=== PATIENT | male | born 1960 | race Caucasian/White ===

== ENCOUNTER 2020-11-19 05:35 | Emergency (ER) | payer OTHER, SELFPAY ==
[2020-11-19] VITALS (12 sets, daily range): BP systolic 152–170; BP diastolic 110–124; PULSE 91–118; RESP 16–29; TEMP 37.7; O2SAT 90–97; BMI 23.6
--- NOTE | 2020-11-19 05:50 | XRR_ITS ---
PROCEDURE INFORMATION: Exam: XR Chest Exam date and time: 11/19/2020 5:52 AM Age: 60 years old Clinical indication: Shortness of breath; Additional info: SOB TECHNIQUE: Imaging protocol: XR of the chest Views: 1 view. COMPARISON: CR Chest 2 views* [id number] 08/07/2017 9:14 AM FINDINGS: Lungs: Single calcified pulmonary granuloma is present, consistent with prior granulomatous disease. Pleural spaces: Stable small left pleural effusion. Heart/Mediastinum: Mild cardiomegaly. Bones/joints: Unremarkable. Other findings: . XR/XR chest 1V portable [id number] IMPRESSION: Mild cardiomegaly. Stable small left pleural effusion.
--- NOTE | 2020-11-19 05:51 | ECG_ITS ---
[facility] Test Date: 2020-11-19 Pat Name: Jose Carlos Armendariz Department: Room: Gender: Male [place]: : 1960 Requested By: Tvein Monaco Order Number: [id number] Erma MD: Peter Paniagua M.D. Measurements Intervals [place] Rate: 111 P: 63 NC: 167 QRS: 28 QRSD: 98 T: 53 QT: 350 QTc: 476 Interpretive Statements SINUS TACHYCARDIA LEFT ATRIAL ENLARGEMENT [-0.15mV P WAVE IN V1/V2] POSSIBLE LEFT VENTRICULAR HYPERTROPHY [VOLTAGE CRITERIA PLUS LAE OR QRS WIDENING] NONSPECIFIC T-WAVE ABNORMALITY Compared to ECG 08/07/2017 14:51:25 Sinus rhythm no longer present Possible ischemia no longer present T-wave abnormality still present Electronically Signed On 11-19-2020 13:13:35 CDT by Peter Paniagua M.D. [id number]
--- NOTE | 2020-11-19 05:53 | ED_ITS ---
Documented by User: Tevin Navas, DO 11/19/20 05:59 HPI - SOB/Dyspnea General: Chief Complaint: Shortness of Breath/Dyspnea Stated Complaint: SOB Time Seen by Provider: 11/19/20 05:41 History of Present Illness: HPI Narrative: 60-year-old male with no definite prior history of COPD. He does have an inhaler, which he is out of. He notes increasing shortness of breath with dry cough for the past week. He notes wheezing, especially with lying down at night to sleep. He feels better sitting up. He has had a low-grade temp. Not necessarily any chills. He does not usually use oxygen at home. MD elicited complaint: shortness of breath and cough Pertinent past history: other Onset (ago): week(s) (1) Timing: constant and progressively worsening Severity: moderate Exacerbating factors: lying flat and exertion Relieving factors: nothing Associated symptoms: Reports chest congestion, cough, dizziness, fever(s), nausea and orthopnea; Deny chest pain, diaphoresis, extremity pain or hemoptysis Treatment prior to arrival: none Review of Systems Const: Reports: fever(s); Denies: diaphoresis Eyes: Denies: change in vision ENMT: Denies: odynophagia, swelling of lips/tongue or sinus pain Card: Reports: orthopnea; Denies: chest pain Resp: Reports: chest congestion; Denies: hemoptysis GI: Reports: nausea : Denies: difficulty urinating or hematuria Musc: Denies: extremity pain Skin/Breast: Denies: rash or erythema Neuro: Reports: dizziness Psych: Denies: anxiety Physical Exam Const: GENERAL APPEARANCE: well developed ORIENTATION/CONSCIOUSNESS: Yes oriented to person, Yes oriented to place and Yes oriented to time HENMT: COMMON NORMALS: normocephalic, external ears normal and Normal external nose present HEAD & SCALP: normocephalic FACE & SINUS: normal facial exam NOSE: Normal external nose present and No nasal discharge present EXTERNAL EAR: Yes external ears normal Eye: COMMON NORMALS: Equal, round and reactive pupils present, EOMs intact bilaterally and conjunctivae normal EYELID: eyelids normal CONJUNCTIVA: Yes conjunctivae normal PUPIL: Yes Equal, round and reactive pupils present Neck/C-Spine: GENERAL: No tracheal deviation Chest: COMMONS NORMALS: normal inspection of the chest CHEST: No tenderness Resp: COMMON NORMALS: negative for clear to auscultation bilaterally EFFORT & INSPECTION: Yes tachypneic, Yes respiratory distress, No retractions, Yes uses accessory muscles and No tracheal deviation AUSCULTATION: not clear to auscultation bilaterally, rhonchi, wheezes and diminished lung sounds Cardio: COMMON NORMALS: regular rhythm RATE: tachycardic RHYTHM: regular rhythm HEART SOUNDS: no murmurs PERIPHERAL PULSES: radial pulses present GI: INSPECTION: No abdominal distension AUSCULTATION: No Hyperactive bowel sounds present and No Hypoactive bowel sounds present PALPATION: No Guarding due to palpation present (GI) and No Rigid due to palpation PERCUSSION: no dullness to percussion and no tympanic to percussion Neuro: SENSORIUM/ORIENTATION: Yes oriented to person, Yes oriented to place and Yes oriented to time Psych: COMMON NORMALS: mental status grossly normal Skin: COMMON NORMALS: no rashes or lesions noted GENERAL SKIN EXAM: no rashes or lesions noted Course Vital Signs: Vital signs: Vital Signs Temperature 99.8 F H 11/19/20 05:41 Pulse Rate 93 11/19/20 10:30 Respiratory Rate 20 H 11/19/20 10:30 Blood Pressure 156/124 11/19/20 10:30 Pulse Oximetry 93 11/19/20 10:30 MDM - SOB/Dyspnea MDM Narrative: Medical decision making narrative: 60-year-old male short of breath. He has a temperature of 99.8 and is tachycardic. Labs and x-ray are pending. He will be checked out to Dr. West at shift change. Lab Data: Labs: Lab Results 11/19/20 11/19/20 11/19/20 Range/Units 05:56 06:18 06:20 WBC (4.0-10.0) 10^3/ uL RBC (4.1-5.3) 10^6/u L Hgb (11.7-16.6) g/dL Hct (42.0-52.0) % MCV (80-94) fL MCH (28.0-34.0) pg MCHC (30.0-36.0) g/dL RDW (12.1-15.1) % Plt Count (130-400) 10^3/c mm MPV (7.4-10.4) fL Neut % (Auto) % Lymph % (Auto) % [place] % (Auto) % Eos % (Auto) % Baso % (Auto) % Neut # (Auto) (1.8-7.7) 10^3/u L Lymph # (Auto) (0.8-4.8) 10^3/u L [place] # (Auto) (0.2-0.9) 10^3/u L Eos # (Auto) (0.0-0.8) 10^3/u L Baso # (Auto) (0.0-0.1) 10^3/u L Nucleated RBC % (a uto) % Nucleated RBCs # /100WBC D-Dimer (0-0.59) ug/mIFE U Specimen Type Arterial Sample Site Brachial, right ABG pH 7.40 (7.35-7.45) ABG pCO2 32.0 L (35-45) mmHg ABG pO2 74.6 L (80.0-100.0) mmH g ABG HCO3 19.9 L (22-26) mmol/L ABG Base Excess -3.9 L (-2.0-2.0) mmol/ L Melquiades Test N/a Hematocrit 42.2 (42-52) % Hgb O2 Saturation 92.5 L (95-100) % Carboxyhemoglobin 1.8 (0.4-20.1) %THgb Methemoglobin 0.8 (0.4-1.5) % Total Hemoglobin 13.8 L (14-18) g/dL O2 Delivery Device Room air FiO2 21.0 % Government Affairs Manager ID Harkr Sodium (136-145) mmol/L Potassium (3.5-5.1) mmol/L Chloride (98-107) mmol/L Carbon Dioxide (22-29) mmol/L Anion Gap (5-19) BUN (6-20) mg/dL Creatinine (0.7-1.2) mg/dL GFR Calculation (90-130) mL/min Glucose (65-115) mg/dL Calculated Osmolal ity (285-295) mOsm/k g Lactic Acid (0.5-2.2) mmol/L Calcium (8.5-10.5) mg/dL Total Bilirubin (0.15-1.2) mg/dL AST (0-40) U/L ALT (0-41) U/L Alkaline Phosphata se (40-130) IU/L Troponin T Baselin e (0-15) ng/L Troponin T 120 Min [place] (0-15) ng/L Delta Troponin T (0-10) ABS# C-Reactive Protein (0.0-4.9) mg/L NT-Pro-B Natriuret Pep (0-125) pg/mL Total Protein (6.6-8.7) g/dL Albumin (3.5-5.2) g/dL Globulin (1.3-4.6) g/dL Procalcitonin (0-0.5) ng/mL Influenza Type A A g Negative (Negative) Influenza Type B A g Negative (Negative) SARS-CoV-2 Ag (Rap id) Negative (Negative) 11/19/20 11/19/20 11/19/20 Range/Units 06:24 06:24 06:24 WBC 10.1 H (4.0-10.0) 10^3/ uL RBC 4.07 L (4.1-5.3) 10^6/u L Hgb 13.3 (11.7-16.6) g/dL Hct 40.2 L (42.0-52.0) % MCV 98.8 H (80-94) fL MCH 32.7 (28.0-34.0) pg MCHC 33.1 (30.0-36.0) g/dL RDW 14.0 (12.1-15.1) % Plt Count 243 (130-400) 10^3/c mm MPV 10.1 (7.4-10.4) fL Neut % (Auto) 70.6 % Lymph % (Auto) 21.2 % [place] % (Auto) 6.9 % Eos % (Auto) 0.4 % Baso % (Auto) 0.5 % Neut # (Auto) 7.12 (1.8-7.7) 10^3/u L Lymph # (Auto) 2.1 (0.8-4.8) 10^3/u L [place] # (Auto) 0.7 (0.2-0.9) 10^3/u L Eos # (Auto) 0.0 (0.0-0.8) 10^3/u L Baso # (Auto) 0.1 (0.0-0.1) 10^3/u L Nucleated RBC % (a uto) 0 % Nucleated RBCs # 0.0 /100WBC D-Dimer 2.65 H (0-0.59) ug/mIFE U Specimen Type Sample Site ABG pH (7.35-7.45) ABG pCO2 (35-45) mmHg ABG pO2 (80.0-100.0) mmH g ABG HCO3 (22-26) mmol/L ABG Base Excess (-2.0-2.0) mmol/ L Melquiades Test Hematocrit (42-52) % Hgb O2 Saturation (95-100) % Carboxyhemoglobin (0.4-20.1) %THgb Methemoglobin (0.4-1.5) % Total Hemoglobin (14-18) g/dL O2 Delivery Device FiO2 % Government Affairs Manager ID Sodium 138 (136-145) mmol/L Potassium 4.2 (3.5-5.1) mmol/L Chloride 103 (98-107) mmol/L Carbon Dioxide 19 L (22-29) mmol/L Anion Gap 20.2 H (5-19) BUN 17 (6-20) mg/dL Creatinine 0.9 (0.7-1.2) mg/dL GFR Calculation 86.7 L (90-130) mL/min Glucose 75 (65-115) mg/dL Calculated Osmolal ity 286 (285-295) mOsm/k g Lactic Acid (0.5-2.2) mmol/L Calcium 8.4 L (8.5-10.5) mg/dL Total Bilirubin 1.7 H (0.15-1.2) mg/dL AST 646 H (0-40) U/L ALT 428 H (0-41) U/L Alkaline Phosphata se 123 (40-130) IU/L Troponin T Baselin e (0-15) ng/L Troponin T 120 Min [place] (0-15) ng/L Delta Troponin T (0-10) ABS# C-Reactive Protein 33.8 H (0.0-4.9) mg/L NT-Pro-B Natriuret Pep 8450 H (0-125) pg/mL Total Protein 6.8 (6.6-8.7) g/dL Albumin 3.8 (3.5-5.2) g/dL Globulin 3.0 (1.3-4.6) g/dL Procalcitonin 0.14 (0-0.5) ng/mL Influenza Type A A g (Negative) Influenza Type B A g (Negative) SARS-CoV-2 Ag (Rap id) (Negative) 11/19/20 11/19/20 11/19/20 Range/Units 06:24 06:24 08:20 WBC (4.0-10.0) 10^3/ uL RBC (4.1-5.3) 10^6/u L Hgb (11.7-16.6) g/dL Hct (42.0-52.0) % MCV (80-94) fL MCH (28.0-34.0) pg MCHC (30.0-36.0) g/dL RDW (12.1-15.1) % Plt Count (130-400) 10^3/c mm MPV (7.4-10.4) fL Neut % (Auto) % Lymph % (Auto) % [place] % (Auto) % Eos % (Auto) % Baso % (Auto) % Neut # (Auto) (1.8-7.7) 10^3/u L Lymph # (Auto) (0.8-4.8) 10^3/u L [place] # (Auto) (0.2-0.9) 10^3/u L Eos # (Auto) (0.0-0.8) 10^3/u L Baso # (Auto) (0.0-0.1) 10^3/u L Nucleated RBC % (a uto) % Nucleated RBCs # /100WBC D-Dimer (0-0.59) ug/mIFE U Specimen Type Sample Site ABG pH (7.35-7.45) ABG pCO2 (35-45) mmHg ABG pO2 (80.0-100.0) mmH g ABG HCO3 (22-26) mmol/L ABG Base Excess (-2.0-2.0) mmol/ L Melquiades Test Hematocrit (42-52) % Hgb O2 Saturation (95-100) % Carboxyhemoglobin (0.4-20.1) %THgb Methemoglobin (0.4-1.5) % Total Hemoglobin (14-18) g/dL O2 Delivery Device FiO2 % Government Affairs Manager ID Sodium (136-145) mmol/L Potassium (3.5-5.1) mmol/L Chloride (98-107) mmol/L Carbon Dioxide (22-29) mmol/L Anion Gap (5-19) BUN (6-20) mg/dL Creatinine (0.7-1.2) mg/dL GFR Calculation (90-130) mL/min Glucose (65-115) mg/dL Calculated Osmolal ity (285-295) mOsm/k g Lactic Acid 2.4 H (0.5-2.2) mmol/L Calcium (8.5-10.5) mg/dL Total Bilirubin (0.15-1.2) mg/dL AST (0-40) U/L ALT (0-41) U/L Alkaline Phosphata se (40-130) IU/L Troponin T Baselin e 56 H (0-15) ng/L Troponin T 120 Min [place] 55.00 H (0-15) ng/L Delta Troponin T -1.00 L (0-10) ABS# C-Reactive Protein (0.0-4.9) mg/L NT-Pro-B Natriuret Pep (0-125) pg/mL Total Protein (6.6-8.7) g/dL Albumin (3.5-5.2) g/dL Globulin (1.3-4.6) g/dL Procalcitonin (0-0.5) ng/mL Influenza Type A A g (Negative) Influenza Type B A g (Negative) SARS-CoV-2 Ag (Rap id) (Negative) Discharge Plan Discharge Patient Disposition: Home Clinical Impression: Acute exacerbation of chronic obstructive airways disease Condition: Stable Prescriptions: New doxycycline hyclate 100 mg capsule 100 mg PO BID 10 Days Qty: 20 RF: 0 Medrol (Demetri) 4 mg tablets,dose pack See Rx Instructions .ROUTE .COMPLEX Qty: 21 RF: 0 Discharge Orders: Discharge ED (Routine); Ordered 11/19/20 Ordered By: Reji West Patient Instructions: Opioid Safety Activity Restrictions/Additional Instructions: Follow up with your PCP within the next week. Your tested for Covid today we recommend that you maintain a self quarantine until the results have returned. If you have any worsening return immediately. Sign Out Sign Out Data: Patient Sign Out occurred on 11/19/20 at 06:30. Patient's care was discussed, and care was transferred from to Reji West DO. Coding Level of Care Code ED [employer] Service Unit Operator for Chg Fwd Exam Comprehensive Documented by User: Reji West DO 11/19/20 10:45 HPI - SOB/Dyspnea General: Chief Complaint: Shortness of Breath/Dyspnea Stated Complaint: SOB Time Seen by Provider: 11/19/20 05:41 Course Vital Signs: Vital signs: Vital Signs Temperature 99.8 F H 11/19/20 05:41 Pulse Rate 93 11/19/20 10:30 Respiratory Rate 20 H 11/19/20 10:30 Blood Pressure 156/124 11/19/20 10:30 Pulse Oximetry 93 11/19/20 10:30 MDM - SOB/Dyspnea MDM Narrative: Medical decision making narrative: Home O2 evaluation shows does not require oxygen at this time. He had significant improvement with albuterol inhaler. Rapid Covid negative no sign of acute pneumonia we will start him on doxycycline steroid taper encourage albuterol use regularly follow- up with primary care later this week we did send out a PCR Covid on him as him remain quarantined until results Lab Data: Labs: Lab Results 11/19/20 11/19/20 11/19/20 Range/Units 05:56 06:18 06:20 WBC (4.0-10.0) 10^3/ uL RBC (4.1-5.3) 10^6/u L Hgb (11.7-16.6) g/dL Hct (42.0-52.0) % MCV (80-94) fL MCH (28.0-34.0) pg MCHC (30.0-36.0) g/dL RDW (12.1-15.1) % Plt Count (130-400) 10^3/c mm MPV (7.4-10.4) fL Neut % (Auto) % Lymph % (Auto) % [place] % (Auto) % Eos % (Auto) % Baso % (Auto) % Neut # (Auto) (1.8-7.7) 10^3/u L Lymph # (Auto) (0.8-4.8) 10^3/u L [place] # (Auto) (0.2-0.9) 10^3/u L Eos # (Auto) (0.0-0.8) 10^3/u L Baso # (Auto) (0.0-0.1) 10^3/u L Nucleated RBC % (a uto) % Nucleated RBCs # /100WBC D-Dimer (0-0.59) ug/mIFE U Specimen Type Arterial Sample Site Brachial, right ABG pH 7.40 (7.35-7.45) ABG pCO2 32.0 L (35-45) mmHg ABG pO2 74.6 L (80.0-100.0) mmH g ABG HCO3 19.9 L (22-26) mmol/L ABG Base Excess -3.9 L (-2.0-2.0) mmol/ L Melquiades Test N/a Hematocrit 42.2 (42-52) % Hgb O2 Saturation 92.5 L (95-100) % Carboxyhemoglobin 1.8 (0.4-20.1) %THgb Methemoglobin 0.8 (0.4-1.5) % Total Hemoglobin 13.8 L (14-18) g/dL O2 Delivery Device Room air FiO2 21.0 % Government Affairs Manager ID Harkr Sodium (136-145) mmol/L Potassium (3.5-5.1) mmol/L Chloride (98-107) mmol/L Carbon Dioxide (22-29) mmol/L Anion Gap (5-19) BUN (6-20) mg/dL Creatinine (0.7-1.2) mg/dL GFR Calculation (90-130) mL/min Glucose (65-115) mg/dL Calculated Osmolal ity (285-295) mOsm/k g Lactic Acid (0.5-2.2) mmol/L Calcium (8.5-10.5) mg/dL Total Bilirubin (0.15-1.2) mg/dL AST (0-40) U/L ALT (0-41) U/L Alkaline Phosphata se (40-130) IU/L Troponin T Baselin e (0-15) ng/L Troponin T 120 Min [place] (0-15) ng/L Delta Troponin T (0-10) ABS# C-Reactive Protein (0.0-4.9) mg/L NT-Pro-B Natriuret Pep (0-125) pg/mL Total Protein (6.6-8.7) g/dL Albumin (3.5-5.2) g/dL Globulin (1.3-4.6) g/dL Procalcitonin (0-0.5) ng/mL Influenza Type A A g Negative (Negative) Influenza Type B A g Negative (Negative) SARS-CoV-2 Ag (Rap id) Negative (Negative) 11/19/20 11/19/20 11/19/20 Range/Units 06:24 06:24 06:24 WBC 10.1 H (4.0-10.0) 10^3/ uL RBC 4.07 L (4.1-5.3) 10^6/u L Hgb 13.3 (11.7-16.6) g/dL Hct 40.2 L (42.0-52.0) % MCV 98.8 H (80-94) fL MCH 32.7 (28.0-34.0) pg MCHC 33.1 (30.0-36.0) g/dL RDW 14.0 (12.1-15.1) % Plt Count 243 (130-400) 10^3/c mm MPV 10.1 (7.4-10.4) fL Neut % (Auto) 70.6 % Lymph % (Auto) 21.2 % [place] % (Auto) 6.9 % Eos % (Auto) 0.4 % Baso % (Auto) 0.5 % Neut # (Auto) 7.12 (1.8-7.7) 10^3/u L Lymph # (Auto) 2.1 (0.8-4.8) 10^3/u L [place] # (Auto) 0.7 (0.2-0.9) 10^3/u L Eos # (Auto) 0.0 (0.0-0.8) 10^3/u L Baso # (Auto) 0.1 (0.0-0.1) 10^3/u L Nucleated RBC % (a uto) 0 % Nucleated RBCs # 0.0 /100WBC D-Dimer 2.65 H (0-0.59) ug/mIFE U Specimen Type Sample Site ABG pH (7.35-7.45) ABG pCO2 (35-45) mmHg ABG pO2 (80.0-100.0) mmH g ABG HCO3 (22-26) mmol/L ABG Base Excess (-2.0-2.0) mmol/ L Melquiades Test Hematocrit (42-52) % Hgb O2 Saturation (95-100) % Carboxyhemoglobin (0.4-20.1) %THgb Methemoglobin (0.4-1.5) % Total Hemoglobin (14-18) g/dL O2 Delivery Device FiO2 % Government Affairs Manager ID Sodium 138 (136-145) mmol/L Potassium 4.2 (3.5-5.1) mmol/L Chloride 103 (98-107) mmol/L Carbon Dioxide 19 L (22-29) mmol/L Anion Gap 20.2 H (5-19) BUN 17 (6-20) mg/dL Creatinine 0.9 (0.7-1.2) mg/dL GFR Calculation 86.7 L (90-130) mL/min Glucose 75 (65-115) mg/dL Calculated Osmolal ity 286 (285-295) mOsm/k g Lactic Acid (0.5-2.2) mmol/L Calcium 8.4 L (8.5-10.5) mg/dL Total Bilirubin 1.7 H (0.15-1.2) mg/dL AST 646 H (0-40) U/L ALT 428 H (0-41) U/L Alkaline Phosphata se 123 (40-130) IU/L Troponin T Baselin e (0-15) ng/L Troponin T 120 Min [place] (0-15) ng/L Delta Troponin T (0-10) ABS# C-Reactive Protein 33.8 H (0.0-4.9) mg/L NT-Pro-B Natriuret Pep 8450 H (0-125) pg/mL Total Protein 6.8 (6.6-8.7) g/dL Albumin 3.8 (3.5-5.2) g/dL Globulin 3.0 (1.3-4.6) g/dL Procalcitonin 0.14 (0-0.5) ng/mL Influenza Type A A g (Negative) Influenza Type B A g (Negative) SARS-CoV-2 Ag (Rap id) (Negative) 11/19/20 11/19/20 11/19/20 Range/Units 06:24 06:24 08:20 WBC (4.0-10.0) 10^3/ uL RBC (4.1-5.3) 10^6/u L Hgb (11.7-16.6) g/dL Hct (42.0-52.0) % MCV (80-94) fL MCH (28.0-34.0) pg MCHC (30.0-36.0) g/dL RDW (12.1-15.1) % Plt Count (130-400) 10^3/c mm MPV (7.4-10.4) fL Neut % (Auto) % Lymph % (Auto) % [place] % (Auto) % Eos % (Auto) % Baso % (Auto) % Neut # (Auto) (1.8-7.7) 10^3/u L Lymph # (Auto) (0.8-4.8) 10^3/u L [place] # (Auto) (0.2-0.9) 10^3/u L Eos # (Auto) (0.0-0.8) 10^3/u L Baso # (Auto) (0.0-0.1) 10^3/u L Nucleated RBC % (a uto) % Nucleated RBCs # /100WBC D-Dimer (0-0.59) ug/mIFE U Specimen Type Sample Site ABG pH (7.35-7.45) ABG pCO2 (35-45) mmHg ABG pO2 (80.0-100.0) mmH g ABG HCO3 (22-26) mmol/L ABG Base Excess (-2.0-2.0) mmol/ L Melquiades Test Hematocrit (42-52) % Hgb O2 Saturation (95-100) % Carboxyhemoglobin (0.4-20.1) %THgb Methemoglobin (0.4-1.5) % Total Hemoglobin (14-18) g/dL O2 Delivery Device FiO2 % Government Affairs Manager ID Sodium (136-145) mmol/L Potassium (3.5-5.1) mmol/L Chloride (98-107) mmol/L Carbon Dioxide (22-29) mmol/L Anion Gap (5-19) BUN (6-20) mg/dL Creatinine (0.7-1.2) mg/dL GFR Calculation (90-130) mL/min Glucose (65-115) mg/dL Calculated Osmolal ity (285-295) mOsm/k g Lactic Acid 2.4 H (0.5-2.2) mmol/L Calcium (8.5-10.5) mg/dL Total Bilirubin (0.15-1.2) mg/dL AST (0-40) U/L ALT (0-41) U/L Alkaline Phosphata se (40-130) IU/L Troponin T Baselin e 56 H (0-15) ng/L Troponin T 120 Min [place] 55.00 H (0-15) ng/L Delta Troponin T -1.00 L (0-10) ABS# C-Reactive Protein (0.0-4.9) mg/L NT-Pro-B Natriuret Pep (0-125) pg/mL Total Protein (6.6-8.7) g/dL Albumin (3.5-5.2) g/dL Globulin (1.3-4.6) g/dL Procalcitonin (0-0.5) ng/mL Influenza Type A A g (Negative) Influenza Type B A g (Negative) SARS-CoV-2 Ag (Rap id) (Negative) Discharge Plan Discharge Patient Disposition: Home Clinical Impression: Acute exacerbation of chronic obstructive airways disease Condition: Stable Prescriptions: New doxycycline hyclate 100 mg capsule 100 mg PO BID 10 Days Qty: 20 RF: 0 Medrol (Demetri) 4 mg tablets,dose pack See Rx Instructions .ROUTE .COMPLEX Qty: 21 RF: 0 Discharge Orders: Discharge ED (Routine); Ordered 11/19/20 Ordered By: Reji West Patient Instructions: Opioid Safety Activity Restrictions/Additional Instructions: Follow up with your PCP within the next week. Your tested for Covid today we recommend that you maintain a self quarantine until the results have returned. If you have any worsening return immediately. Sign Out Sign Out Data: Patient Sign Out occurred on 11/19/20 at 06:30. Patient's care was discussed, and care was transferred from to Reji West DO. Coding Level of Care Code ED [employer] Service Unit Operator for Chg Fwd Exam Comprehensive
[2020-11-19] MEDS: ipratropium-albuterol 3 mL Neb INHALATION (06:00)
[2020-11-19 06:06] LABS: Arterial Blood Gas Hematocrit 42.2 % (42-52); Base Excess ABG -3.9 mmol/L (-2.0-2.0); Blood Gas Operator Identificat HARKR; Blood Gas Sample Site Brachial, right; Blood Gas Sample Type Arterial; Carboxyhemoglobin 1.8 %THgb (0.4-20.1); HCO3 ABG 19.9 mmol/L (22-26); HGB O2 Sat 92.5 % (95-100); Methemoglobin 0.8 % (0.4-1.5); Oxygen Device ROOM AIR; PO2 ABG 74.6 mmHg (80.0-100.0); Total Hemoglobin 13.8 g/dL (14-18)
[2020-11-19] MEDS: dexamethasone 10 mg/mL INJ IVP (06:16)
[2020-11-19 06:36] LABS: Basophils # 0.1 10^3/uL (0.0-0.1); Basophils % 0.5 %; Eosinophils % 0.4 %; Hematocrit 40.2 % (42.0-52.0); Hemoglobin 13.3 g/dL (11.7-16.6); Lymphocytes # 2.1 10^3/uL (0.8-4.8); Lymphocytes % 21.2 %; Mean Corpuscular HGB Conc 33.1 g/dL (30.0-36.0); Mean Corpuscular Hemoglobin 32.7 pg (28.0-34.0); Mean Corpuscular Volume 98.8 fL (80-94); Mean Platelet Volume 10.1 fL (7.4-10.4); Monocytes # 0.7 10^3/uL (0.2-0.9); Monocytes % 6.9 %; Neutrophils # 7.12 10^3/uL (1.8-7.7); Neutrophils % 70.6 %; Nucleated Red Blood Cells % 0 %; Platelet Count 243 10^3/cmm (130-400); Red Blood Count 4.07 10^6/uL (4.1-5.3); White Blood Count 10.1 10^3/uL (4.0-10.0)
[2020-11-19 06:53] LABS: Lactic Sepsis W/Reflex 2.4 mmol/L (0.5-2.2)
[2020-11-19 06:59] LABS: D Dimer 2.65 ug/mIFEU (0-0.59)
[2020-11-19 07:02] LABS: SARS Covid-2 Antigen Negative (Negative)
[2020-11-19 07:02] LABS: Influenza A by IFA Negative (Negative); Influenza B by IFA Negative (Negative)
[2020-11-19 07:03] LABS: NT Pro B Type Natriuretic Pept 8450 pg/mL (0-125); Procalcitonin 0.14 ng/mL (0-0.5)
--- NOTE | 2020-11-19 07:09 | CTR_ITS ---
PROCEDURE INFORMATION: Exam: CT Angiography Chest With Contrast Exam date and time: 11/19/2020 7:14 AM Age: 60 years old Clinical indication: Shortness of breath; Additional info: Dyspnea/tachycardia TECHNIQUE: Imaging protocol: Computed tomographic angiography of the chest with contrast. 3D rendering (Not supervised by radiologist): MIP and/or 3D reconstructed images were created by the technologist. Radiation optimization: All CT scans at this facility use at least one of these dose optimization techniques: automated exposure control; mA and/or kV adjustment per patient size (includes targeted exams where dose is matched to clinical indication); or iterative reconstruction. Contrast material: OMNIPAQUE 350; Contrast volume: 70 ml; Contrast route: INTRAVENOUS (IV); COMPARISON: CTA Chest-Pulmonary Emb [id number] 08/07/2017 10:58 AM RADIATION DOSE METRICS: Total DLP (mGy-cm): 596.26 FINDINGS: Pulmonary arteries: Normal. No pulmonary emboli. Aorta: Unremarkable. No aortic aneurysm. No aortic dissection. Other arteries: The origins of the renal arteries are calcified and may be stenotic. Lungs: There is a benign calcified granuloma in the left lung base. Emphysematous changes are present bilaterally with bulla in the lung apices. There is subsegmental atelectasis in the lung bases. Pleural spaces: Unremarkable. No pneumothorax. No pleural effusion. Heart: The heart is enlarged. There is a small pericardial effusion. There is calcification of the coronary arteries. Lymph nodes: There is mediastinal adenopathy with enlarged lymph nodes predominantly in the precarinal and AP window. These are unchanged since 08/07/2017 and probably reactive in nature. Bones/joints: Chronic degenerative changes are present in the spine with sclerosis and osteophytes. Soft tissues: Unremarkable. CT/CT angio chest PE protcl [id number] IMPRESSION: 1. No evidence of pulmonary embolus or aortic aneurysm. 2. Cardiomegaly. Small pericardial effusion. 3. Coronary artery calcification. 4. Pulmonary bullous emphysema. 5. Mediastinal adenopathy unchanged and most likely reactive in nature. Radiation Dose CTDIVOL = (mGy): DLP = 596.26 (mGy-cm)
[2020-11-19 07:12] LABS: Troponin(5th) Baseline 56 ng/L (0-15)
[2020-11-19 07:18] LABS: Alanine Aminotransferase 428 U/L (0-41); Albumin Level 3.8 g/dL (3.5-5.2); Alkaline Phosphatase 123 IU/L (40-130); Anion Gap 20.2 (5-19); Aspartate Amino Transferase 646 U/L (0-40); Blood Urea Nitrogen 17 mg/dL (6-20); C Reactive Protein 33.8 mg/L (0.0-4.9); Calcium 8.4 mg/dL (8.5-10.5); Carbon Dioxide 19 mmol/L (22-29); Chloride 103 mmol/L (98-107); Glomerular Filtration Rate 86.7 mL/min (90-130); Glucose 75 mg/dL (65-115); Osmolality Calculated 286 mOsm/kg (285-295); Potassium 4.2 mmol/L (3.5-5.1); Sodium 138 mmol/L (136-145); Total Bilirubin 1.7 mg/dL (0.15-1.2); Total Protein 6.8 g/dL (6.6-8.7)
--- NOTE | 2020-11-19 07:51 | ECG_ITS ---
[facility] Test Date: 2020-11-19 Pat Name: Jose Carlos Armendariz Department: Room: Gender: Male Material Clerk: : 1960 Requested By: Tevin Monaco Order Number: [id number] Erma MD: Peter Paniagua M.D. Measurements Intervals [place] Rate: 103 P: 52 CO: 140 QRS: 21 QRSD: 103 T: 63 QT: 371 QTc: 488 Interpretive Statements SINUS TACHYCARDIA LEFT ATRIAL ENLARGEMENT [-0.15mV P WAVE IN V1/V2] POSSIBLE LEFT VENTRICULAR HYPERTROPHY [VOLTAGE CRITERIA PLUS LAE OR QRS WIDENING] NONSPECIFIC ST & T-WAVE ABNORMALITY Compared to ECG 11/19/2020 06:10:18 No significant changes Electronically Signed On 11-19-2020 13:13:54 CDT by Peter Paniagua M.D. [email or web address]
[2020-11-19] MEDS: iohexol 350 mg/mL 100 mL Btl IV (08:05)
[2020-11-19 08:19] LABS: Reflex Lactate Order REFLEX LACTIC ORDERD
[2020-11-19] MEDS: albuterol 8 gm MDI 2 PUFF INHALATION (09:23)
[2020-11-21 14:05] LABS: Coronavirus Test Green County Not Detected
--- NOTE | 2020-11-22 09:25 | PC.NURSE ---
PT WAS MAILED A LETTER ABOUT THE RESULTS OF HIS COVID TEST.
== END 2020-11-19 10:32 | disposition home or self-care (01) ==
PROVIDERS: Emergency Medicine; Emergency Provider Family Medicine
DX: J44.1 Chronic obstructive pulmonary disease with (acute) exacerbation (principal)
CPT/HCPCS: 36415; 36600; 71045; 71275; 80053; 82805; 83605; 83880; 84145; 84484; 85025; 85378; 86140; 87040; 87426; 87635; 87804; 93005; 94640; 94760; 96374; 96376; 99284; J1100; J3535; Q9967

== ENCOUNTER 2020-12-21 06:56 | Inpatient (IN) | payer OTHER, SELFPAY ==
[2020-12-21] VITALS (14 sets, daily range): BP systolic 115–154; BP diastolic 86–106; PULSE 97–120; RESP 16–23; TEMP 36.5–36.9; O2SAT 90–96; BMI 34.4
--- NOTE | 2020-12-21 06:57 | XR_ITS ---
WS: [id number] Exam: XR chest 1V portable [id number] Date/Time of Exam: 12/21/2020 6:59 AM Reason For Exam: dyspnea/cough Comparison 11/19/2020. Cardiac enlargement noted. Small left pleural effusion. Mild plaque atelectasis in the right base. Re maining lung de la torre are clear. Pulmonary vascularity is mildly increased. Regional bony elements are intact. Monitoring leads superimpose the chest. XR/XR chest 1V portable [id number] IMPRESSION: 1. Cardiac enlargement. Small left pleural effusion. Some degree of mild chroni c CHF is suspected.
--- NOTE | 2020-12-21 07:08 | ED_ITS ---
HPI - SOB/Dyspnea General: Chief Complaint: Shortness of Breath/Dyspnea Stated Complaint: CHF Time Seen by Provider: 12/21/20 06:57 History of Present Illness: HPI Narrative: 60-year-old male presents emergency room with complaints of shortness of breath.Patient is not currently on oxygen at home he was seen a couple weeks ago with exacerbation COPD in ER and discharged home. Planing of some increased swelling and shortness of breath mild orthopnea. He does not use any interventions today. EMS placed nitro on abdomen evidently given 25 mg of captopril. When I arrived in the room he is on room air with a nasal cannula in place and is satting 96%. States he has been having increasing shortness of breath over the last few days. Review of his old records there is a echocardiogram from July 2017 shows an EF of 25%. Patient continues to smoke. He has a known history of COPD is not chronically on oxygen. Patient reports increasing weight for the last 2 weeks with increasing lower extremity edema. MD elicited complaint: shortness of breath and cough Pertinent past history: COPD and congestive heart failure Onset (ago): week(s) (2) Timing: constant Severity: moderate Exacerbating factors: lying flat, movement and coughing Relieving factors: rest and upright position Known history of: COPD and congestive heart failure Associated symptoms: Reports cough and orthopnea; Deny abdominal pain, chest congestion, chest pain, diaphoresis, dizziness, extremity pain, fever(s), hemoptysis, lightheadedness, myalgias, nausea, palpitations, paresthesias, polydipsia, polyuria, rash, sense of impending doom, syncope or vomiting Treatment prior to arrival: oxygen, nitroglycerin and other (Captopril) Review of Systems Const: Denies: fever(s) or diaphoresis ENMT: Denies: throat pain, ear or mastoid pain, nasal discharge or nasal congestion Card: Reports: orthopnea; Denies: chest pain, palpitations, lightheadedness or syncope Resp: Denies: hemoptysis or chest congestion GI: Denies: abdominal pain, nausea or vomiting : Denies: flank pain, dysuria, urinary frequency or urinary urgency Musc: Denies: extremity pain Skin/Breast: Denies: rash or pruritus Neuro: Denies: dizziness Endo: Denies: polyuria or polydipsia [facility] ED PFSH: Medical History (Updated 12/26/20 @ 13:03 by Reji West DO) Alcohol use disorder CHF (congestive heart failure) COPD (chronic obstructive pulmonary disease) History of amphetamine abuse Hypertension Nonischemic cardiomyopathy Obesity Surgical History (Updated 12/21/20 @ 11:13 by David Leiva MD) History of surgery on arm Social History (Updated 12/21/20 @ 11:14 by David Leiva MD) Smoking and tobacco status: current every day smoker Alcohol intake: current Alcohol intake frequency: 3 or more drinks per day Substance/Drug Use: former Date of last use: Reports he quit 3 months ago, amphetamine Physical Exam Const: COMMON NORMALS: no acute distress GENERAL APPEARANCE: cooperative and comfortable ORIENTATION/CONSCIOUSNESS: Yes awake HENMT: COMMON NORMALS: normocephalic, atraumatic and hearing grossly normal bilaterally HEAD & SCALP: normocephalic and atraumatic Neck/C-Spine: COMMON NORMALS: no JVD Resp: COMMON NORMALS: normal respiratory effort, No retractions and No use of accessory muscles AUSCULTATION: wheezes expiratory wheezes Cardio: COMMON NORMALS: no JVD, regular rate, regular rhythm and No murmurs present (Cardio) RATE: regular rate RHYTHM: regular rhythm GI: COMMON NORMALS: Soft to palpation and No hepatosplenomegaly present AUSCULTATION: Yes normoactive bowel sounds PALPATION: Yes Soft to palpation, No Tenderness to palpation present (GI), No Guarding due to palpation present (GI) and Yes No hepatosplenomegaly present Extremity: COMMON NORMALS: normal to inspection, capillary refill normal and no calf tenderness GENERAL: Yes edema (Trace edema lower extremities) Skin: COMMON NORMALS: no rashes or lesions noted GENERAL SKIN EXAM: no rashes or lesions noted Course Vital Signs: Vital signs: Vital Signs Temperature 97.6 F 12/26/20 12:00 Pulse Rate 97 12/26/20 12:00 Respiratory Rate 16 12/26/20 12:00 Blood Pressure 110/76 12/26/20 12:00 Pulse Oximetry 97 12/26/20 12:00 MDM - SOB/Dyspnea MDM Narrative: Medical decision making narrative: Reviewed results with patient and discussed with Dr. Chery will admit for acute congestive heart failure monitor for alcohol withdrawal Lab Data: Labs: Lab Results 12/21/20 12/21/20 12/21/20 Range/Units 07:25 07:25 07:28 WBC 7.6 (4.0-10.0) 10^3/ uL RBC 4.18 (4.1-5.3) 10^6/u L Hgb 13.8 (11.7-16.6) g/dL Hct 42.2 (42.0-52.0) % MCV 101.0 H (80-94) fL MCH 33.0 (28.0-34.0) pg MCHC 32.7 (30.0-36.0) g/dL RDW 14.7 (12.1-15.1) % Plt Count 202 (130-400) 10^3/c mm MPV 9.9 (7.4-10.4) fL Neut % (Auto) 76.0 % Lymph % (Auto) 15.6 % [place] % (Auto) 6.8 % Eos % (Auto) 0.5 % Baso % (Auto) 0.8 % Neut # (Auto) 5.74 (1.8-7.7) 10^3/u L Lymph # (Auto) 1.2 (0.8-4.8) 10^3/u L [place] # (Auto) 0.5 (0.2-0.9) 10^3/u L Eos # (Auto) 0.0 (0.0-0.8) 10^3/u L Baso # (Auto) 0.1 (0.0-0.1) 10^3/u L Nucleated RBC % (a uto) 0 % Nucleated RBCs # 0.0 /100WBC PT (12.1-14.9) SECO NDS INR (0.8-1.2) APTT (23.9-36.7) SECO NDS Sodium (136-145) mmol/L Potassium (3.5-5.1) mmol/L Chloride (98-107) mmol/L Carbon Dioxide (22-29) mmol/L Anion Gap (5-19) BUN (6-20) mg/dL Creatinine (0.7-1.2) mg/dL GFR Calculation (90-130) mL/min Glucose (65-115) mg/dL Calculated Osmolal ity (285-295) mOsm/k g Calcium (8.5-10.5) mg/dL Magnesium 1.8 (1.7-2.3) mg/dL Total Bilirubin (0.15-1.2) mg/dL AST (0-40) U/L ALT (0-41) U/L Alkaline Phosphata se (40-130) IU/L Ammonia (16-60) umol/L Troponin T Baselin e (0-15) ng/L Troponin T 120 Min grand traverse (0-15) ng/L Delta Troponin T (0-10) ABS# NT-Pro-B Natriuret Pep (0-125) pg/mL Total Protein (6.6-8.7) g/dL Albumin (3.5-5.2) g/dL Globulin (1.3-4.6) g/dL TSH 4.32 H (0.27-4.20) uIU/ mL Hepatitis A IgM Ab Non-reactive (Nonreactive) Hep Bs Antigen Non-reactive (Nonreactive) Hep B Core IgM Ab Non-reactive (Nonreactive) Hepatitis C Antibo dy Reactive H (Nonreactive) 12/21/20 12/21/20 12/21/20 Range/Units 07:28 07:38 07:38 WBC (4.0-10.0) 10^3/ uL RBC (4.1-5.3) 10^6/u L Hgb (11.7-16.6) g/dL Hct (42.0-52.0) % MCV (80-94) fL MCH (28.0-34.0) pg MCHC (30.0-36.0) g/dL RDW (12.1-15.1) % Plt Count (130-400) 10^3/c mm MPV (7.4-10.4) fL Neut % (Auto) % Lymph % (Auto) % [place] % (Auto) % Eos % (Auto) % Baso % (Auto) % Neut # (Auto) (1.8-7.7) 10^3/u L Lymph # (Auto) (0.8-4.8) 10^3/u L [place] # (Auto) (0.2-0.9) 10^3/u L Eos # (Auto) (0.0-0.8) 10^3/u L Baso # (Auto) (0.0-0.1) 10^3/u L Nucleated RBC % (a uto) % Nucleated RBCs # /100WBC PT 15.80 H (12.1-14.9) SECO NDS INR 1.22 H (0.8-1.2) APTT 32.4 (23.9-36.7) SECO NDS Sodium 136 (136-145) mmol/L Potassium 4.7 (3.5-5.1) mmol/L Chloride 103 (98-107) mmol/L Carbon Dioxide 23 (22-29) mmol/L Anion Gap 14.7 (5-19) BUN 13 (6-20) mg/dL Creatinine 0.8 (0.7-1.2) mg/dL GFR Calculation 99.3 (90-130) mL/min Glucose 105 (65-115) mg/dL Calculated Osmolal ity 282 L (285-295) mOsm/k g Calcium 8.1 L (8.5-10.5) mg/dL Magnesium 1.8 (1.7-2.3) mg/dL Total Bilirubin 1.3 H (0.15-1.2) mg/dL AST 155 H (0-40) U/L ALT 120 H (0-41) U/L Alkaline Phosphata se 99 (40-130) IU/L Ammonia (16-60) umol/L Troponin T Baselin e 59 H (0-15) ng/L Troponin T 120 Min grand traverse (0-15) ng/L Delta Troponin T (0-10) ABS# NT-Pro-B Natriuret Pep 7124 H (0-125) pg/mL Total Protein 6.4 L (6.6-8.7) g/dL Albumin 3.2 L (3.5-5.2) g/dL Globulin 3.2 (1.3-4.6) g/dL TSH (0.27-4.20) uIU/ mL Hepatitis A IgM Ab (Nonreactive) Hep Bs Antigen (Nonreactive) Hep B Core IgM Ab (Nonreactive) Hepatitis C Antibo dy (Nonreactive) 12/21/20 12/21/20 Range/Units 09:48 09:48 WBC (4.0-10.0) 10^3/ uL RBC (4.1-5.3) 10^6/u L Hgb (11.7-16.6) g/dL Hct (42.0-52.0) % MCV (80-94) fL MCH (28.0-34.0) pg MCHC (30.0-36.0) g/dL RDW (12.1-15.1) % Plt Count (130-400) 10^3/c mm MPV (7.4-10.4) fL Neut % (Auto) % Lymph % (Auto) % [place] % (Auto) % Eos % (Auto) % Baso % (Auto) % Neut # (Auto) (1.8-7.7) 10^3/u L Lymph # (Auto) (0.8-4.8) 10^3/u L [place] # (Auto) (0.2-0.9) 10^3/u L Eos # (Auto) (0.0-0.8) 10^3/u L Baso # (Auto) (0.0-0.1) 10^3/u L Nucleated RBC % (a uto) % Nucleated RBCs # /100WBC PT (12.1-14.9) SECO NDS INR (0.8-1.2) APTT (23.9-36.7) SECO NDS Sodium (136-145) mmol/L Potassium (3.5-5.1) mmol/L Chloride (98-107) mmol/L Carbon Dioxide (22-29) mmol/L Anion Gap (5-19) BUN (6-20) mg/dL Creatinine (0.7-1.2) mg/dL GFR Calculation (90-130) mL/min Glucose (65-115) mg/dL Calculated Osmolal ity (285-295) mOsm/k g Calcium (8.5-10.5) mg/dL Magnesium (1.7-2.3) mg/dL Total Bilirubin (0.15-1.2) mg/dL AST (0-40) U/L ALT (0-41) U/L Alkaline Phosphata se (40-130) IU/L Ammonia 30 (16-60) umol/L Troponin T Baselin e (0-15) ng/L Troponin T 120 Min grand [place] 60.50 H (0-15) ng/L Delta Troponin T 1.50 (0-10) ABS# NT-Pro-B Natriuret Pep (0-125) pg/mL Total Protein (6.6-8.7) g/dL Albumin (3.5-5.2) g/dL Globulin (1.3-4.6) g/dL TSH (0.27-4.20) uIU/ mL Hepatitis A IgM Ab (Nonreactive) Hep Bs Antigen (Nonreactive) Hep B Core IgM Ab (Nonreactive) Hepatitis C Antibo dy (Nonreactive) Discharge Plan Discharge Patient Disposition: Admitted As Inpatient Admit Provider: David Leiva Clinical Impression: CHF (congestive heart failure), COPD (chronic obstructive pulmonary disease), Hypertension, Alcohol use disorder Condition: Stable Discharge Diet: Cardiac Discharge Activity: Increase activity as tolerated Coding Level of Care Code ED Core Winding Operator for Rylan Fwd Exam Comprehensive
[2020-12-21] MEDS: carvedilol 3.125 mg Tablet PO ×2 (07:31→21:11)
[2020-12-21] MEDS: FUROsemide 10 mg/mL SDV 4mL 40 MG IVP ×2 (07:31→18:23)
[2020-12-21] MEDS: albuterol 8 gm MDI 2 PUFF INHALATION (07:36)
[2020-12-21 07:38] LABS: Basophils # 0.1 10^3/uL (0.0-0.1); Basophils % 0.8 %; Eosinophils % 0.5 %; Hematocrit 42.2 % (42.0-52.0); Hemoglobin 13.8 g/dL (11.7-16.6); Lymphocytes # 1.2 10^3/uL (0.8-4.8); Lymphocytes % 15.6 %; Mean Corpuscular HGB Conc 32.7 g/dL (30.0-36.0); Mean Platelet Volume 9.9 fL (7.4-10.4); Monocytes # 0.5 10^3/uL (0.2-0.9); Monocytes % 6.8 %; Neutrophils # 5.74 10^3/uL (1.8-7.7); Nucleated Red Blood Cells % 0 %; Platelet Count 202 10^3/cmm (130-400); Red Blood Count 4.18 10^6/uL (4.1-5.3); Red Cell Distribution Width 14.7 % (12.1-15.1); White Blood Count 7.6 10^3/uL (4.0-10.0)
[2020-12-21 08:16] LABS: Alanine Aminotransferase 120 U/L (0-41); Albumin Level 3.2 g/dL (3.5-5.2); Alkaline Phosphatase 99 IU/L (40-130); Anion Gap 14.7 (5-19); Aspartate Amino Transferase 155 U/L (0-40); Blood Urea Nitrogen 13 mg/dL (6-20); Calcium 8.1 mg/dL (8.5-10.5); Carbon Dioxide 23 mmol/L (22-29); Chloride 103 mmol/L (98-107); Globulin 3.2 g/dL (1.3-4.6); Glomerular Filtration Rate 99.3 mL/min (90-130); Glucose 105 mg/dL (65-115); Magnesium 1.8 mg/dL (1.7-2.3); NT Pro B Type Natriuretic Pept 7124 pg/mL (0-125); Osmolality Calculated 282 mOsm/kg (285-295); Potassium 4.7 mmol/L (3.5-5.1); Sodium 136 mmol/L (136-145); Total Bilirubin 1.3 mg/dL (0.15-1.2); Total Protein 6.4 g/dL (6.6-8.7)
--- NOTE | 2020-12-21 09:39 | ECG_ITS ---
[facility] Test Date: 2020-12-21 Pat Name: Jose Carlos Armendariz Department: Room: Gender: Male Watch Dial Maker: : 1960 Requested By: Reji Cruz Order Number: [id number] Erma MD: Peter Paniagua M.D. Measurements Intervals [place] Rate: 114 P: 61 LA: 140 QRS: 75 QRSD: 93 T: 83 QT: 334 QTc: 461 Interpretive Statements SINUS TACHYCARDIA LEFT ATRIAL ENLARGEMENT [-0.15mV P WAVE IN V1/V2] Compared to ECG 11/19/2020 09:48:44 No significant changes Electronically Signed On 12-21-2020 18:27:45 CDT by Peter Paniagua M.D. [email or web address]/store/[id number] f
--- NOTE | 2020-12-21 09:43 | US_ITS ---
WS: [id number] RIGHT UPPER QUADRANT ULTRASOUND HISTORY: elevated LFTs COMPARISON: None available. Liver: 16.2 cm in length. Mild enlargement of the liver. Coarsened echotexture with no mass. The enti re liver is poorly visualized. No bile duct dilatation. Gallbladder: Nondistended gallbladder minimal prominence of the gallbladder wall is probably due to c ontraction. CBD: 0.4 cm Pancreas: Not visualized. Right kidney: 11.7 cm in length. Poorly visualized RIGHT kidney. No obstruction. Aorta and IVC: Unremarkable abdominal aorta and IVC. Small amount of ascites. Questionable very tiny amount of pleural fluid on the RIGHT. US/US liver [id number] IMPRESSION: 1. Technically difficult and limited evaluation of the RIGHT upper quadrant. 2. Small amount of ascites and questionable small RIGHT pleural effusion. 3. Slight contracted gallbladder. No stones identified. 4. Mild hepatomegaly with moderate steatosis. 5. Pancreas and RIGHT kidney are not well visualized.
--- NOTE | 2020-12-21 09:56 | P.HP_ITS ---
Providers/Chief Complaint Chief Complaint: CHF History of Present Illness Jose Carlos Armendariz is a 60 year old male Who presents to the hospital with shortness of breath. He reports he has had some intermittent shortness of breath for a while, and had an emergency department visit on November 19 where he was treated for COPD exacerbation. He reports his shortness of breath is worse when he lays down. He has noted swelling in his abdomen, and lower extremities increasing over the last 7 to 10 days. He has had no fevers. Occasional nonproductive cough. He has wheezed. He has had no vomiting, chest discomfort. He reports he does not have a primary care provider, and has not been taking any of his medicine for quite some time, with the last 1 being stopped about 2 weeks ago(lisinopril) as he had run out. He denies any history of Covid, exposure to Covid, or vaccination for Covid. He denies any significant confusion. He reports his last alcoholic drink was 1 to 2 days ago. He continues to smoke. 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 In the emergency department he received a dose of carvedilol, albuterol, hydralazine, and Lasix 40mg IV Review of Systems General: Reports: 10 or more systems reviewed and unremarkable except in HPI and below Const: Denies: fever(s) Eyes: Denies: change in vision ENMT: Denies: throat pain Card: Denies: chest pain Resp: Reports: dyspnea and wheezing GI: Denies: abdominal pain, nausea, vomiting, hematochezia or melena : Denies: flank pain Musc: Denies: neck pain Skin/Breast: Denies: rash Neuro: Denies: headache(s) Psych: Reports: depression; Denies: anxiety Endo: Denies: polyuria Haroldo/Lymph: Denies: easy bruising All/Imm: Denies: urticaria Medications/Allergies Home Medications Medication Instructions Recorded Confirmed Last Taken Type albuterol sulfate [Ventolin HFA] 2 puff INHALATION Q4H PRN 12/21/20 12/21/20 Unknown History lisinopril 10 mg PO DAILY 12/21/20 12/21/20 Unknown History Allergies Allergy/AdvReac Type Severity Reaction Status Date / Time Penicillins Allergy Unknown Verified 12/21/20 10:16 PFSH Acute PFSH: Medical History (Updated 12/21/20 @ 11:18 by David Leiva MD) Alcohol use disorder CHF (congestive heart failure) COPD (chronic obstructive pulmonary disease) History of amphetamine abuse Hypertension Nonischemic cardiomyopathy Obesity Surgical History (Updated 12/21/20 @ 11:13 by David Leiva MD) History of surgery on arm Social History (Updated 12/21/20 @ 11:14 by David Leiva MD) Smoking and tobacco status: current every day smoker Alcohol intake: current Alcohol intake frequency: 3 or more drinks per day Substance/Drug Use: former Date of last use: Reports he quit 3 months ago, amphetamine Supplemental PFSH Information: Family history of lupus, mother Vitals/I&O/Wt Last Vital Signs Temp 98.3 F 12/21/20 06:57 Pulse 111 H 12/21/20 07:40 Resp 20 H 12/21/20 07:37 BP 154/106 12/21/20 06:57 Pulse Ox 93 12/21/20 07:37 Weight last 48 hrs Weight 108.862 kg Physical Exam Narrative: EXAM NARRATIVE: General exam is a white male, with audible wheezing, and mild respiratory distress on 2 L of oxygen. HEENT: Pupils equally round. Atraumatic normocephalic. Oropharynx with poor dentition Neck is supple no lymphadenopathy or thyromegaly. JVD is noted. Cardiovascular regular rate and rhythm with a 2/6 systolic murmur. Lungs crackles bibasilar. Few expiratory wheezes. Abdomen is soft. Pitting edema noted on the flanks. Liver edge palpable. Positive bowel sounds. was deferred Extremities 2+ bilateral edema. No cyanosis or clubbing Skin no rash Neuro no focal deficits Data : 12/21/20 07:28 12/21/20 07:28 Other data: INR is 1.22 Total bilirubin 1.3, AST 155, ALT 120 Ammonia normal at 30 Initial troponin 59 and repeat 60 Albumin 3.2 Right upper quadrant ultrasound some small amount of ascites, hepatomegaly with moderate steatosis Chest x-ray with cardiac enlargement, cardiomegaly as well as a small left pleural effusion. CHF is noted. EKG demonstrates sinus tachycardia, normal axis, poor R wave progression, nonspecific T wave abnormalities. A&P Assessment and plan (1) CHF (congestive heart failure): He clearly has acute exacerbation of CHF, superimposed on chronic CHF. His last EF was 25%. He had moderate to severe mitral regurgitation. Over the last week and a half he has had increasing abdominal and lower extremity edema. He was in the emergency department fairly recently treated for COPD exacerbation. A CTA was performed there which demonstrated no pulmonary embolism. Admission to telemetry Diuresis with Lasix 40 mg IV every 12 hours. With his abdominal edema as well he may have a component of anasarca. Monitor kidney function closely while diuresing Check TSH Telemetry Repeat echocardiogram as his last one has been a number of years ago At this point although troponin is elevated no nuclear stress test or angiogram is anticipated as his coronaries were clean July 2017 and he has had no chest discomfort. Initiate SHILPA inhibitor, low-dose beta-melani. After diuresis is completed and patient compensated would consider Aldactone. Status: Acute (2) COPD (chronic obstructive pulmonary disease): To her for COPD exacerbation but at this point I do not believe prednisone is warranted Initiate Pulmicort twice daily DuoNeb every 4 hours as needed Status: Acute (3) Hypertension: Carvedilol 3.125 mg twice daily Continue lisinopril 10 mg daily Status: Acute (4) Alcohol use disorder: Monitor for withdrawal Multivitamin, folate, thiamine Check magnesium level Status: Acute Additional A&P Information Elevated liver function tests. Check hepatitis panel. This may be secondary to fluid overload. Full code Lovenox for DVT prophylaxis Attestations Medical Necessity Statement*: Will need greater than 2 midnight stay for evaluation and treatment of CHF with element of anasarca. Time Spent in Patient Care: Greater than 35 minutes Coding Level of Care Code Acute Dredge Operator for Arseniog Fwd Diagnoses CHF (congestive heart failure) I50.9 COPD (chronic obstructive pulmonary disease) J44.9 Hypertension I10 Alcohol use disorder
[2020-12-21 10:00] LABS: INR 1.22 (0.8-1.2)
[2020-12-21 10:01] LABS: Partial Thromboplastin Time 32.4 SECONDS (23.9-36.7)
[2020-12-21] MEDS: hyDRALAzine 25 mg Tablet PO (10:06)
[2020-12-21 10:13] LABS: Troponin(5th) Baseline 59 ng/L (0-15)
[2020-12-21 10:13] LABS: Ammonia 30 umol/L (16-60)
--- NOTE | 2020-12-21 10:19 | PC.PHAR ---
pt states he had some lisinopril from a while back-pt states he has been taking daily but ran out of a couple weeks ago-va states they last saw the pt in 2018 and dont have a active med list for the pt-pt states he ran out of his ventolin inhaler a few days ago-pt states he use to be on blood thinners but hasnt been on in years
--- NOTE | 2020-12-21 11:39 | ECG_ITS ---
[facility] ED Test Date: 2020-12-21 Pat Name: Jose Carlos Armendariz Department: Room: 268 Gender: Male Range Technician: : 1960 Requested By: Reji Cruz Order Number: [id number] Erma MD: Gini Novoa M.D. Measurements Intervals [place] Rate: 99 P: 59 MS: 186 QRS: 59 QRSD: 93 T: 60 QT: 358 QTc: 461 Interpretive Statements SINUS RHYTHM LEFT ATRIAL ENLARGEMENT [-0.15mV P WAVE IN V1/V2] NONSPECIFIC T-WAVE ABNORMALITY Compared to ECG 12/21/2020 07:10:38 Sinus tachycardia no longer present T-wave abnormality still present Electronically Signed On 12-23-2020 7:48:31 CDT by Gini Novoa M.D. [id number]
--- NOTE | 2020-12-21 11:55 | USCV_ITS ---
Jose Carlos Armendariz Age: 60 Gender: M : 1960 Exam Date: 12/21/2020 15:52 Ordering Phys: David Leiva MD Technologist: Exam [place] [facility] [place] Indication: CHF BP: 127 / 94 HR: 47 Rhythm: Sinus Technical Quality: Good MEASUREMENTS (Male / Female) Normal Values 2D ECHO LV Diastolic Diameter PLAX 5.5 cm 4.2 - 5.9 / 3.9 - 5.3 cm LV Systolic Diameter PLAX 4.2 cm IVS Diastolic Thickness 1.1 cm 0.6 - 1.0 / 0.6 - 0.9 cm IVS Systolic Thickness 1.5 cm LVPW Diastolic Thickness 1.3 cm 0.6 - 1.0 / 0.6 - 0.9 cm LVPW Systolic Thickness 1.3 cm LVOT Diameter 2.0 cm LV Ejection Fraction 2D Teich 45.6 % LV Ejection Fraction MOD 2C 31.9 % LV Ejection Fraction 2C AL 32.3 % LA Diameter 5.2 cm LA Width 5.3 cm LA Height 6.1 cm RA Width 5.4 cm RA Height 6.6 cm M-MODE LV Diastolic Diameter MM 6.1 cm 4.2 - 5.9 / 3.9 - 5.3 cm LV Systolic Diameter MM 5.1 cm LV Ejection Fraction MM Teich 33.8 % IVS Diastolic Thickness MM 1.2 cm 0.6 - 1.0 / 0.6 - 0.9 cm IVS Systolic Thickness MM 1.8 cm LVPW Diastolic Thickness MM 1.6 cm 0.6 - 1.0 / 0.6 - 0.9 cm LVPW Systolic Thickness MM 1.9 cm RV Diastolic Diameter MM 2.5 cm Aortic Annulus Diameter 4.2 cm LA Ao Ratio MM 1.2 MV E Point Septal Separation 2.1 cm DOPPLER AV Peak Velocity 99.0 cm/s LVOT Peak Velocity 92.7 cm/s AV Area Cont Eq vti 3.5 cm squared AV Area Cont Eq pk 3.1 cm squared MV E' Velocity 8.0 cm/s TR Peak Velocity 218.0 cm/s TR Peak Gradient 19.0 mmHg TV Peak E Velocity 115.0 cm/s Right Atrial Pressure 3.0 mmHg Pulmonary Artery Systolic Pressu 22.0 mmHg PV Peak Velocity 89.0 cm/s FINDINGS Left Ventricle Mildly increased left ventricular cavity size. Severely decreased left ventricular systolic function. Left ventricular ejection fraction is estimated at 25 %. Severe global hypokinesis. Abnormal diastolic function. Right Ventricle Normal right ventricular size and low normal systolic function. Right ventricular systolic pressure 22 mmHg. Right Atrium Mildly increased right atrial size. Left Atrium Moderately increased left atrial size. Mitral Valve Thickened mitral valve. No mitral valve stenosis. Moderate to severe mitral valve regurgitation. Aortic Valve Aortic valve not well visualized. No aortic valve stenosis. No aortic valve regurgitation. Tricuspid Valve Structurally normal tricuspid valve. No tricuspid valve stenosis. Trace tricuspid valve regurgitation. Pulmonic Valve Pulmonic valve not well visualized. Pericardium Trivial pericardial effusion along posterior left ventricle wall. No evidence of hemodynamic compromise. Aorta Normal-sized aortic root. CONCLUSIONS 1. Mildly increased left ventricular cavity size. Severely decreased left ventricular systolic function. Left ventricular ejection fraction is estimated at 25 %. Severe global hypokinesis. Abnormal diastolic function. 2. Moderately increased left atrial size. 3. Moderate to severe mitral valve regurgitation. 4. Trivial pericardial effusion along posterior left ventricle wall. No evidence of hemodynamic compromise. 5. When compared to previous echocardiogram dated 07/26/2017, there may not have been any significant change. Gini Novoa MD (Electronically Signed) Final Date: 21 December 2020 17:57 S
[2020-12-21 12:40] LABS: Hepatitis A Antibody IgM Non-Reactive (Nonreactive); Hepatitis B Core IgM Non-Reactive (Nonreactive); Hepatitis B Surface Antigen Non-Reactive (Nonreactive); Hepatitis C Virus Antibody Reactive (Nonreactive)
[2020-12-21 12:46] LABS: Magnesium 1.8 mg/dL (1.7-2.3); Thyroid Stimulating Hormone 4.32 uIU/mL (0.27-4.20)
[2020-12-21] MEDS: enoxaparin 40 mg/0.4 mL Syringe SUBCUT (13:27)
[2020-12-21 14:48] LABS: Troponin 5 6HR 54.63 ng/L (0-15)
[2020-12-21 14:56] LABS: Troponin 5 6HR Delta -4.37 ng/L (0-12)
--- NOTE | 2020-12-21 15:39 | ECG_ITS ---
[facility] ED Test Date: 2020-12-21 Pat Name: Jose Carlos Armendariz Department: Room: 268 Gender: Male Gear Inspector: : 1960 Requested By: Reji Cruz Order Number: [id number] Erma MD: Gini Novoa M.D. Measurements Intervals [place] Rate: 106 P: 52 [place]: 144 QRS: 39 QRSD: 99 T: 60 QT: 349 QTc: 465 Interpretive Statements SINUS TACHYCARDIA LEFT ATRIAL ENLARGEMENT [-0.15mV P WAVE IN V1/V2] NONSPECIFIC T-WAVE ABNORMALITY Compared to ECG 12/21/2020 13:43:54 Sinus rhythm no longer present T-wave abnormality still present Electronically Signed On 12-23-2020 7:48:25 CDT by Gini Novoa M.D. [id number]
[2020-12-21] MEDS: ipratropium-albuterol 3 mL Neb INHALATION (21:34)
[2020-12-21] MEDS: budesonide 0.5 mg/2 mL Neb INHALATION (21:34)
[2020-12-22] VITALS (13 sets, daily range): BP systolic 110–133; BP diastolic 76–88; PULSE 68–111; RESP 17–26; TEMP 36.4–36.8; O2SAT 90–98
[2020-12-22 05:27] LABS: Basophils # 0.1 10^3/uL (0.0-0.1); Basophils % 0.8 %; Eosinophils # 0.2 10^3/uL (0.0-0.8); Eosinophils % 2.8 %; Hematocrit 43.5 % (42.0-52.0); Hemoglobin 13.9 g/dL (11.7-16.6); Lymphocytes # 1.1 10^3/uL (0.8-4.8); Lymphocytes % 17.5 %; Mean Corpuscular Hemoglobin 32.3 pg (28.0-34.0); Mean Corpuscular Volume 100.9 fL (80-94); Mean Platelet Volume 10.1 fL (7.4-10.4); Monocytes # 0.5 10^3/uL (0.2-0.9); Monocytes % 8.5 %; Neutrophils # 4.49 10^3/uL (1.8-7.7); Neutrophils % 70.2 %; Nucleated Red Blood Cells % 0 %; Platelet Count 187 10^3/cmm (130-400); Red Blood Count 4.31 10^6/uL (4.1-5.3); Red Cell Distribution Width 14.6 % (12.1-15.1); White Blood Count 6.4 10^3/uL (4.0-10.0)
[2020-12-22 05:48] LABS: Alanine Aminotransferase 97 U/L (0-41); Alkaline Phosphatase 96 IU/L (40-130); Anion Gap 13.2 (5-19); Aspartate Amino Transferase 116 U/L (0-40); Blood Urea Nitrogen 16 mg/dL (6-20); Calcium 8.1 mg/dL (8.5-10.5); Carbon Dioxide 27 mmol/L (22-29); Chloride 99 mmol/L (98-107); Globulin 3.2 g/dL (1.3-4.6); Glomerular Filtration Rate 76.7 mL/min (90-130); Glucose 104 mg/dL (65-115); Osmolality Calculated 281 mOsm/kg (285-295); Potassium 4.2 mmol/L (3.5-5.1); Sodium 135 mmol/L (136-145); Total Bilirubin 1.7 mg/dL (0.15-1.2); Total Protein 6.2 g/dL (6.6-8.7)
[2020-12-22] MEDS: FUROsemide 10 mg/mL SDV 4mL 40 MG IVP (06:22)
[2020-12-22] MEDS: ipratropium-albuterol 3 mL Neb INHALATION ×2 (08:25→19:25)
[2020-12-22] MEDS: budesonide 0.5 mg/2 mL Neb INHALATION ×2 (08:25→19:25)
--- NOTE | 2020-12-22 08:33 | P.PN_ITS ---
Subjective Subjective: Interval history: Jose Carlos reports he has an occasional cough, otherwise doing okay. No chest discomfort. Feels less swollen in his thighs than he did yesterday. Less short of breath. Medications: Reviewed: Yes Vitals/I&O/Wt Last Vital Signs Temp 97.6 F 12/22/20 08:00 Pulse 110 H 12/22/20 08:31 Resp 17 12/22/20 08:25 BP 133/88 12/22/20 08:00 Pulse Ox 93 12/22/20 08:25 12/21/20 12/22/20 12/22/20 22:59 06:59 14:59 Intake Total 360 / 420 240 / 660 Output Total 675 / 1125 540 / 1665 Balance -315 / -705 -300 / -1005 Weight last 48 hrs Weight 108.862 kg Physical Exam Narrative: EXAM NARRATIVE: General exam is a white male Neck is supple no lymphadenopathy or thyromegaly. JVD is still noted. Cardiovascular regular rate and rhythm with a 2/6 systolic murmur. Lungs crackles bibasilar. Few expiratory wheezes. Abdomen is soft. Pitting edema noted on the flanks. Liver edge palpable. Positive bowel sounds. was deferred Extremities 2+ bilateral edema. Thighs are less tight. No cyanosis or clubbing Data : 12/22/20 04:30 12/22/20 04:30 A&P Assessment and plan (1) CHF (congestive heart failure): He clearly has acute exacerbation of CHF, superimposed on chronic CHF. His last EF was 25%. He had moderate to severe mitral regurgitation. Over the last week and a half he has had increasing abdominal and lower extremity edema. He was in the emergency department fairly recently treated for COPD exacerbation. A CTA was performed there which demonstrated no pulmonary embolism. He has diuresed about 1 L. He still has significant edema of his lower extremities as well as his abdominal wall. Thighs are a little less tight. Increase Lasix to 60 mg IV every 12 hours. Fluid restrict to 1200 cc Monitor kidney function closely while diuresing TSH was checked and borderline high consistent with subclinical hypothyroidism Repeat echocardiogram has been performed and no overall change from previous. EF around 25%, moderate to severe mitral regurgitation. At this point although troponin is elevated no nuclear stress test or angiogram is anticipated as his coronaries were clean July 2017 and he has had no chest discomfort. Continue SHILPA inhibitor, low-dose beta-melani. After diuresis is completed and patient compensated would consider Aldactone. Status: Acute (2) COPD (chronic obstructive pulmonary disease): To her for COPD exacerbation but at this point I do not believe prednisone is warranted Continue Pulmicort twice daily DuoNeb every 4 hours as needed Status: Acute (3) Hypertension: Carvedilol 3.125 mg twice daily Continue lisinopril 10 mg daily Blood pressure currently controlled Status: Acute (4) Alcohol use disorder: Monitor for withdrawal Multivitamin, folate, thiamine Check magnesium level tomorrow Status: Acute Additional A&P Information Elevated liver function tests. Hepatitis C positive. This may be somewhat secondary to fluid overload. AST and ALT slightly better than yesterday. Full code Lovenox for DVT prophylaxis Discharge planning to work on getting him a primary care provider. Attestations Medical Necessity Statement*: Needs continued hospitalization and diuresis secondary to CHF, anasarca. Coding Level of Care Code Acute Fire Management Officer for Rylan Michael Diagnoses CHF (congestive heart failure) I50.9 COPD (chronic obstructive pulmonary disease) J44.9 Hypertension I10 Alcohol use disorder
[2020-12-22] MEDS: lisinopril 10 mg Tablet PO (09:07)
[2020-12-22] MEDS: thiamine 100 mg Tablet PO (09:07)
[2020-12-22] MEDS: folic acid 1 mg Tablet PO (09:07)
[2020-12-22] MEDS: multivitamin therapeutic Tablet 1 TAB PO (09:07)
[2020-12-22] MEDS: carvedilol 3.125 mg Tablet PO ×2 (09:07→20:43)
--- NOTE | 2020-12-22 10:51 | PC.CHAP ---
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 [] Patient/Family/Request visit [] Outpatient visit [] Follow-up visit [] Physician referral [] Code/Alert [x] Routine visit [] Staff referral [] Actively dying [] Patient sleeping [] Family support [] [] Out of room [] Palliative care [] [x] Receiving care in room [] Pre-surgical visit [] Trauma [] Long length of stay [] ICU visit [] Other: Relational/Emotional Strength [x] Patient feels connected with others/family/visitors/staff [] Distress [] Loneliness/isolation [] Abandonment Spirituality of Patient [] Person of Molly [] Attends Anabaptist of their Molly [] Believes in Prayer [] Reads Bible or Anglican materials [] There are Spiritual issues to be addressed English As A Second Language Instructor Interventions [] Prayer [] Active listening [] Non-anxious presence [] Spiritual/emotional support [] Crisis/trauma care [] Spiritual counseling [] Bereavement support [] Provided bereavement packet [] Provided Bible/devotional materials [] Provided toy/stuffed animal, coloring book to patient or family member [] Provided Communion [] Anointing/[place] [] Salvation [] Completed spiritual assessment [] Other: Impact on Illness or Injury [] Angry [] Fearful [x] Anxious [] Often cries [] Exhaustion [x] Unable to work [] Unable to attend gnosticist [] Unable to walk/stand [] Unable to read [] Unable to drive [] Unable to eat/drink [] Unable to sleep [] Unable to be with family [] Patient intubated [] Other: Summary low on flould. getting antibodys, has a good attitude, going home soon Time spent with patient 10 mins
[2020-12-22] MEDS: enoxaparin 40 mg/0.4 mL Syringe SUBCUT (15:36)
[2020-12-22] MEDS: FUROsemide 10 mg/mL SDV 10mL 60 MG IVP (17:01)
[2020-12-23] VITALS (13 sets, daily range): BP systolic 104–134; BP diastolic 68–95; PULSE 65–112; RESP 18–20; TEMP 36.3–36.9; O2SAT 91–98
[2020-12-23 05:41] LABS: Anion Gap 12.1 (5-19); Blood Urea Nitrogen 21 mg/dL (6-20); Calcium 8.2 mg/dL (8.5-10.5); Carbon Dioxide 29 mmol/L (22-29); Chloride 99 mmol/L (98-107); Glomerular Filtration Rate 76.7 mL/min (90-130); Glucose 105 mg/dL (65-115); Magnesium 1.7 mg/dL (1.7-2.3); Osmolality Calculated 285 mOsm/kg (285-295); Potassium 4.1 mmol/L (3.5-5.1); Sodium 136 mmol/L (136-145)
[2020-12-23] MEDS: FUROsemide 10 mg/mL SDV 10mL 60 MG IVP ×2 (06:06→17:31)
[2020-12-23] MEDS: budesonide 0.5 mg/2 mL Neb INHALATION ×2 (08:52→21:29)
[2020-12-23] MEDS: ipratropium-albuterol 3 mL Neb INHALATION ×2 (08:52→21:29)
[2020-12-23] MEDS: lisinopril 10 mg Tablet PO (09:04)
[2020-12-23] MEDS: thiamine 100 mg Tablet PO (09:04)
[2020-12-23] MEDS: carvedilol 3.125 mg Tablet PO ×2 (09:05→22:00)
[2020-12-23] MEDS: multivitamin therapeutic Tablet 1 TAB PO (09:05)
[2020-12-23] MEDS: folic acid 1 mg Tablet PO (09:05)
--- NOTE | 2020-12-23 09:47 | PM.PN ---
Subjective Subjective: Interval history: Jose Carlos reports he is breathing better. No chest discomfort. Less swollen. Medications: Reviewed: Yes Vitals/I&O/Wt Last Vital Signs Temp 97.5 F L 12/23/20 07:45 Pulse 65 12/23/20 08:53 Resp 20 H 12/23/20 08:53 BP 125/89 12/23/20 07:45 Pulse Ox 93 12/23/20 08:53 12/22/20 12/23/20 12/23/20 22:59 06:59 14:59 Intake Total 240 / 840 360 / 360 Output Total 975 / 1575 0 / 1575 800 / 800 Balance -735 / -735 0 / -735 -440 / -440 Physical Exam Narrative: EXAM NARRATIVE: General exam is a white male Neck is supple no lymphadenopathy or thyromegaly. JVD is still noted. Cardiovascular regular rate and rhythm with a 2/6 systolic murmur. Lungs crackles bibasilar. Few expiratory wheezes. Abdomen is soft. Pitting edema noted on the flanks. Liver edge palpable. Positive bowel sounds. Extremities 1+ bilateral edema Data : 12/22/20 04:30 12/23/20 04:37 A&P Assessment and plan (1) CHF (congestive heart failure): He clearly has acute exacerbation of systolic CHF, superimposed on chronic systolic CHF. His last EF was 25%. He had moderate to severe mitral regurgitation. Over the last week and a half he has had increasing abdominal and lower extremity edema. He was in the emergency department fairly recently treated for COPD exacerbation. A CTA was performed there which demonstrated no pulmonary embolism. He continues to diurese. I suspect his in and out numbers are not completely accurate as clinically he appears much less swollen. Note that he does not have a Iglesias. Continue Lasix to 60 mg IV every 12 hours. Fluid restrict to 1200 cc. He needs 1-2 more days of diuresis prior to discharge. Monitor kidney function closely while diuresing TSH was checked and borderline high consistent with subclinical hypothyroidism Repeat echocardiogram has been performed and no overall change from previous. EF around 25%, moderate to severe mitral regurgitation. At this point although troponin is elevated no nuclear stress test or angiogram is anticipated as his coronaries were clean July 2017 and he has had no chest discomfort. Continue SHILPA inhibitor, low-dose beta-melani. After diuresis is completed and patient compensated would consider Aldactone. Status: Acute (2) COPD (chronic obstructive pulmonary disease): To her for COPD exacerbation but at this point I do not believe prednisone is warranted Continue Pulmicort twice daily DuoNeb every 4 hours as needed Status: Acute (3) Hypertension: Carvedilol 3.125 mg twice daily Continue lisinopril 10 mg daily Blood pressure currently controlled Note that his heart rate has improved significantly with diuresis. Status: Acute (4) Alcohol use disorder: Monitor for withdrawal Multivitamin, folate, thiamine Check magnesium level tomorrow Status: Acute Additional A&P Information Elevated liver function tests. Hepatitis C positive. This may be somewhat secondary to fluid overload. AST and ALT improved with diuresis. Check again tomorrow. Full code Lupe for DVT prophylaxis Discharge planning to work on getting him a primary care provider. Attestations Medical Necessity Statement*: Needs continued hospitalization for further diuresis secondary to acute systolic heart failure. Coding Level of Care Code Acute Merchandise Complaint Adjuster for Rylan Michael Diagnoses CHF (congestive heart failure) I50.9 COPD (chronic obstructive pulmonary disease) J44.9 Hypertension I10 Alcohol use disorder
[2020-12-23] MEDS: enoxaparin 40 mg/0.4 mL Syringe SUBCUT (14:13)
[2020-12-24] VITALS (11 sets, daily range): BP systolic 112–126; BP diastolic 75–89; PULSE 97–111; RESP 16–20; TEMP 36.3–36.7; O2SAT 94–100
[2020-12-24] MEDS: FUROsemide 10 mg/mL SDV 10mL 60 MG IVP ×2 (06:05→18:28)
[2020-12-24 06:12] LABS: Basophils # 0.1 10^3/uL (0.0-0.1); Eosinophils # 0.1 10^3/uL (0.0-0.8); Eosinophils % 2.1 %; Hematocrit 45.2 % (42.0-52.0); Hemoglobin 14.7 g/dL (11.7-16.6); Lymphocytes # 1.4 10^3/uL (0.8-4.8); Lymphocytes % 20.6 %; Mean Corpuscular HGB Conc 32.5 g/dL (30.0-36.0); Mean Corpuscular Volume 101.3 fL (80-94); Mean Platelet Volume 10.2 fL (7.4-10.4); Monocytes # 0.6 10^3/uL (0.2-0.9); Monocytes % 9.1 %; Neutrophils # 4.47 10^3/uL (1.8-7.7); Neutrophils % 66.8 %; Nucleated Red Blood Cells % 0 %; Platelet Count 200 10^3/cmm (130-400); Red Blood Count 4.46 10^6/uL (4.1-5.3); Red Cell Distribution Width 14.4 % (12.1-15.1); White Blood Count 6.7 10^3/uL (4.0-10.0)
[2020-12-24 06:52] LABS: Alanine Aminotransferase 75 U/L (0-41); Albumin Level 3.1 g/dL (3.5-5.2); Alkaline Phosphatase 89 IU/L (40-130); Anion Gap 14.5 (5-19); Aspartate Amino Transferase 77 U/L (0-40); Blood Urea Nitrogen 26 mg/dL (6-20); Calcium 8.3 mg/dL (8.5-10.5); Carbon Dioxide 28 mmol/L (22-29); Chloride 98 mmol/L (98-107); Globulin 3.3 g/dL (1.3-4.6); Glomerular Filtration Rate 68.8 mL/min (90-130); Glucose 107 mg/dL (65-115); Magnesium 1.9 mg/dL (1.7-2.3); Osmolality Calculated 287 mOsm/kg (285-295); Potassium 4.5 mmol/L (3.5-5.1); Sodium 136 mmol/L (136-145); Total Protein 6.4 g/dL (6.6-8.7)
[2020-12-24] MEDS: budesonide 0.5 mg/2 mL Neb INHALATION ×2 (07:38→20:01)
[2020-12-24] MEDS: ipratropium-albuterol 3 mL Neb INHALATION ×2 (07:38→20:01)
[2020-12-24] MEDS: carvedilol 3.125 mg Tablet PO ×2 (08:45→20:54)
[2020-12-24] MEDS: lisinopril 10 mg Tablet PO (08:45)
[2020-12-24] MEDS: folic acid 1 mg Tablet PO (08:45)
[2020-12-24] MEDS: thiamine 100 mg Tablet PO (08:45)
[2020-12-24] MEDS: multivitamin therapeutic Tablet 1 TAB PO (08:45)
[2020-12-24] MEDS: enoxaparin 40 mg/0.4 mL Syringe SUBCUT (13:07)
--- NOTE | 2020-12-24 21:17 | P.PN_ITS ---
Subjective Subjective: Interval history: He is doing somewhat better. Swelling is coming down in his lower extremities, now concentrating in the lower legs/ankles/feet. Swelling improved in the thighs. He reports he continues feeling chest congestion, having cough. Vitals/I&O/Wt Last Vital Signs Temp 97.9 F 12/24/20 19:49 Pulse 105 H 12/24/20 20:01 Resp 20 H 12/24/20 20:01 BP 126/89 12/24/20 19:49 Pulse Ox 94 12/24/20 20:01 12/24/20 12/24/20 12/24/20 06:59 14:59 22:59 Intake Total 480 / 480 240 / 720 Output Total 1200 / 3650 1999 / 1999 550 / 2550 Balance -1200 / -2758 -1520 / -1520 -310 / -1830 Weight last 48 hrs Weight 91.852 kg Physical Exam Const: COMMON NORMALS: no acute distress and patient oriented x3 HENMT: COMMON NORMALS: oropharynx normal Neck/C-Spine: COMMON NORMALS: no JVD Resp: COMMON NORMALS: normal respiratory effort AUSCULTATION: wheezes and diminished lung sounds Cardio: COMMON NORMALS: no JVD, regular rhythm, S1 normal heart sound present, S2 normal heart sound present and No murmurs present (Cardio) RHYTHM: regular rhythm HEART SOUNDS: S1 normal heart sound present and S2 normal heart sound present GI: COMMON NORMALS: Normal to inspection, nondistended, normoactive bowel denita nds present, Soft to palpation and non-tender PALPATION: Yes Soft to palpation Extremity: COMMON NORMALS: no joint enlargement GENERAL: Yes edema (2+ feet, ankles, lower legs) Neuro: COMMON NORMALS: patient oriented x3 and moves all extremities Skin: COMMON NORMALS: no rashes or lesions noted GENERAL SKIN EXAM: no rashes or lesions noted Data : 12/24/20 05:40 12/24/20 05:40 A&P Assessment and plan (1) CHF (congestive heart failure): Acute on chronic systolic CHF overall improving, and negative balance. Requesting for daily weights. He reports is feeling better. Edema has gone down in his thighs. Still significant edema in lower legs, ankles, feet. Continue IV diuretics at this time. He clearly has acute exacerbation of systolic CHF, superimposed on chronic systolic CHF. His last EF was 25%. He had moderate to severe mitral regurgitation. TSH was checked and borderline high consistent with subclinical hypothyroidism At this point although troponin is elevated no nuclear stress test or angiogram is anticipated as his coronaries were clean July 2017 and he has had no chest discomfort. Continue SHILPA inhibitor, low-dose beta-melani. After diuresis is completed and patient compensated would consider Aldactone. Status: Acute (2) COPD (chronic obstructive pulmonary disease): He reports he continues to feel congested, wheezing on exam. Productive cough of purulent sputum. As symptoms persist, will go ahead and add steroid as discussed with him. Start on prednisone 40 mg daily. Doxycycline. No pneumonia on CXR. Continue Pulmicort twice daily DuoNeb every 4 hours as needed Status: Acute (3) Hypertension: Currently at goal. Continue current medications. Status: Acute (4) Alcohol use disorder: Monitor for withdrawal Multivitamin, folate, thiamine Magnesium level okay. Status: Acute Additional A&P Information Elevated liver function tests. Hepatitis C positive. Transaminitis improving, suspected congestive hepatopathy as appears to be improving with treatment of CHF. Full code Lovenox for DVT prophylaxis Discharge planning to work on getting him a primary care provider. Attestations Medical Necessity Statement*: Continue admission for assessment of management of acute on chronic systolic CHF, COPD exacerbation. Coding Level of Care Code Acute Director Consumer Affairs for Rylan Michael Diagnoses CHF (congestive heart failure) I50.9 COPD (chronic obstructive pulmonary disease) J44.9 Hypertension I10 Alcohol use disorder
[2020-12-24] MEDS: predniSONE 20 mg Tablet 40 MG PO (21:54)
[2020-12-24] MEDS: doxycycline 100 mg Tablet PO (21:54)
[2020-12-25] VITALS (12 sets, daily range): BP systolic 117–142; BP diastolic 76–92; PULSE 54–108; RESP 16–19; TEMP 36.2–36.9; O2SAT 93–99; BMI 29.0
--- NOTE | 2020-12-25 05:41 | PC.NURSE ---
shift summary Patient was awake most of the night up in chair and on setting on the side of the bed. No complaints during this shift. Pt. states edema is better, it is 2+ pitting in the bilateral lower extremities.
[2020-12-25] MEDS: FUROsemide 10 mg/mL SDV 10mL 60 MG IVP ×2 (06:01→17:29)
[2020-12-25 06:38] LABS: Alanine Aminotransferase 71 U/L (0-41); Albumin Level 3.2 g/dL (3.5-5.2); Alkaline Phosphatase 78 IU/L (40-130); Anion Gap 13.1 (5-19); Aspartate Amino Transferase 86 U/L (0-40); Blood Urea Nitrogen 25 mg/dL (6-20); Calcium 8.4 mg/dL (8.5-10.5); Carbon Dioxide 30 mmol/L (22-29); Chloride 96 mmol/L (98-107); Globulin 3.1 g/dL (1.3-4.6); Glomerular Filtration Rate 76.7 mL/min (90-130); Glucose 136 mg/dL (65-115); Osmolality Calculated 286 mOsm/kg (285-295); Potassium 4.1 mmol/L (3.5-5.1); Sodium 135 mmol/L (136-145); Total Bilirubin 1.1 mg/dL (0.15-1.2); Total Protein 6.3 g/dL (6.6-8.7)
--- NOTE | 2020-12-25 07:35 | PC.NURSE ---
Patient sitting up on side of bed, denies shortness of breath at rest but reports unable to lay flat in bed, 2+ pitting edema noted to lower legs bilaterally, and redness noted to feet bilaterally, discussed plan of care, denies further questions or concerns, call light in reach.
[2020-12-25] MEDS: budesonide 0.5 mg/2 mL Neb INHALATION ×2 (07:36→20:01)
[2020-12-25] MEDS: predniSONE 20 mg Tablet 40 MG PO (09:48)
[2020-12-25] MEDS: thiamine 100 mg Tablet PO (09:48)
[2020-12-25] MEDS: carvedilol 3.125 mg Tablet PO ×2 (09:48→20:50)
[2020-12-25] MEDS: lisinopril 10 mg Tablet PO (09:48)
[2020-12-25] MEDS: doxycycline 100 mg Tablet PO ×2 (09:48→17:30)
[2020-12-25] MEDS: multivitamin therapeutic Tablet 1 TAB PO (09:48)
[2020-12-25] MEDS: folic acid 1 mg Tablet PO (09:48)
--- NOTE | 2020-12-25 10:28 | PM.PN ---
Subjective Subjective: Interval history: He is overall doing better. He is now getting up and getting around, making sure trips in his room. He does not know his dry BNP. He states he is not sure of his more recent weight, in the past he used to stay around 175. Vitals/I&O/Wt Last Vital Signs Temp 97.2 F L 12/25/20 07:19 Pulse 102 H 12/25/20 07:37 Resp 16 12/25/20 07:37 BP 127/85 12/25/20 07:19 Pulse Ox 94 12/25/20 07:37 12/24/20 12/25/20 12/25/20 22:59 06:59 14:59 Intake Total 480 / 960 0 / 960 360 / 360 Output Total 1350 / 3350 500 / 3850 625 / 625 Balance -870 / -2390 -500 / -2890 -265 / -265 Weight last 48 hrs Weight 91.852 kg Weight 91.852 kg Physical Exam Const: COMMON NORMALS: no acute distress and patient oriented x3 HENMT: COMMON NORMALS: oropharynx normal Neck/C-Spine: COMMON NORMALS: no JVD Resp: COMMON NORMALS: normal respiratory effort AUSCULTATION: wheezes and diminished lung sounds Cardio: COMMON NORMALS: no JVD, regular rhythm, S1 normal heart sound present, S2 normal heart sound present and No murmurs present (Cardio) RHYTHM: regular rhythm HEART SOUNDS: S1 normal heart sound present and S2 normal heart sound present GI: COMMON NORMALS: Normal to inspection, nondistended, normoactive bowel sounds present, Soft to palpation and non-tender PALPATION: Yes Soft to palpation Extremity: COMMON NORMALS: no joint enlargement GENERAL: Yes edema (2+ feet, ankles, lower legs) Neuro: COMMON NORMALS: patient oriented x3 and moves all extremities Skin: COMMON NORMALS: no rashes or lesions noted GENERAL SKIN EXAM: no rashes or lesions noted Data : 12/24/20 05:40 12/25/20 05:46 A&P Assessment and plan (1) CHF (congestive heart failure): He does not know his dry BNP. Is not sure if his dry weight. In the past used to be around 175. Currently is about 92 kg, so close to 200 pounds. He is diuresing well. We will continue IV diuretic currently. He states he has also decided he would be wanting to wear the LifeVest. He states in the past he returned it after having difficulties wearing it while working at the [facility]. Discussed with his contractor buyer, and his LifeVest will be requested, likely may be set up tomorrow. Defibrillator implantation may be considered. He states that he would consider this option, but would like to first hear more regarding risks and benefits. We will refer him to his contractor buyer office for additional discussion and consideration of referral for placement. He will need diuretic prescription at discharge. Encourage smoking cessation and abstinence from alcohol. Exacerbation of systolic CHF, superimposed on chronic systolic CHF. EF remains at 25% for the last several years. Moderate to severe mitral regurgitation. TSH was checked and borderline high consistent with subclinical hypothyroidism At this point although troponin is elevated no nuclear stress test or angiogram is anticipated as his coronaries were clean July 2017 and he has had no chest discomfort. Continue SHILPA inhibitor, low-dose beta-melani. After diuresis is completed and patient compensated would consider Aldactone. Status: Acute (2) COPD (chronic obstructive pulmonary disease): Wheezing today is better, air entry is improving. Decrease prednisone dose. Doxycycline. No pneumonia on CXR. Continue Pulmicort twice daily DuoNeb every 4 hours as needed Status: Acute (3) Hypertension: Currently at goal. Continue current medications. Status: Acute (4) Alcohol use disorder: Monitor for withdrawal Multivitamin, folate, thiamine Magnesium level okay. Status: Acute Additional A&P Information Elevated liver function tests. Hepatitis C positive. Transaminitis improving, suspected congestive hepatopathy as appears to be improving with treatment of CHF. Full code Lovenox for DVT prophylaxis Discharge planning to work on getting him a primary care provider. Attestations Medical Necessity Statement*: Continue admission for assessment management of acute on chronic systolic congestive heart failure exacerbation, sitting up off LifeVest, disposition planning. Coding Level of Care Code Acute Mail Distribution Scheme Examiner for Rylan Michael Diagnoses CHF (congestive heart failure) I50.9 COPD (chronic obstructive pulmonary disease) J44.9 Hypertension I10 Alcohol use disorder
[2020-12-25] MEDS: enoxaparin 40 mg/0.4 mL Syringe SUBCUT (13:37)
[2020-12-25] MEDS: ipratropium-albuterol 3 mL Neb INHALATION (20:01)
[2020-12-26] VITALS (10 sets, daily range): BP systolic 110–125; BP diastolic 74–86; PULSE 92–109; RESP 16–18; TEMP 36.1–36.8; O2SAT 91–99
[2020-12-26 05:12] LABS: Alanine Aminotransferase 60 U/L (0-41); Albumin Level 3.2 g/dL (3.5-5.2); Alkaline Phosphatase 71 IU/L (40-130); Anion Gap 12.8 (5-19); Aspartate Amino Transferase 66 U/L (0-40); Blood Urea Nitrogen 29 mg/dL (6-20); Calcium 8.3 mg/dL (8.5-10.5); Carbon Dioxide 29 mmol/L (22-29); Chloride 97 mmol/L (98-107); Globulin 3.1 g/dL (1.3-4.6); Glomerular Filtration Rate 86.7 mL/min (90-130); Glucose 129 mg/dL (65-115); Magnesium 1.9 mg/dL (1.7-2.3); Osmolality Calculated 288 mOsm/kg (285-295); Potassium 3.8 mmol/L (3.5-5.1); Sodium 135 mmol/L (136-145); Total Bilirubin 0.8 mg/dL (0.15-1.2); Total Protein 6.3 g/dL (6.6-8.7)
[2020-12-26] MEDS: FUROsemide 10 mg/mL SDV 10mL 60 MG IVP (05:36)
[2020-12-26] MEDS: budesonide 0.5 mg/2 mL Neb INHALATION (08:08)
[2020-12-26] MEDS: ipratropium-albuterol 3 mL Neb INHALATION (08:08)
[2020-12-26] MEDS: carvedilol 3.125 mg Tablet PO (09:17)
[2020-12-26] MEDS: predniSONE 20 mg Tablet PO (09:18)
[2020-12-26] MEDS: folic acid 1 mg Tablet PO (09:18)
[2020-12-26] MEDS: thiamine 100 mg Tablet PO (09:18)
[2020-12-26] MEDS: multivitamin therapeutic Tablet 1 TAB PO (09:18)
[2020-12-26] MEDS: lisinopril 10 mg Tablet PO (09:18)
[2020-12-26] MEDS: doxycycline 100 mg Tablet PO (09:18)
--- NOTE | 2020-12-26 13:18 | P.DS_ITS ---
Discharge Providers Date of Admission: 12/21/20 10:29 Date of Discharge: December 26, 2020 Attending Provider at Admission: David Leiva MD Attending Provider at Discharge: Bernabe Serrato MD Consults: Cardiology: Dr. Menchaca Diagnoses at Discharge Discharge Diagnosis (1) CHF (congestive heart failure): Status: Acute (2) COPD (chronic obstructive pulmonary disease): Status: Acute (3) Hypertension: Status: Acute (4) Alcohol use disorder: Status: Acute Reason for Visit Reason for Visit: CHF Hospital Course Hospital Course Jose Carlos Armendariz is a 60 year old male Who presents to the hospital with shortness of breath. He reports he has had some intermittent shortness of breath for a while, and had an emergency department visit on November 19 where he was treated for COPD exacerbation. He reports his shortness of breath is worse when he lays down. He has noted swelling in his abdomen, and lower extremities increasing over the last 7 to 10 days. He has had no fevers. Occasional nonproductive cough. He has wheezed. He has had no vomiting, chest discomfort. He reports he does not have a primary care provider, and has not been taking any of his medicine for quite some time, with the last 1 being stopped about 2 weeks ago(lisinopril) as he had run out. He denies any history of Covid, exposure to Covid, or vaccination for Covid. He denies any significant confusion. He reports his last alcoholic drink was 1 to 2 days ago. He continues to smoke. 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 He was admitted to the hospital for management of shortness of breath most likely congestive heart failure exacerbation. Echocardiogram was repeated which showed an EF of 25% with severe global hypokinesia, abnormal diastolic dysfunction, right ventricular systolic pressure of 22 mmHg with moderately in creased left atrial size, moderate to severe mitral regurgitation, trivial pericardial effusion along posterior left ventricle without any evidence of hemodynamic compromise. He was treated with IV diuresis. He responded well to the treatment and was overall 10 L negative by the day of discharge. He is currently saturating 97% on room air without any difficulty in breathing both at rest and ambulation. His cardiac medications were adjusted for heart failure symptoms. Cardiology was consulted for possible placement of LifeVest versus defibrillator. Patient refused LifeVest and will be worked up as an outpatient for ICD placement. He is advised to follow-up with cardiology in 1 week. Patient is to have repeat BMP on his follow-up. He is advised to follow-up with his primary care provider within next 7 to 10 days. Physical Exam Const: COMMON NORMALS: no acute distress and patient oriented x3 HENMT: COMMON NORMALS: oropharynx normal Neck/C-Spine: COMMON NORMALS: no JVD Resp: COMMON NORMALS: normal respiratory effort AUSCULTATION: wheezes and diminished lung sounds Cardio: COMMON NORMALS: no JVD, regular rhythm, S1 normal heart sound present, S2 normal heart sound present and No murmurs present (Cardio) RHYTHM: regular rhythm HEART SOUNDS: S1 normal heart sound present and S2 normal heart sound present GI: COMMON NORMALS: Normal to inspection, nondistended, normoactive bowel sounds present, Soft to palpation and non-tender PALPATION: Yes Soft to palpation Extremity: COMMON NORMALS: no joint enlargement GENERAL: Yes edema (2+ feet, ankles, lower legs) Neuro: COMMON NORMALS: patient oriented x3 and moves all extremities Skin: COMMON NORMALS: no rashes or lesions noted GENERAL SKIN EXAM: no rashes or lesions noted Discharge Data Data Completed and Pending: Completed Studies During Hospitalization Category Date Time Status XR chest 1V lea ble [id number] Stat Exams 12/21/20 06:57 Completed CV echo complete* [id number] Routine Ultrasound 12/21/20 11:55 [place] [id number] [facility] at Ultrasound 12/21/20 09:43 Completed Pending at discharge Category Date Time Status Comprehensive Met abolic Panel AM LA BS Lab 12/27/20 04:00 Ordered Labs from last 24 hours 12/26/20 04:28 Sodium 135 L Potassium 3.8 Chloride 97 L Carbon Dioxide 29 Anion Gap 12.8 BUN 29 H Creatinine 0.9 GFR Calculation 86.7 L Glucose 129 H Calculated Osmolal ity 288 Calcium 8.3 L Magnesium 1.9 Total Bilirubin 0.8 AST 66 H ALT 60 H Alkaline Phosphata se 71 Total Protein 6.3 L Albumin 3.2 L Globulin 3.1 Vitals: Last Vital Signs Temp 97.6 F 12/26/20 12:00 Pulse 97 12/26/20 12:00 Resp 16 12/26/20 12:00 BP 110/76 12/26/20 12:00 Pulse Ox 97 12/26/20 12:00 Discharge Plan Discharge Patient Disposition: Home Condition: Stable Prescriptions: New prednisone 20 mg Tablet 20 mg PO DAILY Qty: 2 RF: 1 doxycycline monohydrate 100 mg Tablet 100 mg PO BID Qty: 4 RF: 0 carvedilol 3.125 mg Tablet 3.125 mg PO BID@0900,2100 Qty: 60 RF: 0 folic acid 1 mg Tablet 1 mg PO DAILY Qty: 30 RF: 0 Vitamin B-1 (mononitrate) 100 mg Tablet 100 mg PO DAILY Qty: 30 RF: 0 Thera 400 mcg Tablet 1 tab PO DAILY Qty: 30 RF: 0 furosemide 40 mg tablet 40 mg PO BID Qty: 60 RF: 0 lisinopril 10 mg Tablet 10 mg PO DAILY Qty: 30 RF: 0 Aldactone 25 mg tablet 25 mg PO DAILY Qty: 30 RF: 0 Continued Ventolin HFA 90 mcg/actuation Hfa Aerosol Inhaler 2 puff INHALATION Q4H PRN (Reason: Shortness Of Breath) RF: 0 Discontinued lisinopril 20 mg Tablet 10 mg PO DAILY RF: 0 Discharge Orders: Discharge Order (Routine); Ordered 12/26/20 Ordered By: Bernabe Serrato Referrals: Dmitriy Menchaca MD [Physician] - 2 weeks Sharmaine Carlos FNP [Nurse Practitioner] - 4-7 days Carlos Enrique Quinn MD [Physician] - 7-10 days (You will have a new patient/hospital follow up on Saturday, January 04, 2021 at 9:00 am. If you need to reschedule please call [facility] at [phone].) Discharge Diet: Cardiac Discharge Activity: Increase activity as tolerated Patient Instructions: Furosemide (By mouth), Heart Failure (GEN), How to Stop Smoking (GEN), Cigarette Smoking and Your Health (GEN), Abuse of Alcohol (GEN) Activity Restrictions/Additional Instructions: Please stop smoking as it will lead to progression of heart disease, risking heart attack, stroke, various cancers and other complications. Please avoid any alcohol. Please follow-up with your heart doctor with regards to your severe heart failure. Discharge Attestations Time Spent in Discharge Care*: greater than 30 min Specific Discharge Activities: educating patient, discussing with pcp/other providers, discussing with counter caser/social workers/dc planners, documenting/other paperwork and evaluating patient/reviewing data Status at Discharge: Cognitive status at discharge: cognitively intact , Behavioral status at discharge: cooperative , Functional status at discharge: independent ambulation Overall status at discharge: patient is back to baseline Quality Metrics Clinical Quality Measures During this hospital stay, did patient experience: None Coding Level of Care Code Acute Chg FW DC note Diagnoses CHF (congestive heart failure) I50.9 COPD (chronic obstructive pulmonary disease) J44.9 Hypertension I10 Alcohol use disorder
[2020-12-26] MEDS: enoxaparin 40 mg/0.4 mL Syringe SUBCUT (13:52)
--- NOTE | 2020-12-26 15:18 | PC.NURSE ---
discharge instructions given to patient and patient verbalized understanding. iv removed and iv catheter intact. patient stated he needs a ride. notified Buzz REARDON
--- NOTE | 2020-12-26 17:38 | PC.NURSE ---
patient taken to [facility] via wheelchair by assembly instructions writer.
--- NOTE | 2020-12-26 18:10 | PC.RESP ---
Smoking Cessation and Pulmonary Rehab information sent to patient.
--- NOTE | 2020-12-26 19:51 | PM.CONSULT ---
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 He was diuresed. He became euvolemic since ejection fraction 25% we have been asked to assess him for LifeVest. Currently he is stable denies any palpitation pounding racing of the heart denies any prior syncope or syncope presyncope. Left ventricular ejection fraction is severely depressed since 2017. In the past LifeVest was tried on him patient compliance is questionable. I have detailed discussion with the patient regarding ICD placement and LifeVest. He is not interested in LifeVest anymore would like to discuss ICD as an outpatient. Since patient never had in the past near experience and because of the fact it has been 2 to 3-year that left ventricle function is severely depressed and has not further deteriorated we will continue discussion regarding ICD as an outpatient during her clinic visit Review of Systems General: Reports: 10 or more systems reviewed and unremarkable except in HPI and below Const: Denies: fever(s) or diaphoresis Eyes: Denies: change in vision ENMT: Denies: throat pain, ear or mastoid pain, nasal discharge or nasal congestion Card: Reports: orthopnea; Denies: chest pain, palpitations, lightheadedness or syncope Resp: Reports: dyspnea and wheezing; Denies: hemoptysis or chest congestion GI: Denies: abdominal pain, nausea, vomiting, hematochezia or melena : Denies: flank pain, dysuria, urinary frequency or urinary urgency Musc: Denies: neck pain or extremity pain Skin/Breast: Denies: rash or pruritus Neuro: Denies: headache(s) or dizziness Psych: Reports: depression; Denies: anxiety Endo: Denies: polyuria or polydipsia Haroldo/Lymph: Denies: easy bruising All/Imm: Denies: urticaria Meds/Allergies Home Medications and Allergies Home Medications Medication Instructions Recorded Confirmed Last Taken Type Ventolin HFA 2 puff INHALATION Q4H PRN 12/21/20 12/21/20 Unknown History carvedilol 3.125 mg PO BID@0900,2100 #60 tab 12/25/20 Unknown Rx doxycycline monohydrate 100 mg PO BID #4 tab 12/25/20 Unknown Rx folic acid 1 mg PO DAILY #30 tab 12/25/20 Unknown Rx furosemide 40 mg PO BID #60 tab 12/25/20 Unknown Rx multivitamin with folic acid 1 tab PO DAILY #30 tab 12/25/20 Unknown Rx [Thera] prednisone 20 mg PO DAILY #2 tab 12/25/20 Unknown Rx thiamine mononitrate (vit B1) 100 mg PO DAILY #30 tab 12/25/20 Unknown Rx [Vitamin B-1 (mononitrate)] lisinopril 10 mg PO DAILY #30 tab 12/26/20 Unknown Rx spironolactone [Aldactone] 25 mg PO DAILY #30 tab 12/26/20 Unknown Rx Allergies Allergy/AdvReac Type Severity Reaction Status Date / Time Penicillins Allergy Unknown Verified 12/21/20 10:16 PFSH Acute PFSH: Medical History (Updated 12/26/20 @ 19:57 by Dmitriy Menchaca MD) Alcohol use disorder CHF (congestive heart failure) COPD (chronic obstructive pulmonary disease) History of amphetamine abuse Hypertension Nonischemic cardiomyopathy Obesity Surgical History (Updated 12/21/20 @ 11:13 by David Leiva MD) History of surgery on arm Social History (Updated 12/21/20 @ 11:14 by David Leiva MD) Smoking and tobacco status: current every day smoker Alcohol intake: current Alcohol intake frequency: 3 or more drinks per day Supplemental PFSH Information: Family history of lupus, mother Vitals/I&O/Wt Last Vital Signs Temp 98.3 F 12/26/20 17:38 Pulse 99 12/26/20 17:38 Resp 18 12/26/20 17:38 BP 113/76 12/26/20 17:38 Pulse Ox 99 12/26/20 17:38 12/26/20 12/26/20 12/26/20 06:59 14:59 22:59 Intake Total 160 / 880 480 / 480 Output Total 300 / 2105 1575 / 1575 Balance -140 / -1225 -1095 / -1095 Weight last 48 hrs Weight 202 lb 8 oz Physical Exam Narrative: EXAM NARRATIVE: GENERAL: Patient is alert, awake and oriented x3. NECK: No jugular vein distension. HEENT: No cyanosis. No icterus. No pallor. HEART: Regular S1 and S2. No murmur, rub or gallop. LUNGS: Clear to auscultate bilaterally. ABDOMEN: Soft, nontender and nondistended. Positive bowel sounds. No guarding, rebound or tenderness. CENTRAL NERVOUS SYSTEM: Grossly nonfocal. EXTREMITIES: Lower extremities without edema bilaterally. A&P Assessment and plan (1) Nonischemic cardiomyopathy: Appear to be stable continue current regimen. Discussed with the patient regarding lifestyle modification and necessity of compliance. Discussed with the patient detail ICD for primary prevention patient would like to think over it and we will continue this discussion during our visit in the clinic. Patient has been given heart failure education by myself. Patient has been advised in case of gain of 3 pound in 2 consecutive days he should take extra water pill. Status: Acute (2) Hypertension: Well-controlled continue medicine Status: Acute (3) CHF (congestive heart failure): Well compensated. Status: Acute Coding Level of Care Code New Pt Acute Community Affairs Manager for [facility] Patient Type New History Detailed Exam Detailed Medical Decision Making Moderate Complexity Diagnoses Nonischemic cardiomyopathy I42.8 Hypertension I10 CHF (congestive heart failure) I50.9
== END 2020-12-26 17:39 | disposition home or self-care (01) | DRG 292 ==
LOC: ER 10:31 → MEDSURG 11:03
PROVIDERS: Internal Medicine; Admitting Provider Internal Medicine; Emergency Provider Family Medicine; Visit Provider Student in an Organized Health Care Education/Training Program
DX: I11.0 Hypertensive heart disease with heart failure (principal); J44.1 Chronic obstructive pulmonary disease with (acute) exacerbation; I50.23 Acute on chronic systolic (congestive) heart failure; F15.11 Other stimulant abuse, in remission; F10.10 Alcohol abuse, uncomplicated; F17.210 Nicotine dependence, cigarettes, uncomplicated; I42.7 Cardiomyopathy due to drug and external agent; E66.9 Obesity, unspecified; Z68.29 Body mass index [BMI] 29.0-29.9, adult
CPT/HCPCS: 36415; 71045; 76705; 80048; 80053; 80074; 82140; 83735; 83880; 84443; 84484; 85025; 85610; 85730; 93005; 93306; 94640; 96372; 96374; 99285; J1650; J1940; J3475; J3535; J7512; J7626

== ENCOUNTER 2021-02-09 09:04 | Inpatient (IN) | payer OTHER, SELFPAY ==
[2021-02-09] VITALS (22 sets, daily range): BP systolic 108–171; BP diastolic 64–122; PULSE 92–119; RESP 16–29; TEMP 36.4–36.7; O2SAT 92–98; BMI 25.8
--- NOTE | 2021-02-09 09:17 | ECG_ITS ---
[facility] Test Date: 2021-02-09 Pat Name: Jose Carlos Armendariz Department: Room: Gender: Male Acting Section Chief: : 1960 Requested By: Reji Cruz Order Number: [id number] Erma MD: Peter Paniagua M.D. Measurements Intervals [place] Rate: 113 P: 67 AR: 174 QRS: 36 QRSD: 102 T: 0 QT: 350 QTc: 482 Interpretive Statements SINUS TACHYCARDIA LEFT ATRIAL ENLARGEMENT [-0.15mV P WAVE IN V1/V2] SEPTAL MYOCARDIAL INFARCTION [40+ ms Q WAVE IN V1/V2], PROBABLY OLD Compared to ECG 12/21/2020 17:37:41 Myocardial infarct finding now present T-wave abnormality no longer present Electronically Signed On 02-09-2021 18:22:47 CDT by Peter Paniagua M.D. [id number]
--- NOTE | 2021-02-09 09:18 | W.ED.SOB ---
HPI - SOB/Dyspnea General: Chief Complaint: Shortness of Breath/Dyspnea Stated Complaint: RESPIRATORY DISTRESS Time Seen by Provider: 02/09/21 09:05 History of Present Illness: HPI Narrative: 60-year-old male presents emergency room complaining difficulty breathing. As well as elevated blood pressure is not taken any of his medications this morning he was hospitalized previously few weeks ago and is run out of all of his medications except for Lasix and carvedilol. He has some mild chest discomfort but his biggest complaint is his shortness of breath and leg swelling MD elicited complaint: shortness of breath Pertinent past history: COPD and congestive heart failure Onset (ago): day(s) Timing: constant Exacerbating factors: lying flat and coughing Relieving factors: oxygen and rest Known history of: COPD and congestive heart failure Associated symptoms: Reports chest congestion, chest pain, cough and orthopnea; Deny abdominal pain, diaphoresis, dizziness, extremity pain, fever(s), hemoptysis, lightheadedness, myalgias, nausea, palpitations, paresthesias, polydipsia, polyuria, rash, sense of impending doom, syncope or vomiting Treatment prior to arrival: none Review of Systems Const: Denies: fever(s) or diaphoresis ENMT: Denies: throat pain, ear or mastoid pain, nasal discharge or nasal congestion Card: Reports: chest pain and orthopnea; Denies: palpitations, lightheadedness or syncope Resp: Reports: chest congestion; Denies: hemoptysis GI: Denies: abdominal pain, nausea or vomiting : Denies: flank pain, dysuria, urinary frequency or urinary urgency Musc: Denies: extremity pain Skin/Breast: Denies: rash or pruritus Neuro: Denies: dizziness Endo: Denies: polyuria or polydipsia PFS ED PFSH: Medical History (Updated 02/10/21 @ 06:19 by Reji West DO) Alcohol use disorder CHF (congestive heart failure) EF 25% on last echocardiogram. COPD (chronic obstructive pulmonary disease) History of amphetamine abuse Hypertension Nonischemic cardiomyopathy Angiogram 2017 no significant coronary plaque. Obesity Surgical History History of surgery on arm Social History Smoking and tobacco status: current every day smoker Alcohol intake: current Alcohol intake frequency: 3 or more drinks per day Physical Exam Const: COMMON NORMALS: no acute distress GENERAL APPEARANCE: cooperative and comfortable ORIENTATION/CONSCIOUSNESS: Yes awake, Yes oriented to person, Yes oriented to place and Yes oriented to time Neck/C-Spine: COMMON NORMALS: no JVD Resp: AUSCULTATION: rales Cardio: COMMON NORMALS: no JVD, regular rhythm and No murmurs present (Cardio) RATE: tachycardic RHYTHM: regular rhythm GI: COMMON NORMALS: Soft to palpation and No hepatosplenomegaly present AUSCULTATION: Yes normoactive bowel sounds PALPATION: Yes Soft to palpation, No Tenderness to palpation present (GI), No Guarding due to palpation present (GI) and Yes No hepatosplenomegaly present Extremity: COMMON NORMALS: normal to inspection, capillary refill normal, no clubbing, cyanosis or edema and no calf tenderness Neuro: SENSORIUM/ORIENTATION: Yes oriented to person, Yes oriented to place and Yes oriented to time Skin: COMMON NORMALS: no rashes or lesions noted GENERAL SKIN EXAM: no rashes or lesions noted Course Vital Signs: Vital signs: Vital Signs Temperature 97.6 F 02/10/21 03:44 Pulse Rate 101 H 02/10/21 05:42 Respiratory Rate 23 H 02/10/21 03:44 Blood Pressure 116/84 02/10/21 03:44 Pulse Oximetry 93 02/10/21 03:44 MDM - SOB/Dyspnea MDM Narrative: Medical decision making narrative: Patient hypoxic on room air. Decompensated congestive heart failure secondary to noncompliance with his medications. Will admit. Discussed Dr. Chery orders are written. Lab Data: Labs: Lab Results 02/09/21 02/09/21 02/09/21 Range/Units 09:05 09:15 09:15 WBC 8.2 (4.0-10.0) 10^3/ uL RBC 4.39 (4.1-5.3) 10^6/u L Hgb 14.2 (11.7-16.6) g/dL Hct 42.7 (42.0-52.0) % MCV 97.3 H (80-94) fL MCH 32.3 (28.0-34.0) pg MCHC 33.3 (30.0-36.0) g/dL RDW 15.0 (12.1-15.1) % Plt Count 228 (130-400) 10^3/c mm MPV 9.6 (7.4-10.4) fL Neut % (Auto) 69.4 % Lymph % (Auto) 19.9 % Alfalfa % (Auto) 8.3 % Eos % (Auto) 1.1 % Baso % (Auto) 0.9 % Neut # (Auto) 5.68 (1.8-7.7) 10^3/u L Lymph # (Auto) 1.6 (0.8-4.8) 10^3/u L Alfalfa # (Auto) 0.7 (0.2-0.9) 10^3/u L Eos # (Auto) 0.1 (0.0-0.8) 10^3/u L Baso # (Auto) 0.1 (0.0-0.1) 10^3/u L Nucleated RBC % (a uto) 0 % Nucleated RBCs # 0.0 /100WBC Specimen Type Sample Site ABG pH (7.35-7.45) ABG pCO2 (35-45) mmHg ABG pO2 (80.0-100.0) mmH g ABG HCO3 (22-26) mmol/L ABG O2 Saturation ABG Base Excess (-2.0-2.0) mmol/ L Melquiades Test A-a O2 Gradient (5-10) mmHg Hematocrit (42-52) % Hgb O2 Saturation (95-100) % Carboxyhemoglobin (0.4-20.1) %THgb Methemoglobin (0.4-1.5) % Total Hemoglobin (14-18) g/dL Ionized Calcium (1.1-1.4) mmol/L O2 Delivery Device FiO2 % Glass Pulverizer Equipment Operator ID Sodium 137 (136-145) mmol/L Potassium 3.7 (3.5-5.1) mmol/L Chloride 100 (98-107) mmol/L Carbon Dioxide 22 (22-29) mmol/L Anion Gap 18.7 (5-19) BUN 14 (6-20) mg/dL Creatinine 0.8 (0.7-1.2) mg/dL GFR Calculation 99.3 (90-130) mL/min Glucose 102 (65-115) mg/dL Calculated Osmolal ity 285 (285-295) mOsm/k g Calcium 8.7 (8.5-10.5) mg/dL Magnesium 1.8 (1.7-2.3) mg/dL Total Bilirubin 2.7 H (0.15-1.2) mg/dL AST 48 H (0-40) U/L ALT 30 (0-41) U/L Alkaline Phosphata se 105 (40-130) IU/L Creatine Kinase 131 (39-308) U/L Troponin T Baselin e (0-15) ng/L Troponin T 120 Min [place] (0-15) ng/L Delta Troponin T (0-10) ABS# NT-Pro-B Natriuret Pep 10251 H (0-125) pg/mL Total Protein 6.8 (6.6-8.7) g/dL Albumin 3.7 (3.5-5.2) g/dL Globulin 3.1 (1.3-4.6) g/dL Urine Color (Yellow) Urine Appearance (CLEAR) Urine pH (5-7) Ur Specific Gravit y (1.005-1.030) Urine Protein (Negative) Urine Glucose (UA) (Normal) Urine Ketones (Negative) Urine Blood (Negative) Urine Nitrate (Negative) Urine Bilirubin (Negative) Urine Urobilinogen (Negative) mg/dL Ur Leukocyte Glenys ase (Negative) Urine RBC (0-2) /hpf Urine WBC (0-5) /hpf Ur Squamous Epith Cells (0-5) /hpf Amorphous Sediment Urine Bacteria (NONE) /hpf 02/09/21 02/09/21 02/09/21 Range/Units 09:15 09:18 09:40 WBC (4.0-10.0) 10^3/ uL RBC (4.1-5.3) 10^6/u L Hgb (11.7-16.6) g/dL Hct (42.0-52.0) % MCV (80-94) fL MCH (28.0-34.0) pg MCHC (30.0-36.0) g/dL RDW (12.1-15.1) % Plt Count (130-400) 10^3/c mm MPV (7.4-10.4) fL Neut % (Auto) % Lymph % (Auto) % Alfalfa % (Auto) % Eos % (Auto) % Baso % (Auto) % Neut # (Auto) (1.8-7.7) 10^3/u L Lymph # (Auto) (0.8-4.8) 10^3/u L Alfalfa # (Auto) (0.2-0.9) 10^3/u L Eos # (Auto) (0.0-0.8) 10^3/u L Baso # (Auto) (0.0-0.1) 10^3/u L Nucleated RBC % (a uto) % Nucleated RBCs # /100WBC Specimen Type Arterial Sample Site Radial, right ABG pH 7.44 (7.35-7.45) ABG pCO2 32.3 L (35-45) mmHg ABG pO2 73.5 L (80.0-100.0) mmH g ABG HCO3 21.9 L (22-26) mmol/L ABG O2 Saturation 94.9 ABG Base Excess -1.4 (-2.0-2.0) mmol/ L Melquiades Test Pos A-a O2 Gradient 4.6 L (5-10) mmHg Hematocrit 44.1 (42-52) % Hgb O2 Saturation 92.7 L (95-100) % Carboxyhemoglobin 1.7 (0.4-20.1) %THgb Methemoglobin 0.6 (0.4-1.5) % Total Hemoglobin 14.4 (14-18) g/dL Ionized Calcium 1.2 (1.1-1.4) mmol/L O2 Delivery Device Room air FiO2 21.0 % Glass Pulverizer Equipment Operator ID [place]ro Sodium 138.0 (136-145) mmol/L Potassium 3.4 L (3.5-5.1) mmol/L Chloride (98-107) mmol/L Carbon Dioxide (22-29) mmol/L Anion Gap (5-19) BUN (6-20) mg/dL Creatinine (0.7-1.2) mg/dL GFR Calculation (90-130) mL/min Glucose 101.0 (65-115) mg/dL Calculated Osmolal ity (285-295) mOsm/k g Calcium (8.5-10.5) mg/dL Magnesium (1.7-2.3) mg/dL Total Bilirubin (0.15-1.2) mg/dL AST (0-40) U/L ALT (0-41) U/L Alkaline Phosphata se (40-130) IU/L Creatine Kinase (39-308) U/L Troponin T Baselin e 51 H (0-15) ng/L Troponin T 120 Min [place] (0-15) ng/L Delta Troponin T (0-10) ABS# NT-Pro-B Natriuret Pep (0-125) pg/mL Total Protein (6.6-8.7) g/dL Albumin (3.5-5.2) g/dL Globulin (1.3-4.6) g/dL Urine Color Dark yellow (Yellow) Urine Appearance Clear (CLEAR) Urine pH 5 (5-7) Ur Specific Gravit y 1.025 (1.005-1.030) Urine Protein 1+ H (Negative) Urine Glucose (UA) Norm (Normal) Urine Ketones Negative (Negative) Urine Blood Neg (Negative) Urine Nitrate Negative (Negative) Urine Bilirubin 2+ H (Negative) Urine Urobilinogen 4+ H (Negative) mg/dL Ur Leukocyte Glenys ase Negative (Negative) Urine RBC None (0-2) /hpf Urine WBC None (0-5) /hpf Ur Squamous Epith Cells 0-4 H (0-5) /hpf Amorphous Sediment Not Reportable Urine Bacteria Trace (NONE) /hpf 02/09/21 Range/Units 11:17 WBC (4.0-10.0) 10^3/ uL RBC (4.1-5.3) 10^6/u L Hgb (11.7-16.6) g/dL Hct (42.0-52.0) % MCV (80-94) fL MCH (28.0-34.0) pg MCHC (30.0-36.0) g/dL RDW (12.1-15.1) % Plt Count (130-400) 10^3/c mm MPV (7.4-10.4) fL Neut % (Auto) % Lymph % (Auto) % Alfalfa % (Auto) % Eos % (Auto) % Baso % (Auto) % Neut # (Auto) (1.8-7.7) 10^3/u L Lymph # (Auto) (0.8-4.8) 10^3/u L Alfalfa # (Auto) (0.2-0.9) 10^3/u L Eos # (Auto) (0.0-0.8) 10^3/u L Baso # (Auto) (0.0-0.1) 10^3/u L Nucleated RBC % (a uto) % Nucleated RBCs # /100WBC Specimen Type Sample Site ABG pH (7.35-7.45) ABG pCO2 (35-45) mmHg ABG pO2 (80.0-100.0) mmH g ABG HCO3 (22-26) mmol/L ABG O2 Saturation ABG Base Excess (-2.0-2.0) mmol/ L Melquiades Test A-a O2 Gradient (5-10) mmHg Hematocrit (42-52) % Hgb O2 Saturation (95-100) % Carboxyhemoglobin (0.4-20.1) %THgb Methemoglobin (0.4-1.5) % Total Hemoglobin (14-18) g/dL Ionized Calcium (1.1-1.4) mmol/L O2 Delivery Device FiO2 % Glass Pulverizer Equipment Operator ID Sodium (136-145) mmol/L Potassium (3.5-5.1) mmol/L Chloride (98-107) mmol/L Carbon Dioxide (22-29) mmol/L Anion Gap (5-19) BUN (6-20) mg/dL Creatinine (0.7-1.2) mg/dL GFR Calculation (90-130) mL/min Glucose (65-115) mg/dL Calculated Osmolal ity (285-295) mOsm/k g Calcium (8.5-10.5) mg/dL Magnesium (1.7-2.3) mg/dL Total Bilirubin (0.15-1.2) mg/dL AST (0-40) U/L ALT (0-41) U/L Alkaline Phosphata se (40-130) IU/L Creatine Kinase (39-308) U/L Troponin T Baselin e (0-15) ng/L Troponin T 120 Min [place] 49.82 H (0-15) ng/L Delta Troponin T -1.18 L (0-10) ABS# NT-Pro-B Natriuret Pep (0-125) pg/mL Total Protein (6.6-8.7) g/dL Albumin (3.5-5.2) g/dL Globulin (1.3-4.6) g/dL Urine Color (Yellow) Urine Appearance (CLEAR) Urine pH (5-7) Ur Specific Gravit y (1.005-1.030) Urine Protein (Negative) Urine Glucose (UA) (Normal) Urine Ketones (Negative) Urine Blood (Negative) Urine Nitrate (Negative) Urine Bilirubin (Negative) Urine Urobilinogen (Negative) mg/dL Ur Leukocyte Glenys ase (Negative) Urine RBC (0-2) /hpf Urine WBC (0-5) /hpf Ur Squamous Epith Cells (0-5) /hpf Amorphous Sediment Urine Bacteria (NONE) /hpf Discharge Plan Discharge Patient Disposition: Admitted As Inpatient Admit Provider: David Leiva Clinical Impression: CHF (congestive heart failure), Nonischemic cardiomyopathy, Hypertension Condition: Stable Coding Level of Care Code ED Avionics Manager for Chg Fwd Exam Detailed
[2021-02-09 09:25] LABS: Basophils # 0.1 10^3/uL (0.0-0.1); Basophils % 0.9 %; Eosinophils # 0.1 10^3/uL (0.0-0.8); Eosinophils % 1.1 %; Hematocrit 42.7 % (42.0-52.0); Hemoglobin 14.2 g/dL (11.7-16.6); Lymphocytes # 1.6 10^3/uL (0.8-4.8); Lymphocytes % 19.9 %; Mean Corpuscular HGB Conc 33.3 g/dL (30.0-36.0); Mean Corpuscular Hemoglobin 32.3 pg (28.0-34.0); Mean Corpuscular Volume 97.3 fL (80-94); Mean Platelet Volume 9.6 fL (7.4-10.4); Monocytes # 0.7 10^3/uL (0.2-0.9); Monocytes % 8.3 %; Neutrophils # 5.68 10^3/uL (1.8-7.7); Neutrophils % 69.4 %; Nucleated Red Blood Cells % 0 %; Platelet Count 228 10^3/cmm (130-400); Red Blood Count 4.39 10^6/uL (4.1-5.3); White Blood Count 8.2 10^3/uL (4.0-10.0)
[2021-02-09 09:30] LABS: ABG PCO2 32.3 mmHg (35-45); ABG PH Result 7.44 (7.35-7.45); Alveolar-Arterial Oxygen Gradi 4.6 mmHg (5-10); Arterial Blood Gas Hematocrit 44.1 % (42-52); Base Excess ABG -1.4 mmol/L (-2.0-2.0); Blood Gas Allen Test Pos; Blood Gas Operator Identificat MONRO; Blood Gas Sample Site Radial, right; Blood Gas Sample Type Arterial; Carboxyhemoglobin 1.7 %THgb (0.4-20.1); HCO3 ABG 21.9 mmol/L (22-26); HGB O2 Sat 92.7 % (95-100); Ionized Calcium Level - ABG 1.2 mmol/L (1.1-1.4); Methemoglobin 0.6 % (0.4-1.5); Oxygen Device ROOM AIR; Oxygen Saturation ABG 94.9; PO2 ABG 73.5 mmHg (80.0-100.0); Potassium Level - ABG 3.4 mmol/L (3.5-5.0); Total Hemoglobin 14.4 g/dL (14-18)
[2021-02-09 09:41] LABS: Troponin(5th) Baseline 51 ng/L (0-15)
[2021-02-09 09:49] LABS: Alanine Aminotransferase 30 U/L (0-41); Albumin Level 3.7 g/dL (3.5-5.2); Alkaline Phosphatase 105 IU/L (40-130); Anion Gap 18.7 (5-19); Aspartate Amino Transferase 48 U/L (0-40); Blood Urea Nitrogen 14 mg/dL (6-20); Calcium 8.7 mg/dL (8.5-10.5); Carbon Dioxide 22 mmol/L (22-29); Chloride 100 mmol/L (98-107); Creatine Phosphokinase 131 U/L (39-308); Globulin 3.1 g/dL (1.3-4.6); Glomerular Filtration Rate 99.3 mL/min (90-130); Glucose 102 mg/dL (65-115); NT Pro B Type Natriuretic Pept 10215 pg/mL (0-125); Osmolality Calculated 285 mOsm/kg (285-295); Potassium 3.7 mmol/L (3.5-5.1); Sodium 137 mmol/L (136-145); Total Bilirubin 2.7 mg/dL (0.15-1.2); Total Protein 6.8 g/dL (6.6-8.7)
[2021-02-09 10:04] LABS: Protein Urine 1+ (Negative); Specific Gravity, Urine 1.025 (1.005-1.030); Urine Appearance Clear (CLEAR); Urine Color Dark Yellow (Yellow); pH Urine 5 (5-7)
[2021-02-09 10:05] LABS: Bilirubin Urine 2+ (Negative); Blood Urine Neg (Negative); Glucose Urine UA Norm (Normal); Ketones Urine Negative (Negative); Leukocyte Esterase Urine Negative (Negative); Nitrate Urine Negative (Negative); Urobilinogen Urine 4+ mg/dL (Negative)
[2021-02-09 10:06] LABS: Add Urine Culture? No; Add Urine Microscopic? YES; Bacteria Urine TRACE /hpf; Squamous Epithelial Cell Urine 0-4 /hpf (0-5)
--- NOTE | 2021-02-09 10:33 | XR_ITS ---
WS: [id number] Exam: XR chest 1V portable [id number] Date/Time of Exam: 02/09/2021 10:34 AM Reason For Exam: dyspnea/cough Comparison 12/21/2020. Marked cardiac enlargement unchanged. Mild chronic plaque atelectasis in the right base. Pulmonary va scularity is increased but unchanged. The lungs are fully expanded. The mediastinum is not widened. R egional bony structures are intact. XR/XR chest 1V portable [id number] IMPRESSION: 1. Cardiac enlargement with increased pulmonary vascularity. The pattern is unc hanged. 2. Chronic plaque atelectasis in the right lung base.
[2021-02-09] MEDS: FUROsemide 10 mg/mL SDV 10mL 60 MG IVP ×2 (11:06→21:29)
[2021-02-09] MEDS: metoprolol tartrate 1 mg/1 mL SDV 5 mL 5 MG IV (11:08)
--- NOTE | 2021-02-09 11:17 | ECG_ITS ---
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 Measurements Intervals [place] Rate: 93 P: 71 DE: 188 QRS: 34 QRSD: 90 T: 0 QT: 376 QTc: 470 Interpretive Statements SINUS RHYTHM LEFT ATRIAL ENLARGEMENT [-0.15mV P WAVE IN V1/V2] SEPTAL MYOCARDIAL INFARCTION [40+ ms Q WAVE IN V1/V2], OF INDETERMINATE AGE MODERATE T-WAVE ABNORMALITY, CONSIDER LATERAL ISCHEMIA [-0.1+ mV T WAVE IN I/aVL/V5/V6] Compared to ECG 02/09/2021 09:29:50 T-wave abnormality now present Possible ischemia now present Sinus tachycardia no longer present Myocardial infarct finding still present Electronically Signed On 02-09-2021 18:29:25 CDT by Peter Paniagua M.D. [id number]
--- NOTE | 2021-02-09 11:31 | PC.PHAR ---
pt states he takes care of his own medications-pt states he has been out of his medications for a week-pt brought in medication bottles all were empty except for the lasix-pt states he finished his doxycycline and his prednisone-scarlet states the pt has a refill on his prednisone
[2021-02-09 11:50] LABS: Troponin 5 2HR 49.82 ng/L (0-15)
[2021-02-09 11:51] LABS: Troponin 5 2HR Delta -1.18 ABS# (0-10)
[2021-02-09] MEDS: carvedilol 3.125 mg Tablet PO ×2 (11:58→21:30)
--- NOTE | 2021-02-09 12:15 | PM.HP ---
Providers/Chief Complaint Primary Care Provider: [facility] Chief Complaint: RESPIRATORY DISTRESS History of Present Illness Jose Carlos Armendariz is a 60 year old male who presented to the emergency department reporting he was swollen, could not breathe, and had not taken his medicines in at least a week, perhaps 2. He has had a similar presentation, when I saw him December 21. He denies any chest discomfort. He reports his last alcohol use was 3 to 4 days ago and he has not been using amphetamines. He denies any fever, congestion, exposure to Covid, personal history of Covid or vaccine for it. He has had no nausea and vomiting and reports he continues to be able to eat and drink. He reports he does not feel shaky and does not believe he is in any alcohol withdrawal. He reports he wants to try to avoid a Iglesias. Review of Systems General: Reports: 10 or more systems reviewed and unremarkable except in HPI and below Const: Denies: fever(s) or chills Eyes: Denies: change in vision ENMT: Denies: throat pain Card: Reports: edema; Denies: chest pain Resp: Reports: dyspnea GI: Denies: abdominal pain, nausea or vomiting : Denies: flank pain Musc: Denies: neck pain Skin/Breast: Denies: rash Neuro: Denies: headache(s) Psych: Reports: anxiety; Denies: depression Endo: Denies: polyuria Haroldo/Lymph: Denies: easy bruising All/Imm: Denies: urticaria Medications/Allergies Home Medications Medication Instructions Recorded Confirmed Last Taken Type albuterol sulfate [Ventolin HFA] 2 puff INHALATION Q4H PRN 12/21/20 02/09/21 Unknown History folic acid 1 mg PO DAILY #30 tab 12/25/20 02/09/21 Unknown Rx furosemide 40 mg PO BID #60 tab 12/25/20 02/09/21 Unknown Rx thiamine mononitrate (vit B1) 100 mg PO DAILY #30 tab 12/25/20 02/09/21 Unknown Rx [Vitamin B-1 (mononitrate)] lisinopril 10 mg PO DAILY #30 tab 12/26/20 02/09/21 Unknown Rx spironolactone [Aldactone] 25 mg PO DAILY #30 tab 12/26/20 02/09/21 Unknown Rx carvedilol 3.125 mg PO BID@0900,2100 02/09/21 02/09/21 Unknown History wzmfkyvyyatx-exku-srtgi acid 1 tab PO DAILY 02/09/21 02/09/21 Unknown History [Certavite-Antioxidant] Allergies Allergy/AdvReac Type Severity Reaction Status Date / Time Penicillins Allergy Unknown Verified 02/09/21 11:30 PFSH Acute PFSH: Medical History (Updated 02/09/21 @ 14:08 by David Leiva MD) Alcohol use disorder CHF (congestive heart failure) EF 25% on last echocardiogram. COPD (chronic obstructive pulmonary disease) History of amphetamine abuse Hypertension Nonischemic cardiomyopathy Angiogram 2017 no significant coronary plaque. Obesity Surgical History History of surgery on arm Social History Smoking and tobacco status: current every day smoker Alcohol intake: current Alcohol intake frequency: 3 or more drinks per day Supplemental PFSH Information: Family history significant for lupus in mother Vitals/I&O/Wt Last Vital Signs Temp 97.5 F L 02/09/21 09:05 Pulse 113 H 02/09/21 11:12 Resp 28 H 02/09/21 12:00 BP 145/94 02/09/21 11:12 Pulse Ox 98 02/09/21 12:03 Weight last 48 hrs Weight 81.647 kg Physical Exam Narrative: EXAM NARRATIVE: General exam is a white male, with moderate tachypnea/respiratory distress, anxious HEENT: Pupils equally round. Oropharynx clear. Neck is supple no lymphadenopathy or thyromegaly Cardiovascular tachycardia, without murmur Lungs crackles bibasilar Abdomen is soft with positive bowel sounds. Abdominal wall edema is noted. No obvious organomegaly is deferred Extremities 2+ edema bilaterally. Cap refill brisk. Skin no rash Neuro no obvious focal deficits Data : 02/09/21 09:15 02/09/21 09:15 Other data: Chest x-ray by my read demonstrates CHF, cardiomegaly EKG demonstrates sinus tachycardia, normal axis, poor R wave progression with Q waves noted V1 and V2, no acute changes ABG demonstrates pH 7.44, PCO2 32, PO2 73 Bilirubin 2.7, AST 48 Troponin 51 with repeat 49 at 120 minutes BNP 10,215 Albumin 3.7 TSH December 21 4.32 Urinalysis negative for red and white blood cells A&P Assessment and plan (1) CHF (congestive heart failure): Acute systolic heart failure, stemming from noncompliance with medications. He has not taken his medicines in the last several weeks and has an EF of 25% Reinstitute his medication including carvedilol, and lisinopril. Restart Aldactone after his diuresis has been completed. Diuresis with Lasix 60 mg IV every 12 hours Close follow-up Status: Acute (2) Acute respiratory failure with hypoxia: Requiring oxygen, with mild to moderate tachypnea. This is secondary to his acute heart failure. Status: Acute (3) Nonischemic cardiomyopathy: Last EF 25% on recent echo. No need to repeat He has been offered possible defibrillator, but secondary to his noncompliance he has not been able to keep clinic appointment. Cardiology has seen him inpatient. I have discussed with him his need for compliance for consideration of this. We discussed obstacles to this, to try to improve his situation. Status: Acute (4) COPD (chronic obstructive pulmonary disease): No evidence of exacerbation currently Budesonide twice daily, DuoNeb every 6 hours Status: Acute (5) Tobacco dependency: Encourage cessation Status: Acute (6) Noncompliance: Encourage compliance, follow-up with cardiology and his primary care provider, and continuation of medication. Status: Acute Additional A&P Information History of alcohol use. Monitor for withdrawal. He did not have significant withdrawal symptoms on his last hospital stay. Initiate thiamine, folate full code Lovenox for DVT prophylaxis Attestations Medical Necessity Statement*: Will need greater than 2 midnight stay for treatment of his acute systolic heart failure with IV diuresis. Time Spent in Patient Care: Greater than 35 minutes Coding Level of Care Code Acute Shoe Cementer for [facility] Fwd Diagnoses CHF (congestive heart failure) I50.9 Acute respiratory failure with hypoxia J96.01 Nonischemic cardiomyopathy I42.8 COPD (chronic obstructive pulmonary disease) J44.9 Tobacco dependency F17.200 Noncompliance Z91.19
[2021-02-09] MEDS: LORazepam 2 mg/mL INJ 1 mL 1 MG IVP (12:30)
--- NOTE | 2021-02-09 13:32 | PC.NURSE ---
patient received to room 106 patient alert oriented and in stable condition RESP 25 HR 103 patient denies any pain or discomfort at this time patient is sleepy will nod off during conversation patient is easily aroused and is alert when awake Will continue to monitor closely
[2021-02-09] MEDS: ipratropium-albuterol 3 mL Neb INHALATION ×2 (14:54→21:02)
[2021-02-09 15:05] LABS: Magnesium 1.8 mg/dL (1.7-2.3)
--- NOTE | 2021-02-09 15:17 | ECG_ITS ---
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 Measurements Intervals [place] Rate: 104 P: 55 VA: 144 QRS: 56 QRSD: 98 T: 31 QT: 330 QTc: 435 Interpretive Statements SINUS TACHYCARDIA LEFT ATRIAL ENLARGEMENT [-0.15mV P WAVE IN V1/V2] NONSPECIFIC T-WAVE ABNORMALITY Compared to ECG 02/09/2021 12:17:21 Sinus rhythm no longer present Myocardial infarct finding no longer present Possible ischemia no longer present T-wave abnormality still present Electronically Signed On 02-09-2021 18:29:07 CDT by Peter Paniagua M.D. [id number]
--- NOTE | 2021-02-09 15:27 | PC.RESP ---
Smoking Cessation and Pulmonary Rehab information sent to patient.
[2021-02-09] MEDS: enoxaparin 40 mg/0.4 mL Syringe SUBCUT (15:51)
[2021-02-09 16:21] LABS: Troponin 5 6HR 49.29 ng/L (0-15)
[2021-02-09 16:39] LABS: Troponin 5 6HR Delta -1.71 ng/L (0-12)
--- NOTE | 2021-02-09 17:58 | PC.NURSE ---
notified Dr gonzalez of patients current blood pressure telephone orders received to start ciwa protocol with ativan Hydralazine 10mg IVP q4H PRN for sys >180 or destiney >100
[2021-02-09] MEDS: hyDRALAzine 20 mg/mL INJ 1 mL 10 MG IVP (18:13)
--- NOTE | 2021-02-09 18:18 | PC.NURSE ---
PRN hydralazine given at this time for blood pressure 147/104
--- NOTE | 2021-02-09 18:30 | PC.NURSE ---
Blood pressure now 129/94 after hydralazine administration
--- NOTE | 2021-02-09 20:03 | PC.NURSE ---
Bedside report received from Stefanie COTE. Patient is resting in bed fully clothed with his hat over his face. Patient refuses a full assessment. Patient allowed me to listen to his lungs and abdomen and feel his pedal pulses. Patient refuses to let me do a full skin assessment or change into a hospital gown. This nurse will continue to encourage patient to change into a gown and allow me to do a full assessment.
[2021-02-09] MEDS: budesonide 0.5 mg/2 mL Neb INHALATION (21:02)
[2021-02-10] VITALS (44 sets, daily range): BP systolic 107–139; BP diastolic 78–102; PULSE 90–113; RESP 15–35; TEMP 35.9–37.2; O2SAT 84–105
[2021-02-10] MEDS: LORazepam 2 mg Tablet PO (03:16)
--- NOTE | 2021-02-10 03:18 | PC.NURSE ---
Addendum entered by Marialuisa Esparza RN 02/10/21 03:46: Current CIWA score 3. Patient is resting in bed with eyes closed. No S/S of distress. Nurse will continue to monitor. Original Note: Ativan 2mg PO administered per CIWA protocol. CIWA score 11. Nurse will continue to monitor.
[2021-02-10] MEDS: ipratropium-albuterol 3 mL Neb INHALATION ×6 (03:20→23:50)
[2021-02-10 05:19] LABS: Basophils # 0.1 10^3/uL (0.0-0.1); Basophils % 1.2 %; Eosinophils # 0.2 10^3/uL (0.0-0.8); Eosinophils % 2.9 %; Hematocrit 42.1 % (42.0-52.0); Hemoglobin 13.8 g/dL (11.7-16.6); Lymphocytes # 1.6 10^3/uL (0.8-4.8); Lymphocytes % 21.6 %; Mean Corpuscular HGB Conc 32.8 g/dL (30.0-36.0); Mean Corpuscular Hemoglobin 32.2 pg (28.0-34.0); Mean Corpuscular Volume 98.4 fL (80-94); Mean Platelet Volume 10.2 fL (7.4-10.4); Monocytes # 0.6 10^3/uL (0.2-0.9); Monocytes % 7.3 %; Neutrophils # 5.02 10^3/uL (1.8-7.7); Neutrophils % 66.7 %; Nucleated Red Blood Cells % 0 %; Platelet Count 212 10^3/cmm (130-400); Red Blood Count 4.28 10^6/uL (4.1-5.3); Red Cell Distribution Width 15.3 % (12.1-15.1); White Blood Count 7.5 10^3/uL (4.0-10.0)
[2021-02-10 05:39] LABS: Anion Gap 17.6 (5-19); Blood Urea Nitrogen 20 mg/dL (6-20); Calcium 8.4 mg/dL (8.5-10.5); Carbon Dioxide 22 mmol/L (22-29); Chloride 101 mmol/L (98-107); Glomerular Filtration Rate 62.2 mL/min (90-130); Glucose 101 mg/dL (65-115); Magnesium 1.8 mg/dL (1.7-2.3); Osmolality Calculated 287 mOsm/kg (285-295); Potassium 3.6 mmol/L (3.5-5.1); Sodium 137 mmol/L (136-145)
[2021-02-10] MEDS: lisinopril 10 mg Tablet PO (08:17)
[2021-02-10] MEDS: folic acid 1 mg Tablet PO (08:17)
[2021-02-10] MEDS: thiamine 100 mg Tablet PO (08:17)
[2021-02-10] MEDS: predniSONE 20 mg Tablet 40 MG PO (08:17)
[2021-02-10] MEDS: carvedilol 3.125 mg Tablet PO ×2 (08:19→21:22)
--- NOTE | 2021-02-10 08:51 | PM.PN ---
Subjective Subjective: Interval history: Jose Carlos reports he feels a little bit better. Nursing has noted that he got very lethargic after Ativan. No chest discomfort. Ins and outs may be inaccurate. Medications: Reviewed: Yes Vitals/I&O/Wt Last Vital Signs Temp 97.6 F 02/10/21 03:44 Pulse 101 H 02/10/21 05:42 Resp 23 H 02/10/21 03:44 BP 116/84 02/10/21 03:44 Pulse Ox 93 02/10/21 03:44 02/09/21 02/10/21 02/10/21 22:59 06:59 14:59 Intake Total 800 / 800 Output Total 325 / 325 Balance 800 / 800 -325 / -325 Weight last 48 hrs Weight 91.308 kg Weight 81.647 kg Physical Exam Narrative: EXAM NARRATIVE: General exam mild respiratory distress Neck is supple no lymphadenopathy or thyromegaly Cardiovascular tachycardia, without murmur Lungs bilateral expiratory wheezes Abdomen is soft with positive bowel sounds. Abdominal wall edema is noted. No obvious organomegaly Extremities 2+ edema bilaterally. Cap refill brisk. Data : 02/10/21 04:23 02/10/21 04:23 A&P Assessment and plan (1) CHF (congestive heart failure): Acute systolic heart failure, stemming from noncompliance with medications. He has not taken his medicines in the last several weeks and has an EF of 25% I have restarted his medication including carvedilol, and lisinopril. Restart Aldactone after his diuresis has been completed. Continue diuresis with Lasix 60 mg IV every 12 hours Discussed with nursing accurate ins and outs. I suspect the patient has not been using the urinal. Nursing will reinforce this. He has not 1 and a Iglesias. Status: Acute (2) Acute respiratory failure with hypoxia: Requiring oxygen, with mild to moderate tachypnea. This is secondary to his acute heart failure. Status: Acute (3) Nonischemic cardiomyopathy: Last EF 25% on recent echo. No need to repeat He has been offered possible defibrillator, but secondary to his noncompliance he has not been able to keep clinic appointment. Cardiology has seen him inpatient. I have discussed with him his need for compliance for consideration of this. We discussed obstacles to this, to try to improve his situation. Status: Acute (4) COPD (chronic obstructive pulmonary disease): Concern with apparent exacerbation. Add prednisone 40 mg daily Continue budesonide twice daily Change DuoNeb to every 4 hours scheduled I do not see need for antibiotic currently. Status: Acute (5) Tobacco dependency: Encourage cessation Status: Acute (6) Noncompliance: Encourage compliance, follow-up with cardiology and his primary care provider, and continuation of medication. Status: Acute Additional A&P Information History of alcohol use. Monitor for withdrawal. He did not have significant withdrawal symptoms on his last hospital stay. Continue thiamine, folate full code Lovenox for DVT prophylaxis Attestations Medical Necessity Statement*: Needs continued hospitalization for further diuresis, as well as treatment of COPD exacerbation. Coding Level of Care Code Acute Electro Mechanical Solar Technician for Rylan Michael Diagnoses CHF (congestive heart failure) I50.9 Acute respiratory failure with hypoxia J96.01 Nonischemic cardiomyopathy I42.8 COPD (chronic obstructive pulmonary disease) J44.9 Tobacco dependency F17.200 Noncompliance Z91.19
[2021-02-10] MEDS: budesonide 0.5 mg/2 mL Neb INHALATION ×2 (08:59→20:20)
[2021-02-10] MEDS: FUROsemide 10 mg/mL SDV 10mL 60 MG IVP (10:40)
--- NOTE | 2021-02-10 13:02 | PC.CHAP ---
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 butadiene converter operator visit [] Patient/Family/Request visit [] Outpatient visit [] Follow-up visit [] Physician referral [] Code/Alert [xx] Routine visit [] Staff referral [] Actively dying [] Patient sleeping [] Family support [] [] Out of room [] Palliative care [] [] Receiving care in room [] Pre-surgical visit [] Trauma [] Long length of stay [] ICU visit [] Other: Relational/Emotional Strength [xx] Patient feels connected with others/family/visitors/staff [] Distress [] Loneliness/isolation [] Abandonment Spirituality of Patient [] Person of Molly [] Attends Pres[employer]ian of their Molly [xx] Believes in Prayer [] Reads Bible or Synagogue materials [] There are Spiritual issues to be addressed Computer Sciences Professor Interventions [xx] Prayer [xx] Active listening [xx] Non-anxious presence [] Spiritual/emotional support [] Crisis/trauma care [] Spiritual counseling [] Bereavement support [] Provided bereavement packet [] Provided Bible/devotional materials [] Provided toy/stuffed animal, coloring book to patient or family member [] Provided Communion [] Anointing/[place] [] Salvation [xx] Completed spiritual assessment [] Other: Impact on Illness or Injury [] Angry [] Fearful [] Anxious [] Often cries [] Exhaustion [] Unable to work [] Unable to attend mandaen [] Unable to walk/stand [] Unable to read [] Unable to drive [] Unable to eat/drink [] Unable to sleep [] Unable to be with family [] Patient intubated [] Other: Summary Patient is very drowsy and sleepy. He wanted prayer but not conversation. Time spent with patient 3 minutes
--- NOTE | 2021-02-10 13:45 | PC.NURSE ---
patient seen by staff attempting to get to restroom tangled in wires potential for fall patient was assisted to restroom upon this nurse heading to his room patient was out of bathroom and a smell of smoke could be smelt in the air This nurse asked patient if he was smoking in the bathroom Patient no this nurse asked patient if he was vaping in the bathroom patient no vaping is bad this nurse then noticed patient was only washing one of his hands this nurse noticed a round slender object in hand. patient then asked if he had a cigar in his hand. patient then admitted he had one puff this nurse explained how dangerous it was to smoke in the hospital due to oxygen in use. Patient verbalized understanding and apologized patient asked to give this nurse all cigars and cigarettes he has and all lighters. 1 pack of grape cigars and a 1 blue hunter guide obtained placed in safe keeping with patient information on items
[2021-02-10] MEDS: enoxaparin 40 mg/0.4 mL Syringe SUBCUT (15:34)
--- NOTE | 2021-02-10 16:03 | PC.NURSE ---
called Dr gonzalez with concerns of patient not responding to lasix treatment Telephone instructions received to increase current lasix to 80mg ivp Q12h
--- NOTE | 2021-02-10 19:15 | PC.NURSE ---
Bedside report received from Stefanie COTE. Patient is sitting in bed watching TV. He has no C/O of pain or other needs at this time. Patient is still fully clothed with his shoes on. Nurse encouraged patient to engage in personal hygiene and to put a gown on. Patient refused at this time. Nurse will continue to encourage patient to participate in personal hygiene.
[2021-02-10] MEDS: FUROsemide 10 mg/mL SDV 10mL 80 MG IVP (21:41)
[2021-02-11] VITALS (17 sets, daily range): BP systolic 117–133; BP diastolic 59–101; PULSE 97–109; RESP 16–24; TEMP 35.9–36.8; O2SAT 92–98
[2021-02-11] MEDS: ipratropium-albuterol 3 mL Neb INHALATION ×4 (03:31→15:32)
--- NOTE | 2021-02-11 05:38 | PC.NURSE ---
After several attempts to get patient to participate in personal hygiene. Patient changed out of his jeans and shoes and put sleep pants a hospital socks on. Patient is still refusing shower at this time.
[2021-02-11] MEDS: budesonide 0.5 mg/2 mL Neb INHALATION (08:13)
[2021-02-11 08:25] LABS: Alanine Aminotransferase 22 U/L (0-41); Albumin Level 3.4 g/dL (3.5-5.2); Alkaline Phosphatase 114 IU/L (40-130); Aspartate Amino Transferase 34 U/L (0-40); Blood Urea Nitrogen 29 mg/dL (6-20); Calcium 8.7 mg/dL (8.5-10.5); Carbon Dioxide 23 mmol/L (22-29); Chloride 98 mmol/L (98-107); Globulin 3.3 g/dL (1.3-4.6); Glomerular Filtration Rate 68.8 mL/min (90-130); Glucose 102 mg/dL (65-115); Osmolality Calculated 282 mOsm/kg (285-295); Sodium 133 mmol/L (136-145); Total Bilirubin 1.2 mg/dL (0.15-1.2); Total Protein 6.7 g/dL (6.6-8.7)
--- NOTE | 2021-02-11 08:48 | P.PN_ITS ---
Subjective Subjective: Interval history: No acute events overnight. Hospital course appreciated. On examination sitting in chair. States he is feeling better. Has nasal cannula attached to him but not in his nose. Saturating 92%. Denies any nausea, vomiting, headache, dizziness. Medications: Reviewed: Yes Vitals/I&O/Wt Last Vital Signs Temp 97.6 F 02/11/21 07:39 Pulse 102 H 02/11/21 08:23 Resp 16 02/11/21 08:14 BP 121/88 02/11/21 07:39 Pulse Ox 97 02/11/21 08:14 02/10/21 02/11/21 02/11/21 22:59 06:59 14:59 Intake Total 530 / 1490 100 / 1590 240 / 240 Output Total 650 / 1725 1150 / 2875 Balance -120 / -235 -1050 / -1285 240 / 240 Weight last 48 hrs Weight 91.308 kg Weight 81.647 kg Physical Exam Narrative: EXAM NARRATIVE: General: No acute distress, AO x3 HEENT: PERRLA, pupils bilaterally equal and reactive Chest: Normal vesicular breath sounds, no added sounds, equal good air entry bilaterally CVS: S1-S2 regular, pansystolic murmur at apex 3/6 radiating to posterior axillary line, no tachycardia, S3 gallop, no rubs Abdomen: Soft, nontender, no organomegaly, bowel sounds present Neuro: No focal deficits, no facial deformity, AO x3, power 5/5 in all limbs Data : 02/10/21 04:23 02/11/21 07:23 A&P Assessment and plan (1) CHF (congestive heart failure): Acute systolic heart failure: Secondary to noncompliance of medications. Echocardiogram done in November shows an EF of 25% with abnormal diastolic dysfunction, moderately increased left atrial size, moderate to severe MR. Cannot rule out ischemic cardiomyopathy. But unfortunately patient remains severely noncompliant which has been noticed in the past as well. Continue with Lasix 80 mg IV every 12 hourly. Strict input output charting. Daily weights. For now continue with carvedilol 3.125 mg twice daily, lisinopril. Will restart home dose of Aldactone. Will monitor renal functions. Input output charting most likely inaccurate. Recheck proBNP. Status: Acute (2) Acute respiratory failure with hypoxia: Resolving. Status: Acute (3) Nonischemic cardiomyopathy: Last EF 25% on recent echo. No need to repeat He has been offered possible defibrillator, but secondary to his noncompliance he has not been able to keep clinic appointment. Cardiology has seen him inpatient. I have discussed with him his need for compliance for consideration of this. We discussed obstacles to this, to try to improve his situation. Status: Acute (4) COPD (chronic obstructive pulmonary disease): DuoNebs every 6 hour. Continue prednisone daily for now. Day 2/5 today. Most likely will require a quick taper. Status: Acute (5) Tobacco dependency: Encourage cessation Status: Acute (6) Noncompliance: Encourage compliance, follow-up with cardiology and his primary care provider, and continuation of medication. Status: Acute Additional A&P Information History of alcohol use. Monitor for withdrawal. He did not have significant withdrawal symptoms on his last hospital stay. Continue thiamine, folate. Patient had increased somnolence with Ativan so we will hold off for now. Check iron panel, TSH, procalcitonin. Cardiac diet. full code Lovenox for DVT prophylaxis Attestations Medical Necessity Statement*: Was further hospitalization for management of acute hypoxic respiratory failure of acute decompensated congestive heart failure in setting of nonischemic cardiomyopathy. Time Spent in Patient Care: Greater than 35 minutes (>than 50% of time spent in counselling and/or direct pt care on unit) . Coding Level of Care Code Acute Manager Talent Management for g Fwd Diagnoses CHF (congestive heart failure) I50.9 Acute respiratory failure with hypoxia J96.01 Nonischemic cardiomyopathy I42.8 COPD (chronic obstructive pulmonary disease) J44.9 Tobacco dependency F17.200 Noncompliance Z91.19
[2021-02-11] MEDS: lisinopril 10 mg Tablet PO (09:48)
[2021-02-11] MEDS: folic acid 1 mg Tablet PO (09:49)
[2021-02-11] MEDS: multivitamin therapeutic Tablet 1 TAB PO (09:49)
[2021-02-11] MEDS: predniSONE 20 mg Tablet 40 MG PO (09:49)
[2021-02-11] MEDS: carvedilol 3.125 mg Tablet PO ×2 (09:49→20:30)
[2021-02-11] MEDS: spironolactone 25 mg Tablet PO (09:49)
[2021-02-11] MEDS: pantoprazole DR 40 mg Tablet PO (09:49)
[2021-02-11] MEDS: thiamine 100 mg Tablet PO (09:49)
[2021-02-11] MEDS: FUROsemide 10 mg/mL SDV 10mL 80 MG IVP (09:54)
[2021-02-11 10:02] LABS: Procalcitonin 0.08 ng/mL (0-0.5)
[2021-02-11 10:04] LABS: Thyroid Stimulating Hormone 2.85 uIU/mL (0.27-4.20)
[2021-02-11 10:07] LABS: Alcohol Level < 10 mg/dL (0-10)
[2021-02-11 10:23] LABS: Iron 53 ug/dL (59-158); Percent Saturation 16.2 % (20-50); Total Iron Binding Capacity 326 mcg/dl; Unsaturated Iron Binding 273 ug/dL (112-347)
[2021-02-11 10:36] LABS: NT Pro B Type Natriuretic Pept 5729 pg/mL (0-125)
[2021-02-11] MEDS: enoxaparin 40 mg/0.4 mL Syringe SUBCUT (15:27)
[2021-02-11] MEDS: FUROsemide 40 mg Tablet 60 MG PO (18:36)
[2021-02-11] MEDS: nicotine 21 mg Patch 1 PATCH TRANSDERMA (20:30)
--- NOTE | 2021-02-11 20:42 | PC.NURSE ---
Addendum entered by Marialuisa Esparza RN 02/11/21 23:07: Received order from Dr. Gunter for Ativan. Adminsitered Ativan 2mg PO @ 2154. I moved a recliner into patients room. He states he sleeps better in a chair when he has a hard time breathing. Patient is not resting in the chair. He states he is starting to feel better. Nurse will continue to monitor. Current CIWA score 5 Original Note: Bedside report received from Darcy COTE. Patient is sitting up in a chair in his room. Patient seems to be more anxious than last night. He is rocking in the chair, slightly sweating. He states he just doesn't feel good. BP is 133/101, pulse 106. Dr. Gunter notified and awaiting orders. CIWA score 13. No Ativan available at this time. Nurse will continue to monitor.
[2021-02-11] MEDS: LORazepam 2 mg Tablet PO (21:54)
[2021-02-12] VITALS (17 sets, daily range): BP systolic 116–157; BP diastolic 83–99; PULSE 82–107; RESP 16–34; TEMP 36.6–36.7; O2SAT 90–98; BMI 28.8
--- NOTE | 2021-02-12 01:15 | PC.NURSE ---
Patient C/O of chest pain from coughing so much. Patient is requesting something to help his cough. Dr. Gunter notified. Awaiting response.
[2021-02-12] MEDS: benzonatate 100 mg Capsule PO ×2 (01:45→10:21)
[2021-02-12] MEDS: ipratropium-albuterol 3 mL Neb INHALATION ×4 (02:32→20:46)
[2021-02-12 05:16] LABS: Basophils % 0.1 %; Eosinophils % 0.1 %; Hematocrit 41.4 % (42.0-52.0); Hemoglobin 13.7 g/dL (11.7-16.6); Lymphocytes # 1.5 10^3/uL (0.8-4.8); Lymphocytes % 16.6 %; Mean Corpuscular HGB Conc 33.1 g/dL (30.0-36.0); Mean Corpuscular Hemoglobin 32.4 pg (28.0-34.0); Mean Corpuscular Volume 97.9 fL (80-94); Mean Platelet Volume 10.3 fL (7.4-10.4); Monocytes # 0.7 10^3/uL (0.2-0.9); Neutrophils # 7.01 10^3/uL (1.8-7.7); Neutrophils % 75.8 %; Nucleated Red Blood Cells % 0 %; Platelet Count 231 10^3/cmm (130-400); Red Blood Count 4.23 10^6/uL (4.1-5.3); Red Cell Distribution Width 15.1 % (12.1-15.1); White Blood Count 9.3 10^3/uL (4.0-10.0)
[2021-02-12 05:43] LABS: Alanine Aminotransferase 25 U/L (0-41); Albumin Level 3.5 g/dL (3.5-5.2); Alkaline Phosphatase 99 IU/L (40-130); Aspartate Amino Transferase 33 U/L (0-40); Blood Urea Nitrogen 34 mg/dL (6-20); Calcium 8.8 mg/dL (8.5-10.5); Carbon Dioxide 23 mmol/L (22-29); Chloride 96 mmol/L (98-107); Globulin 3.2 g/dL (1.3-4.6); Glomerular Filtration Rate 62.2 mL/min (90-130); Glucose 113 mg/dL (65-115); Osmolality Calculated 284 mOsm/kg (285-295); Sodium 133 mmol/L (136-145); Total Bilirubin 1.3 mg/dL (0.15-1.2); Total Protein 6.7 g/dL (6.6-8.7)
[2021-02-12 05:57] LABS: Estmated Average Glucose 128; Hemoglobin A1C 6.1 % (4.0-6.0)
[2021-02-12] MEDS: budesonide 0.5 mg/2 mL Neb INHALATION ×2 (08:31→20:46)
[2021-02-12] MEDS: FUROsemide 40 mg Tablet 60 MG PO (08:42)
[2021-02-12] MEDS: carvedilol 6.25 mg Tablet PO (10:14)
[2021-02-12] MEDS: thiamine 100 mg Tablet PO (10:14)
[2021-02-12] MEDS: spironolactone 25 mg Tablet PO (10:16)
[2021-02-12] MEDS: predniSONE 20 mg Tablet 40 MG PO (10:16)
[2021-02-12] MEDS: multivitamin therapeutic Tablet 1 TAB PO (10:17)
[2021-02-12] MEDS: folic acid 1 mg Tablet PO (10:17)
[2021-02-12] MEDS: lisinopril 10 mg Tablet PO (10:17)
[2021-02-12] MEDS: nicotine 21 mg Patch 1 PATCH TRANSDERMA (10:17)
[2021-02-12] MEDS: pantoprazole DR 40 mg Tablet PO (10:17)
--- NOTE | 2021-02-12 13:16 | P.PN_ITS ---
Subjective Subjective: Interval history: Documents overnight. Currently patient sitting up in bed. States he did not have a good night as he not able to sleep. Complaining of choking sensation on lying down in bed. Stated has been going on for last 5 to 6 days but is getting better now. Currently on room air saturating 94%. Denies any nausea vomiting, headache, dizziness. States whenever he lies down he feels as if the phlegm is stuck in his chest and is not able to bring up. Medications: Reviewed: Yes Vitals/I&O/Wt Last Vital Signs Temp 98.1 F 02/12/21 04:00 Pulse 104 H 02/12/21 08:39 Resp 20 H 02/12/21 08:39 BP 137/96 02/12/21 04:00 Pulse Ox 94 02/12/21 08:39 02/11/21 02/12/21 02/12/21 22:59 06:59 14:59 Intake Total 240 / 720 Output Total 795 / 2215 325 / 2540 880 / 880 Balance -555 / -1495 -325 / -1820 -880 / -880 Physical Exam Narrative: EXAM NARRATIVE: General: No acute distress, AO x3 HEENT: PERRLA, pupils bilaterally equal and reactive Chest: Normal vesicular breath sounds, no added sounds, equal good air entry bilaterally CVS: S1-S2 regular, pansystolic murmur at apex 3/6 radiating to posterior axillary line, no tachycardia, S3 gallop, no rubs Abdomen: Soft, nontender, no organomegaly, bowel sounds present Neuro: No focal deficits, no facial deformity, AO x3, power 5/5 in all limbs Data : 02/12/21 04:19 02/12/21 04:19 A&P Assessment and plan (1) CHF (congestive heart failure): Acute systolic heart failure: Secondary to noncompliance of medications. Echocardiogram done in November shows an EF of 25% with abnormal diastolic dysfunction, moderately increased left atrial size, moderate to severe MR. Cannot rule out ischemic cardiomyopathy. But unfortunately patient remains severely noncompliant which has been noticed in the past as well. Lasix 50 mg oral twice daily, Aldactone 25 mg daily. Overall patient is 3600 - since admission. Urine output better since adding Aldactone. Fluid restriction up to 1500 cc. Strict input output charting. Daily weights. Continues to remain mildly tachycardic. Change carvedilol to metoprolol 50 mg twice daily. Continue with home dose of lisinopril. Will monitor renal functions. Input output charting most likely inaccurate. proBNP trending down but patient continues to remain orthopneic. Status: Acute (2) Acute respiratory failure with hypoxia: Resolving. Status: Acute (3) Nonischemic cardiomyopathy: Last EF 25% on recent echo. No need to repeat He has been offered possible defibrillator, but secondary to his noncompliance he has not been able to keep clinic appointment. Cardiology has seen him inpatient. I have discussed with him his need for compliance for consideration of this. We discussed obstacles to this, to try to improve his situation. Status: Acute (4) COPD (chronic obstructive pulmonary disease): DuoNebs every 6 hour. Continue prednisone daily for now. Day 2/5 today. Most likely will require a quick taper. Status: Acute (5) Tobacco dependency: Encourage cessation Status: Acute (6) Noncompliance: Encourage compliance, follow-up with cardiology and his primary care provider, and continuation of medication. Status: Acute Additional A&P Information History of alcohol use. Monitor for withdrawal. He did not have significant withdrawal symptoms on his last hospital stay. Continue thiamine, folate. Patient had increased somnolence with Ativan so we will hold off for now. Cardiac diet. full code Lovenox for DVT prophylaxis Attestations Medical Necessity Statement*: Requires further hospitalization for management of acute decompensated congestive heart failure in setting of nonischemic cardiomyopathy and noncompliance to medications, alcohol abuse Time Spent in Patient Care: Greater than 35 minutes (>than 50% of time spent in counselling and/or direct pt care on unit) . Coding Level of Care Code Acute Meters Superintendent for g Fwd Diagnoses CHF (congestive heart failure) I50.9 Acute respiratory failure with hypoxia J96.01 Nonischemic cardiomyopathy I42.8 COPD (chronic obstructive pulmonary disease) J44.9 Tobacco dependency F17.200 Noncompliance Z91.19
[2021-02-12] MEDS: enoxaparin 40 mg/0.4 mL Syringe SUBCUT (15:55)
[2021-02-12] MEDS: FUROsemide 40 mg Tablet 80 MG PO (15:56)
[2021-02-12] MEDS: metoprolol tartrate 50 mg Tablet PO (21:10)
[2021-02-13] VITALS (8 sets, daily range): BP systolic 111–132; BP diastolic 78–88; PULSE 76–86; RESP 17–20; TEMP 36.8–36.9; O2SAT 93–99
[2021-02-13] MEDS: LORazepam 2 mg Tablet PO (00:11)
[2021-02-13] MEDS: ipratropium-albuterol 3 mL Neb INHALATION ×2 (03:33→08:42)
[2021-02-13] MEDS: multivitamin therapeutic Tablet 1 TAB PO (08:26)
[2021-02-13] MEDS: nicotine 21 mg Patch 1 PATCH TRANSDERMA (08:26)
[2021-02-13] MEDS: metoprolol tartrate 50 mg Tablet PO (08:26)
[2021-02-13] MEDS: predniSONE 20 mg Tablet 40 MG PO (08:26)
[2021-02-13] MEDS: pantoprazole DR 40 mg Tablet PO (08:27)
[2021-02-13] MEDS: FUROsemide 40 mg Tablet 80 MG PO (08:27)
[2021-02-13] MEDS: lisinopril 10 mg Tablet PO (08:28)
[2021-02-13] MEDS: folic acid 1 mg Tablet PO (08:28)
[2021-02-13] MEDS: spironolactone 25 mg Tablet PO (08:28)
[2021-02-13] MEDS: thiamine 100 mg Tablet PO (08:28)
[2021-02-13] MEDS: budesonide 0.5 mg/2 mL Neb INHALATION (08:42)
--- NOTE | 2021-02-13 11:44 | P.DS_ITS ---
Discharge Providers Date of Admission: 02/09/21 12:06 Date of Discharge: February 13, 2021 Attending Provider at Admission: David Leiva MD Attending Provider at Discharge: Mayur Anders MD Diagnoses at Discharge Discharge Diagnosis (1) CHF (congestive heart failure): Status: Resolved Permanent problem details: EF 25% on last echocardiogram. (2) Acute respiratory failure with hypoxia: Status: Resolved (3) Nonischemic cardiomyopathy: Status: Chronic Permanent problem details: Angiogram 2017 no significant coronary plaque. (4) COPD (chronic obstructive pulmonary disease): Status: Chronic (5) Tobacco dependency: Status: Chronic (6) Noncompliance: Status: Acute Reason for Visit Reason for Visit: RESPIRATORY DISTRESS Hospital Course Hospital Course 60-year-old male with past medical history of, heart failure with reduced ejection fraction (EF of 25%), nonischemic cardiomyopathy (coronary angiogram done in 2017 nonocclusive coronary artery disease) , polysubstance abuse (alcohol , amphetamine , smoking ) , COPD , hypertension, came in with chief complaint of worsening shortness of breath. He was admitted for the management of decompensated heart failure with ejection fraction likely secondary to medication noncompliance. He was kept on IV diuresis, to which he responded well, at the time of discharge, he was euvolemic, saturating well minimal supplemental oxygen requirement, he was net 5 Ls negative.He was also kept on Beta-melani, Aldactone, lisinopril. For his history of nonischemic cardiomyopathy he has been advised to wear LifeVest in past, and has also been counseled to consider ICD placement, to which he is still in thinking phase.For history of COPD, he was kept on duo nebs, he was also briefly kept on p.o. prednisone. To which he responded well. Patient responded well to the above medical management and is being discharged in stable condition.He will continue to follow cardiology as an outpatient. Physical Exam Const: COMMON NORMALS: patient oriented x3 HENMT: COMMON NORMALS: normocephalic and atraumatic HEAD & SCALP: normocephalic and atraumatic Eye: COMMON NORMALS: no scleral icterus GENERAL EYE: appearance normal, both eyes and all related structures Chest: CHEST: Yes Symmetrical chest wall rise Resp: COMMON NORMALS: normal respiratory effort and clear to auscultation bilaterally EFFORT & INSPECTION: Yes symmetric chest movement AUSCULTATION: clear to auscultation bilaterally Cardio: COMMON NORMALS: regular rate, regular rhythm, S1 normal heart sound present, S2 normal heart sound present, No gallops present (Cardio), No murmurs present (Cardio), No rub (Cardio) and Peripheral pulses 2+ throughout RATE: regular rate RHYTHM: regular rhythm HEART SOUNDS: S1 normal heart sound present and S2 normal heart sound present PERIPHERAL PULSES: Peripheral pulses 2+ throughout GI: COMMON NORMALS: Normal to inspection, nondistended, normoactive bowel sounds present, Soft to palpation, non-tender, No hepatosplenomegaly present and no masses AUSCULTATION: Yes normoactive bowel sounds PALPATION: Yes Soft to palpation and Yes No hepatosplenomegaly present RECTAL EXAM: Yes deferred Extremity: COMMON NORMALS: no clubbing, cyanosis or edema and no pedal edema Neuro: COMMON NORMALS: patient oriented x3 Discharge Data Data Completed and Pending: Completed Studies During Hospitalization Category Date Time Status XR chest 1V lea ble [id number] Stat Exams 02/09/21 10:33 Completed Vitals: Last Vital Signs Temp 98.3 F 02/13/21 08:00 Pulse 86 02/13/21 08:51 Resp 18 02/13/21 08:43 BP 111/88 02/13/21 08:00 Pulse Ox 93 02/13/21 08:43 Discharge Plan Discharge Patient Disposition: Home Condition: Stable Prescriptions: Continued albuterol sulfate [Ventolin HFA] 90 mcg/actuation Hfa Aerosol Inhaler 2 puff INHALATION Q4H PRN (Reason: Shortness Of Breath) RF: 0 folic acid 1 mg Tablet 1 mg PO DAILY Qty: 30 RF: 0 thiamine mononitrate (vit B1) [Vitamin B-1 (mononitrate)] 100 mg Tablet 100 mg PO DAILY Qty: 30 RF: 0 furosemide 40 mg tablet 40 mg PO BID Qty: 60 RF: 0 lisinopril 10 mg Tablet 10 mg PO DAILY Qty: 30 RF: 0 spironolactone [Aldactone] 25 mg tablet 25 mg PO DAILY Qty: 30 RF: 0 Certavite-Antioxidant 18-400 mg-mcg tablet 1 tab PO DAILY RF: 0 carvedilol 3.125 mg tablet 3.125 mg PO BID@0900,2100 RF: 0 Discharge Orders: Discharge Order (Routine); Ordered 02/13/21 Ordered By: Mayur Anders Referrals: Dmitriy Menchaca MD [Physician] - 1 month (Please follow-up with up Dr. Menchaca on Saturday, March 15 at 4:00P.M. If you have any questions or need to reschedule. Please call ) Discharge Diet: Cardiac Discharge Activity: Resume usual activity Patient Instructions: How to Stop Smoking (DC), Hypertension (DC), CHF Stoplight, COPD Stoplight Discharge Attestations Time Spent in Discharge Care*: less than 30 min Specific Discharge Activities: educating patient, educating and/or supporting family/caregiver, discussing with pcp/other providers, discussing with case packer and sealer/social workers/dc planners, documenting/other paperwork and evaluating patient/reviewing data Status at Discharge: Cognitive status at discharge: cognitively intact , Behavioral status at discharge: cooperative , Quality Metrics Clinical Quality Measures During this hospital stay, did patient experience: None Coding Level of Care Code Acute Chg FW DC note Diagnoses CHF (congestive heart failure) I50.9 Acute respiratory failure with hypoxia J96.01 Nonischemic cardiomyopathy I42.8 COPD (chronic obstructive pulmonary disease) J44.9 Tobacco dependency F17.200 Noncompliance Z91.19
--- NOTE | 2021-02-13 12:02 | PC.CHAP ---
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 griddle attendant visit [] Patient/Family/Request visit [] Outpatient visit [x] Follow-up visit [] Physician referral [] Code/Alert [] Routine visit [] Staff referral [] Actively dying [] Patient sleeping [] Family support [] [] Out of room [] Palliative care [] [x] Receiving care in room [] Pre-surgical visit [] Trauma [] Long length of stay [] ICU visit [] Other: Relational/Emotional Strength [] Patient feels connected with others/family/visitors/staff [] Distress [] Loneliness/isolation [] Abandonment Spirituality of Patient [] Person of Molly [] Attends Mu-Ism of their Molly [] Believes in Prayer [] Reads Bible or Congregational materials [] There are Spiritual issues to be addressed Loan Services Professional Interventions [] Prayer [] Active listening [] Non-anxious presence [] Spiritual/emotional support [] Crisis/trauma care [] Spiritual counseling [] Bereavement support [] Provided bereavement packet [] Provided Bible/devotional materials [] Provided toy/stuffed animal, coloring book to patient or family member [] Provided Communion [] Anointing/[place] [] Salvation [] Completed spiritual assessment [] Other: Impact on Illness or Injury [] Angry [] Fearful [] Anxious [] Often cries [] Exhaustion [] Unable to work [] Unable to attend rastafari [] Unable to walk/stand [] Unable to read [] Unable to drive [] Unable to eat/drink [] Unable to sleep [] Unable to be with family [] Patient intubated [] Other: Summary Time spent with patient
== END 2021-02-13 12:40 | disposition home or self-care (01) | DRG 291 ==
LOC: ER 11:17 → CSU 12:28
PROVIDERS: Student in an Organized Health Care Education/Training Program; Admitting Provider Internal Medicine; Emergency Provider Family Medicine; Visit Provider Internal Medicine
DX: I11.0 Hypertensive heart disease with heart failure (principal); J96.01 Acute respiratory failure with hypoxia; I50.23 Acute on chronic systolic (congestive) heart failure; Z91.128 Patient's intentional underdosing of medication regimen for other reason; F10.10 Alcohol abuse, uncomplicated; J44.9 Chronic obstructive pulmonary disease, unspecified; F15.10 Other stimulant abuse, uncomplicated; I42.8 Other cardiomyopathies; E66.9 Obesity, unspecified; Z68.28 Body mass index [BMI] 28.0-28.9, adult; F17.210 Nicotine dependence, cigarettes, uncomplicated; Z79.51 Long term (current) use of inhaled steroids
CPT/HCPCS: 36415; 36600; 71045; 80048; 80051; 80053; 80307; 81001; 82330; 82550; 82805; 83036; 83540; 83550; 83735; 83880; 84145; 84443; 84484; 85025; 86695; 86696; 93005; 94640; 96372; 96374; 96375; 99285; J0360; J1650; J1940; J2060; J3411; J3490; J7512; J7626

== ENCOUNTER 2021-04-07 05:14 | Inpatient (IN) | payer OTHER, SELFPAY ==
[2021-04-07] VITALS (11 sets, daily range): BP systolic 134–159; BP diastolic 91–110; PULSE 110–129; RESP 18–27; TEMP 36.6–37.1; O2SAT 90–95; BMI 28.7; BMI 29.0
--- NOTE | 2021-04-07 05:36 | XRR_ITS ---
PROCEDURE INFORMATION: Exam: XR Chest Exam date and time: 04/07/2021 5:36 AM Age: 60 years old Clinical indication: Chest pressure; Patient HX: Chest pain; Additional info: SOB TECHNIQUE: Imaging protocol: XR of the chest. Views: 1 view. COMPARISON: CR XR chest 1V portable [id number] 02/09/2021 10:34 AM FINDINGS: Lungs: No definite CHF/pulmonary edema. Poor inspiration somewhat limits evaluation, especially of the lung bases. Interval development of prominent right lower lung opacities, suspicious for pneumonia. Please correlate clinically. Visible lungs otherwise appear essentially clear. Pleural spaces: I suspect there is a small to moderate amount of right pleural fluid. No visible pneumothorax. Heart/Mediastinum: Moderate to severe cardiomegaly, similar to the prior exam. Bones/joints: No significant acute finding. XR/XR chest 1V portable [id number] IMPRESSION: 1. Interval development of prominent right lower lung opacities, suspicious for pneumonia. Please correlate clinically. 2. Suspected right pleural effusion. 3. Other findings discussed above.
--- NOTE | 2021-04-07 05:36 | ECG_ITS ---
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: : 1960 Requested By: Lorraine Thibodeaux Order Number: [id number] Reading MD: RODDY CARMONA Measurements Intervals [place] Rate: 114 P: 78 FL: 148 QRS: 97 QRSD: 101 T: 68 QT: 336 QTc: 463 Interpretive Statements SINUS TACHYCARDIA LEFT ATRIAL ENLARGEMENT [-0.15mV P WAVE IN V1/V2] BORDERLINE RIGHT AXIS DEVIATION [QRS AXIS > 90] ANTEROSEPTAL MYOCARDIAL INFARCTION [40+ ms Q WAVE IN V1-V4], OF INDETERMINATE AGE Compared to ECG 02/09/2021 15:29:26 Myocardial infarct finding now present T-wave abnormality no longer present Electronically Signed On 04-07-2021 19:27:14 CDT by RODDY CARMONA [id number]
[2021-04-07 05:46] LABS: Basophils # 0.1 10^3/uL (0.0-0.1); Eosinophils # 0.1 10^3/uL (0.0-0.8); Eosinophils % 1.1 %; Hematocrit 43.1 % (42.0-52.0); Hemoglobin 13.6 g/dL (11.7-16.6); Lymphocytes # 1.4 10^3/uL (0.8-4.8); Lymphocytes % 17.2 %; Mean Corpuscular HGB Conc 31.6 g/dL (30.0-36.0); Mean Corpuscular Hemoglobin 32.6 pg (28.0-34.0); Mean Corpuscular Volume 103.4 fL (80-94); Mean Platelet Volume 9.3 fL (7.4-10.4); Monocytes # 0.7 10^3/uL (0.2-0.9); Monocytes % 8.2 %; Neutrophils # 5.69 10^3/uL (1.8-7.7); Neutrophils % 72.2 %; Nucleated Red Blood Cells % 0 %; Platelet Count 235 10^3/cmm (130-400); Red Blood Count 4.17 10^6/uL (4.1-5.3); Red Cell Distribution Width 16.3 % (12.1-15.1); White Blood Count 7.9 10^3/uL (4.0-10.0)
--- NOTE | 2021-04-07 06:03 | W.ED.SOB ---
HPI - SOB/Dyspnea General: Chief Complaint: ER Hold Stated Complaint: diff breathing Time Seen by Provider: 04/07/21 05:59 History of Present Illness: HPI Narrative: Mr. 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 Symptom onset was gradual approximately 1 month ago. He reports being out of his medications and since that time has had progressive shortness of breath. He denies associated fevers chills. He has baseline chest pain which is not significantly worsened. His symptoms are worse with exertion but do not cope with rest. He has had orthopnea. He additionally notes leg discomforts secondary to swelling. He has had similar episodes in the past. No other specific changes in health, exacerbating, or relieving factors identified. Review of Systems General: Reports: 10 or more systems reviewed and unremarkable except in HPI and below Narrative: CONSTITUTIONAL: denies fever, positive for fatigue EYES - denies pain, denies loss of vision EARS - denies ear issues. NOSE - denies congestion or rhinorrhea. THROAT - denies sore throat or difficulty swallowing. CARDIOVASCULAR -baseline chest discomfort at times. Increase lower extremity edema. Dyspnea on exertion. RESPIRATORY -shortness of breath, likely cardiac in nature. No cough. GASTROINTESTINAL - denies abdominal pain, no nausea vomiting, no changes in bowel habits GENITOURINARY - denies dysuria or urinary frequency MUSCULOSKELETAL- denies deformity or pain SKIN - denies rashes or new changed skin lesions NEUROLOGIC - denies focal weakness or sensory changes HEMATOLOGIC/LYMPHATIC - denies easy bruising or lymphadenopathy. [facility] ED PFSH: Medical History (Updated 04/07/21 @ 14:57 by David Leiva MD) Acute respiratory failure with hypoxia Alcohol use disorder CHF (congestive heart failure) EF 25% on last echocardiogram. COPD (chronic obstructive pulmonary disease) History of amphetamine abuse Hypertension Noncompliance Nonischemic cardiomyopathy Angiogram 2017 no significant coronary plaque. Obesity Tobacco dependency Surgical History History of surgery on arm Social History Smoking and tobacco status: current every day smoker Alcohol intake: current Alcohol intake frequency: 3 or more drinks per day Physical Exam Narrative: EXAM NARRATIVE: GENERAL/CONSTITUTIONAL - Chronically ill appearing. No acute distress. Supplemental oxygen in place Eyes - PERRL, no conjunctival injection ENMT - Atraumatic external nose and ears. Moist mucous membranes NECK - supple. trachea midline CARDIOVASCULAR - tachycardic rate and regular rhythm. Peripheral pulses 2+ and equal. 1+ pitting edema bilateral lower extremities RESPIRATORY - rales at bases.. No retractions or accessory muscle use. ABDOMEN/GI - Nontender/Nondistended. No tenderness to percussion or evidence of peritonitis MSK - Extremities without obvious deformity or tenderness to palpation SKIN - Warm, Dry NEURO - alert and appropriately oriented. strength and sensation intact. Moves all extremities equally. PSYCH - Appropriate mood and affect Course ED course: - Patient was seen and evaluated by me at bedside - Patient placed on cardiac monitors, IV access obtained - Initial evaluation notable for chronically ill appearance, no acute distress. Patient is tachycardic and tachypneic with evidence of volume overload on clinical exam. - Labs and imaging obtained and reviewed - Labs notable for no leukocytosis or anemia. Metabolic panel similar to baseline. BNP elevated. - Imaging notable for consolidation concerning for infectious etiology versus volume overload per ED read - Antibiotic ordered though difficult to determine volume overload versus infectious etiology in this context. - Upon serial reexamination after treatment the patient was similar. Lasix ordered. - Based on patient history, evaluation, labs, and imaging as interpreted the most likely cause of the patient's condition is multifactorial with primary etiology likely being acute on chronic heart failure given progression of symptoms and patient's noncompliance with medications - The results of ED evaluation were discussed with the patient including plan for admission due to requirement for level of care not available if discharged to prevent significant worsening/deterioration. - Hospitalist service was contacted and agreed to admit the patient - Patient was admitted without further deterioration or significant events. Vital Signs: Vital signs: Vital Signs Temperature 97.8 F 04/07/21 16:29 Pulse Rate 110 H 04/07/21 16:29 Respiratory Rate 20 H 04/07/21 16:29 Blood Pressure 159/110 04/07/21 16:29 Pulse Oximetry 93 04/07/21 16:17 MDM - SOB/Dyspnea Medical Records: Attestation: I reviewed the patient's medical records. Lab Data: Attestation: I reviewed the patient's lab results. Labs: Lab Results 04/07/21 04/07/21 04/07/21 Range/Units 05:33 05:33 05:33 WBC 7.9 (4.0-10.0) 10^3/ uL RBC 4.17 (4.1-5.3) 10^6/u L Hgb 13.6 (11.7-16.6) g/dL Hct 43.1 (42.0-52.0) % MCV 103.4 H (80-94) fL MCH 32.6 (28.0-34.0) pg MCHC 31.6 (30.0-36.0) g/dL RDW 16.3 H (12.1-15.1) % Plt Count 235 (130-400) 10^3/c mm MPV 9.3 (7.4-10.4) fL Neut % (Auto) 72.2 % Lymph % (Auto) 17.2 % Robeson % (Auto) 8.2 % Eos % (Auto) 1.1 % Baso % (Auto) 1.0 % Neut # (Auto) 5.69 (1.8-7.7) 10^3/u L Lymph # (Auto) 1.4 (0.8-4.8) 10^3/u L Robeson # (Auto) 0.7 (0.2-0.9) 10^3/u L Eos # (Auto) 0.1 (0.0-0.8) 10^3/u L Baso # (Auto) 0.1 (0.0-0.1) 10^3/u L Nucleated RBC % (a uto) 0 % Nucleated RBCs # 0.0 /100WBC Specimen Type Sample Site ABG pH (7.35-7.45) ABG pCO2 (35-45) mmHg ABG pO2 (80.0-100.0) mmH g ABG HCO3 (22-26) mmol/L ABG Base Excess (-2.0-2.0) mmol/ L Melquiades Test Hematocrit (42-52) % O2 Delivery Device FiO2 % Retail Sales Merchandiser Development ID Sodium 133 L (136-145) mmol/L Potassium 4.6 (3.5-5.1) mmol/L Chloride 101 (98-107) mmol/L Carbon Dioxide 19 L (22-29) mmol/L Anion Gap 17.6 (5-19) BUN 9 (6-20) mg/dL Creatinine 0.6 L (0.7-1.2) mg/dL GFR Calculation 138.4 H (90-130) mL/min Glucose 91 (65-115) mg/dL Calculated Osmolal ity 274 L (285-295) mOsm/k g Calcium 8.2 L (8.5-10.5) mg/dL Total Bilirubin 2.8 H (0.15-1.2) mg/dL AST 26 (0-40) U/L ALT 12 (0-41) U/L Alkaline Phosphata se 111 (40-130) IU/L Troponin T Baselin e (0-15) ng/L Troponin T 120 Min [place] (0-15) ng/L Delta Troponin T (0-10) ABS# NT-Pro-B Natriuret Pep 5442 H (0-125) pg/mL Total Protein 6.7 (6.6-8.7) g/dL Albumin 3.2 L (3.5-5.2) g/dL Globulin 3.5 (1.3-4.6) g/dL Procalcitonin (0-0.5) ng/mL SARS-CoV-2 Ag (Rap id) Negative (Negative) 04/07/21 04/07/21 04/07/21 Range/Units 06:36 07:06 07:06 WBC (4.0-10.0) 10^3/ uL RBC (4.1-5.3) 10^6/u L Hgb (11.7-16.6) g/dL Hct (42.0-52.0) % MCV (80-94) fL MCH (28.0-34.0) pg MCHC (30.0-36.0) g/dL RDW (12.1-15.1) % Plt Count (130-400) 10^3/c mm MPV (7.4-10.4) fL Neut % (Auto) % Lymph % (Auto) % Robeson % (Auto) % Eos % (Auto) % Baso % (Auto) % Neut # (Auto) (1.8-7.7) 10^3/u L Lymph # (Auto) (0.8-4.8) 10^3/u L Robeson # (Auto) (0.2-0.9) 10^3/u L Eos # (Auto) (0.0-0.8) 10^3/u L Baso # (Auto) (0.0-0.1) 10^3/u L Nucleated RBC % (a uto) % Nucleated RBCs # /100WBC Specimen Type Arterial Sample Site Brachial, right ABG pH 7.45 (7.35-7.45) ABG pCO2 33.0 L (35-45) mmHg ABG pO2 73.9 L (80.0-100.0) mmH g ABG HCO3 22.7 (22-26) mmol/L ABG Base Excess -0.6 (-2.0-2.0) mmol/ L Melquiades Test N/a Hematocrit 42.0 (42-52) % O2 Delivery Device Room air FiO2 21.0 % Retail Sales Merchandiser Development ID Harkr Sodium (136-145) mmol/L Potassium (3.5-5.1) mmol/L Chloride (98-107) mmol/L Carbon Dioxide (22-29) mmol/L Anion Gap (5-19) BUN (6-20) mg/dL Creatinine (0.7-1.2) mg/dL GFR Calculation (90-130) mL/min Glucose (65-115) mg/dL Calculated Osmolal ity (285-295) mOsm/k g Calcium (8.5-10.5) mg/dL Total Bilirubin (0.15-1.2) mg/dL AST (0-40) U/L ALT (0-41) U/L Alkaline Phosphata se (40-130) IU/L Troponin T Baselin e 39 H (0-15) ng/L Troponin T 120 Min [place] (0-15) ng/L Delta Troponin T (0-10) ABS# NT-Pro-B Natriuret Pep (0-125) pg/mL Total Protein (6.6-8.7) g/dL Albumin (3.5-5.2) g/dL Globulin (1.3-4.6) g/dL Procalcitonin 0.07 (0-0.5) ng/mL SARS-CoV-2 Ag (Rap id) (Negative) 04/07/21 Range/Units 10:01 WBC (4.0-10.0) 10^3/ uL RBC (4.1-5.3) 10^6/u L Hgb (11.7-16.6) g/dL Hct (42.0-52.0) % MCV (80-94) fL MCH (28.0-34.0) pg MCHC (30.0-36.0) g/dL RDW (12.1-15.1) % Plt Count (130-400) 10^3/c mm MPV (7.4-10.4) fL Neut % (Auto) % Lymph % (Auto) % Robeson % (Auto) % Eos % (Auto) % Baso % (Auto) % Neut # (Auto) (1.8-7.7) 10^3/u L Lymph # (Auto) (0.8-4.8) 10^3/u L Robeson # (Auto) (0.2-0.9) 10^3/u L Eos # (Auto) (0.0-0.8) 10^3/u L Baso # (Auto) (0.0-0.1) 10^3/u L Nucleated RBC % (a uto) % Nucleated RBCs # /100WBC Specimen Type Sample Site ABG pH (7.35-7.45) ABG pCO2 (35-45) mmHg ABG pO2 (80.0-100.0) mmH g ABG HCO3 (22-26) mmol/L ABG Base Excess (-2.0-2.0) mmol/ L Melquiades Test Hematocrit (42-52) % O2 Delivery Device FiO2 % Retail Sales Merchandiser Development ID Sodium (136-145) mmol/L Potassium (3.5-5.1) mmol/L Chloride (98-107) mmol/L Carbon Dioxide (22-29) mmol/L Anion Gap (5-19) BUN (6-20) mg/dL Creatinine (0.7-1.2) mg/dL GFR Calculation (90-130) mL/min Glucose (65-115) mg/dL Calculated Osmolal ity (285-295) mOsm/k g Calcium (8.5-10.5) mg/dL Total Bilirubin (0.15-1.2) mg/dL AST (0-40) U/L ALT (0-41) U/L Alkaline Phosphata se (40-130) IU/L Troponin T Baselin e (0-15) ng/L Troponin T 120 Min [place] 40.70 H (0-15) ng/L Delta Troponin T 1.70 (0-10) ABS# NT-Pro-B Natriuret Pep (0-125) pg/mL Total Protein (6.6-8.7) g/dL Albumin (3.5-5.2) g/dL Globulin (1.3-4.6) g/dL Procalcitonin (0-0.5) ng/mL SARS-CoV-2 Ag (Rap id) (Negative) Discharge Plan Discharge Patient Disposition: Admitted As Inpatient Admit Provider: David Leiva Coding Level of Care Code ED Sleep Medicine Physician for Rylan Michael
[2021-04-07 06:15] LABS: SARS Covid-2 Antigen Negative (Negative)
[2021-04-07 06:21] LABS: Alanine Aminotransferase 12 U/L (0-41); Albumin Level 3.2 g/dL (3.5-5.2); Alkaline Phosphatase 111 IU/L (40-130); Anion Gap 17.6 (5-19); Aspartate Amino Transferase 26 U/L (0-40); Blood Urea Nitrogen 9 mg/dL (6-20); Calcium 8.2 mg/dL (8.5-10.5); Carbon Dioxide 19 mmol/L (22-29); Chloride 101 mmol/L (98-107); Globulin 3.5 g/dL (1.3-4.6); Glomerular Filtration Rate 138.4 mL/min (90-130); Glucose 91 mg/dL (65-115); NT Pro B Type Natriuretic Pept 5442 pg/mL (0-125); Osmolality Calculated 274 mOsm/kg (285-295); Potassium 4.6 mmol/L (3.5-5.1); Sodium 133 mmol/L (136-145); Total Bilirubin 2.8 mg/dL (0.15-1.2); Total Protein 6.7 g/dL (6.6-8.7)
[2021-04-07 06:31] LABS: Creatinine Clr Calc Pharmacy 152.0174
[2021-04-07 06:47] LABS: ABG PH Result 7.45 (7.35-7.45); Base Excess ABG -0.6 mmol/L (-2.0-2.0); Blood Gas Operator Identificat HARKR; Blood Gas Sample Site Brachial, right; Blood Gas Sample Type Arterial; HCO3 ABG 22.7 mmol/L (22-26); Oxygen Device ROOM AIR; PO2 ABG 73.9 mmHg (80.0-100.0)
[2021-04-07] MEDS: FUROsemide 10 mg/mL SDV 4mL 40 MG IVP (07:28)
[2021-04-07 07:38] LABS: Troponin(5th) Baseline 39 ng/L (0-15)
--- NOTE | 2021-04-07 08:31 | ECG_ITS ---
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1960 Requested By: Alexis Zimmerman Order Number: [id number] Erma MD: RODDY CARMONA Measurements Intervals [place] Rate: 110 P: 69 MD: 144 QRS: 69 QRSD: 98 T: 48 QT: 348 QTc: 472 Interpretive Statements SINUS TACHYCARDIA POSSIBLE LEFT ATRIAL ENLARGEMENT [-0.1mV P-WAVE IN V1/V2] SEPTAL MYOCARDIAL INFARCTION , PROBABLY OLD [40+ ms Q WAVE IN V1/V2] Compared to ECG 04/07/2021 05:23:22 No significant changes Electronically Signed On 04-07-2021 19:28:10 CDT by RODDY CARMONA [id number]
[2021-04-07 09:01] LABS: Procalcitonin 0.07 ng/mL (0-0.5)
--- NOTE | 2021-04-07 10:08 | PC.PHAR ---
Addendum entered by Parul Hackett 04/07/21 10:46: [facility] [place] STATES SHE IS GOING TO ASSIGN THE PT TO A PROVIDER STATES THEY DONT HAVE A ACTIVE MED LIST FOR THE PT. STATES THE PT MEDICATIONS SHOULD BE FREE IF HE GETS FROM THE [facility]-STATES WHEN PT IS DISCHARGED FROM THE HOSPITAL IF A REFERRAL IS PUT IN FOR THE PT TO GO TO [facility] THEY SHOULD BE ABLE TO HELP HIM Original Note: PT STATES HE HASNT TAKEN ANY MEDICATIONS SINCE JANUARY 2021-PT STATES HE RAN OUT OF HIS MEDS HE GOT WHEN HE WAS LAST HERE ON 12/26/20-PT STATES WHATEVER WE GAVE HIM ON THAT DATE IS WHAT HE WAS TAKING-RXS FILLED ON CARVEDILOL 3.125MG BID,CERTAVITE-ANTIOXIDANT 1 TAB DAILY,FOLIC ACID 1MG DAILY, LASIX 40MG BID,LISINOPRIL 10MG DAILY,SPIRONOLACTONE 25MG DAILY , VITAMIN B1 100MG DAILY-PT STATES HE USE TO GET MEDS FROM THE [facility] BUT HASNT GOTTEN THEM FOR A LONG TIME-CALLED [facility] IN [place] [phone] LUIS FERNANDO STATES THE PT ISNT ASSIGNED TO A PROVIDER
--- NOTE | 2021-04-07 10:58 | PC.NURSE ---
needs [facility] referral upon discharge to re-establish PCP
--- NOTE | 2021-04-07 14:46 | P.HP_ITS ---
Providers/Chief Complaint Chief Complaint: diff breathing History of Present Illness Jose Carlos Armendariz is a 60 year old male presented to the hospital with increased swelling, and increased shortness of breath. He reports he is even swollen in his abdomen. He ran out of his medicines, a little less than a month ago. Occasional cough. No fever. Denies Covid exposure, vaccination, or past h istory of Covid. Denies any hemoptysis. States he was doing great when he took his medication. Reports his last alcoholic beverage was 4 days ago, and he does not withdraw. Review of Systems General: Reports: 10 or more systems reviewed and unremarkable except in HPI and below Const: Denies: fever(s) Eyes: Denies: change in vision ENMT: Denies: throat pain Card: Reports: edema and dyspnea on exertion; Denies: chest pain Resp: Reports: dyspnea and non-productive cough GI: Denies: abdominal pain, nausea or vomiting : Denies: flank pain Musc: Denies: neck pain Skin/Breast: Denies: rash Neuro: Denies: headache(s) Psych: Denies: anxiety or depression Endo: Denies: polyuria Haroldo/Lymph: Denies: easy bruising All/Imm: Denies: urticaria Medications/Allergies Home Medications Medication Instructions Recorded Confirmed Last Taken Type No Known Home Medications 04/07/21 04/07/21 Unknown History Allergies Allergy/AdvReac Type Severity Reaction Status Date / Time Penicillins Allergy Unknown Verified 04/07/21 10:03 PFSH Acute PFSH: Medical History (Updated 04/07/21 @ 14:57 by David Leiva MD) Acute respiratory failure with hypoxia Alcohol use disorder CHF (congestive heart failure) EF 25% on last echocardiogram. COPD (chronic obstructive pulmonary disease) History of amphetamine abuse Hypertension Noncompliance Nonischemic cardiomyopathy Angiogram 2017 no significant coronary plaque. Obesity Tobacco dependency Surgical History History of surgery on arm Social History Smoking and tobacco status: current every day smoker Alcohol intake: current Alcohol intake frequency: 3 or more drinks per day Vitals/I&O/Wt Last Vital Signs Temp 97.8 F 04/07/21 05:16 Pulse 110 H 04/07/21 10:31 Resp 22 H 04/07/21 10:31 BP 153/106 04/07/21 10:31 Pulse Ox 95 04/07/21 10:31 Weight last 48 hrs Weight 90.718 kg Physical Exam Narrative: EXAM NARRATIVE: General exam no distress HEENT: Atraumatic and normocephalic. Oropharynx clear. Neck is supple no lymphadenopathy or thyromegaly Cardiovascular tachycardic without murmur Lungs clear no wheezing or crackles Abdomen is soft. Abdominal wall edema is noted. Positive bowel sounds. No obvious organomegaly exam is deferred Extremities 4+ edema all the way to his thighs Skin no rash Neuro no focal deficits. Data : 04/07/21 05:33 04/07/21 05:33 Micro: Microbiology 04/07/21 05:33 Blood Culture - Preliminary Blood SPECIMEN COLLECTED 04/07/21 05:33 Blood Culture - Preliminary Blood SPECIMEN COLLECTED Other data: MCV 103 ABG demonstrates a pH of 7.45, PCO2 33, PO2 of 73 on room air Calcium 8.2, total bili 2.8, troponin XIII with repeat 40 BNP 5442 Procalcitonin 0.07 Rapid Covid negative, PCR pending X-ray right pleural effusion EKG unfortunately I cannot review it appears to showed sinus tachycardia, probable old septal CT, sinus tachycardia A&P Assessment and plan (1) CHF (congestive heart failure): Acute systolic heart failure with last EF of 25%. He has had multiple admissions for the same, when he does not take his medication for approximately 1 month. He reports [facility], and [facility] but often does not keep his appointment. He cites transportation as the reason this time. Diuresis with Lasix 60 mg IV every 12 hours Fluid restriction 1200ml Close follow-up of electrolytes At this point I do not see a reason to investigate with further echocardiogram or work-up. Status: Acute (2) Nonischemic cardiomyopathy: See above Status: Acute (3) COPD (chronic obstructive pulmonary disease): Pulmonary toilet. No evidence of exacerbation Status: Acute (4) Tobacco dependency: Counseled on quitting Status: Acute (5) Noncompliance: Counseled on importance of compliance Status: Acute (6) Alcohol use disorder: Thiamine 100 mg daily. Monitor for any withdrawal. Status: Acute Additional A&P Information Full code Lovenox for DVT prophylaxis Attestations Medical Necessity Statement*: Will need greater than 2 midnight stay secondary to acute systolic heart failure with evidence of anasarca on exam. Time Spent in Patient Care: Greater than 35 minutes Coding Level of Care Code Acute Rail Transportation Tabeler for Chg Fwd Diagnoses CHF (congestive heart failure) I50.9 Nonischemic cardiomyopathy I42.8 COPD (chronic obstructive pulmonary disease) J44.9 Tobacco dependency F17.200 Noncompliance Z91.19 Alcohol use disorder
[2021-04-07] MEDS: thiamine 100 mg Tablet PO (17:40)
[2021-04-07] MEDS: enoxaparin 40 mg/0.4 mL Syringe SUBCUT (17:41)
[2021-04-07] MEDS: FUROsemide 10 mg/mL SDV 10mL 60 MG IVP (20:44)
[2021-04-07] MEDS: ipratropium-albuterol 3 mL Neb INHALATION (21:22)
[2021-04-08] VITALS (15 sets, daily range): BP systolic 115–143; BP diastolic 76–95; PULSE 98–126; RESP 17–19; TEMP 36.6–37.1; O2SAT 91–95
[2021-04-08] MEDS: ipratropium-albuterol 3 mL Neb INHALATION ×4 (03:53→20:14)
[2021-04-08 07:09] LABS: Basophils # 0.1 10^3/uL (0.0-0.1); Basophils % 1.1 %; Eosinophils # 0.1 10^3/uL (0.0-0.8); Eosinophils % 1.8 %; Hematocrit 42.3 % (42.0-52.0); Hemoglobin 13.8 g/dL (11.7-16.6); Lymphocytes # 1.2 10^3/uL (0.8-4.8); Lymphocytes % 16.3 %; Mean Corpuscular HGB Conc 32.6 g/dL (30.0-36.0); Mean Corpuscular Hemoglobin 31.9 pg (28.0-34.0); Mean Corpuscular Volume 97.7 fl (80-94); Mean Platelet Volume 9.3 fL (7.4-10.4); Monocytes # 0.7 10^3/uL (0.2-0.9); Monocytes % 9.2 %; Neutrophils # 5.06 10^3/uL (1.8-7.7); Neutrophils % 71.3 %; Nucleated Red Blood Cells % 0 %; Platelet Count 256 10^3/cmm (130-400); Red Blood Count 4.33 10^6/uL (4.1-5.3); Red Cell Distribution Width 15.9 % (12.1-15.1); White Blood Count 7.1 10^3/uL (4.0-10.0)
[2021-04-08 07:44] LABS: Alanine Aminotransferase 11 U/L (0-41); Albumin Level 3.1 g/dL (3.5-5.2); Alkaline Phosphatase 121 IU/L (40-130); Anion Gap 15.9 (5-19); Aspartate Amino Transferase 31 U/L (0-40); Blood Urea Nitrogen 12 mg/dL (6-20); Calcium 8.6 mg/dL (8.5-10.5); Carbon Dioxide 25 mmol/L (22-29); Chloride 99 mmol/L (98-107); Globulin 3.8 g/dL (1.3-4.6); Glomerular Filtration Rate 99.3 mL/min (90-130); Glucose 101 mg/dL (65-115); Magnesium 1.7 mg/dL (1.7-2.3); Osmolality Calculated 282 mOsm/kg (285-295); Potassium 3.9 mmol/L (3.5-5.1); Sodium 136 mmol/L (136-145); Total Bilirubin 2.1 mg/dL (0.15-1.2); Total Protein 6.9 g/dL (6.6-8.7)
[2021-04-08] MEDS: FUROsemide 10 mg/mL SDV 10mL 60 MG IVP ×2 (07:55→20:37)
--- NOTE | 2021-04-08 10:03 | USR_ITS ---
PROCEDURE INFORMATION: Exam: US Abdomen, Limited; Right Upper Quadrant Exam date and time: 04/08/2021 10:03 AM Age: 60 years old Clinical indication: Bloating; Additional info: Liver TECHNIQUE: Imaging protocol: US abdomen. Real time ultrasound with image documentation. Limited exam focused on the right upper quadrant. COMPARISON: [place] liver [id number] 12/21/2020 9:54 AM FINDINGS: Liver: Echogenic and coarsened. Gallbladder: The gallbladder is contracted. No gallstones are identified. The gallbladder wall thickness is 0.3 cm. No pericholecystic fluid. Common bile duct: Normal. No stones. No dilation. Right kidney: Measures 10.8 cm in length. No mass. No hydronephrosis. There is a small amount of ascites in the right upper and lower quadrants. Incidental note is made of a right pleural effusion. US/US abdomen limited [id number] IMPRESSION: There is a small amount of ascites in the right upper and lower quadrants. Incidental note is made of a right pleural effusion.
--- NOTE | 2021-04-08 11:31 | PM.PN ---
Subjective Subjective: Interval history: Patient was seen this morning, currently he tells me that he is feeling better, he is peeing a lot, his abdomen feels better, he admits that he has not seen cardiology in some period time, he tells me that recently [facility] that [facility] is [facility] C positive, he thinks that he got it from his girlfriend, denies any IV drug use Vitals/I&O/Wt Last Vital Signs Temp 97.9 F 04/08/21 08:00 Pulse 120 H 04/08/21 08:23 Resp 17 04/08/21 08:18 BP 142/95 04/08/21 08:00 Pulse Ox 94 04/08/21 08:18 04/07/21 04/08/21 04/08/21 22:59 06:59 14:59 Intake Total 240 / 240 360 / 360 Output Total 400 / 400 3300 / 3700 2450 / 2450 Balance -160 / -160 -3300 / -3460 -2090 / -2090 Weight last 48 hrs Weight 89.63 kg Weight 91.881 kg Weight 90.718 kg Physical Exam Const: COMMON NORMALS: no acute distress and patient oriented x3 Resp: COMMON NORMALS: normal respiratory effort, No retractions, No use of accessory muscles and clear to auscultation bilaterally AUSCULTATION: clear to auscultation bilaterally Cardio: COMMON NORMALS: regular rate, regular rhythm, S1 normal heart sound present and S2 normal heart sound present RATE: regular rate RHYTHM: regular rhythm HEART SOUNDS: S1 normal heart sound present and S2 normal heart sound present GI: INSPECTION: Yes normal to inspection and Yes Abdominal wall edema AUSCULTATION: Yes normoactive bowel sounds PALPATION: Yes Hepatomegaly present OTHER: Abdominal distention, fluid Extremity: NARRATIVE EXTREMITY EXAM: 1+ pedal edema Neuro: COMMON NORMALS: patient oriented x3 Psych: COMMON NORMALS: mental status grossly normal Data : 04/08/21 06:26 04/08/21 06:26 Micro: Microbiology 04/07/21 05:33 Blood Culture - Preliminary Blood NEGATIVE TO DATE 04/07/21 05:33 Blood Culture - Preliminary Blood NEGATIVE TO DATE A&P Assessment and plan (1) CHF (congestive heart failure): Acute systolic heart failure with last EF of 25%. He has had multiple admissions for the same, when he does not take his medication for approximately 1 month. He reports [facility] but often does not keep his appointment. He cites transportation as the reason this time. -5 L since admission Diuresis with Lasix 60 mg IV every 12 hours Potassium replacement Fluid restriction 1200ml Monitor urine output Close follow-up of electrolytes Patient heart rates, shows sinus tachycardia, will order repeat troponin series, telemetry monitoring Echocardiogram shows an EF of 25%, severe global hypokinesis, abnormal diastolic dysfunction back in November 2020 We will consult cardiology given diminished ejection fraction, consideration of ICD versus LifeVest, patient has failed to follow-up with cardiology Status: Acute (2) Nonischemic cardiomyopathy: See above Status: Acute (3) COPD (chronic obstructive pulmonary disease): Pulmonary toilet. No evidence of exacerbation Status: Acute (4) Tobacco dependency: Counseled on quitting Status: Acute (5) Noncompliance: Counseled on importance of compliance Status: Acute (6) Alcohol use disorder: Thiamine 100 mg daily. Monitor for any withdrawal. Status: Acute Additional A&P Information Sinus tachycardia, telemetry monitoring, troponin series Hepatitis C, patient admits that he has tested positive for hepatitis C, will reorder hep panel, HIV, abdominal ultrasound Full code Lovenox for DVT prophylaxis Attestations Medical Necessity Statement*: Patient requires hospitalization for CHF exacerbation, systolic and diastolic Coding Level of Care Code Acute Dry Cleaning Teacher for g Fwd Diagnoses CHF (congestive heart failure) I50.9 Nonischemic cardiomyopathy I42.8 COPD (chronic obstructive pulmonary disease) J44.9 Tobacco dependency F17.200 Noncompliance Z91.19 Alcohol use disorder
[2021-04-08] MEDS: potassium chloride ER 20 mEq Tablet 40 MEQ PO (12:03)
[2021-04-08 12:39] LABS: C Reactive Protein 19.1 mg/L (0.0-4.9)
[2021-04-08 13:02] LABS: Hepatitis B Surface Antigen Non-Reactive (Nonreactive)
--- NOTE | 2021-04-08 13:16 | PM.CONSULT ---
Providers/Reason For Consult Consulting Physician/Specialty*: Tiffany Canas MD/cardiology Reason for Consult*: Patient is recovering decompensated heart failure/severe cardiomyopathy Attending Physician: Sundar Pham MD History of Present Illness History of Present Illness Jose Carlos Armendariz is a 60 year old male history of nonischemic cardiomyopathy, severe LV systolic dysfunction, recurrent decompensated heart failure, is admitted to hospital through the emergency room where he was brought by the ambulance with the progressive shortness of breath and difficulty in ambulation. Cardiology consult is requested for further cardiac evaluation recommendations. This patient is known to be poorly compliant with medications and follow-up. He has a history of polysubstance abuse including alcohol, methamphetamine, smoking and other substance abuse. He had a cardiac catheterization 2016 which revealed nonobstructive coronary arteries. This is his third hospital admission within the last 3 months with more or less similar symptoms. According to the patient, [facility] After he ran out of the medication from the last hospital admission, he did not bother to refill his medications. According to him, he did not know [facility] He hasa been noticing swelling of both lower extremities and progressive shortness of breath over the last 1 month. The shortness of breath has been getting so worse that he was finding it difficult to move around. So for that reason, he called the ambulance and was brought to the hospital. He did not have any fever or chills. He has a dry cough. No nausea, vomiting. No sweating, dizziness or syncopal episodes. He may have occasional palpitations. He was seen by Dr. Menchaca in the past. He was recommended for a LifeVest which he refused. Dr. Menchaca also talked him about defibrillator. Apparently he was not able to keep his follow-up office appointments for the last 2 times. He continues to drink and smoke. According to him, the alcohol intake is only occasional. He smokes close to a pack a day. Denies any other substance abuse. Review of Systems Narrative: CONSTITUTIONAL: No fever or chills. EYES: No blurring of vision or other visual disturbances lately. ENT: No hoarseness of voice, auditory disturbances or sore throat. CARDIOVASCULAR: As mentioned above. RESPIRATORY: Has a chronic dry cough GASTROINTESTINAL: No hematemesis or melena. GENITOURINARY: No dysuria or hematuria. INTEGUMENTARY: No skin rashes or history of skin cancer. NEURO: No transient ischemic attacks or amaurosis. PSYCHIATRIC: No history of psychosis or major depression. HEMATOLOGIC: No bleeding disorders or significant anemia. ENDOCRINE: No history of polyuria or polydipsia. MUSCULOSKELETAL: No recent joint pain or swelling. ALLERGY/IMMUNOLOGY: As mentioned above. Meds/Allergies Home Medications and Allergies Home Medications Medication Instructions Recorded Confirmed Last Taken Type No Known Home Medications 04/07/21 04/07/21 Unknown History Allergies Allergy/AdvReac Type Severity Reaction Status Date / Time Penicillins Allergy Unknown Verified 04/07/21 10:03 Current Medications Current Medications Generic Name Dose Route Start Last Admin Trade Name Freq PRN Reason Stop Dose Admin Albuterol/Ipratropium 3 ml 04/07/21 21:00 04/08/21 08:18 Ipratropium-Albuterol 3 Ml Neb INHALATION 3 ml Q6H.RESPIRATORY ROSARIO Administration Enoxaparin Sodium 40 mg 04/07/21 17:15 04/07/21 17:41 Enoxaparin 40 Mg/0.4 Ml Syringe SUBCUT 40 mg Q24H ROSARIO Administration Furosemide 60 mg 04/07/21 19:00 04/08/21 07:55 Furosemide 10 Mg/Ml Sdv 10ml IVP 60 mg Q12H ORSARIO Administration Potassium Chloride 40 meq 04/08/21 11:40 04/08/21 12:03 Potassium Chloride Er 20 Meq Tablet PO 40 meq DAILY ROSARIO Administration PFSH Acute PFSH: Medical History Acute respiratory failure with hypoxia Alcohol use disorder CHF (congestive heart failure) EF 25% on last echocardiogram. COPD (chronic obstructive pulmonary disease) History of amphetamine abuse Hypertension Noncompliance Nonischemic cardiomyopathy Angiogram 2017 no significant coronary plaque. Obesity Tobacco dependency Surgical History History of surgery on arm Social History Smoking and tobacco status: current every day smoker Alcohol intake: current Alcohol intake frequency: 3 or more drinks per day Vitals/I&O/Wt Last Vital Signs Temp 97.8 F 04/08/21 12:00 Pulse 112 H 04/08/21 12:00 Resp 18 04/08/21 12:00 BP 142/88 04/08/21 12:00 Pulse Ox 91 04/08/21 12:00 04/07/21 04/08/21 04/08/21 22:59 06:59 14:59 Intake Total 240 / 240 360 / 360 Output Total 400 / 400 3300 / 3700 2450 / 2450 Balance -160 / -160 -3300 / -3460 -2090 / -2090 Weight last 48 hrs Weight 197 lb 9.6 oz Weight 202 lb 9 oz Weight 200 lb Physical Exam Narrative: EXAM NARRATIVE: GENERAL: The patient is alert and oriented times three. Not in any acute distress. Slightly tachypneic HEENT: No significant pallor, icterus or lymphadenopathy.Oral cavity: There are no mucous membrane lesions. NECK: Trachea appears to be central. No masses noted. No JVD or thyromegaly appreciated. RESPIRATORY: Chest is symmetrical. No intercostals muscle retraction or any accessory muscle activation. There is no chest wall tenderness. Breath sounds are heard bilaterally. No rales or rhonchi heard. No evidence of any consolidation. Breath sounds are diminished in the bases. No evidence of consolidation. BREASTS: Deferred. HEART: The heart sounds are normal. No S3 or S4. Short systolic murmur in the left sternal border. No diastolic murmurs.. No pericardial rub ABDOMEN: Abdomen is slightly distended. Has minimal abdominal wall edema. : Deferred. RECTAL: Deferred. LYMPHATIC: No lymphadenopathy noted in the neck. EXTREMITIES: 3+ edema both lower extremities. No cyanosis. Peripheral pulses are palpable but deep. MUSCULOSKELETAL: No acute joint deformities or swelling SKIN: There are no significant rashes or ecchymosis NEUROPSYCHIATRIC: The patient is alert and oriented x3. Appears to be in a good mood. No tremors or rigidity noted. Data Micro: Micro: Laboratory Last Values WBC 7.1 10^3/uL (4.0- 10.0) 04/08/21 06:26 RBC 4.33 10^6/uL (4.1 -5.3) 04/08/21 06:26 Hgb 13.8 g/dL (11.7-1 6.6) 04/08/21 06:26 Hct 42.3 % (42.0-52.0 ) 04/08/21 06:26 MCV 97.7 fl (80-94) H 04/08/21 06:26 MCH 31.9 pg (28.0-34. 0) 04/08/21 06:26 MCHC 32.6 g/dL (30.0-3 6.0) 04/08/21 06:26 RDW 15.9 % (12.1-15.1 ) H 04/08/21 06:26 Plt Count 256 10^3/cmm (130 -400) 04/08/21 06:26 MPV 9.3 fL (7.4-10.4) 04/08/21 06:26 Neut % (Auto) 71.3 % 04/08/21 06:26 Lymph % (Auto) 16.3 % 04/08/21 06:26 [place] % (Auto) 9.2 % 04/08/21 06:26 Eos % (Auto) 1.8 % 04/08/21 06:26 Baso % (Auto) 1.1 % 04/08/21 06:26 Neut # (Auto) 5.06 10^3/uL (1.8 -7.7) 04/08/21 06:26 Lymph # (Auto) 1.2 10^3/uL (0.8- 4.8) 04/08/21 06:26 [place] # (Auto) 0.7 10^3/uL (0.2- 0.9) 04/08/21 06:26 Eos # (Auto) 0.1 10^3/uL (0.0- 0.8) 04/08/21 06:26 Baso # (Auto) 0.1 10^3/uL (0.0- 0.1) 04/08/21 06:26 Nucleated RBC % (a uto) 0 % 04/08/21 06:26 Nucleated RBCs # 0.0 /100WBC 04/08/21 06:26 Specimen Type Arterial 04/07/21 06:36 Sample Site Brachial, right 04/07/21 06:36 ABG pH 7.45 (7.35-7.45) 04/07/21 06:36 ABG pCO2 33.0 mmHg (35-45) L 04/07/21 06:36 ABG pO2 73.9 mmHg (80.0-1 00.0) L 04/07/21 06:36 ABG HCO3 22.7 mmol/L (22-2 6) 04/07/21 06:36 ABG Base Excess -0.6 mmol/L (-2.0 -2.0) 04/07/21 06:36 Melquiades Test N/a 04/07/21 06:36 Hematocrit 42.0 % (42-52) 04/07/21 06:36 O2 Delivery Device Room air 04/07/21 06:36 FiO2 21.0 % 04/07/21 06:36 Superintendent Transportation ID [email or web address] 04/07/21 06:36 Sodium 136 mmol/L (136-1 45) 04/08/21 06:26 Potassium 3.9 mmol/L (3.5-5 .1) 04/08/21 06:26 Chloride 99 mmol/L (98-107 ) 04/08/21 06:26 Carbon Dioxide 25 mmol/L (22-29) 04/08/21 06:26 Anion Gap 15.9 (5-19) 04/08/21 06:26 BUN 12 mg/dL (6-20) 04/08/21 06:26 Creatinine 0.8 mg/dL (0.7-1. 2) 04/08/21 06:26 GFR Calculation 99.3 mL/min (90-1 30) 04/08/21 06:26 Glucose 101 mg/dL (65-115 ) 04/08/21 06:26 Calculated Osmolal ity 282 mOsm/kg (285- 295) L 04/08/21 06:26 Calcium 8.6 mg/dL (8.5-10 .5) 04/08/21 06:26 Magnesium 1.7 mg/dL (1.7-2. 3) 04/08/21 06:26 Total Bilirubin 2.1 mg/dL (0.15-1 .2) H 04/08/21 06:26 AST 31 U/L (0-40) 04/08/21 06:26 ALT 11 U/L (0-41) 04/08/21 06:26 Alkaline Phosphata se 121 IU/L (40-130) 04/08/21 06:26 Troponin T Baselin e 39 ng/L (0-15) H 04/07/21 07:06 Troponin T 120 Min bala 40.70 ng/L (0-15) H 04/07/21 10:01 Delta Troponin T 1.70 ABS# (0-10) 04/07/21 10:01 Troponin T Hi Sens 6Hr 33.60 ng/L (0-15) H 04/07/21 13:27 Troponin T Hi Sens 6Hr Delta -5.40 ng/L (0-12) L 04/07/21 13:27 C-Reactive Protein 19.1 mg/L (0.0-4. 9) H 04/08/21 06:26 NT-Pro-B Natriuret Pep 5442 pg/mL (0-125 ) H 04/07/21 05:33 Total Protein 6.9 g/dL (6.6-8.7 ) 04/08/21 06:26 Albumin 3.1 g/dL (3.5-5.2 ) L 04/08/21 06:26 Globulin 3.8 g/dL (1.3-4.6 ) 04/08/21 06:26 Procalcitonin 0.10 ng/mL (0-0.5 ) 04/08/21 06:26 Hep Bs Antigen Non-reactive (No nreactive) 04/08/21 06:26 SARS-CoV-2 Ag (Rap id) Negative (Negati ve) 04/07/21 05:33 Microbiology 04/07/21 05:33 Blood Culture - Pr eliminary Blood NEGATIVE TO DELICIA E 04/07/21 05:33 Blood Culture - Pr eliminary Blood NEGATIVE TO DELICIA E Imaging^: Echo: My impression: 12/21/2020 1. Mildly increased left ventricular cavity size. Severely decreased left ventricular systolic function. Left ventricular ejection fraction is estimated at 25 %. Severe global hypokinesis. Abnormal diastolic function. 2. Moderately increased left atrial size. 3. Moderate to severe mitral valve regurgitation. 4. Trivial pericardial effusion along posterior left ventricle wall. No evidence of hemodynamic compromise. 5. When compared to previous echocardiogram dated 07/26/2017, there may not have been any significant change. EKG^: EKG 1: My Interpretation: Sinus tachycardia with a heart rate of 117 bpm. Possible left atrial enlargement. Possible old anteroseptal myocardial infarction. Nonspecific T wave changes. A&P Assessment and plan (1) Acute on chronic systolic heart failure: Is very poorly compliant with medications and follow-up. Apparently has not been taking of his medications for the last 1 month or so. Patient may be restarted on all his medication. May continue the IV Lasix Status: Acute (2) Nonischemic cardiomyopathy: Restart all his medication. Patient may benefit from Entresto. Since he has not had any proper treatment with the appropriate medication, it is difficult to say whether the medicine is helping to improve the LV function or not. Status: Acute (3) Benign essential hypertension with target blood pressure below 140/90: Currently the blood pressure is a stage II. His antihypertensive medications need to be optimized. Status: Acute (4) COPD (chronic obstructive pulmonary disease): Management as per the primary. Status: Acute Qualifiers: COPD type: unspecified COPD Qualified Code(s): J44.9 - Chronic obstructive pulmonary disease, unspecified (5) Tobacco dependency: Status: Acute (6) Noncompliance: Importance of compliance to medication and medical follow-ups were discussed in detail with the patient. He seems to understand this well. Status: Acute Additional A&P Information After reviewing the above and also based on the patient the clinical progress, further recommendations will be made. Thank you for the opportunity to evaluate this patient make these recommendations Coding Level of Care Code Acute Supervisor Last Model Department for [employer] Fwd Exam Detailed Medical Decision Making High Complexity Diagnoses Acute on chronic systolic heart failure I50.23 Nonischemic cardiomyopathy I42.8 Benign essential hypertension with target blood pressure below 140/90 I10 COPD (chronic obstructive pulmonary disease) J44.9 COPD type: unspecified COPD Tobacco dependency F17.200 Noncompliance Z91.19 Time Spent (min) 60
[2021-04-08 13:54] LABS: HIV 1 & 2 Antibody Non-Reactive (Non-Reactiv); HIV 1 & 2 Antigen Non-Reactive (Non-Reactiv)
[2021-04-08 15:38] LABS: Hepatitis A Antibody IgM Non-Reactive (Nonreactive); Hepatitis B Core IgM Non-Reactive (Nonreactive)
[2021-04-08 16:17] LABS: Hepatitis C Virus Antibody Reactive (Nonreactive)
[2021-04-08] MEDS: enoxaparin 40 mg/0.4 mL Syringe SUBCUT (16:35)
[2021-04-08] MEDS: losartan 50 mg Tablet PO (16:35)
[2021-04-08] MEDS: metoprolol tartrate 25 mg Tablet PO (20:37)
[2021-04-08 21:18] LABS: Quest SARS-CoV-2 RNA NOT DETECTED (NOT DETECTED)
[2021-04-09] VITALS (11 sets, daily range): BP systolic 110–123; BP diastolic 78–85; PULSE 88–108; RESP 16–18; TEMP 36.3–36.7; O2SAT 93–97
[2021-04-09 06:26] LABS: Basophils # 0.1 10^3/uL (0.0-0.1); Basophils % 0.9 %; Eosinophils # 0.1 10^3/uL (0.0-0.8); Hematocrit 42.5 % (42.0-52.0); Hemoglobin 13.7 g/dL (11.7-16.6); Lymphocytes # 1.7 10^3/uL (0.8-4.8); Mean Corpuscular HGB Conc 32.2 g/dL (30.0-36.0); Mean Corpuscular Hemoglobin 31.9 pg (28.0-34.0); Mean Corpuscular Volume 99.1 fl (80-94); Mean Platelet Volume 9.4 fL (7.4-10.4); Monocytes # 0.7 10^3/uL (0.2-0.9); Neutrophils # 4.29 10^3/uL (1.8-7.7); Nucleated Red Blood Cells % 0 %; Platelet Count 246 10^3/cmm (130-400); Red Blood Count 4.29 10^6/uL (4.1-5.3); Red Cell Distribution Width 15.9 % (12.1-15.1); White Blood Count 6.9 10^3/uL (4.0-10.0)
[2021-04-09 07:15] LABS: Alanine Aminotransferase 11 U/L (0-41); Albumin Level 3.1 g/dL (3.5-5.2); Alkaline Phosphatase 116 IU/L (40-130); Anion Gap 13.8 (5-19); Aspartate Amino Transferase 33 U/L (0-40); Blood Urea Nitrogen 15 mg/dL (6-20); Calcium 8.6 mg/dL (8.5-10.5); Carbon Dioxide 28 mmol/L (22-29); Chloride 100 mmol/L (98-107); Glomerular Filtration Rate 76.7 mL/min (90-130); Glucose 110 mg/dL (65-115); NT Pro B Type Natriuretic Pept 5050 pg/mL (0-125); Osmolality Calculated 287 mOsm/kg (285-295); Potassium 3.8 mmol/L (3.5-5.1); Sodium 138 mmol/L (136-145); Total Bilirubin 1.2 mg/dL (0.15-1.2); Total Protein 7.1 g/dL (6.6-8.7)
[2021-04-09 07:57] LABS: Slide Review Slide Review Perform
[2021-04-09] MEDS: ipratropium-albuterol 3 mL Neb INHALATION ×3 (08:51→20:04)
[2021-04-09] MEDS: potassium chloride ER 20 mEq Tablet 40 MEQ PO (09:42)
[2021-04-09] MEDS: metoprolol tartrate 25 mg Tablet PO ×2 (09:43→20:06)
[2021-04-09] MEDS: spironolactone 25 mg Tablet PO (09:43)
[2021-04-09] MEDS: losartan 50 mg Tablet PO (09:43)
[2021-04-09] MEDS: FUROsemide 10 mg/mL SDV 4mL 40 MG IVP ×2 (09:49→20:06)
--- NOTE | 2021-04-09 11:07 | USCV_ITS ---
Jose Carlos Armendariz Age: 60 Gender: M : 1960 Exam Date: 04/09/2021 12:52 Ordering Phys: Sundar Pham MD Technologist: Nannette aGllego Exam Location: [facility] [place]_ Indication: Bilateral calf pain HISTORY: Lower extremity pain. PROCEDURES: Comparison: 08-08-17. Venous duplex imaging was performed in bilateral lower extremities. The following venous structures were evaluated: common femoral vein, profunda vein, proximal portion of the greater saphenous vein, superficial femoral vein, and the popliteal vein. In addition, the posterior tibial and peroneal trunk were evaluated. Serial compression, augmentation maneuvers, and spectral Doppler flow evaluation were performed. FINDINGS: No evidence of DVT seen in any vessel visualized at this time. Diffuse edema noted bilaterally. The veins were found to be easily compressible with spontaneous blood flow. Non pulsatile flow pattern. Echo-free space is noted in the subcutaneous area bilaterally CONCLUSIONS No evidence of DVT in the above-mentioned identifiable veins. Features of fluid retention/edema in both lower extremities Dr Rosendo Canas MD [facility] (Electronically Signed) Final Date: 09 April 2021 14:49 S
--- NOTE | 2021-04-09 13:46 | PM.PN ---
Subjective Subjective: Interval history: Patient was seen this morning, he tells me that he is feeling better, abdomen still feels a bit tight, a bit short of breath with exertion but overall doing better, no chest pain Vitals/I&O/Wt Last Vital Signs Temp 97.4 F L 04/09/21 11:44 Pulse 100 04/09/21 11:44 Resp 18 04/09/21 11:44 BP 123/81 04/09/21 11:44 Pulse Ox 95 04/09/21 11:44 04/08/21 04/09/21 04/09/21 22:59 06:59 14:59 Intake Total 420 / 780 220 / 1000 360 / 360 Output Total 900 / 3350 1500 / 4850 Balance -480 / -2570 -1280 / -3850 360 / 360 Weight last 48 hrs Weight 89.443 kg Weight 89.63 kg Weight 91.881 kg Physical Exam Const: COMMON NORMALS: no acute distress GENERAL APPEARANCE: cooperative ORIENTATION/CONSCIOUSNESS: Yes awake, Yes oriented to person and Yes oriented to place Resp: COMMON NORMALS: normal respiratory effort, No retractions, No use of accessory muscles and clear to auscultation bilaterally AUSCULTATION: clear to auscultation bilaterally Cardio: COMMON NORMALS: regular rate, regular rhythm, S1 normal heart sound present and S2 normal heart sound present RATE: regular rate RHYTHM: regular rhythm HEART SOUNDS: S1 normal heart sound present and S2 normal heart sound present GI: COMMON NORMALS: Normal to inspection, nondistended, normoactive bowel sounds present and Soft to palpation INSPECTION: Yes Abdominal wall edema and Yes abdominal distension PALPATION: Yes Soft to palpation Extremity: NARRATIVE EXTREMITY EXAM: 1+ edema Neuro: SENSORIUM/ORIENTATION: Yes oriented to person and Yes oriented to place Data : 04/09/21 06:06 04/09/21 06:06 A&P Assessment and plan (1) CHF (congestive heart failure): Acute systolic heart failure with last EF of 25%. He has had multiple admissions for the same, when he does not take his medication for approximately 1 month. He reports he can get his medicine through the [facility], and cardiology but often does not keep his appointment. He cites transportation as the reason this time. -6.9 L since admission Diuresis with Lasix 40 mg IV every 12 hours, creatinine up to 1.0 Potassium replacement Fluid restriction 1200ml Monitor urine output Close follow-up of electrolytes Patient heart rates, shows sinus tachycardia, will order repeat troponin series, telemetry monitoring Echocardiogram shows an EF of 25%, severe global hypokinesis, abnormal diastolic dysfunction back in November 2020 consult cardiology given diminished ejection fraction, consideration of ICD versus LifeVest, and optimization of heart failure Plan for today decrease Lasix to 40 mg IV every 12 hours, monitor creatinine, monitor urine output, likely discharge next 24 hours Status: Acute (2) Nonischemic cardiomyopathy: See above Status: Acute (3) COPD (chronic obstructive pulmonary disease): Pulmonary toilet. No evidence of exacerbation Status: Acute Qualifiers: COPD type: unspecified COPD Qualified Code(s): J44.9 - Chronic obstructive pulmonary disease, unspecified (4) Tobacco dependency: Counseled on quitting Status: Acute (5) Noncompliance: Counseled on importance of compliance Status: Acute (6) Alcohol use disorder: Thiamine 100 mg daily. Monitor for any withdrawal. Status: Acute (7) Hepatitis C antibody positive in blood: Status: Acute (8) Benign essential hypertension with target blood pressure below 140/90: Status: Acute (9) Acute on chronic systolic heart failure: Status: Acute Additional A&P Information Sinus tachycardia, telemetry monitoring, troponin series Hepatitis C, antibody positive, liver ultrasound shows a small amount ascites in the right upper and lower quadrants, [facility] Full code Lovenox for DVT prophylaxis Attestations Medical Necessity Statement*: Patient requires hospitalization for CHF exacerbation Coding Level of Care Code Acute Retail Manager In Training for [facility] [place] Diagnoses CHF (congestive heart failure) I50.9 Nonischemic cardiomyopathy I42.8 COPD (chronic obstructive pulmonary disease) J44.9 COPD type: unspecified COPD Tobacco dependency F17.200 Noncompliance Z91.19 Alcohol use disorder Hepatitis C antibody positive in blood R76.8 Benign essential hypertension with target blood pressure below 140/90 I10 Acute on chronic systolic heart failure I50.23
--- NOTE | 2021-04-09 15:35 | P.PN_ITS ---
Subjective Subjective: Interval history: The patient is feeling better. He still has shortness of breath with activities. Has a poor appetite. Also may have some nausea today. No fever or chills. No cough. Seems to be diuresing well. No new arrhythmias on the monitor. Medications: Reviewed: Yes Medication Review Details: Current Medications Acetaminophen (Acetaminophen 325 Mg Tablet) 650 mg PO Q6H PRN PRN Reason: Mild/Mod Pain Or Temp >/= 101 Albuterol/Ipratropium (Ipratropium-Albuterol 3 Ml Neb) 3 ml INHALATION Q6H.RESPIRATORY [facility] Last Admin: 04/09/21 15:12 Dose: 3 ml Documented by: Enoxaparin Sodium (Enoxaparin 40 Mg/0.4 Ml Syringe) 40 mg SUBCUT Q24H [facility] Last Admin: 04/08/21 16:35 Dose: 40 mg Documented by: Furosemide (Furosemide 10 Mg/Ml Sdv 4ml) 40 mg IVP Q12H [facility] Last Admin: 04/09/21 09:49 Dose: 40 mg Documented by: Losartan Potassium (Losartan 50 Mg Tablet) 50 mg PO DAILY [facility] Last Admin: 04/09/21 09:43 Dose: 50 mg Documented by: Metoprolol Tartrate (Metoprolol Tartrate 25 Mg Tablet) 25 mg PO BID@0900,2100 [facility] Last Admin: 04/09/21 09:43 Dose: 25 mg Documented by: Ondansetron HCl (Ondansetron 2 Mg/Ml Sdv 2 Ml) 4 mg IVP Q8H PRN PRN Reason: vomiting, or N/V if npo Potassium Chloride (Potassium Chloride Er 20 Meq Tablet) 40 meq PO DAILY [facility] Last Admin: 04/09/21 09:42 Dose: 40 meq Documented by: Spironolactone (Spironolactone 25 Mg Tablet) 25 mg PO DAILY [facility] Last Admin: 04/09/21 09:43 Dose: 25 mg Documented by: Vitals/I&O/Wt Last Vital Signs Temp 97.4 F L 04/09/21 11:44 Pulse 88 04/09/21 15:18 Resp 17 04/09/21 15:13 BP 123/81 04/09/21 11:44 Pulse Ox 93 04/09/21 15:13 08/15/21 08/15/21 08/15/21 06:59 14:59 22:59 Intake Total 220 / 1000 600 / 600 Output Total 1500 / 4850 350 / 350 Balance -1280 / -3850 250 / 250 Weight last 48 hrs Weight 197 lb 3 oz Weight 197 lb 9.6 oz Weight 202 lb 9 oz Physical Exam Narrative: EXAM NARRATIVE: GENERAL: The patient is alert and oriented times three. Not in any acute distress. Slightly tachypneic HEENT: No significant pallor, icterus or lymphadenopathy.Oral cavity: There are no mucous membrane lesions. NECK: Trachea appears to be central. No masses noted. Neck veins are prominent. JVD of 3 cm. RESPIRATORY: Chest is symmetrical. No intercostals muscle retraction or any accessory muscle activation. There is no chest wall tenderness. Breath sounds are heard bilaterally. No rales or rhonchi heard. No evidence of any consolidation. Breath sounds are diminished in the bases. No evidence of consolidation. BREASTS: Deferred. HEART: The heart sounds are normal. No S3 or S4. Short systolic murmur in the left sternal border. No diastolic murmurs.. No pericardial rub ABDOMEN: Abdomen is slightly distended. Has minimal abdominal wall edema. : Deferred. RECTAL: Deferred. LYMPHATIC: No lymphadenopathy noted in the neck. EXTREMITIES: 2+ edema both lower extremities. No cyanosis. Peripheral pulses are palpable but deep. MUSCULOSKELETAL: No acute joint deformities or swelling SKIN: There are no significant rashes or ecchymosis NEUROPSYCHIATRIC: The patient is alert and oriented x3. Appears to be in a good mood. No tremors or rigidity noted. Data : 04/09/21 06:06 04/09/21 06:06 Other Labs: Laboratory Last Values WBC 6.9 10^3/uL (4.0-10.0) 04/09/21 06:06 RBC 4.29 10^6/uL (4.1-5.3) 04/09/21 06:06 Hgb 13.7 g/dL (11.7-16.6) 04/09/21 06:06 Hct 42.5 % (42.0-52.0) 04/09/21 06:06 MCV 99.1 fl (80-94) H 04/09/21 06:06 MCH 31.9 pg (28.0-34.0) 04/09/21 06:06 MCHC 32.2 g/dL (30.0-36.0) 04/09/21 06:06 RDW 15.9 % (12.1-15.1) H 04/09/21 06:06 Plt Count 246 10^3/cmm (130-400) 04/09/21 06:06 MPV 9.4 fL (7.4-10.4) 04/09/21 06:06 Neut % (Auto) 62.0 % 04/09/21 06:06 Lymph % (Auto) 25.0 % 04/09/21 06:06 [place] % (Auto) 10.0 % 04/09/21 06:06 Eos % (Auto) 2.0 % 04/09/21 06:06 Baso % (Auto) 0.9 % 04/09/21 06:06 Neut # (Auto) 4.29 10^3/uL (1.8-7.7) 04/09/21 06:06 Lymph # (Auto) 1.7 10^3/uL (0.8-4.8) 04/09/21 06:06 [place] # (Auto) 0.7 10^3/uL (0.2-0.9) 04/09/21 06:06 Eos # (Auto) 0.1 10^3/uL (0.0-0.8) 04/09/21 06:06 Baso # (Auto) 0.1 10^3/uL (0.0-0.1) 04/09/21 06:06 Nucleated RBC % (auto) 0 % 04/09/21 06:06 Nucleated RBCs # 0.0 /100WBC 04/09/21 06:06 Specimen Type Arterial 04/07/21 06:36 Sample Site Brachial, right 04/07/21 06:36 ABG pH 7.45 (7.35-7.45) 04/07/21 06:36 ABG pCO2 33.0 mmHg (35-45) L 04/07/21 06:36 ABG pO2 73.9 mmHg (80.0-100.0) L 04/07/21 06:36 ABG HCO3 22.7 mmol/L (22-26) 04/07/21 06:36 ABG Base Excess -0.6 mmol/L (-2.0-2.0) 04/07/21 06:36 [place] Test N/a 04/07/21 06:36 Hematocrit 42.0 % (42-52) 04/07/21 06:36 O2 Delivery Device Room air 04/07/21 06:36 FiO2 21.0 % 04/07/21 06:36 Admissions Officer ID Evens 04/07/21 06:36 Sodium 138 mmol/L (136-145) 04/09/21 06:06 Potassium 3.8 mmol/L (3.5-5.1) 04/09/21 06:06 Chloride 100 mmol/L (98-107) 04/09/21 06:06 Carbon Dioxide 28 mmol/L (22-29) 04/09/21 06:06 Anion Gap 13.8 (5-19) 04/09/21 06:06 BUN 15 mg/dL (6-20) 04/09/21 06:06 Creatinine 1.0 mg/dL (0.7-1.2) 04/09/21 06:06 GFR Calculation 76.7 mL/min (90-130) L 04/09/21 06:06 Glucose 110 mg/dL (65-115) 04/09/21 06:06 Calculated Osmolality 287 mOsm/kg (285-295) 04/09/21 06:06 Calcium 8.6 mg/dL (8.5-10.5) 04/09/21 06:06 Magnesium 1.7 mg/dL (1.7-2.3) 04/08/21 06:26 Total Bilirubin 1.2 mg/dL (0.15-1.2) 04/09/21 06:06 AST 33 U/L (0-40) 04/09/21 06:06 ALT 11 U/L (0-41) 04/09/21 06:06 Alkaline Phosphatase 116 IU/L (40-130) 04/09/21 06:06 Troponin T Baseline 39 ng/L (0-15) H 04/07/21 07:06 Troponin T 120 Minute 40.70 ng/L (0-15) H 04/07/21 10:01 Delta Troponin T 1.70 ABS# (0-10) 04/07/21 10:01 Troponin T Hi Sens 6Hr 33.60 ng/L (0-15) H 04/07/21 13:27 Troponin T Hi Sens 6Hr Delta -5.40 ng/L (0-12) L 04/07/21 13:27 C-Reactive Protein 19.1 mg/L (0.0-4.9) H 04/08/21 06:26 NT-Pro-B Natriuret Pep 5050 pg/mL (0-125) H 04/09/21 06:06 Total Protein 7.1 g/dL (6.6-8.7) 04/09/21 06:06 Albumin 3.1 g/dL (3.5-5.2) L 04/09/21 06:06 Globulin 4.0 g/dL (1.3-4.6) 04/09/21 06:06 Procalcitonin 0.10 ng/mL (0-0.5) 04/08/21 06:26 Hepatitis A IgM Ab Non-reactive (Nonreactive) 04/08/21 06:26 Hep Bs Antigen Non-reactive (Nonreactive) 04/08/21 06:26 Hep B Core IgM Ab Non-reactive (Nonreactive) 04/08/21 06:26 Hepatitis C Antibody Reactive (Nonreactive) H 04/08/21 06:26 HIV 1&2 Ab & HIV 1 Ag Non-reactive (Non-Reactiv) 04/08/21 06:26 HIV 1&2 Antibody Non-reactive (Non-Reactiv) 04/08/21 06:26 SARS-CoV-2 RNA (RT-PCR) Not detected (NOT DETECTED) 04/07/21 13:42 SARS-CoV-2 Ag (Rapid) Negative (Negative) 04/07/21 05:33 A&P Assessment and plan (1) Acute on chronic systolic heart failure: Patient is tolerating the losartan and spironolactone. He also may continue on the IV Lasix. Status: Acute (2) Nonischemic cardiomyopathy: Restart all his medication. Patient may benefit from Entresto. Since he has not had any proper treatment with the appropriate medication, it is difficult to say whether the medicine is helping to improve the LV function or not. Status: Acute (3) Benign essential hypertension with target blood pressure below 140/90: Her blood pressure seems to be getting under control. We will continue to optimize her medications. Status: Acute (4) COPD (chronic obstructive pulmonary disease): Management as per the primary. Status: Acute Qualifiers: COPD type: unspecified COPD Qualified Code(s): J44.9 - Chronic obstructive pulmonary disease, unspecified (5) Tobacco dependency: Strongly advised to quit smoking Status: Acute (6) Noncompliance: Importance of compliance to medication and medical follow-ups were discussed in detail with the patient. He seems to understand this well. Status: Acute Additional A&P Information We will continue with IV Lasix. Repeat BMP in the morning. Attestations Medical Necessity Statement*: Patient requires continued hospital stay for close monitoring and further management Coding Level of Care Code Acute Wafer Substrate Tester for Chg Fwd Diagnoses Acute on chronic systolic heart failure I50.23 Nonischemic cardiomyopathy I42.8 Benign essential hypertension with target blood pressure below 140/90 I10 COPD (chronic obstructive pulmonary disease) J44.9 COPD type: unspecified COPD Tobacco dependency F17.200 Noncompliance Z91.19
[2021-04-09] MEDS: benzonatate 100 mg Capsule PO (17:15)
[2021-04-09] MEDS: enoxaparin 40 mg/0.4 mL Syringe SUBCUT (17:15)
[2021-04-10] VITALS (17 sets, daily range): BP systolic 104–134; BP diastolic 75–94; PULSE 68–105; RESP 16–20; TEMP 36.4–37.1; O2SAT 90–98
[2021-04-10] MEDS: ipratropium-albuterol 3 mL Neb INHALATION ×4 (02:08→21:21)
[2021-04-10] MEDS: benzonatate 100 mg Capsule PO (04:01)
[2021-04-10 06:20] LABS: Basophils # 0.1 10^3/uL (0.0-0.1); Basophils % 1.1 %; Eosinophils # 0.1 10^3/uL (0.0-0.8); Hematocrit 43.9 % (42.0-52.0); Hemoglobin 14.2 g/dL (11.7-16.6); Lymphocytes # 1.8 10^3/uL (0.8-4.8); Lymphocytes % 21.5 %; Mean Corpuscular HGB Conc 32.3 g/dL (30.0-36.0); Mean Corpuscular Hemoglobin 32.5 pg (28.0-34.0); Mean Corpuscular Volume 100.5 fl (80-94); Mean Platelet Volume 11.1 fL (7.4-10.4); Monocytes # 0.7 10^3/uL (0.2-0.9); Monocytes % 8.7 %; Neutrophils # 5.56 10^3/uL (1.8-7.7); Neutrophils % 67.5 %; Nucleated Red Blood Cells % 0 %; Platelet Count 207 10^3/cmm (130-400); Red Blood Count 4.37 10^6/uL (4.1-5.3); Red Cell Distribution Width 15.7 % (12.1-15.1); White Blood Count 8.2 10^3/uL (4.0-10.0)
[2021-04-10 06:50] LABS: Alanine Aminotransferase 10 U/L (0-41); Albumin Level 3.4 g/dL (3.5-5.2); Alkaline Phosphatase 113 IU/L (40-130); Aspartate Amino Transferase 44 U/L (0-40); Blood Urea Nitrogen 19 mg/dL (6-20); Calcium 8.6 mg/dL (8.5-10.5); Carbon Dioxide 22 mmol/L (22-29); Chloride 96 mmol/L (98-107); Globulin 4.1 g/dL (1.3-4.6); Glomerular Filtration Rate 86.7 mL/min (90-130); Glucose 86 mg/dL (65-115); NT Pro B Type Natriuretic Pept 6081 pg/mL (0-125); Osmolality Calculated 278 mOsm/kg (285-295); Sodium 133 mmol/L (136-145); Total Bilirubin 1.9 mg/dL (0.15-1.2); Total Protein 7.5 g/dL (6.6-8.7)
[2021-04-10 06:53] LABS: Anion Gap 19.8 (5-19); Potassium 4.8 mmol/L (3.5-5.1)
--- NOTE | 2021-04-10 08:26 | P.PN_ITS ---
Subjective Subjective: Interval history: Says feels better today. Still cannot talk in complete sentences and sitting by the bedside. Medications: Reviewed: Yes Medication Review Details: Current Medications Acetaminophen (Acetaminophen 325 Mg Tablet) 650 mg PO Q6H PRN PRN Reason: Mild/Mod Pain Or Temp >/= 101 Albuterol/Ipratropium (Ipratropium-Albuterol 3 Ml Neb) 3 ml INHALATION Q6H[facility] Last Admin: 04/09/21 15:12 Dose: 3 ml Documented by: Enoxaparin Sodium (Enoxaparin 40 Mg/0.4 Ml Syringe) 40 mg SUBCUT Q24H [facility] Last Admin: 04/08/21 16:35 Dose: 40 mg Documented by: Furosemide (Furosemide 10 Mg/Ml Sdv 4ml) 40 mg IVP Q12H [facility] Last Admin: 04/09/21 09:49 Dose: 40 mg Documented by: Losartan Potassium (Losartan 50 Mg Tablet) 50 mg PO DAILY [facility] Last Admin: 04/09/21 09:43 Dose: 50 mg Documented by: Metoprolol Tartrate (Metoprolol Tartrate 25 Mg Tablet) 25 mg PO BID@0900,2100 [facility] Last Admin: 04/09/21 09:43 Dose: 25 mg Documented by: Ondansetron HCl (Ondansetron 2 Mg/Ml Sdv 2 Ml) 4 mg IVP Q8H PRN PRN Reason: vomiting, or N/V if npo Potassium Chloride (Potassium Chloride Er 20 Meq Tablet) 40 meq PO DAILY [facility] Last Admin: 04/09/21 09:42 Dose: 40 meq Documented by: Spironolactone (Spironolactone 25 Mg Tablet) 25 mg PO DAILY [facility] Last Admin: 04/09/21 09:43 Dose: 25 mg Documented by: Vitals/I&O/Wt Last Vital Signs Temp 98.1 F 04/10/21 08:00 Pulse 105 H 04/10/21 08:00 Resp 16 04/10/21 08:00 BP 134/94 04/10/21 08:00 Pulse Ox 90 04/10/21 08:00 04/09/21 04/10/21 04/10/21 22:59 06:59 14:59 Output Total 550 / 900 Balance -550 / -300 Weight last 48 hrs Weight 191 lb Weight 197 lb 3 oz Physical Exam Narrative: EXAM NARRATIVE: GENERAL: Patient is alert, awake and oriented x3. NECK: No jugular vein distension. HEENT: No cyanosis. No icterus. No pallor. HEART: Regular S1 and S2. No murmur, rub or gallop. LUNGS: Inspiratory crackles upon auscultate bilaterally. ABDOMEN: Soft, nontender and nondistended. Positive bowel sounds. No guarding, rebound or tenderness. CENTRAL NERVOUS SYSTEM: Grossly nonfocal. EXTREMITIES: Lower extremities with 1+ edema Data : 04/10/21 05:29 04/10/21 05:29 A&P Assessment and plan (1) Acute on chronic systolic heart failure: Continue diuresis with IV Lasix 60 mg twice daily. Will reassess in the morning. Status: Acute (2) Nonischemic cardiomyopathy: Noncompliant patient, we will optimize medicine again Status: Acute (3) Benign essential hypertension with target blood pressure below 140/90: Well-controlled now. Status: Acute (4) COPD (chronic obstructive pulmonary disease): Continue as per primary Status: Acute Qualifiers: COPD type: unspecified COPD Qualified Code(s): J44.9 - Chronic obstructive pulmonary disease, unspecified (5) Tobacco dependency: Advised quitting smoking Status: Acute (6) Noncompliance: Stressed upon compliance Status: Acute Additional A&P Information We will continue with IV Lasix. Repeat BMP in the morning. Attestations Medical Necessity Statement*: Patient require continuation hospitalization for above defined care. 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
[2021-04-10] MEDS: FUROsemide 10 mg/mL SDV 4mL 60 MG IVP ×2 (08:29→20:04)
--- NOTE | 2021-04-10 09:56 | PC.CHAP ---
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 event staff visit [] Patient/Family/Request visit [] Outpatient visit [] Follow-up visit [] Physician referral [] Code/Alert [x] Routine visit [] Staff referral [] Actively dying [] Patient sleeping [] Family support [] [] Out of room [] Palliative care [] [] Receiving care in room [] Pre-surgical visit [] Trauma [] Long length of stay [] ICU visit [] Other: Relational/Emotional Strength [x] Patient feels connected with others/family/visitors/staff [] Distress [] Loneliness/isolation [] Abandonment Spirituality of Patient x[] Person of Molly [] Attends Judaism of their Molly [x] Believes in Prayer [] Reads Bible or Gnosticism materials [] There are Spiritual issues to be addressed Egg Gatherer Interventions [x] Prayer [] Active listening [] Non-anxious presence [] Spiritual/emotional support [] Crisis/trauma care [] Spiritual counseling [] Bereavement support [] Provided bereavement packet [] Provided Bible/devotional materials [] Provided toy/stuffed animal, coloring book to patient or family member [] Provided Communion [] Anointing/[place]ale [] Salvation [x] Completed spiritual assessment [] Other: Impact on Illness or Injury [] Angry [] Fearful [x] Anxious [] Often cries [] Exhaustion [] Unable to work [] Unable to attend alevism [] Unable to walk/stand [] Unable to read [] Unable to drive [] Unable to eat/drink [] Unable to sleep [] Unable to be with family [] Patient intubated [] Other: Summary Time spent with patient 10 min
[2021-04-10] MEDS: metoprolol tartrate 25 mg Tablet PO ×2 (10:18→20:05)
[2021-04-10] MEDS: losartan 50 mg Tablet PO (10:18)
[2021-04-10] MEDS: spironolactone 25 mg Tablet PO (10:19)
[2021-04-10] MEDS: potassium chloride ER 20 mEq Tablet 40 MEQ PO (10:19)
--- NOTE | 2021-04-10 11:00 | PM.PN ---
Subjective Subjective: Interval history: Jose Carlos feels less short of breath. Legs still swollen but better. Did not have quite as robust diuresis yesterday with only 600 out. Medications: Reviewed: Yes Vitals/I&O/Wt Last Vital Signs Temp 98.1 F 04/10/21 08:00 Pulse 94 04/10/21 08:46 Resp 20 H 04/10/21 08:46 BP 134/94 04/10/21 10:18 Pulse Ox 96 04/10/21 08:46 04/09/21 04/10/21 04/10/21 22:59 06:59 14:59 Output Total 550 / 900 Balance -550 / -300 Weight last 48 hrs Weight 86.636 kg Weight 89.443 kg Physical Exam Narrative: EXAM NARRATIVE: General exam no distress Neck is supple no lymphadenopathy or thyromegaly Cardiovascular tachycardic without murmur Lungs clear no wheezing or crackles Abdomen is soft. Abdominal wall edema is noted. Positive bowel sounds. No obvious organomegaly Extremities 2+ edema all the way to his thighs Data : 04/10/21 05:29 04/10/21 05:29 A&P Assessment and plan (1) CHF (congestive heart failure): Acute systolic heart failure with last EF of 25%. He has had multiple admissions for the same, when he does not take his medication for approximately 1 month. [facility] but often does not keep his appointment. He cites transportation as the reason this time. Continue diuresis with Lasix, increase to 60 mg every 12 hours Fluid restriction 1200ml Cardiology consultation appreciated Currently not a candidate for vest secondary to noncompliance. However, will defer to cardiology. Venous duplex was performed, no DVT. Covid PCR was performed which was negative. ARB, spironolactone added. Metoprolol added. These are medicines he has taken in the past as well. He is reported he does excellent when he takes his medication as prescribed. Status: Acute (2) Nonischemic cardiomyopathy: See above Status: Acute (3) COPD (chronic obstructive pulmonary disease): Pulmonary toilet. No evidence of exacerbation Status: Acute Qualifiers: COPD type: unspecified COPD Qualified Code(s): J44.9 - Chronic obstructive pulmonary disease, unspecified (4) Tobacco dependency: Counseled on quitting Status: Acute (5) Noncompliance: Counseled on importance of compliance Status: Acute (6) Alcohol use disorder: Thiamine 100 mg daily. Monitor for any withdrawal. Status: Acute (7) Hepatitis C antibody positive in blood: To get outpatient follow-up Ultrasound showed no mass Status: Acute (8) Benign essential hypertension with target blood pressure below 140/90: Status: Acute (9) Acute on chronic systolic heart failure: Status: Acute Additional A&P Information Patient complaints of insomnia today. Trazodone at night. Ativan as needed. Full code Lovenox for DVT prophylaxis Attestations Medical Necessity Statement*: Needs continued hospitalization for further diuresis secondary to acute systolic heart failure. Coding Level of Care Code Acute Security Assurance Analyst for Chg Fwd Diagnoses CHF (congestive heart failure) I50.9 Nonischemic cardiomyopathy I42.8 COPD (chronic obstructive pulmonary disease) J44.9 COPD type: unspecified COPD Tobacco dependency F17.200 Noncompliance Z91.19 Alcohol use disorder Hepatitis C antibody positive in blood R76.8 Benign essential hypertension with target blood pressure below 140/90 I10 Acute on chronic systolic heart failure I50.23
[2021-04-10] MEDS: enoxaparin 40 mg/0.4 mL Syringe SUBCUT (15:37)
--- NOTE | 2021-04-10 16:43 | PC.RESP ---
SMOKING CESSATION AND PULMONARY REHAB INFORMATION SENT TO PATIENT.
[2021-04-10] MEDS: trazodone 100 mg Tablet PO (20:05)
[2021-04-10] MEDS: LORazepam 0.5 mg Tablet PO (21:38)
[2021-04-11] VITALS (9 sets, daily range): BP systolic 99–132; BP diastolic 64–87; PULSE 77–95; RESP 16–21; TEMP 36.3–36.6; O2SAT 91–96
[2021-04-11] MEDS: ipratropium-albuterol 3 mL Neb INHALATION ×2 (03:36→09:46)
[2021-04-11 04:53] LABS: Anion Gap 15.5 (5-19); Blood Urea Nitrogen 28 mg/dL (6-20); Calcium 9.2 mg/dL (8.5-10.5); Carbon Dioxide 26 mmol/L (22-29); Chloride 96 mmol/L (98-107); Glomerular Filtration Rate 76.7 mL/min (90-130); Glucose 97 mg/dL (65-115); Osmolality Calculated 281 mOsm/kg (285-295); Potassium 4.5 mmol/L (3.5-5.1); Sodium 133 mmol/L (136-145)
[2021-04-11] MEDS: FUROsemide 10 mg/mL SDV 4mL 60 MG IVP (08:03)
[2021-04-11] MEDS: metoprolol tartrate 25 mg Tablet PO (08:06)
[2021-04-11] MEDS: spironolactone 25 mg Tablet PO (08:07)
--- NOTE | 2021-04-11 10:13 | PM.DCS ---
Discharge Providers Date of Admission: 04/07/21 15:00 Date of Discharge: April 11, 2021 Attending Provider at Admission: David Leiva MD Attending Provider at Discharge: David Leiva MD Diagnoses at Discharge Discharge Diagnosis (1) Acute on chronic systolic heart failure: Status: Acute (2) Nonischemic cardiomyopathy: Status: Acute Permanent problem details: Angiogram 2017 no significant coronary plaque. (3) Benign essential hypertension with target blood pressure below 140/90: Status: Acute (4) COPD (chronic obstructive pulmonary disease): Status: Acute Qualifiers: COPD type: unspecified COPD Qualified Code(s): J44.9 - Chronic obstructive pulmonary disease, unspecified (5) Tobacco dependency: Status: Acute (6) Noncompliance: Status: Acute Reason for Visit Reason for Visit: diff breathing Hospital Course Hospital Course Jose Carlos is a 60-year-old white male who presented to the hospital with anasarca, and evidence of acute systolic heart failure. He had been noncompliant with his medications for 2 to 4 weeks. He was placed on IV Lasix. ARB, spironolactone, beta-melani were all added back. He diuresed significantly while in the hospital, at least 8.2 L negative. By end of hospital course he was laying flat, and not requiring any oxygen. It was thought he could be discharged home with close follow-up with cardiology, and his primary care provider. He will need a BMP in 1 week. He is to return or call for any significant weight gain. He is to stop smoking. He will see his primary care provider regarding a positive hepatitis C test he had here at the hospital. He was instructed to be compliant with his medication. Other studies done while at the hospital included a venous duplex which was negative for DVT and an abdominal ultrasound which showed no liver mass. Physical Exam Narrative: EXAM NARRATIVE: General exam no apparent distress Neck is supple no lymphadenopathy thyromegaly Cardiovascular regular rate and rhythm without murmur Lungs clear, but with diminished breath sounds bilaterally Abdomen is soft with positive bowel sounds Extremities trace edema Discharge Data Data Completed and Pending: Completed Studies During Hospitalization Category Date Time Status XR chest 1V lea ble [id number] Stat Exams 04/07/21 05:36 [place] [id number] Routin e Ultrasound 04/09/21 11:07 Completed US abdomen limite d [id number] Routine Ultrasound 04/08/21 10:03 Completed Pending at discharge Category Date Time Status Blood Culture Sta t Lab 04/07/21 05:33 Results Labs from last 24 hours 04/11/21 04:08 Sodium 133 L Potassium 4.5 Chloride 96 L Carbon Dioxide 26 Anion Gap 15.5 BUN 28 H Creatinine 1.0 GFR Calculation 76.7 L Glucose 97 Calculated Osmolal ity 281 L Calcium 9.2 Magnesium 2.0 Vitals: Last Vital Signs Temp 97.8 F 04/11/21 07:45 Pulse 79 04/11/21 09:47 Resp 16 04/11/21 09:46 BP 99/66 04/11/21 08:07 Pulse Ox 93 04/11/21 09:46 Discharge Plan Discharge Patient Disposition: Home Condition: Stable Prescriptions: New losartan 50 mg Tablet 50 mg PO DAILY Qty: 30 RF: 0 albuterol sulfate 90 mcg/actuation HFA aerosol inhaler 1 inh inhalation Q6H PRN (Reason: shortness of breath or wheezing) Qty: 8.5 RF: 0 furosemide [Lasix] 40 mg tablet 40 mg PO BID Qty: 60 RF: 0 Spiriva with HandiHaler 18 mcg capsule, w/inhalation device 1 cap inhalation DAILY Qty: 30 RF: 0 metoprolol tartrate 25 mg Tablet 25 mg PO BID@0900,2100 Qty: 60 RF: 0 spironolactone 25 mg Tablet 25 mg PO DAILY Qty: 30 RF: 0 fluticasone propion-salmeterol [Advair Diskus] 250-50 mcg/dose blister with device 1 inh inhalation BID Qty: 60 RF: 0 No Action No Known Home Medications RF: 0 Discharge Orders: Discharge Order (Routine); Ordered 04/11/21 Ordered By: David Leiva Referrals: Dr. Carson [Other] (Please Follow up w/ Dr. Carson @ the [facility] on April 21 @ 7358. At that appointment patient will need to discuss w/ Dr. Carson about the need for a PCP in [facility] for transportation purposes.) Sharmaine Carlos FNP [Nurse Practitioner] - 7-10 days (BMP on follow-up) Discharge Diet: Cardiac and Low Salt Discharge Activity: Increase activity as tolerated Patient Instructions: Opioid Safety Activity Restrictions/Additional Instructions: No smoking. Take all medicine as prescribed 1500 cc fluid restriction on arriving home. Low-sodium diet Keep follow-up with all providers Call if increasing weight gain, increasing shortness of breath You have been diagnosed with hepatitis C as well. Keep follow-up with your primary care provider for consideration of referral or further testing for possibility of treatment. Discharge Attestations Time Spent in Discharge Care*: greater than 30 min Status at Discharge: Cognitive status at discharge: cognitively intact, Behavioral status at discharge: cooperative, Quality Metrics Clinical Quality Measures During this hospital stay, did patient experience: None Coding Level of Care Code Acute Chg FW DC note Diagnoses Acute on chronic systolic heart failure I50.23 Nonischemic cardiomyopathy I42.8 Benign essential hypertension with target blood pressure below 140/90 I10 COPD (chronic obstructive pulmonary disease) J44.9 COPD type: unspecified COPD Tobacco dependency F17.200 Noncompliance Z91.19
--- NOTE | 2021-04-12 08:00 | PM.PN ---
Subjective Subjective: Interval history: Please note that this is a progress note from the so it should be dated as 04/11/2021. Patient is feeling much better he is lying in the bed comfortable he had a good sleep overnight he has a good diuresis. Medications: Reviewed: Yes Medication Review Details: Current Medications Acetaminophen (Acetaminophen 325 Mg Tablet) 650 mg PO Q6H PRN PRN Reason: Mild/Mod Pain Or Temp >/= 101 Albuterol/Ipratropium (Ipratropium-Albuterol 3 Ml Neb) 3 ml INHALATION Q6H.RESPIRATORY ROSARIO Last Admin: 04/09/21 15:12 Dose: 3 ml Documented by: Enoxaparin Sodium (Enoxaparin 40 Mg/0.4 Ml Syringe) 40 mg SUBCUT Q24H ROSARIO Last Admin: 04/08/21 16:35 Dose: 40 mg Documented by: Furosemide (Furosemide 10 Mg/Ml Sdv 4ml) 40 mg IVP Q12H ROSARIO Last Admin: 04/09/21 09:49 Dose: 40 mg Documented by: Losartan Potassium (Losartan 50 Mg Tablet) 50 mg PO DAILY ROSARIO Last Admin: 04/09/21 09:43 Dose: 50 mg Documented by: Metoprolol Tartrate (Metoprolol Tartrate 25 Mg Tablet) 25 mg PO BID@0900,2100 ROSARIO Last Admin: 04/09/21 09:43 Dose: 25 mg Documented by: Ondansetron HCl (Ondansetron 2 Mg/Ml Sdv 2 Ml) 4 mg IVP Q8H PRN PRN Reason: vomiting, or N/V if npo Potassium Chloride (Potassium Chloride Er 20 Meq Tablet) 40 meq PO DAILY ROSARIO Last Admin: 04/09/21 09:42 Dose: 40 meq Documented by: Spironolactone (Spironolactone 25 Mg Tablet) 25 mg PO DAILY ROSARIO Last Admin: 04/09/21 09:43 Dose: 25 mg Documented by: Vitals/I&O/Wt Last Vital Signs Temp 97.9 F 04/11/21 13:45 Pulse 77 04/11/21 13:45 Resp 16 04/11/21 13:45 BP 99/64 04/11/21 13:45 Pulse Ox 91 04/11/21 13:45 Weight last 48 hrs Weight 185 lb 14.4 oz Physical Exam Narrative: EXAM NARRATIVE: GENERAL: Patient is alert, awake and oriented x3. NECK: No jugular vein distension. HEENT: No cyanosis. No icterus. No pallor. HEART: Regular S1 and S2. No murmur, rub or gallop. LUNGS: Inspiratory crackles upon auscultate bilaterally. ABDOMEN: Soft, nontender and nondistended. Positive bowel sounds. No guarding, rebound or tenderness. CENTRAL NERVOUS SYSTEM: Grossly nonfocal. EXTREMITIES: Lower extremities with trace edema Data : 04/10/21 05:29 04/11/21 04:08 Micro: Microbiology 04/07/21 05:33 Blood Culture - Final Blood NO GROWTH AFTER 5 DAYS 04/07/21 05:33 Blood Culture - Final Blood NO GROWTH AFTER 5 DAYS A&P Assessment and plan (1) Acute on chronic systolic heart failure: We will switch patient to p.o. Lasix his medicine will most likely can be discharged home today. He is advised to follow-up with cardiology. He has been discussed regarding noncompliance issues Status: Acute (2) Nonischemic cardiomyopathy: Continue aspirin beta-melani spironolactone and Lasix Status: Acute (3) Benign essential hypertension with target blood pressure below 140/90: Stable continue current regimen Status: Acute (4) COPD (chronic obstructive pulmonary disease): Continue as per primary Status: Acute Qualifiers: COPD type: unspecified COPD Qualified Code(s): J44.9 - Chronic obstructive pulmonary disease, unspecified (5) Tobacco dependency: Advised quitting smoking Status: Acute (6) Noncompliance: Stressed upon compliance Status: Acute Additional A&P Information We will continue with IV Lasix. Repeat BMP in the morning. Attestations Medical Necessity Statement*: Patient can be discharged home follow-up with cardiology in 7 days with Ms. Sharmaine Carlos cardiology nurse practitioner. Coding Level of Care Code Established Pt Acute Physical Chemistry Teacher for Rylan Michael Patient Type Established History Detailed Exam Detailed Medical Decision Making Moderate Complexity Diagnoses Acute on chronic systolic heart failure I50.23 Nonischemic cardiomyopathy I42.8 Benign essential hypertension with target blood pressure below 140/90 I10 COPD (chronic obstructive pulmonary disease) J44.9 COPD type: unspecified COPD Tobacco dependency F17.200 Noncompliance Z91.19
--- NOTE | 2021-04-13 11:52 | PC.SOCIAL ---
discharge follow up call with patient. Patient had new prescriptions delivered prior to discharge, and is taking as prescribed. Patient is aware of follow up appointments that have been made.
--- NOTE | 2021-04-18 12:33 | PC.SOCIAL ---
discharge follow up call made, no answer. message left.
== END 2021-04-11 13:48 | disposition home or self-care (01) | DRG 292 ==
LOC: ER 09:42 → MEDSURG 15:33
PROVIDERS: Emergency Medicine; Family Medicine; Admitting Provider Internal Medicine; Emergency Provider Emergency Medicine; Visit Provider Internal Medicine
DX: I11.0 Hypertensive heart disease with heart failure (principal); R18.8 Other ascites; I50.23 Acute on chronic systolic (congestive) heart failure; E78.5 Hyperlipidemia, unspecified; Z91.128 Patient's intentional underdosing of medication regimen for other reason; J44.9 Chronic obstructive pulmonary disease, unspecified; F15.10 Other stimulant abuse, uncomplicated; F10.10 Alcohol abuse, uncomplicated; E66.9 Obesity, unspecified; Z68.26 Body mass index [BMI] 26.0-26.9, adult; F17.210 Nicotine dependence, cigarettes, uncomplicated; I42.8 Other cardiomyopathies; B19.20 Unspecified viral hepatitis C without hepatic coma
CPT/HCPCS: 36415; 36600; 71045; 76705; 80048; 80053; 80074; 82803; 83735; 83880; 84145; 84484; 85025; 86140; 87040; 87426; 87635; 87806; 93005; 93970; 94640; 96365; 96372; 96375; 99285; G0378; J1650; J1940

== ENCOUNTER 2022-09-14 08:23 | Outpatient (CLI) | payer OTHER, SELFPAY ==
--- NOTE | 2022-09-14 08:38 | US_ITS ---
WS: [id number] RIGHT UPPER QUADRANT ULTRASOUND HISTORY: HCV COMPARISON: 04/08/2021 Liver: 14.7 cm in length. Normal size liver. Very mild coarse echotexture throughout. Surface of the liver is slightly irregular and nodular suggesting cirrhosis. No mass or bile duct dilatation. Portal Vein: Normal hepatopetal flow with monophasic waveform. Gallbladder: Normally distended gallbladder with no stones or wall thickening. CBD: 0.3 cm Pancreas: Normal size and echogenicity. Right kidney: 10.4 cm in length. Normal size and echogenicity. No hydronephrosis or mass. Aorta and IVC: Unremarkable abdominal aorta and IVC. No ascites. US/US abdomen limited [id number] IMPRESSION: 1. Mild cirrhotic appearance of the liver. 2. No hepatic mass or duct dilatation. 3. Negative gallbladder.
== END 2022-09-14 08:24 | disposition home or self-care (01) ==
LOC: RAD 08:25
PROVIDERS: Visit Provider Family Medicine
DX: Z01.89 Encounter for other specified special examinations (principal); B19.20 Unspecified viral hepatitis C without hepatic coma; K74.60 Unspecified cirrhosis of liver
CPT/HCPCS: 76705

== ENCOUNTER 2024-08-23 20:27 | Inpatient (IN) | payer OTHER, SELFPAY ==
[2024-08-23] VITALS (19 sets, daily range): BP systolic 60–123; BP diastolic 23–65; PULSE 69–85; RESP 19–32; TEMP 36.6; O2SAT 89–97; BMI 25.1
--- NOTE | 2024-08-23 20:43 | XRR_ITS ---
PROCEDURE INFORMATION: Exam: XR Chest Exam date and time: 08/23/2024 8:55 PM Age: 64 years old Clinical indication: Wheezing; Patient HX: Weakness; Chf; Copd TECHNIQUE: Imaging protocol: Radiologic exam of the chest. Views: 1 view. COMPARISON: CR XR chest 1V portable [id number] 04/07/2021 6:03 AM FINDINGS: Lungs: Multiple new bilateral pulmonary nodules, measuring up to 2.3 cm. Mild atelectasis in the right lung base. Calcified granuloma in the left lung base. Pleural spaces: Unremarkable. No pleural effusion. No pneumothorax. Heart/Mediastinum: Unremarkable. No cardiomegaly. Bones/joints: Unremarkable. XR/XR chest 1V portable [id number] IMPRESSION: 1. Multiple new pulmonary nodules, consistent with metastatic disease. Follow-up with a CT chest is recommended.
--- NOTE | 2024-08-23 20:47 | ECG_ITS ---
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 Measurements Intervals [place] Rate: 71 P: 69 CA: 202 QRS: 72 QRSD: 113 T: 59 QT: 439 QTc: 479 Interpretive Statements SINUS RHYTHM POSSIBLE LEFT ATRIAL ENLARGEMENT [-0.1mV P-WAVE IN V1/V2] LOW QRS VOLTAGE IN PRECORDIAL LEADS [QRS DEFLECTION < 1.0 mV IN CHEST LEADS] MODERATE INTRAVENTRICULAR CONDUCTION DELAY [110+ ms QRS DURATION] MINIMAL ST DEPRESSION [0.025+ mV ST DEPRESSION] PROLONGED QT INTERVAL Compared to ECG 04/07/2021 09:29:04 Low QRS voltage now present Intraventricular conduction delay now present Sinus tachycardia no longer present Myocardial infarct finding no longer present Electronically Signed On 08-24-2024 16:52:35 MATERNAL CHILD NURSE by Peter Paniagua M.D. [email or web address]
--- NOTE | 2024-08-23 20:47 | W.ED.WEAKNES ---
HPI - Weakness General: Chief complaint: Weakness Stated complaint: WEAKNESS Time Seen by Provider: 08/23/24 20:29 Source: patient and EMS Mode of arrival: EMS Limitations: no limitations History of Present Illness: 64-year-old male states he has been a chronic alcoholic his whole life he is also a smoker has a history of hep C and CHF. He states that he has been feeling extremely weak over the last 5 days states he has not been eating or drinking states has had some abdominal distention along with abdominal pain he denies any vomiting denies any fevers. He is hypotensive here. Associated symptoms: Denies chest pain, chills, dysuria, fever(s) or headache(s) Review of Systems Const: Reports: change in appetite, change in weight, fatigue and malaise; Denies: fever(s), chills or body aches Eyes: Denies: blurry vision or eye discomfort ENMT: Denies: throat pain or dental pain Card: Denies: chest pain Resp: Denies: dyspnea GI: Reports: abdominal pain; Denies: diarrhea : Denies: dysuria Musc: Denies: neck pain or back pain Skin/Breast: Denies: rash Neuro: Denies: headache(s) PFSH ED PFSH: Medical History Noncompliance Tobacco dependency Acute respiratory failure with hypoxia Obesity History of amphetamine abuse Alcohol use disorder Hypertension Nonischemic cardiomyopathy Angiogram 2017 no significant coronary plaque. COPD (chronic obstructive pulmonary disease) CHF (congestive heart failure) EF 25% on last echocardiogram. Surgical History History of surgery on arm Social History Smoking and tobacco/nicotine status: current every day tobacco/nicotine user Alcohol intake: current Alcohol intake frequency: 3 or more drinks per day Substance/Drug Use: former Date of last use: Reports he quit 3 months ago, amphetamine Physical Exam Const: COMMON NORMALS: patient oriented x3 GENERAL APPEARANCE: disheveled, ill appearing and frail appearing HENMT: COMMON NORMALS: normocephalic and atraumatic HEAD & SCALP: normocephalic and atraumatic Eye: COMMON NORMALS: Equal, round and reactive pupils present PUPIL: Yes Equal, round and reactive pupils present Neck/C-Spine: COMMON NORMALS: full ROM and supple Chest: COMMONS NORMALS: normal inspection of the chest and normal palpation of entire chest wall Resp: COMMON NORMALS: normal respiratory effort, No retractions, No use of accessory muscles and clear to auscultation bilaterally AUSCULTATION: clear to auscultation bilaterally Cardio: COMMON NORMALS: regular rate, regular rhythm and No murmurs present (Cardio) RATE: regular rate RHYTHM: regular rhythm GI: COMMON NORMALS: Soft to palpation and no masses PALPATION: Yes Soft to palpation OTHER: abdominal distension Extremity: COMMON NORMALS: normal to inspection and full ROM Neuro: COMMON NORMALS: patient oriented x3, moves all extremities and no focal motor deficits Psych: COMMON NORMALS: mental status grossly normal, Normal thought process present and cooperative THOUGHT PROCESS: Normal thought process present Skin: COMMON NORMALS: no rashes or lesions noted and no wounds GENERAL SKIN EXAM: no rashes or lesions noted Course Vital Signs: Vital signs: Vital Signs Temperature 97.9 F 08/23/24 20:28 Pulse Rate 72 08/23/24 22:49 Respiratory Rate 24 H 08/23/24 22:49 Blood Pressure 91/50 08/23/24 20:53 Pulse Oximetry 93 08/23/24 22:49 Oxygen Delivery Me thod Nasal Cannula 08/23/24 22:49 Oxygen Flow Rate 2 08/23/24 22:49 MDM - Weakness Medical Decision Making Patient presents here with generalized weakness been going on for some time longtime smoker or drinker he is found to be quite hypotensive he does have acute kidney injury and dehydration did give him fluid bolus he is continued be hypotensive did put a central line start him on Levophed. Did start IV antibiotics in case of infection or this is likely due to dehydration he also has a mass to his liver along with likely severe pulmonary metastatic disease I did inform of this will admit to the ICU at this time Medical Records I reviewed the patient's medical records. Lab Data I reviewed the patient's lab results. 08/23/24 21:20 08/23/24 21:20 Radiology Impressions Chest/Abdomen/Pelvis CT 08/23/24 21:03 IMPRESSION: 1. Severe pulmonary metastatic disease. No definite primary lung malignancy identified. 2. Prominent right hilar, middle mediastinal, and anterior mediastinal lymph nodes. These are suspicious for metastatic disease. IMPRESSION: 1. Large 15.7 cm mass or collection of masses in the right liver lobe. The liver appears cirrhotic and this could represent a primary hepatocellular carcinoma. Metastatic disease is also in the differential. 2. Enlarged lymph nodes adjacent to the main portal vein, suspicious for metastatic disease. 3. Diverticulosis of the colon without diverticulitis. 4. Mild-moderate ascites. Chest X-Ray 08/23/24 21:52 IMPRESSION: 1. Central line placement without pneumothorax. 2. Pulmonary nodules, consistent with metastatic disease. Follow-up with a CT chest recommended. Laboratory Results WBC 14.35 10^3/uL (3.29-11.43) H 08/23/24 21:20 RBC 3.59 10^6/uL (3.85-5.65) L 08/23/24 21:20 Hgb 11.80 g/dL (11.27-16.99) 08/23/24 21:20 Hct 35.7 % (37-53) L 08/23/24 21:20 MCV 99.4 fl (82-101) 08/23/24 21:20 MCH 32.9 pg (27-33) 08/23/24 21:20 MCHC 33.1 g/dL (30-55) 08/23/24 21:20 RDW 16.5 % (12.1-15.1) H 08/23/24 21:20 Plt Count 122 10^3/cmm (157-399) L 08/23/24 21:20 MPV 11.4 fL (7.4-10.4) H 08/23/24 21:20 Neut % (Auto) 74.9 % 08/23/24 21:20 Lymph % (Auto) 11.6 % 08/23/24 21:20 [place] % (Auto) 4.4 % 08/23/24 21:20 Eos % (Auto) 6.5 % 08/23/24 21:20 Baso % (Auto) 0.2 % 08/23/24 21:20 Neut # (Auto) 10.74 10^3/uL (1.8-7.7) H 08/23/24 21:20 Lymph # (Auto) 1.7 10^3/uL (0.8-4.8) 08/23/24 21:20 [place] # (Auto) 0.6 10^3/uL (0.2-0.9) 08/23/24 21:20 Eos # (Auto) 0.9 10^3/uL (0.0-0.8) H 08/23/24 21:20 Baso # (Auto) 0.0 10^3/uL (0.0-0.1) 08/23/24 21:20 Nucleated RBC % (auto) 0.1 % 08/23/24 21:20 Nucleated RBCs # 0.0 /100WBC 08/23/24 21:20 PT 21.70 SECONDS (12.1-14.9) H 08/23/24 21:20 INR 1.82 (0.8-1.2) H 08/23/24 21:20 Specimen Type Venous 08/23/24 21:20 ABG pH 7.27 (7.35-7.45) L 08/23/24 21:20 ABG pCO2 30.4 mmHg (35-45) L 08/23/24 21:20 ABG pO2 35.7 mmHg (80.0-100.0) L* 08/23/24 21:20 ABG HCO3 13.8 mmol/L (22-26) L 08/23/24 21:20 ABG O2 Saturation 53.8 08/23/24 21:20 ABG Base Excess -11.9 mmol/L (-2.0-2.0) L 08/23/24 21:20 Melquiades Test N/a 08/23/24 21:20 VBG pH 7.27 (7.32-7.42) L 08/23/24 21:20 VBG pCO2 30.4 mmHg (41-51) L 08/23/24 21:20 VBG pO2 35.7 mmHg (25-40) 08/23/24 21:20 VBG HCO3 13.8 mmol/L (24-28) L 08/23/24 21:20 VBG Base Excess -11.9 mmol/L (-3.0-3.0) L 08/23/24 21:20 VBG Hematocrit 37.7 % (42-52) L 08/23/24 21:20 Hematocrit 37.7 % (42-52) L 08/23/24 21:20 Hgb O2 Saturation 51.8 % (95-100) L 08/23/24 21:20 Carboxyhemoglobin 2.8 %THgb (0.4-20.1) 08/23/24 21:20 Methemoglobin 1.0 % (0.4-1.5) 08/23/24 21:20 Total Hemoglobin 12.3 g/dL (14-18) L 08/23/24 21:20 Sodium 129.0 mmol/L (131-143) L 08/23/24 21:20 Potassium 4.6 mmol/L (3.5-5.0) 08/23/24 21:20 Glucose 82.0 mg/dL (70-115) 08/23/24 21:20 Ionized Calcium 0.9 mmol/L (1.1-1.4) L 08/23/24 21:20 O2 Delivery Device Nc 08/23/24 21:20 O2 Liters/Min 4.0 % 08/23/24 21:20 Sheet Metal Pattern Cutter ID [id number] 08/23/24 21:20 Sodium 131 mmol/L (136-145) L 08/23/24 21:20 Potassium 4.7 mmol/L (3.5-5.1) 08/23/24 21:20 Chloride 94 mmol/L (98-107) L 08/23/24 21:20 Carbon Dioxide 14 mmol/L (22-29) L 08/23/24 21:20 Anion Gap 27.7 (5-19) H 08/23/24 21:20 BUN 118 mg/dL (8-23) H* D 08/23/24 21:20 Creatinine 5.0 mg/dL (0.7-1.2) H 08/23/24 21:20 GFR Calculation 11.8 mL/min (90-130) L 08/23/24 21:20 Glucose 86 mg/dL (65-115) 08/23/24 21:20 Calculated Osmolality 309 mOsm/kg (285-295) H 08/23/24 21:20 Lactic Acid 3.6 mmol/L (0.5-2.2) H 08/23/24 21:20 Calcium 7.0 mg/dL (8.5-10.5) L 08/23/24 21:20 Magnesium 2.0 mg/dL (1.7-2.3) 08/23/24 21:20 Total Bilirubin 3.8 mg/dL (0.15-1.2) H 08/23/24 21:20 AST 71 U/L (0-40) H 08/23/24 21:20 ALT 16 U/L (0-41) 08/23/24 21:20 Alkaline Phosphatase 150 U/L (40-130) H 08/23/24 21:20 Total Protein 5.3 g/dL (6.6-8.7) L 08/23/24 21:20 Albumin 1.8 g/dL (3.5-5.2) L 08/23/24 21:20 Globulin 3.5 g/dL (1.3-4.6) 08/23/24 21:20 Ethyl Alcohol < 10 mg/dL (0-10) 08/23/24 21:20 Coronavirus (PCR) Negative (Negative) 08/23/24 20:57 Influenza A (PCR) Negative (Negative) 08/23/24 20:57 Influenza Type B (PCR) Negative (Negative) 08/23/24 20:57 RSV (PCR) Negative (Negative) 08/23/24 20:57 All radiology interpretation(s) finalized by discharge EKG Data EKG 1: I personally reviewed and interpreted this EKG as follows: EKG interpretation date: 08/23/24 EKG interpretation time: 20:47 Interpretation: nsr hr [address] elevation qrs 113 qtc 462 Critical Care Time Critical Care Time: Critical Care Time: Yes Total Critical Care Time: 50 Attestation: The high probability of a clinically significant, sudden or life threatening deterioration of the patient's gi system(s) required my full and direct attention, intervention and personal management. The critical care time is as shown. This time is in addition to time spent performing any reported procedures but includes the following: [x] Data and vital sign review and interpretation [x] Patient assessment, examination and intervention [x] Documentation [x] Medication orders and management Discharge Plan Discharge Patient Disposition: Admitted As Inpatient Clinical Impression: Acute kidney injury, Acute hypotension, Liver mass, Cancer, metastatic to lung Condition: Stable Coding Level of Care Code [employer] Teacher for Chg Fwd Related Data Previous Rx's Medication Instructions Recorded albuterol sulfate 90 mcg/actuation 1 inh inhalation Q6H PRN shortness 04/11/21 aerosol inhaler of breath or wheezing #8.5 grams fluticasone 250 mcg-salmeterol 50 1 inh inhalation BID #60 ea 04/11/21 mcg/dose blistr powdr for inhalation (Advair Diskus) furosemide 40 mg tablet (Lasix) 40 mg PO BID #60 tabs 04/11/21 losartan 50 mg tablet 50 mg PO DAILY #30 tabs 04/11/21 metoprolol tartrate 25 mg tablet 25 mg PO BID@0900,2100 #60 tabs 04/11/21 spironolactone 25 mg tablet 25 mg PO DAILY #30 tabs 04/11/21 tiotropium bromide 18 mcg capsule 1 cap inhalation DAILY #30 04/11/21 with inhalation device (Spiriva inhalations with HandiHaler) Allergies Allergy/AdvReac Type Severity Reaction Status Date / Time Penicillins Allergy Unknown Verified 04/07/21 10:03
[2024-08-23] MEDS: sodium chloride 0.9% 2,381.37 ML 2381.37 ML IV (20:59)
--- NOTE | 2024-08-23 21:03 | CTR_ITS ---
PROCEDURE INFORMATION: Exam: CT Chest Without Contrast; Diagnostic Exam date and time: 08/23/2024 10:15 PM Age: 64 years old Clinical indication: Pain and abnormal findings; Abnormal lab test; Abnormal kidney function lab tests and elevated wbc; Abdominal pain; Generalized; Abnormal diagnostic tests; Abnormal wbc and abnormal ekg; Shortness of breath; Other: N/a; Patient HX: C/O SOB with diffuse abd pain. Hypoxic and hypotensive. Multiple large nodules on cxr. Critically low p02 and acute renal failure. History of chf, copd, and hep c. ; Additional info: Mass/abd pain TECHNIQUE: Imaging protocol: Diagnostic computed tomography of the chest without contrast. Radiation optimization: All CT scans at this facility use at least one of these dose optimization techniques: automated exposure control; mA and/or kV adjustment per patient size (includes targeted exams where dose is matched to clinical indication); or iterative reconstruction. COMPARISON: CR (CHEST, ) 08/23/2024 9:52 PM RADIATION DOSE METRICS: Total DLP (mGy-cm): 1998.11 FINDINGS: Tubes, catheters and devices: Right IJ central line with tip in the mid SVC. Lungs: Centrilobular emphysema. Numerous bilateral circumscribed pulmonary nodules in a random/hematogenous distribution, the largest measuring 2.1 cm. 12 mm irregular nodular density in the right upper lobe (series 11, image 14). Mild atelectasis in the right lower lobe. Pleural spaces: Unremarkable. No pneumothorax. No pleural effusion. Heart: Unremarkable. No cardiomegaly. No pericardial effusion. Coronary arteries: Coronary artery calcifications. Lymph nodes: Enlarged right hilar lymph node measuring 2.2 cm. Prominent middle mediastinal lymph nodes measuring up to 1.1 cm short axis. 2.1 cm nodule or lymph node in the anterior right mediastinum. Vasculature: Unremarkable. No aortic aneurysm. Bones/joints: Mild curvature and degenerative changes in the thoracic spine. No fracture or aggressive bone lesion. Soft tissues: Unremarkable. COMMENTS: The presence of pulmonary emphysema on CT is an independent risk factor for lung cancer. In the absence of a history or active diagnosis of lung cancer, it is recommended that this patient with emphysema be evaluated for enrollment in a low dose CT lung cancer screening program. PROCEDURE INFORMATION: Exam: CT Abdomen And Pelvis Without Contrast Exam date and time: 08/23/2024 10:15 PM Age: 64 years old Clinical indication: Pain and abnormal findings; Abnormal lab test; Abnormal kidney function lab tests and elevated wbc; Abdominal pain; Generalized; Abnormal diagnostic tests; Abnormal wbc and abnormal ekg; Shortness of breath; Other: N/a; Patient HX: C/O SOB with diffuse abd pain. Hypoxic and hypotensive. Multiple large nodules on cxr. Critically low p02 and acute renal failure. History of chf, copd, and hep c. ; Additional info: Mass/abd pain TECHNIQUE: Imaging protocol: Computed tomography of the abdomen and pelvis without contrast. Radiation optimization: All CT scans at this facility use at least one of these dose optimization techniques: automated exposure control; mA and/or kV adjustment per patient size (includes targeted exams where dose is matched to clinical indication); or iterative reconstruction. COMPARISON: CR (CHEST, ) 08/23/2024 9:52 PM RADIATION DOSE METRICS: Total DLP (mGy-cm): 1998.11 FINDINGS: Liver: Cirrhotic appearing liver. 15.7 cm mass or collection of masses in the central and posterior right liver lobe. Gallbladder and biliary ducts: Sludge in the gallbladder. No definite stones. The bile ducts are normal. Pancreas: Normal. No ductal dilation. Spleen: 2.1 cm hypodense subcapsular lesion in the lateral spleen. Adrenal glands: Normal. No mass. Kidneys and ureters: Normal. No hydronephrosis. Stomach and bowel: Diverticulosis of the colon. No diverticulitis. The stomach and small bowel are unremarkable. No wall thickening or obstruction. Appendix: The appendix is not visualized. No secondary signs of appendicitis. Intraperitoneal space: Mild-moderate ascites, predominantly in the lower abdomen pelvis. No pneumoperitoneum. Vasculature: Calcified plaque in the arteries. No aneurysm. Lymph nodes: Enlarged lymph nodes posterior and anterior to the main portal vein. Urinary bladder: Circumferential wall thickening in the urinary bladder, measuring up to 8 mm. Reproductive: Unremarkable as visualized. Bones/joints: Degenerative changes in the lumbar spine. No fracture or aggressive bone lesion. Soft tissues: Mild body wall edema. Tiny fat containing umbilical hernia. CT/[place] [id number] IMPRESSION: 1. Severe pulmonary metastatic disease. No definite primary lung malignancy identified. 2. Prominent right hilar, middle mediastinal, and anterior mediastinal lymph nodes. These are suspicious for metastatic disease. IMPRESSION: 1. Large 15.7 cm mass or collection of masses in the right liver lobe. The liver appears cirrhotic and this could represent a primary hepatocellular carcinoma. Metastatic disease is also in the differential. 2. Enlarged lymph nodes adjacent to the main portal vein, suspicious for metastatic disease. 3. Diverticulosis of the colon without diverticulitis. 4. Mild-moderate ascites.
[2024-08-23 21:35] LABS: Basophils % 0.2 %; Eosinophils # 0.9 10^3/uL (0.0-0.8); Eosinophils % 6.5 %; Hematocrit 35.7 % (37-53); Lymphocytes # 1.7 10^3/uL (0.8-4.8); Lymphocytes % 11.6 %; Mean Corpuscular HGB Conc 33.1 g/dL (30-55); Mean Corpuscular Hemoglobin 32.9 pg (27-33); Mean Corpuscular Volume 99.4 fl (82-101); Mean Platelet Volume 11.4 fL (7.4-10.4); Monocytes # 0.6 10^3/uL (0.2-0.9); Monocytes % 4.4 %; Neutrophils # 10.74 10^3/uL (1.8-7.7); Neutrophils % 74.9 %; Nucleated Red Blood Cells % 0.1 %; Platelet Count 122 10^3/cmm (157-399); Red Blood Count 3.59 10^6/uL (3.85-5.65); Red Cell Distribution Width 16.5 % (12.1-15.1); White Blood Count 14.35 10^3/uL (3.29-11.43)
[2024-08-23 21:36] LABS: ABG PCO2 30.4 mmHg (35-45); ABG PH Result 7.27 (7.35-7.45); Arterial Blood Gas Hematocrit 37.7 % (42-52); Base Excess ABG -11.9 mmol/L (-2.0-2.0); Base Excess VBG -11.9 mmol/L (-3.0-3.0); Blood Gas Operator Identificat 600455; Blood Gas Sample Type Venous; Carboxyhemoglobin 2.8 %THgb (0.4-20.1); HCO3 ABG 13.8 mmol/L (22-26); HCO3 VBG 13.8 mmol/L (24-28); HGB O2 Sat 51.8 % (95-100); Ionized Calcium Level - ABG 0.9 mmol/L (1.1-1.4); Oxygen Device NC; Oxygen Saturation ABG 53.8; PCO2 VBG 30.4 mmHg (41-51); PO2 ABG 35.7 mmHg (80.0-100.0); PO2 VBG 35.7 mmHg (25-40); Potassium Level - ABG 4.6 mmol/L (3.5-5.0); Total Hemoglobin 12.3 g/dL (14-18); Venous Blood Gas Hematocrit 37.7 % (42-52); pH VBG 7.27 (7.32-7.42)
[2024-08-23 21:37] LABS: Covid PCR NEGATIVE (Negative); Influenza A NEGATIVE (Negative); Influenza B NEGATIVE (Negative); Respiratory Syncytial Virus Ce NEGATIVE (Negative)
[2024-08-23 21:47] LABS: INR 1.82 (0.8-1.2)
--- NOTE | 2024-08-23 21:52 | XRR_ITS ---
PROCEDURE INFORMATION: Exam: XR Chest Exam date and time: 08/23/2024 9:52 PM Age: 64 years old Clinical indication: Other vascular access device placement or adjustment; Central line, non-tunnelled; Patient HX: Check S/P central line placement TECHNIQUE: Imaging protocol: Radiologic exam of the chest. Views: 1 view. COMPARISON: CR (CHEST, ) 08/23/2024 8:55 PM FINDINGS: Tubes, catheters and devices: Right IJ central line with tip in the mid SVC. Lungs: Multiple pulmonary nodules. Calcified granuloma in the left base. No consolidation. Pleural spaces: Unremarkable. No pleural effusion. No pneumothorax. Heart/Mediastinum: Unremarkable. No cardiomegaly. Bones/joints: Unremarkable. XR/XR chest 1V portable [id number] IMPRESSION: 1. Central line placement without pneumothorax. 2. Pulmonary nodules, consistent with metastatic disease. Follow-up with a CT chest recommended.
[2024-08-23 21:55] LABS: Lactic Sepsis W/Reflex 3.6 mmol/L (0.5-2.2)
[2024-08-23 21:56] LABS: Alanine Aminotransferase 16 U/L (0-41); Albumin Level 1.8 g/dL (3.5-5.2); Alkaline Phosphatase 150 U/L (40-130); Anion Gap 27.7 (5-19); Aspartate Amino Transferase 71 U/L (0-40); Carbon Dioxide 14 mmol/L (22-29); Chloride 94 mmol/L (98-107); Creatinine Clr Calc Pharmacy 16.3695; Globulin 3.5 g/dL (1.3-4.6); Glomerular Filtration Rate 11.8 mL/min (90-130); Glucose 86 mg/dL (65-115); Potassium 4.7 mmol/L (3.5-5.1); Sodium 131 mmol/L (136-145); Total Bilirubin 3.8 mg/dL (0.15-1.2); Total Protein 5.3 g/dL (6.6-8.7)
[2024-08-23] MEDS: norepinephrine 4 MG/250 ML BAG 30 MG IV (21:57)
[2024-08-23 22:00] LABS: Alcohol Level < 10 mg/dL (0-10)
[2024-08-23 22:05] LABS: Osmolality Calculated 309 mOsm/kg (285-295)
[2024-08-23 22:14] LABS: Blood Urea Nitrogen 118 mg/dL (8-23)
[2024-08-23] MEDS: VANCOMYCIN ADD-Vantage 1,000 MG in 0.9% NaCl ADD-Vantage 250 ML 250 MG IV (22:33)
[2024-08-23] MEDS: ipratropium-albuterol 3 mL Neb INHALATION (22:48)
[2024-08-23] MEDS: aztreonam 2,000 MG in sodium chloride 0.9% (plus) 100 ML 200 MG IV (22:49)
--- NOTE | 2024-08-23 22:54 | P.HP_ITS ---
Providers/Chief Complaint 2 Chief Complaint: DOES NOT FEEL WELL History of Present Illness Jose Carlos Armendariz is a 64 year old male 2/ COPD, chronic HFrEF, Untreated Hep C, HTN, alcohol and tobacco use d/o, who presents to the ED w/ complaints of 3 weeks of progressive weakness. He states that his weakness progressed to the point that he could not walk or get out of bed 1 week ago, so his friend/room mates called EMS. He endorses some poor appetite, weight loss; although he cannot tell me how much weight he has lost. He endorses CP or palpitations at times, but it is not associated w/ activity. He endorses SOB, coughing up clear liquids, wheezing, dizziness, light headedness, He denies night sweats, fevers, chills, visual disturbances. In the ED, he was hypotensive to 66/55 and tachypneic to as high as 29. His labs were significant for a leukocytosis of 19.5, creatinine of 5.0, (Baseline of 1.0 in 03/2021). His UA showed bacteriuria. A CXR was done that was concerning for multiple new pulmonary nodules concerning for metastatic disease, so a CT chest abdomen/pelvis without contrast was done that showed severe metastatic disease to the lung, and a large mass in the right liver lobe concerning for primary HCC, with mild to moderate ascites. He was volume resuscitated at 30 cc/kg. His central line was placed and he was started on norepinephrine, administered vancomycin and aztreonam and admitted. Review of Systems 2 Const: Reports: change in appetite (poor appetite) and change in weight (weight loss); Denies: fever(s) or chills Eyes: Denies: change in vision ENMT: Reports: nasal discharge; Denies: odynophagia, ear or mastoid pain, ear discharge or nasal congestion Card: Reports: chest pain and palpitations Resp: Reports: dyspnea, productive cough (clear) and wheezing GI: Reports: abdominal pain (after coughing) and diarrhea; Denies: nausea, vomiting, hematochezia or melena : Denies: difficulty urinating, dysuria, urinary frequency, urinary urgency or hematuria Musc: Reports: other (no myalgia); Denies: joint pain Skin/Breast: Denies: rash or new lesions Neuro: Reports: headache(s) and dizziness Psych: Denies: anxiety, depression, suicidal ideation or homicidal ideation Endo: Denies: cold intolerance or heat intolerance Haroldo/Lymph: Denies: easy bruising or easy bleeding Medications/Allergies Home Medications Medication Instructions Recorded Confirmed Last Taken Type albuterol sulfate 90 mcg/actuation 1 inh inhalation Q6H PRN shortness 04/11/21 08/24/24 Unknown Rx aerosol inhaler of breath or wheezing #8.5 grams fluticasone 250 mcg-salmeterol 50 1 inh inhalation BID #60 ea 04/11/21 08/24/24 Unknown Rx mcg/dose blistr powdr for inhalation (Advair Diskus) furosemide 40 mg tablet (Lasix) 40 mg PO BID #60 tabs 04/11/21 08/24/24 08/23/24 Rx losartan 50 mg tablet 50 mg PO DAILY #30 tabs 04/11/21 08/24/24 08/23/24 Rx metoprolol tartrate 25 mg tablet 25 mg PO BID@0900,2100 #60 tabs 04/11/21 08/24/24 08/23/24 Rx spironolactone 25 mg tablet 25 mg PO DAILY #30 tabs 04/11/21 Unknown Rx tiotropium bromide 18 mcg capsule 1 cap inhalation DAILY #30 04/11/21 Unknown Rx with inhalation device (Spiriva inhalations with HandiHaler) Allergies Allergy/AdvReac Type Severity Reaction Status Date / Time Penicillins Allergy Unknown Verified 04/07/21 10:03 PFSH Acute 2 PFSH: Medical History (Updated 08/24/24 @ 07:34 by Bessy Hudson MD) Noncompliance Tobacco dependency Acute respiratory failure with hypoxia Obesity History of amphetamine abuse Alcohol use disorder Hypertension Nonischemic cardiomyopathy Angiogram 2017 no significant coronary plaque. COPD (chronic obstructive pulmonary disease) CHF (congestive heart failure) EF 25% on last echocardiogram. Surgical History (Updated 08/24/24 @ 06:36 by Bessy Hudson MD) History of surgery on arm Has a steel plate in his arm. Family History (Updated 08/24/24 @ 06:36 by Bessy Hudson MD) Brother No problems noted. Mother Stroke Social History (Updated 08/24/24 @ 06:50 by Bessy Hudson MD) Smoking and tobacco/nicotine status: current every day tobacco/nicotine user Alcohol intake: current Alcohol intake frequency: 3 or more drinks per day Alcohol use comment: last drink was 3.5 weeks ago. Drinks 1/2 to 3/4 of a pint. Substance/Drug Use: former Date of last use: Reports he quit 3 months ago, amphetamine Vitals/I&O/Wt Last Vital Signs Temp 97.9 F 08/23/24 20:28 Pulse 72 08/23/24 22:49 Resp 24 H 08/23/24 22:49 BP 91/50 08/23/24 20:53 Pulse Ox 93 08/23/24 22:49 O2 Del Method Nasal Cannula 08/23/24 22:49 O2 Flow Rate 2 08/23/24 22:49 08/23/24 08/23/24 08/23/24 06:59 14:59 22:59 Intake Total 2381.37 / 2381.37 Balance 2381.37 / 2381.37 Weight last 48 hrs Weight 79.379 kg Physical Exam 2 Const: GENERAL APPEARANCE: cooperative, ill appearing and frail appearing; not comfortable NUTRITIONAL APPEARANCE: cachectic O RIENTATION/CONSCIOUSNESS: Yes awake, Yes oriented to person, Yes oriented to place and Yes oriented to time HENMT: HEAD & SCALP: normocephalic and atraumatic NOSE: Normal external nose present EXTERNAL EAR: Yes external ears normal MOUTH: Normal oral and palatal mucosa present THROAT: posterior oropharynx normal Eye: CONJUNCTIVA: Yes conjunctival abnormal positive bilateral conjunctival icterus SCLERA: scleral abnormal Laterality of scleral abnormality: positive bilateral scleral icterus PUPIL: Yes Equal, round and reactive pupils present EOM: No EOM abnormal Neck/C-Spine: GENERAL: Yes normal visual inspection and Yes trachea midline THYROID: Thyroid normal CAROTIDS: No bruit CERVICAL SPINE: Yes cervical ROM normal Lymph: OTHER: No cervical or supraclavicular LAD Resp: OTHER: Expiratory wheezes on auscultation of bilateral lung de la torre. Cardio: OTHER: RRR, difficult to appreciate murmurs rubs gallops or clicks given his breath sounds GI: OTHER: bs+, distended, tenderness to the epigastrium and right upper quadrant and right lower quadrant. No guarding, no rigidity, no rebound tenderness. Extremity: GENERAL: No clubbing, No cyanosis and No edema Neuro: CRANIAL NERVES: Yes CN normal except as noted SPEECH: Other neuro speech findings (Garbled speech) SENSORY EXAM: No sensory level loss detected MOTOR EXAM: Normal motor muscle tone present throughout Psych: COMMON NORMALS: mental status grossly normal, Normal thought process present, cooperative, normal affect, speech normal, denies homicidal ideation and denies suicidal ideation Skin: OTHER: Jaundiced skin Data 08/24/24 05:34 08/24/24 05:34 Micro: Microbiology 08/23/24 21:24 Blood Culture - Preliminary Blood SPECIMEN COLLECTED 08/23/24 21:20 Blood Culture - Preliminary Blood SPECIMEN COLLECTED A&P Assessment and plan (1) Septic shock: (2) Acute kidney injury: (3) Cancer, metastatic to lung: (4) Tobacco dependency: (5) Alcohol use disorder: (6) COPD with acute exacerbation: Plan Jose Carlos Armendariz is a 64 year old male 2/ COPD, chronic HFrEF, Untreated Hep C, HTN, alcohol and tobacco use d/o, who presents to the ED w/ complaints of 3 weeks of progressive weakness. #Septic shock: Add Vasopressin to Norepinephrin #GORDO: Ordered Iglesias Cath placement. Consult Nephrology in the AM #Lactic acidosis: Type A vs B. Trend. Give another 1L. #Acute COPD Exacerbation: Ordered DuoNebs, Solu-Medrol, PPI #Possible Primary HCC w/ lung mets: #Untreated Hep C - Consider Oncology consult. #Likely Decompensated Liver Cirrhosis w/ Ascites - Last use of Alcohol was approx 3.5weeks ago. - F/u PT/PTT #chronic HFrEF: Ordered ECHO non-ischemic Cardiomyopathy HTN - Ordered ECHO. -Hold any meds #Tobacco use d/o: 1ppd q2h days. - Nicotine patch. DVT ppx: Heparin GI ppx: Pantoprazole CODE STATUS: Please discuss CODE STATUS with the patient, because I did not discuss this. He does tell me that his Daughter - Leigh Armendariz lives in [place]. Nursing staff is working on charging his cell phone and obtaining the phone number from it. Attestations 2 Medical Necessity Statement*: Patient is to be hospitalized for septic shock, acute renal failure, acute COPD exacerbation, lactic acidosis Critical Care Time: The high probability of a clinically significant, sudden or life threatening deterioration of the patient's [] system(s) required my full and direct attention, intervention and personal management. The critical care time is as shown. This time is in addition to time spent performing any reported procedures but includes the following: [x] Data and vital sign review and interpretation [x] Patient assessment, examination and intervention [x] Documentation [x] Medication orders and management Critical Care Time (min): 40 Coding Level of Care Code Critical Care >/= 30 minutes Critical care time (in minutes): 40 The high probability of a clinically significant, sudden or life threatening deterioration, as referenced in this documentation, required my full and direct attention, intervention and personal management. The critical care time shown is in addition to time spent performing any reported separately billable procedures and includes the following: [x] Data and vital sign review and interpretation [x ] Patient assessment, examination and intervention [x] Medication orders and management [x] Patient/Family updates as able [x] Care Coordination and Documentation. Other Coding Information Focused coding review requested Diagnoses Septic shock A41.9; R65.21 Acute kidney injury N17.9 Cancer, metastatic to lung C78.00 Tobacco dependency F17.200 Alcohol use disorder F10.90 COPD with acute exacerbation J44.1
[2024-08-23 23:05] LABS: Reflex Lactate Order REFLEX LACTIC ORDERD
[2024-08-24] VITALS (79 sets, daily range): BP systolic 77–118; BP diastolic 44–83; PULSE 72–99; RESP 11–30; TEMP 34.9–36.4; O2SAT 88–95
--- NOTE | 2024-08-24 00:28 | PC.NURSE ---
Addendum entered by Renetta Faustin RN 08/24/24 06:48: Verbal order to BOLUS 1L NS. Addendum entered by Renetta Faustin RN 08/24/24 06:42: Verbal order for 2mg Meropenem IV Q24H. Dr. Hudson in pt room. Addendum entered by Renetta Faustin RN 08/24/24 06:35: Dr. Hudson in pts room, notified that pt has had almost no urine output since arrival to unit. New order for NS @75ml/hr for 2000ml and place austin catheter. Addendum entered by Renetta Faustin RN 08/24/24 05:28: Verbal order for CBC, CMP, Lactic, INR, Mag/Phos @0525. Addendum entered by Renetta Faustin RN 08/24/24 05:07: Notified Becca BENNETT of Levophed increase to 18mcg/min and persistently low BP @0505, new order for vasopressin titratable drip. Original Note: Arrival to ICU 8: TOA: 2340 08/23/24 Pt is reporting heartburn, pain 6/10 in his medial chest. Color is dusky w/ mottling noted to B. Lower legs. Notfied Dr. Hudson of medial chest pain 6/10 and rectal temp 94.8 @0025. New order for active patient warming and Morphine 2mg IVP Q4HR for severe pain.
[2024-08-24] MEDS: morphine 4 mg/mL SDV 1 mL 2 MG IVP ×2 (00:36→06:18)
[2024-08-24 00:45] LABS: Lactic Acid level (Lactate) 3.9 mmol/L (0.5-2.2)
[2024-08-24] MEDS: norepinephrine 4 MG/250 ML BAG 60 MG IV ×2 (03:24→17:38)
[2024-08-24 05:28] LABS: Bilirubin Urine 3+ (Negative); Blood Urine Negative (Negative); Glucose Urine UA Negative (Normal); Ketones Urine Negative (Negative); Leukocyte Esterase Urine 1+ (Negative); Nitrate Urine Positive (Negative); Protein Urine 1+ (Negative); Urine Appearance Cloudy (CLEAR)
[2024-08-24 05:33] LABS: Add Urine Microscopic? YES; Bacteria Urine 1+ /hpf; Hyaline Casts Urine 17.37 /lpf; Universal Test for UA Present (0); WBC Urine 0-5 /hpf (0-5)
[2024-08-24 06:03] LABS: Basophils # 0.1 10^3/uL (0.0-0.1); Basophils % 0.4 %; Eosinophils # 0.8 10^3/uL (0.0-0.8); Eosinophils % 3.9 %; Hematocrit 37.1 % (37-53); Lymphocytes % 10.2 %; Mean Corpuscular HGB Conc 33.7 g/dL (30-55); Mean Corpuscular Volume 97.9 fl (82-101); Mean Platelet Volume 11.4 fL (7.4-10.4); Monocytes # 0.9 10^3/uL (0.2-0.9); Monocytes % 4.7 %; Neutrophils # 15.18 10^3/uL (1.8-7.7); Neutrophils % 77.5 %; Nucleated Red Blood Cells # 0.1 /100WBC; Nucleated Red Blood Cells % 0.3 %; Platelet Count 151 10^3/cmm (157-399); Red Blood Count 3.79 10^6/uL (3.85-5.65); White Blood Count 19.55 10^3/uL (3.29-11.43)
[2024-08-24 06:14] LABS: Urine Color Orange (Yellow)
[2024-08-24 06:15] LABS: Add Urine Culture? No; Amorphous Sediment Urine 3+ /hpf
[2024-08-24 06:20] LABS: Lactate (Lactic Acid level) 3.4 mmol/L (0.5-2.2)
[2024-08-24 06:28] LABS: Alanine Aminotransferase 21 U/L (0-41); Alkaline Phosphatase 183 U/L (40-130); Anion Gap 31.5 (5-19); Aspartate Amino Transferase 94 U/L (0-40); Calcium 7.8 mg/dL (8.5-10.5); Carbon Dioxide 12 mmol/L (22-29); Chloride 92 mmol/L (98-107); Creatinine Clr Calc Pharmacy 13.7109; Globulin 4.3 g/dL (1.3-4.6); Glomerular Filtration Rate 10.2 mL/min (90-130); Glucose 110 mg/dL (65-115); Magnesium 2.5 mg/dL (1.7-2.3); Potassium 5.5 mmol/L (3.5-5.1); Sodium 130 mmol/L (136-145); Total Bilirubin 4.1 mg/dL (0.15-1.2); Total Protein 6.3 g/dL (6.6-8.7)
[2024-08-24 06:39] LABS: Blood Urea Nitrogen 118 mg/dL (8-23); Osmolality Calculated 308 mOsm/kg (285-295)
[2024-08-24 06:40] LABS: Phosphorus 12.2 mg/dL (2.5-4.5)
[2024-08-24] MEDS: norepinephrine 4 MG/250 ML BAG 67.5 MG IV ×3 (06:57→13:59)
[2024-08-24] MEDS: sodium chloride 0.9% 1,000 ML 999 ML IV (06:57)
--- NOTE | 2024-08-24 07:32 | USCV_ITS ---
Jose Carlos Armendariz Age: 64 Gender: M : 1960 Exam Date: 08/24/2024 09:15 Ordering Phys: Bessy Hudson MD Technologist: [place] [facility] [place]: [place] shock BP: 89 / 52 HR: 89 Rhythm: Sinus Technical Quality: Technically difficult study,poor windows MEASUREMENTS (Male / Female) Normal Values 2D ECHO LVOT Diameter 2.1 cm LV Ejection Fraction MOD 4C 62.2 % LV Ejection Fraction MOD 2C 56.5 % LV Ejection Fraction 2C AL 54.3 % LA Diameter 3.5 cm RA Systolic Volume 4C AL 34.3 ml RA Systolic Volume 4C MOD 31.2 ml LA Sys Volume AL 36.4 cm cubed LA Sys Volume Index AL 17.9 cm cubed/m squared Aorta at Sinotubular Diameter 3.0 cm IVC Diameter 2.4 cm M-MODE LA Ao Ratio MM 1.1 AV Cusp Separation MM 2.0 cm DOPPLER AV Peak Velocity 130.0 cm/s LVOT Peak Velocity 120.0 cm/s AV Area Cont Eq vti 3.2 cm squared AV Area Cont Eq pk 3.2 cm squared MV Peak Velocity 66.0 cm/s MV Area PHT 2.9 cm squared Mitral E to A Ratio 0.9 TR Peak Velocity 198.0 cm/s TR Peak Gradient 15.7 mmHg TV Peak E Velocity 63.0 cm/s FINDINGS Left Ventricle Normal left ventricular size and systolic function, EF 60%.no regional wall motion abnormalities. Right Ventricle The right ventricle is normal in size and function. Right Atrium The right atrium is normal in size. Left Atrium No gross abnormalities noted Mitral Valve No gross abnormalities no Aortic Valve No gross abnormalities noted Tricuspid Valve No gross abnormalities noted Pulmonic Valve Structurally normal pulmonic valve without significant stenosis. There is no pulmonic regurgitation. Pericardium Normal pericardium without effusion. Aorta Normal ascending aorta dimension. IVC Normal size CONCLUSIONS Normal left ventricular size and systolic function, EF 60%.no regional wall motion abnormalities. Normal cardiac chamber sizes No significant stenotic or regurgitant lesions There is no pericardial effusion. There are no intracardiac masses. Compared to the study from 12/21/2020, there is significant improvement of the LV ejection fraction from 25% to 60% Dr Rosendo Canas MD FAC (Electronically Signed) Final Date: 24 August 2024 18:14 S
[2024-08-24] MEDS: meropenem 500 mg SDV IVP ×2 (07:40→17:49)
[2024-08-24] MEDS: vancomycin 1,500 MG/300 ML PIGGYBACK 200 MG IV (07:41)
[2024-08-24] MEDS: pantoprazole 40 mg SDV IVP (07:41)
[2024-08-24] MEDS: methylPREDNISolone sod succ 125 mg/2 mL INJ IVP (07:42)
[2024-08-24] MEDS: sodium chloride 0.9% 1,000 ML 75 ML IV (07:53)
--- NOTE | 2024-08-24 08:04 | PC.PHAR ---
[facility]. 08/24/24 8 am
--- NOTE | 2024-08-24 09:54 | P.CONIM_ITS ---
Providers/Reason For Consult 2 Consulting Physician/Specialty*: kommana/nephrology Reason for Consult*: GORDO , ACIDOSIS Attending Physician: Lelo Chauhan MD History of Present Illness History of Present Illness Jose Carlos Armendariz is a 64 year old male Patient is a 64-year-old male with past medical history of COPD, CHF, hepatitis C, alcoholism, hypertension presented to the emergency department due to generalized weakness. Also complained of decreased p.o. intake of and decreased appetite patient was hypotensive in the ED with a systolic blood in the 60s and has elevated white count of 19,000 and has GORDO with a creatinine of 5. CT chest abdomen pelvis without contrast showed severe metastatic disease to the lung with a large mass in the right lower lobe concerning for primary hepatocellular carcinoma. Patient is currently on pressors, and remains anuric. Potassium is 5.5 today with a CO2 level of 12 and BUN of 23 and creatinine of 5.7. Review of Systems 2 Narrative: CANNOT OBTAIN Medications/Allergies Home Medications Medication Instructions Recorded Confirmed Last Taken Type albuterol sulfate 90 mcg/actuation 1 inh inhalation Q6H PRN shortness 04/11/21 08/24/24 Unknown Rx aerosol inhaler of breath or wheezing #8.5 grams fluticasone 250 mcg-salmeterol 50 1 inh inhalation BID #60 ea 04/11/21 08/24/24 Unknown Rx mcg/dose blistr powdr for inhalation (Advair Diskus) furosemide 40 mg tablet (Lasix) 40 mg PO BID #60 tabs 04/11/21 08/24/24 08/23/24 Rx losartan 50 mg tablet 50 mg PO DAILY #30 tabs 04/11/21 08/24/24 08/23/24 Rx metoprolol tartrate 25 mg tablet 25 mg PO BID@0900,2100 #60 tabs 04/11/21 08/24/24 08/23/24 Rx spironolactone 25 mg tablet 25 mg PO DAILY #30 tabs 04/11/21 08/24/24 Unknown Rx tiotropium bromide 18 mcg capsule 1 cap inhalation DAILY #30 04/11/21 08/24/24 Unknown Rx with inhalation device (Spiriva inhalations with HandiHaler) sacubitril 24 mg-valsartan 26 mg 0.5 tab PO BID 08/24/24 08/24/24 Unknown History tablet (Entresto) Allergies Allergy/AdvReac Type Severity Reaction Status Date / Time Penicillins Allergy Unknown Verified 04/07/21 10:03 Current Medications Generic Name Dose Route Start Last Admin Trade Name Freq PRN Reason Stop Dose Admin Albuterol/Ipratropium 3 ml 08/24/24 08:00 08/24/24 08:10 Ipratropium-Albuterol 3 Ml Neb INHALATION Not Given Q4H.RESPIRATORY ROSARIO Norepinephrine Bitartrate 4 mg in 250 mls @ 0 mls/hr 08/23/24 21:30 08/24/24 06:57 Levophed IV 18 mcg/min .Q0M ROSARIO 67.5 mls/hr Administration Protocol Per Protocol Sodium Chloride 1,000 mls @ 75 mls/hr 08/24/24 06:45 08/24/24 07:53 Sodium Chloride 0.9% IV 08/25/24 09:24 75 mls/hr .[id number] ROSARIO Administration Meropenem 500 mg 08/24/24 06:45 08/24/24 07:40 Meropenem 500 Mg Sdv IVP 500 mg Q12H ROSARIO Administration Morphine Sulfate 2 mg 08/24/24 00:26 08/24/24 06:18 Morphine 4 Mg/Ml Sdv 1 Ml IVP 2 mg Q4H PRN Administration SEVERE PAIN Pantoprazole Sodium 40 mg 08/24/24 07:00 08/24/24 07:41 Pantoprazole 40 Mg Sdv IVP 40 mg Q24H ROSARIO Administration PFSH Acute 2 PFSH: Medical History (Updated 08/24/24 @ 19:43 by Lelo Chauhan MD) Noncompliance Tobacco dependency Acute respiratory failure with hypoxia Obesity History of amphetamine abuse Alcohol use disorder Hypertension Nonischemic cardiomyopathy Angiogram 2017 no significant coronary plaque. COPD (chronic obstructive pulmonary disease) CHF (congestive heart failure) EF 25% on last echocardiogram. Surgical History (Updated 08/24/24 @ 06:36 by Bessy Hudson MD) History of surgery on arm Has a steel plate in his arm. Family History (Updated 08/24/24 @ 06:36 by Bessy Hudson MD) Brother No problems noted. Mother Stroke Social History (Updated 08/24/24 @ 06:50 by Bessy Hudson MD) Smoking and tobacco/nicotine status: current every day tobacco/nicotine user Alcohol intake: current Alcohol intake frequency: 3 or more drinks per day Alcohol use comment: last drink was 3.5 weeks ago. Drinks 1/2 to 3/4 of a pint. Substance/Drug Use: former Date of last use: Reports he quit 3 months ago, amphetamine Vitals/I&O/Wt Last Vital Signs Temp 95.9 F L 08/24/24 08:00 Pulse 94 08/24/24 08:15 Resp 23 H 08/24/24 08:15 BP 87/59 08/24/24 08:15 Pulse Ox 90 08/24/24 08:15 O2 Del Method Room Air 08/24/24 08:15 O2 Flow Rate 2 08/24/24 02:00 08/23/24 08/24/24 08/24/24 22:59 06:59 14:59 Intake Total 2384.37 / 2384.37 856.000 / 3240.370 1000 / 1000 Output Total 10 Balance 2384.37 / 2384.37 846.000 / 3230.370 1000 / 1000 Weight last 48 hrs Weight 70.851 kg Weight 79.379 kg Physical Exam 2 Urinary Catheter Management: Iglesias: Cath Placed During This Visit: yes Urinary Catheter Date of Insertion: 08/24/24 Urinary Catheter Time of Insertion: 06:50 Data 08/25/24 03:51 08/25/24 03:51 Micro: Microbiology 08/23/24 21:24 Blood Culture - Preliminary Blood SPECIMEN COLLECTED 08/23/24 21:20 Blood Culture - Preliminary Blood SPECIMEN COLLECTED A&P Assessment and plan (1) Acute kidney injury: 1. Acute kidney injury: Severe GORDO associated with metabolic acidosis and hyperkalemia, remains anuric. Given patient on multiple pressors and also given multiple comorbidities, I would not think dialysis would be any benefit at this point. Placed on bicarbonate drip, continue to monitor labs. Patient has new diagnosis of possible metastatic hepatocellular carcinoma . 2. Acidosis: Anion gap, secondary to lactic acidosis, placed bicarbonate drip 3. Hyperkalemia: Medical management for now repeat labs 4. Liver mass with lung mets, highly suspicious for metastatic cellular cancer. 5. CHF with low ejection fraction Overall poor prognosis, recommend goals of care discussion with patient's family. Consult Attestations 2 Medical Necessity Statement: PER MEDICINE Coding Level of Care Code Acute Code for Chg Fwd Diagnoses Acute kidney injury N17.9
[2024-08-24] MEDS: heparin 5,000 unit/mL INJ 1 mL 5000 UNIT SUBCUT ×2 (10:02→20:49)
[2024-08-24] MEDS: methylPREDNISolone sod succ 125 mg/2 mL INJ 60 MG IVP (10:02)
[2024-08-24] MEDS: docusate sodium 100 mg Capsule PO ×2 (10:03→17:40)
[2024-08-24 10:18] LABS: Basophils # 0.1 10^3/uL (0.0-0.1); Basophils % 0.4 %; Eosinophils # 0.4 10^3/uL (0.0-0.8); Eosinophils % 2.9 %; Lymphocytes # 1.1 10^3/uL (0.8-4.8); Lymphocytes % 8.4 %; Mean Corpuscular HGB Conc 32.8 g/dL (30-55); Mean Corpuscular Hemoglobin 33.2 pg (27-33); Mean Corpuscular Volume 101.3 fl (82-101); Mean Platelet Volume 11.6 fL (7.4-10.4); Monocytes # 0.6 10^3/uL (0.2-0.9); Monocytes % 4.5 %; Neutrophils % 81.2 %; Nucleated Red Blood Cells # 0.1 /100WBC; Nucleated Red Blood Cells % 0.5 %; Platelet Count 133 10^3/cmm (157-399); Red Blood Count 3.85 10^6/uL (3.85-5.65); Red Cell Distribution Width 17.2 % (12.1-15.1); White Blood Count 12.57 10^3/uL (3.29-11.43)
[2024-08-24] MEDS: vasopressin 40 UNIT/100 ML PREMIX IV (11:04)
--- NOTE | 2024-08-24 11:12 | PHA.VACGOAL ---
Vancomycin Goal - Goal Vancomycin Goal:: 15-20 mg/L Vancomycin Indication:: Other - Therapy Current therapy:: Meropenem Day of therpy:: Day []of [] . Actual body weight (kg): 156 lb 3.2 oz - Data Labs: WBC 12.57 10^3/uL (3.29-11.43) H 08/24/24 10:02 RBC 3.85 10^6/uL (3.85-5.65) 08/24/24 10:02 Hgb 12.80 g/dL (11.27-16.99) 08/24/24 10:02 Hct 39.0 % (37-53) 08/24/24 10:02 MCV 101.3 fl (82-101) H 08/24/24 10:02 MCH 33.2 pg (27-33) H 08/24/24 10:02 MCHC 32.8 g/dL (30-55) 08/24/24 10:02 RDW 17.2 % (12.1-15.1) H 08/24/24 10:02 Sodium 130 mmol/L (136-145) L 08/24/24 05:34 Potassium 5.5 mmol/L (3.5-5.1) H 08/24/24 05:34 Chloride 92 mmol/L (98-107) L 08/24/24 05:34 Carbon Dioxide 12 mmol/L (22-29) L 08/24/24 05:34 Anion Gap 31.5 (5-19) H 08/24/24 05:34 BUN 118 mg/dL (8-23) H* 08/24/24 05:34 Creatinine 5.7 mg/dL (0.7-1.2) H* 08/24/24 05:34 GFR Calculation 10.2 mL/min (90-130) L 08/24/24 05:34 Treatment plan:: new consult Regimen:: PT IS HAVING WORSENING RENAL FX; 1500 MG NOW AND CHECK LEVEL IN 24 HOURS TO DETERMINE NEXT DOSE
[2024-08-24 11:24] LABS: Glucose Point of Care 97 mg/dL (70-110)
[2024-08-24] MEDS: morphine 4 mg/mL SDV 1 mL IVP ×2 (11:33→17:39)
[2024-08-24] MEDS: sodium bicarbonate 150 MEQ in dextrose 5% 1,000 ML 75 MEQ IV (11:50)
[2024-08-24 13:07] LABS: Glucose Point of Care 142 mg/dL (70-110)
[2024-08-24 13:31] LABS: Anion Gap 30.8 (5-19); Calcium 7.4 mg/dL (8.5-10.5); Carbon Dioxide 10 mmol/L (22-29); Chloride 95 mmol/L (98-107); Creatinine Clr Calc Pharmacy 14.2095; Glomerular Filtration Rate 10.6 mL/min (90-130); Glucose 143 mg/dL (65-115); Potassium 5.8 mmol/L (3.5-5.1); Sodium 130 mmol/L (136-145)
[2024-08-24 13:48] LABS: Blood Urea Nitrogen 116 mg/dL (8-23); Osmolality Calculated 309 mOsm/kg (285-295)
--- NOTE | 2024-08-24 16:38 | P.PN_ITS ---
Subjective 2 Subjective: Seen this morning at the bedside with nursing staff present. Patient states he is aware that he has cancer and he is also aware that it has spread to the lungs. He has not seen his primary he states for a while now. Follows at the [facility]. Had a goals of care discussion. Patient would like to be a full code at this time. He said I would like you to try CPR. He is also agreeable to a feeding tube if needed. He states his daughter lives in [place] and we may contact her in case he is incapacitated. They provided his phone number for his daughter to the nursing staff which we have documented. Patient is on 2 vasopressors at this time Levophed and vasopressin. Potassium is elevated, bicarb is low. Acidotic on last gas that was obtained. I had a discussion with patient in detail regarding his current situation and the need for dialysis however it cannot be done due to his high vasopressor requirements. At this time he is alert oriented x 3. He complains of pain in his legs. Complains of pain in his legs. Appears to be uncomfortable. Attempting to be in a comfortable position however unable to. Vitals/I&O/Wt Last Vital Signs Temp 97.5 F L 08/24/24 13:00 Pulse 85 08/24/24 15:00 Resp 17 08/24/24 15:00 BP 113/75 08/24/24 15:00 Pulse Ox 90 08/24/24 15:00 O2 Del Method Room Air 08/24/24 15:00 O2 Flow Rate 2 08/24/24 02:00 08/24/24 08/24/24 08/24/24 06:59 14:59 22:59 Intake Total 856.000 / 3240.370 1566.625 / 1566.625 Output Total Balance 846.000 / 3230.370 1566.625 / 1566.625 Weight last 48 hrs Weight 70.851 kg Weight 79.379 kg Physical Exam 2 Const: GENERAL APPEARANCE: cooperative, ill appearing and frail appearing; not comfortable NUTRITIONAL APPEARANCE: cachectic O RIENTATION/CONSCIOUSNESS: Yes awake, Yes oriented to person, Yes oriented to place and Yes oriented to time HENMT: COMMON NORMALS: normocephalic, atraumatic, external ears normal and Normal external nose present HEAD & SCALP: normocephalic and atraumatic N OSE: Normal external nose present EXTERNAL EAR: Yes external ears normal M OUTH: Normal oral and palatal mucosa present THROAT: posterior oropharynx normal Eye: COMMON NORMALS: Equal, round and reactive pupils present CONJUNCTIVA: Yes conjunctival abnormal positive bilateral conjunctival icterus SCLERA: s cleral abnormal Laterality of scleral abnormality: positive bilateral scleral icterus PUPIL: Yes Equal, round and reactive pupils present EOM: No EOM abnormal Neck/C-Spine: COMMON NORMALS: Thyroid normal GENERAL: Yes normal visual inspection and Yes trachea midline THYROID: Thyroid normal CAROTIDS: No bruit CERVICAL SPINE: Yes cervical ROM normal Lymph: OTHER: No cervical or supraclavicular LAD Resp: OTHER: Expiratory wheezes on auscultation of bilateral lung de la torre. Cardio: OTHER: RRR, difficult to appreciate murmurs rubs gallops or clicks given his breath sounds GI: OTHER: bs+, distended, tenderness to the epigastrium and right upper quadrant and right lower quadrant. No guarding, no rigidity, no rebound tenderness. Extremity: GENERAL: No clubbing, No cyanosis and No edema Neuro: SENSORIUM/ORIENTATION: Yes oriented to person, Yes oriented to place and Yes oriented to time CRANIAL NERVES: Yes CN normal except as noted S PEECH: Other neuro speech findings (Garbled speech) SENSORY EXAM: No sensory level loss detected MOTOR EXAM: Normal motor muscle tone present throughout Psych: COMMON NORMALS: mental status grossly normal, Normal thought process present, cooperative, normal affect, speech normal, denies homicidal ideation and denies suicidal ideation SPEECH: Yes normal speech THOUGHT PROCESS: N ormal thought process present Skin: OTHER: Jaundiced skin Urinary Catheter Management: Iglesias: Cath Placed During This Visit: yes Urinary Catheter Date of Insertion: 08/24/24 Urinary Catheter Time of Insertion: 06:50 Data 08/24/24 10:02 08/24/24 15:55 Micro: Microbiology 08/23/24 21:24 Blood Culture - Preliminary Blood SPECIMEN COLLECTED 08/23/24 21:20 Blood Culture - Preliminary Blood SPECIMEN COLLECTED A&P Assessment and plan (1) Noncompliance: (2) Alcohol use disorder: (3) Benign essential hypertension with target blood pressure below 140/90: (4) CHF (congestive heart failure): (5) Nonischemic cardiomyopathy: (6) Hepatitis C antibody positive in blood: (7) Liver mass: (8) Cancer, metastatic to lung: (9) Septic shock: (10) COPD (chronic obstructive pulmonary disease): Qualifiers: COPD type: unspecified COPD Qualified Code(s): J44.9 - Chronic obstructive pulmonary disease, unspecified (11) Tobacco dependency: (12) Renal failure: (13) Lactic acidosis: (14) Goals of care, counseling/discussion: (15) Anuria: Plan #Septic shock #Acute renal failure #Hepatorenal syndrome #Anion gap metabolic acidosis #Hyperkalemia #Possible hepatocellular carcinoma/liver mass with lung mets #Chronic systolic congestive heart failure #COPD #Untreated hepatitis C #Decompensated liver cirrhosis with ascites #History of alcohol abuse #Tobacco use #Hypertension ? Patient's last alcohol use was 3-1/2 weeks ago. ? Does have untreated hepatitis C -Possibly does have primary hepatocellular carcinoma with lung mets -At this time requiring 2 vasopressors. Continue Levophed titratable and vasopressin at fixed dose per sepsis. ? Continue vancomycin and meropenem. ? Check blood cultures, sputum culture Gram stain, urine culture -CT chest abdomen pelvis reviewed from admission, appreciate large liver mass ? Consult nephrology. Patient not a candidate at this time for dialysis secondary to high vasopressor requirements ? Did have a goals of care discussion. Patient would like to continue to be a full code at this time. States would also like a feeding tube if needed ? I have a suspicion patient is noncompliant to treatment as he has not seen his doctor in quite some time. ? Discussed with patient that his prognosis is poor given the current condition. If patient was to improve from this episode we will obtain oncology consultation. ? Lactic acidosis most likely secondary to renal failure. ? Query SBP? ? Will order paracentesis and send for fluid analysis ? Continue antibiotics at this time ? Echo ordered which is pending ? Hold home antihypertensives ? DVT prophylaxis heparin ordered, GI prophylaxis pantoprazole ordered at this time -Ordered morphine 4 mg every 6 hours as needed for pain. Full code Prognosis is guarded Discussed with nephrology at length over the phone. Discussed with nursing staff. Attestations 2 Medical Necessity Statement*: critically ill in ICU, acute renal failure Critical Care Time: The high probability of a clinically significant, sudden or life threatening deterioration of the patient's [renal, cardiovascular, gi] system(s) required my full and direct attention, intervention and personal management. The critical care time is as shown. This time is in addition to time spent performing any reported procedures but includes the following: [x] Data and vital sign review and interpretation [x] Patient assessment, examination and intervention [x] Documentation [x] Medication orders and management Critical Care Time (min): 60 Critical Care Time (min): 60 Coding Level of Care Code Acute Code for Chg Fwd Diagnoses Noncompliance Z91.19 Alcohol use disorder F10.90 Benign essential hypertension with target blood pressure below 140/90 I10 CHF (congestive heart failure) I50.9 Nonischemic cardiomyopathy I42.8 Hepatitis C antibody positive in blood R76.8 Liver mass R16.0 Cancer, metastatic to lung C78.00 Septic shock A41.9; R65.21 Chronic obstructive pulmonary disease, unspecified COPD type J44.9 COPD type: unspecified COPD Tobacco dependency F17.200 Renal failure N19 Lactic acidosis E87.20 Goals of care, counseling/discussion Z71.89 Anuria R34
[2024-08-24 16:41] LABS: Anion Gap 30.8 (5-19); Calcium 7.2 mg/dL (8.5-10.5); Carbon Dioxide 12 mmol/L (22-29); Chloride 92 mmol/L (98-107); Creatinine Clr Calc Pharmacy 15.6304; Glomerular Filtration Rate 11.8 mL/min (90-130); Glucose 203 mg/dL (65-115); Potassium 5.8 mmol/L (3.5-5.1); Sodium 129 mmol/L (136-145)
[2024-08-24 16:47] LABS: Osmolality Calculated 312 mOsm/kg (285-295)
[2024-08-24 16:49] LABS: Blood Urea Nitrogen 119 mg/dL (8-23)
[2024-08-24 17:30] LABS: Glucose Point of Care 209 mg/dL (70-110)
[2024-08-24] MEDS: ipratropium-albuterol 3 mL Neb INHALATION (19:55)
[2024-08-24] MEDS: sodium bicarbonate 150 MEQ in dextrose 5% 1,000 ML IV (20:07)
[2024-08-24] MEDS: albumin 12.5 GM/250 ML VIAL IV (20:34)
[2024-08-24 20:43] LABS: Glucose Point of Care 246 mg/dL (70-110)
[2024-08-24 21:20] LABS: Basophils % 0.2 %; Eosinophils # 0.1 10^3/uL (0.0-0.8); Eosinophils % 0.7 %; Hematocrit 33.2 % (37-53); Lymphocytes # 1.4 10^3/uL (0.8-4.8); Mean Corpuscular HGB Conc 32.8 g/dL (30-55); Mean Corpuscular Hemoglobin 32.4 pg (27-33); Mean Corpuscular Volume 98.8 fl (82-101); Mean Platelet Volume 11.3 fL (7.4-10.4); Monocytes # 0.4 10^3/uL (0.2-0.9); Monocytes % 3.1 %; Neutrophils % 83.8 %; Nucleated Red Blood Cells # 0.1 /100WBC; Nucleated Red Blood Cells % 0.5 %; Platelet Count 104 10^3/cmm (157-399); Red Blood Count 3.36 10^6/uL (3.85-5.65)
[2024-08-24 21:39] LABS: Alanine Aminotransferase 26 U/L (0-41); Albumin Level 2.2 g/dL (3.5-5.2); Alkaline Phosphatase 162 U/L (40-130); Anion Gap 29.3 (5-19); Aspartate Amino Transferase 135 U/L (0-40); Calcium 6.9 mg/dL (8.5-10.5); Carbon Dioxide 14 mmol/L (22-29); Chloride 93 mmol/L (98-107); Creatinine Clr Calc Pharmacy 15.9494; Globulin 3.4 g/dL (1.3-4.6); Glomerular Filtration Rate 12.1 mL/min (90-130); Glucose 280 mg/dL (65-115); Magnesium 2.2 mg/dL (1.7-2.3); Potassium 5.3 mmol/L (3.5-5.1); Sodium 131 mmol/L (136-145); Total Bilirubin 3.8 mg/dL (0.15-1.2); Total Protein 5.6 g/dL (6.6-8.7)
[2024-08-24 21:48] LABS: Osmolality Calculated 320 mOsm/kg (285-295)
[2024-08-24 21:49] LABS: Blood Urea Nitrogen 120 mg/dL (8-23); Phosphorus 11.8 mg/dL (2.5-4.5)
--- NOTE | 2024-08-24 21:53 | PC.NURSE ---
PO Med: Notified Dr. Gunter of order for senna lax PO and NPO order @646, New order to hold senna lax dose.
[2024-08-24] MEDS: norepinephrine 4 MG/250 ML BAG 45 MG IV (22:05)
[2024-08-25] VITALS (111 sets, daily range): BP systolic 74–116; BP diastolic 52–78; PULSE 76–112; RESP 9–23; TEMP 36–36.4; O2SAT 82–98
[2024-08-25 00:22] LABS: Anion Gap 29.7 (5-19); Calcium 6.8 mg/dL (8.5-10.5); Carbon Dioxide 15 mmol/L (22-29); Chloride 92 mmol/L (98-107); Creatinine Clr Calc Pharmacy 17.3671; Glomerular Filtration Rate 13.3 mL/min (90-130); Glucose 293 mg/dL (65-115); Potassium 4.7 mmol/L (3.5-5.1); Sodium 132 mmol/L (136-145)
[2024-08-25 00:48] LABS: Osmolality Calculated 322 mOsm/kg (285-295)
[2024-08-25 00:49] LABS: Blood Urea Nitrogen 118 mg/dL (8-23)
[2024-08-25 01:18] LABS: Glucose Point of Care 279 mg/dL (70-110)
[2024-08-25] MEDS: morphine 4 mg/mL SDV 1 mL IVP ×3 (02:35→20:19)
[2024-08-25] MEDS: sodium bicarbonate 150 MEQ in dextrose 5% 1,000 ML IV (04:05)
[2024-08-25 04:09] LABS: Basophils % 0.2 %; Eosinophils # 0.1 10^3/uL (0.0-0.8); Eosinophils % 0.6 %; Hematocrit 32.1 % (37-53); Lymphocytes # 1.2 10^3/uL (0.8-4.8); Lymphocytes % 9.3 %; Mean Corpuscular HGB Conc 33.6 g/dL (30-55); Mean Corpuscular Hemoglobin 32.9 pg (27-33); Mean Corpuscular Volume 97.9 fl (82-101); Mean Platelet Volume 10.9 fL (7.4-10.4); Monocytes # 0.5 10^3/uL (0.2-0.9); Monocytes % 3.7 %; Neutrophils % 84.5 %; Nucleated Red Blood Cells # 0.1 /100WBC; Nucleated Red Blood Cells % 0.6 %; Platelet Count 74 10^3/cmm (157-399); Red Blood Count 3.28 10^6/uL (3.85-5.65); White Blood Count 12.32 10^3/uL (3.29-11.43)
[2024-08-25 04:19] LABS: INR 1.97 (0.8-1.2)
[2024-08-25 04:20] LABS: Partial Thromboplastin Time 36.9 SECONDS (23.9-36.7)
[2024-08-25 04:25] LABS: Alanine Aminotransferase 30 U/L (0-41); Albumin Level 1.9 g/dL (3.5-5.2); Alkaline Phosphatase 167 U/L (40-130); Anion Gap 27.6 (5-19); Aspartate Amino Transferase 142 U/L (0-40); Carbon Dioxide 16 mmol/L (22-29); Chloride 94 mmol/L (98-107); Creatinine Clr Calc Pharmacy 17.7618; Globulin 3.8 g/dL (1.3-4.6); Glomerular Filtration Rate 13.7 mL/min (90-130); Glucose 300 mg/dL (65-115); Magnesium 2.1 mg/dL (1.7-2.3); Potassium 4.6 mmol/L (3.5-5.1); Sodium 133 mmol/L (136-145); Total Bilirubin 3.6 mg/dL (0.15-1.2); Total Protein 5.7 g/dL (6.6-8.7)
[2024-08-25] MEDS: ipratropium-albuterol 3 mL Neb INHALATION ×5 (04:28→20:43)
[2024-08-25 04:36] LABS: Blood Urea Nitrogen 114 mg/dL (8-23); Osmolality Calculated 323 mOsm/kg (285-295); Phosphorus 10.5 mg/dL (2.5-4.5)
[2024-08-25 04:43] LABS: ABG PCO2 28.6 mmHg (35-45); Alveolar-Arterial Oxygen Gradi 4.6 mmHg (5-10); Arterial Blood Gas Hematocrit 34.4 % (42-52); Base Excess ABG -6.2 mmol/L (-2.0-2.0); Blood Gas Allen Test Pos; Blood Gas Sample Site Radial, left; Blood Gas Sample Type Arterial; Carboxyhemoglobin 1.2 %THgb (0.4-20.1); HCO3 ABG 17.5 mmol/L (22-26); HGB O2 Sat 92.5 % (95-100); Ionized Calcium Level - ABG 0.9 mmol/L (1.1-1.4); Methemoglobin 0.5 % (0.4-1.5); Oxygen Device NC; Oxygen Saturation ABG 94.1; PO2 ABG 75.9 mmHg (80.0-100.0); Potassium Level - ABG 4.4 mmol/L (3.5-5.0); Total Hemoglobin 11.2 g/dL (14-18)
[2024-08-25] MEDS: norepinephrine 4 MG/250 ML BAG 22.5 MG IV (05:30)
[2024-08-25 05:31] LABS: Glucose Point of Care 273 mg/dL (70-110)
[2024-08-25] MEDS: meropenem 500 mg SDV IVP ×2 (05:50→18:02)
[2024-08-25] MEDS: pantoprazole 40 mg SDV IVP (06:05)
[2024-08-25 06:37] LABS: Vancomycin Trough 27.1 ug/mL (10-15)
[2024-08-25] MEDS: methylPREDNISolone sod succ 125 mg/2 mL INJ 60 MG IVP (08:32)
[2024-08-25] MEDS: docusate sodium 100 mg Capsule PO (08:35)
[2024-08-25 08:46] LABS: Anion Gap 25.3 (5-19); Calcium 6.8 mg/dL (8.5-10.5); Carbon Dioxide 20 mmol/L (22-29); Chloride 93 mmol/L (98-107); Creatinine Clr Calc Pharmacy 19.2255; Glomerular Filtration Rate 14.5 mL/min (90-130); Glucose 321 mg/dL (65-115); Potassium 4.3 mmol/L (3.5-5.1); Sodium 134 mmol/L (136-145)
[2024-08-25 09:04] LABS: Blood Urea Nitrogen 116 mg/dL (8-23); Osmolality Calculated 327 mOsm/kg (285-295)
--- NOTE | 2024-08-25 09:30 | PM.PN ---
Subjective Subjective: UOP improved Levophed 8 mcg and 0.01 vasopressin Fio2 - 2L nc Medications: Reviewed: Yes Vitals/I&O/Wt Last Vital Signs Temp 96.8 F L 08/25/24 09:00 Pulse 89 08/25/24 09:00 Resp 15 08/25/24 09:00 BP 110/70 08/25/24 09:00 Pulse Ox 87 L 08/25/24 09:00 O2 Del Method Nasal Cannula 08/25/24 09:00 O2 Flow Rate 2 08/25/24 09:00 08/24/24 08/25/24 08/25/24 22:59 06:59 14:59 Intake Total 2876.350 / 4442.975 1297.400 / 5740.375 64.125 / 64.125 Output Total 400 / 400 425 / 825 Balance 2476.350 / 4042.975 872.400 / 4915.375 64.125 / 64.125 Weight last 48 hrs Weight 76.839 kg Weight 70.851 kg Weight 79.379 kg Physical Exam Narrative: awake , alert no distress Urinary Catheter Management: Iglseias: Cath Placed During This Visit: yes Reason for Continuing Indwelling Catheter: Accurate Measurement of Urinary Output in Critically Ill Patients Urinary Catheter Date of Insertion: 08/24/24 Urinary Catheter Time of Insertion: 06:50 Data 08/25/24 03:51 08/25/24 08:19 Micro: Microbiology 08/23/24 21:24 Blood Culture - Preliminary Blood NEGATIVE TO DATE 08/23/24 21:20 Blood Culture - Preliminary Blood NEGATIVE TO DATE A&P Assessment and plan (1) Acute kidney injury: 1. Acute kidney injury: Severe GORDO associated with metabolic acidosis and hyperkalemia,- underlying liver disease from hepatocellular carcinoma - pressor requirement decreased , UOP picked up , Cr plateaud -Added IV albumin and midodrine 2. Acidosis: Anion gap, secondary to lactic acidosis, placed on bicarbonate drip 3. Hyperkalemia: improved with medical management 4. Liver mass with lung mets, highly suspicious for metastatic hepatocellular cancer. 5. CHF with low ejection fraction Patient has new diagnosis of possible metastatic hepatocellular carcinoma , overall poor prognosis Attestations Medical Necessity Statement*: per [facility] Coding Level of Care Code Acute Code for [facility] Fwd Diagnoses Acute kidney injury N17.9
[2024-08-25] MEDS: albumin 25 G/100 ML BAG 60 G IV ×2 (09:44→16:20)
[2024-08-25 10:00] LABS: Glucose Point of Care 280 mg/dL (70-110)
[2024-08-25 10:04] LABS: Basophils % 0.3 %; Eosinophils # 0.1 10^3/uL (0.0-0.8); Eosinophils % 0.6 %; Hematocrit 31.4 % (37-53); Lymphocytes # 0.8 10^3/uL (0.8-4.8); Lymphocytes % 7.6 %; Mean Corpuscular HGB Conc 34.1 g/dL (30-55); Mean Corpuscular Hemoglobin 33.4 pg (27-33); Mean Corpuscular Volume 98.1 fl (82-101); Mean Platelet Volume 11.2 fL (7.4-10.4); Monocytes # 0.4 10^3/uL (0.2-0.9); Neutrophils # 9.14 10^3/uL (1.8-7.7); Neutrophils % 86.3 %; Nucleated Red Blood Cells # 0.1 /100WBC; Nucleated Red Blood Cells % 0.8 %; Platelet Count 72 10^3/cmm (157-399); Red Cell Distribution Width 17.1 % (12.1-15.1); White Blood Count 10.58 10^3/uL (3.29-11.43)
--- NOTE | 2024-08-25 10:09 | PC.NURSE ---
Subq heparin held due to upcoming paracentesis
[2024-08-25] MEDS: vasopressin 40 UNIT/100 ML PREMIX 4.5 UNIT IV (11:55)
[2024-08-25] MEDS: insulin lispro 100 unit/1 mL SUBCUT ×3 (12:18→20:17)
[2024-08-25 12:22] LABS: Glucose Point of Care 314 mg/dL (70-110)
[2024-08-25] MEDS: sodium bicarbonate 150 MEQ in dextrose 5% 1,000 ML 100 MEQ IV (12:46)
--- NOTE | 2024-08-25 13:31 | P.PN_ITS ---
Subjective 2 Subjective: Seen this morning. Labs are showing some improvement. Platelet count 72, INR 1.97, creatinine 4.2 BUN 116 which has worsened. This phosphorus 10.5. Patient has been continued on bicarb drip. Albumin 1.9. He did get a unit of albumin last night. Subjectively states he is feeling slightly better pain is well-controlled. Patient does not look uncomfortable like he did yesterday. Still requiring 2 vasopressors. On vasopressin and 8 of Levophed at this time. Paracentesis ordered for today. Urine output overnight 800 cc. Vitals/I&O/Wt Last Vital Signs Temp 97.6 F 08/25/24 12:30 Pulse 94 08/25/24 13:15 Resp 16 08/25/24 13:15 BP 108/62 08/25/24 13:15 Pulse Ox 91 08/25/24 13:15 O2 Del Method Nasal Cannula 08/25/24 12:30 O2 Flow Rate 2 08/25/24 12:30 08/24/24 08/25/24 08/25/24 22:59 06:59 14:59 Intake Total 2876.350 / 4442.975 1297.400 / 5740.375 1017.825 / 1017.825 Output Total 400 / 400 425 / 825 325 / 325 Balance 2476.350 / 4042.975 872.400 / 4915.375 692.825 / 692.825 Weight last 48 hrs Weight 76.839 kg Weight 70.851 kg Weight 79.379 kg Physical Exam 2 Const: GENERAL APPEARANCE: cooperative, comfortable, ill appearing and frail appearing NUTRITIONAL APPEARANCE: cachectic ORIENTATION/CONSCIOUSNESS: Yes awake, Yes oriented to person, Yes oriented to place and Yes oriented to time HENMT: COMMON NORMALS: normocephalic, atraumatic, external ears normal and Normal external nose present HEAD & SCALP: normocephalic and atraumatic N OSE: Normal external nose present EXTERNAL EAR: Yes external ears normal M OUTH: Normal oral and palatal mucosa present THROAT: posterior oropharynx normal Eye: COMMON NORMALS: Equal, round and reactive pupils present CONJUNCTIVA: Yes conjunctival abnormal positive bilateral conjunctival icterus SCLERA: s cleral abnormal Laterality of scleral abnormality: positive bilateral scleral icterus PUPIL: Yes Equal, round and reactive pupils present EOM: No EOM abnormal Neck/C-Spine: COMMON NORMALS: Thyroid normal GENERAL: Yes normal visual inspection and Yes trachea midline THYROID: Thyroid normal CAROTIDS: No bruit CERVICAL SPINE: Yes cervical ROM normal Lymph: OTHER: No cervical or supraclavicular LAD Resp: OTHER: Expiratory wheezes on auscultation of bilateral lung de la torre. Cardio: OTHER: RRR, difficult to appreciate murmurs rubs gallops GI: OTHER: bs+, distended, tenderness to the epigastrium and right upper quadrant and right lower quadrant. No guarding, no rigidity, no rebound tenderness. Extremity: GENERAL: No clubbing, No cyanosis and No edema Neuro: SENSORIUM/ORIENTATION: Yes oriented to person, Yes oriented to place and Yes oriented to time CRANIAL NERVES: Yes CN normal except as noted S PEECH: Other neuro speech findings (Garbled speech) SENSORY EXAM: No sensory level loss detected MOTOR EXAM: Normal motor muscle tone present throughout Psych: COMMON NORMALS: mental status grossly normal, Normal thought process present, cooperative, normal affect, speech normal, denies homicidal ideation and denies suicidal ideation SPEECH: Yes normal speech THOUGHT PROCESS: N ormal thought process present Skin: OTHER: Jaundiced skin Urinary Catheter Management: Iglesias: Cath Placed During This Visit: yes Reason for Continuing Indwelling Catheter: Accurate Measurement of Urinary Output in Critically Ill Patients Urinary Catheter Date of Insertion: 08/24/24 Urinary Catheter Time of Insertion: 06:50 Data 08/25/24 09:56 08/25/24 08:19 Micro: Microbiology 08/23/24 21:24 Blood Culture - Preliminary Blood NEGATIVE TO DATE 08/23/24 21:20 Blood Culture - Preliminary Blood NEGATIVE TO DATE A&P Assessment and plan (1) Noncompliance: (2) Alcohol use disorder: (3) Benign essential hypertension with target blood pressure below 140/90: (4) CHF (congestive heart failure): (5) Nonischemic cardiomyopathy: (6) Hepatitis C antibody positive in blood: (7) Liver mass: (8) Cancer, metastatic to lung: (9) Septic shock: (10) COPD (chronic obstructive pulmonary disease): Qualifiers: COPD type: unspecified COPD Qualified Code(s): J44.9 - Chronic obstructive pulmonary disease, unspecified (11) Tobacco dependency: (12) Renal failure: (13) Lactic acidosis: (14) Goals of care, counseling/discussion: (15) Anuria: Plan #Septic shock #Acute renal failure #Hepatorenal syndrome #Anion gap metabolic acidosis #Hyperkalemia #Possible hepatocellular carcinoma/liver mass with lung mets #Chronic systolic congestive heart failure #COPD #Untreated hepatitis C #Decompensated liver cirrhosis with ascites #History of alcohol abuse #Tobacco use #Hypertension ? Patient's last alcohol use was 3-1/2 weeks ago. ? Does have untreated hepatitis C -Possibly does have primary hepatocellular carcinoma with lung mets -At this time requiring 2 vasopressors. Continue Levophed titratable and vasopressin at fixed dose per sepsis. ? Continue vancomycin and meropenem. ? Check blood cultures, sputum culture Gram stain, urine culture -CT chest abdomen pelvis reviewed from admission, appreciate large liver mass ? Consult nephrology. Patient not a candidate at this time for dialysis secondary to high vasopressor requirements ? Did have a goals of care discussion. Patient would like to continue to be a full code at this time. States would also like a feeding tube if needed ? I have a suspicion patient is noncompliant to treatment as he has not seen his doctor in quite some time. ? Discussed with patient that his prognosis is poor given the current condition. If patient was to improve from this episode we will obtain oncology consultation. ? Lactic acidosis most likely secondary to renal failure. ? Query SBP? ? Will order paracentesis and send for fluid analysis ? Continue antibiotics at this time ? Echo ordered which is pending ? Hold home antihypertensives ? DVT prophylaxis heparin ordered, GI prophylaxis pantoprazole ordered at this time -Ordered morphine 4 mg every 6 hours as needed for pain. Full code Prognosis is guarded Discussed with nephrology at length over the phone. Discussed with nursing staff. 08/25/2024 - Urine output has improved. 800 cc overnight. Creatinine plateaued. ? Add IV albumin every 8 hours and midodrine. ? Received a call from radiology. Not enough fluid in paracolic gutters for paracentesis. Not even enough to obtain tiny sample for fluid analysis. ? Continue antibiotics at this time. ? Continue bicarb drip. ? Continue to wean off pressors as able ? Continue to maintain n.p.o. status secondary to vasopressor requirement. ? Will place on oral diet once pressors are lower. I have concerns about bowel ischemia with high vasopressor requirements if fed. Will consider PPN today. Will discuss with dietitian. ? Hopefully if patient improves and is medically optimized we will obtain oncology consultation as an outpatient. Overall patient carries a poor prognosis even if he survives this hospitalization. ? Still not a candidate for dialysis. Continue to monitor the situation. ? Nephrology following Attestations 2 Medical Necessity Statement*: critically ill in ICU, acute renal failure Critical Care Time: The high probability of a clinically significant, sudden or life threatening deterioration of the patient's [renal, cardiovascular, gi] system(s) required my full and direct attention, intervention and personal management. The critical care time is as shown. This time is in addition to time spent performing any reported procedures but includes the following: [x] Data and vital sign review and interpretation [x] Patient assessment, examination and intervention [x] Documentation [x] Medication orders and management Critical Care Time (min): 45 Critical Care Time (min): 45 Coding Level of Care Code Acute Code for Chg Fwd Diagnoses Noncompliance Z91.19 Alcohol use disorder F10.90 Benign essential hypertension with target blood pressure below 140/90 I10 CHF (congestive heart failure) I50.9 Nonischemic cardiomyopathy I42.8 Hepatitis C antibody positive in blood R76.8 Liver mass R16.0 Cancer, metastatic to lung C78.00 Septic shock A41.9; R65.21 Chronic obstructive pulmonary disease, unspecified COPD type J44.9 COPD type: unspecified COPD Tobacco dependency F17.200 Renal failure N19 Lactic acidosis E87.20 Goals of care, counseling/discussion Z71.89 Anuria R34
[2024-08-25] MEDS: midodrine 5 mg TABLET 10 MG PO ×2 (15:28→20:15)
[2024-08-25 17:01] LABS: Glucose Point of Care 237 mg/dL (70-110)
[2024-08-25] MEDS: norepinephrine 4 MG/250 ML BAG 7.5 MG IV (18:11)
--- NOTE | 2024-08-25 19:02 | PC.NURSE ---
Shift SUmmary: Midodrine and albumin added, but remains on pressors, 0.03 units of vasopressin, and 4mcg of levophed at the time of this note. Ultrasound was unable to identify an area to be drained for the paracentesis. bicarb deccreased from 150ml/hr down to 75ml/hr. Patient saturates in the mid to high 90's on 2LNC, but he frequently takes it off despite repeated education. 525mL of urine outpute
--- NOTE | 2024-08-25 19:44 | US_ITS ---
WS: [id number] INDICATION: Paracentesis TECHNIQUE: Ultrasound abdomen for paracentesis FINDINGS: Only a tiny trace of fluid is visualized in the abdomen and paracolic gutters. Insufficient fluid to perform paracentesis. US/US abdomen lmt fluid 16034 IMPRESSION: Insufficient fluid for paracentesis
[2024-08-25 20:08] LABS: Glucose Point of Care 232 mg/dL (70-110)
[2024-08-25] MEDS: sennosides 8.6 mg Tablet 17.2 MG PO (20:14)
[2024-08-25] MEDS: heparin 5,000 unit/mL INJ 1 mL 5000 UNIT SUBCUT (20:18)
[2024-08-26] VITALS (106 sets, daily range): BP systolic 78–119; BP diastolic 57–75; PULSE 83–117; RESP 9–24; TEMP 36.2–36.6; O2SAT 83–97
[2024-08-26] MEDS: ipratropium-albuterol 3 mL Neb INHALATION ×6 (00:54→20:10)
[2024-08-26] MEDS: albumin 25 G/100 ML BAG 60 G IV ×2 (01:17→17:34)
[2024-08-26 01:23] LABS: Glucose Point of Care 179 mg/dL (70-110)
[2024-08-26] MEDS: morphine 4 mg/mL SDV 1 mL IVP (02:04)
[2024-08-26] MEDS: sodium bicarbonate 150 MEQ in dextrose 5% 1,000 ML 75 MEQ IV ×2 (02:12→16:35)
[2024-08-26 04:16] LABS: Alanine Aminotransferase 22 U/L (0-41); Albumin Level 2.8 g/dL (3.5-5.2); Alkaline Phosphatase 129 U/L (40-130); Anion Gap 22.5 (5-19); Aspartate Amino Transferase 60 U/L (0-40); Calcium 7.3 mg/dL (8.5-10.5); Carbon Dioxide 24 mmol/L (22-29); Chloride 93 mmol/L (98-107); Creatinine Clr Calc Pharmacy 25.2334; Globulin 2.8 g/dL (1.3-4.6); Glomerular Filtration Rate 19.8 mL/min (90-130); Glucose 209 mg/dL (65-115); Magnesium 1.9 mg/dL (1.7-2.3); Potassium 3.5 mmol/L (3.5-5.1); Sodium 136 mmol/L (136-145); Total Bilirubin 3.6 mg/dL (0.15-1.2); Total Protein 5.6 g/dL (6.6-8.7)
[2024-08-26 04:27] LABS: INR 1.84 (0.8-1.2)
[2024-08-26 04:28] LABS: Partial Thromboplastin Time 36.3 SECONDS (23.9-36.7)
[2024-08-26 04:32] LABS: Osmolality Calculated 323 mOsm/kg (285-295)
[2024-08-26 04:39] LABS: Basophils % 0.1 %; Eosinophils % 0.3 %; Hematocrit 25.5 % (37-53); Lymphocytes # 0.5 10^3/uL (0.8-4.8); Lymphocytes % 7.8 %; Mean Corpuscular HGB Conc 33.7 g/dL (30-55); Mean Corpuscular Hemoglobin 32.7 pg (27-33); Mean Platelet Volume 11.3 fL (7.4-10.4); Monocytes # 0.3 10^3/uL (0.2-0.9); Monocytes % 4.6 %; Neutrophils # 5.97 10^3/uL (1.8-7.7); Neutrophils % 85.9 %; Nucleated Red Blood Cells # 0.1 /100WBC; Platelet Count 38 10^3/cmm (157-399); Red Blood Count 2.63 10^6/uL (3.85-5.65); Red Cell Distribution Width 17.2 % (12.1-15.1); White Blood Count 6.95 10^3/uL (3.29-11.43)
[2024-08-26 04:54] LABS: Blood Urea Nitrogen 109 mg/dL (8-23)
[2024-08-26 05:58] LABS: Glucose Point of Care 242 mg/dL (70-110)
[2024-08-26 06:08] LABS: Vancomycin Trough 19.9 ug/mL (10-15)
[2024-08-26] MEDS: meropenem 500 mg SDV IVP ×2 (06:09→17:58)
[2024-08-26] MEDS: pantoprazole 40 mg SDV IVP (06:09)
--- NOTE | 2024-08-26 06:26 | PC.NURSE ---
Refusing Turning: Pt refused Q2HR turning all night, states he is comfortable and I don't need too . Education provided on skin break down and pulmonary hygiene.
[2024-08-26 07:49] LABS: Glucose Point of Care 209 mg/dL (70-110)
[2024-08-26] MEDS: heparin 5,000 unit/mL INJ 1 mL 5000 UNIT SUBCUT (08:15)
[2024-08-26] MEDS: insulin lispro 100 unit/1 mL SUBCUT ×3 (08:15→17:43)
[2024-08-26] MEDS: docusate sodium 100 mg Capsule PO ×2 (08:15→17:35)
[2024-08-26] MEDS: methylPREDNISolone sod succ 125 mg/2 mL INJ 60 MG IVP (08:15)
[2024-08-26] MEDS: midodrine 5 mg TABLET 10 MG PO ×3 (08:16→20:38)
--- NOTE | 2024-08-26 10:12 | P.PN_ITS ---
Subjective 2 Subjective: Patient is off Levophed this morning however still requiring vasopressin. Subjectively feels better. Urine output 750 overnight. Is 10 L positive since admission Hemoglobin 8.6, platelet count dropped down to 38. INR 1.84, PT 21.9. Creatinine 3.2 and improving. Vitals/I&O/Wt Last Vital Signs Temp 97.1 F L 08/26/24 07:15 Pulse 108 H 08/26/24 08:15 Resp 18 08/26/24 08:15 BP 92/57 08/26/24 08:15 Pulse Ox 95 08/26/24 08:15 O2 Del Method Nasal Cannula 08/26/24 08:15 O2 Flow Rate 2 08/26/24 08:15 08/25/24 08/26/24 08/26/24 22:59 06:59 14:59 Intake Total 1049.342 / 2188.792 783.783 / 2972.575 Output Total 200 / 525 550 / 1075 Balance 849.342 / 1663.792 233.783 / 1897.575 Weight last 48 hrs Weight 77.836 kg Weight 76.839 kg Physical Exam 2 Const: GENERAL APPEARANCE: cooperative, comfortable, ill appearing and frail appearing NUTRITIONAL APPEARANCE: cachectic ORIENTATION/CONSCIOUSNESS: Yes awake, Yes oriented to person, Yes oriented to place and Yes oriented to time HENMT: COMMON NORMALS: normocephalic, atraumatic, external ears normal and Normal external nose present HEAD & SCALP: normocephalic and atraumatic N OSE: Normal external nose present EXTERNAL EAR: Yes external ears normal M OUTH: Normal oral and palatal mucosa present THROAT: posterior oropharynx normal Eye: COMMON NORMALS: Equal, round and reactive pupils present CONJUNCTIVA: Yes conjunctival abnormal positive bilateral conjunctival icterus SCLERA: s cleral abnormal Laterality of scleral abnormality: positive bilateral scleral icterus PUPIL: Yes Equal, round and reactive pupils present EOM: No EOM abnormal Neck/C-Spine: COMMON NORMALS: Thyroid normal GENERAL: Yes normal visual inspection and Yes trachea midline THYROID: Thyroid normal CAROTIDS: No bruit CERVICAL SPINE: Yes cervical ROM normal Lymph: OTHER: No cervical or supraclavicular LAD Resp: OTHER: Expiratory wheezes on auscultation of bilateral lung de la torre. Cardio: OTHER: RRR, difficult to appreciate murmurs rubs gallops GI: OTHER: bs+, distended, mild tenderness to the epigastrium and right upper quadrant and right lower quadrant. No guarding, no rigidity, no rebound tenderness. Extremity: GENERAL: No clubbing, No cyanosis and No edema Neuro: SENSORIUM/ORIENTATION: Yes oriented to person, Yes oriented to place and Yes oriented to time CRANIAL NERVES: Yes CN normal except as noted S PEECH: Other neuro speech findings (Garbled speech) SENSORY EXAM: No sensory level loss detected MOTOR EXAM: Normal motor muscle tone present throughout Psych: COMMON NORMALS: mental status grossly normal, Normal thought process present, cooperative, normal affect, speech normal, denies homicidal ideation and denies suicidal ideation SPEECH: Yes normal speech THOUGHT PROCESS: N ormal thought process present Skin: OTHER: Jaundiced skin Urinary Catheter Management: Iglesias: Cath Placed During This Visit: yes Reason for Continuing Indwelling Catheter: Accurate Measurement of Urinary Output in Critically Ill Patients Urinary Catheter Date of Insertion: 08/24/24 Urinary Catheter Time of Insertion: 06:50 Data 08/26/24 03:40 08/26/24 03:40 Micro: Microbiology 08/24/24 19:06 Urine Culture - Final Urine Catheterized A&P Assessment and plan (1) Noncompliance: (2) Alcohol use disorder: (3) Benign essential hypertension with target blood pressure below 140/90: (4) CHF (congestive heart failure): (5) Nonischemic cardiomyopathy: (6) Hepatitis C antibody positive in blood: (7) Liver mass: (8) Cancer, metastatic to lung: (9) Septic shock: (10) COPD (chronic obstructive pulmonary disease): Qualifiers: COPD type: unspecified COPD Qualified Code(s): J44.9 - Chronic obstructive pulmonary disease, unspecified (11) Tobacco dependency: (12) Renal failure: (13) Lactic acidosis: (14) Goals of care, counseling/discussion: (15) Anuria: (16) Liver failure: (17) Hepatorenal syndrome: Plan #Septic shock #Acute renal failure #Hepatorenal syndrome #Anion gap metabolic acidosis #Hyperkalemia #Possible hepatocellular carcinoma/liver mass with lung mets #Chronic systolic congestive heart failure #COPD #Untreated hepatitis C #Decompensated liver cirrhosis with ascites #History of alcohol abuse #Tobacco use #Hypertension ? Patient's last alcohol use was 3-1/2 weeks ago. ? Does have untreated hepatitis C -Possibly does have primary hepatocellular carcinoma with lung mets -At this time requiring 2 vasopressors. Continue Levophed titratable and vasopressin at fixed dose per sepsis. ? Continue vancomycin and meropenem. ? Check blood cultures, sputum culture Gram stain, urine culture -CT chest abdomen pelvis reviewed from admission, appreciate large liver mass ? Consult nephrology. Patient not a candidate at this time for dialysis secondary to high vasopressor requirements ? Did have a goals of care discussion. Patient would like to continue to be a full code at this time. States would also like a feeding tube if needed ? I have a suspicion patient is noncompliant to treatment as he has not seen his doctor in quite some time. ? Discussed with patient that his prognosis is poor given the current condition. If patient was to improve from this episode we will obtain oncology consultation. ? Lactic acidosis most likely secondary to renal failure. ? Query SBP? ? Will order paracentesis and send for fluid analysis ? Continue antibiotics at this time ? Echo ordered which is pending ? Hold home antihypertensives ? DVT prophylaxis heparin ordered, GI prophylaxis pantoprazole ordered at this time -Ordered morphine 4 mg every 6 hours as needed for pain. Full code Prognosis is guarded Discussed with nephrology at length over the phone. Discussed with nursing staff. 08/25/2024 - Urine output has improved. 800 cc overnight. Creatinine plateaued. ? Add IV albumin every 8 hours and midodrine. ? Received a call from radiology. Not enough fluid in paracolic gutters for paracentesis. Not even enough to obtain tiny sample for fluid analysis. ? Continue antibiotics at this time. ? Continue bicarb drip. ? Continue to wean off pressors as able ? Continue to maintain n.p.o. status secondary to vasopressor requirement. ? Will place on oral diet once pressors are lower. I have concerns about bowel ischemia with high vasopressor requirements if fed. Will consider PPN today. Will discuss with dietitian. ? Hopefully if patient improves and is medically optimized we will obtain oncology consultation as an outpatient. Overall patient carries a poor prognosis even if he survives this hospitalization. ? Still not a candidate for dialysis. Continue to monitor the situation. ? Nephrology following 08/26/24 ?Patient had 750 urine output overnight. Creatinine improving to 3.2. ? IV albumin 3 doses given. We have discontinued that ? Continue on midodrine 10 3 times daily ? Patient is off Levophed. Continue vasopressin and wean off as able ? Continue bicarb drip at this time ? Start patient on GI soft diet, low-sodium ? Nephrology following ? Will discuss with oncology regarding prognostication for patient's cancer ? Patient is not a candidate for surgical intervention at this time or even chemo secondary to vasopressor requirements. He is in liver failure. ? Had a discussion with patient regarding treatment of hepatitis C for which he states he was never treated for it and when asked why he states I do not know. Had a discussion regarding further chemoradiation potential surgery for cancer and says he is undecided on treatment. He does not know if he wants treatment or not. He has not seen an oncologist yet however knows that he has cancer. ? Prognosis is guarded. Attestations 2 Medical Necessity Statement*: critically ill in ICU, acute renal failure Critical Care Time: The high probability of a clinically significant, sudden or life threatening deterioration of the patient's [renal, cardiovascular, gi] system(s) required my full and direct attention, intervention and personal management. The critical care time is as shown. This time is in addition to time spent performing any reported procedures but includes the following: [x] Data and vital sign review and interpretation [x] Patient assessment, examination and intervention [x] Documentation [x] Medication orders and management Critical Care Time (min): 30 Critical Care Time (min): 30 Coding Level of Care Code Acute Code for Chg Fwd Diagnoses Noncompliance Z91.19 Alcohol use disorder F10.90 Benign essential hypertension with target blood pressure below 140/90 I10 CHF (congestive heart failure) I50.9 Nonischemic cardiomyopathy I42.8 Hepatitis C antibody positive in blood R76.8 Liver mass R16.0 Cancer, metastatic to lung C78.00 Septic shock A41.9; R65.21 Chronic obstructive pulmonary disease, unspecified COPD type J44.9 COPD type: unspecified COPD Tobacco dependency F17.200 Renal failure N19 Lactic acidosis E87.20 Goals of care, counseling/discussion Z71.89 Anuria R34 Liver failure K72.90 Hepatorenal syndrome K76.7
--- NOTE | 2024-08-26 10:46 | P.PN_ITS ---
Subjective 2 Subjective: UOP picked up , Levophed off , off O2 Medications: Reviewed: Yes Vitals/I&O/Wt Last Vital Signs Temp 97.1 F L 08/26/24 07:15 Pulse 108 H 08/26/24 08:15 Resp 18 08/26/24 08:15 BP 92/57 08/26/24 08:15 Pulse Ox 95 08/26/24 08:15 O2 Del Method Nasal Cannula 08/26/24 08:15 O2 Flow Rate 2 08/26/24 08:15 08/25/24 08/26/24 08/26/24 22:59 06:59 14:59 Intake Total 1049.342 / 2188.792 783.783 / 2972.575 Output Total 200 / 525 550 / 1075 Balance 849.342 / 1663.792 233.783 / 1897.575 Weight last 48 hrs Weight 77.836 kg Weight 76.839 kg Physical Exam 2 Narrative: awake , alert no distress S1S2 RRR per report Lungs clear per report No edema Urinary Catheter Management: Iglesias: Cath Placed During This Visit: yes Reason for Continuing Indwelling Catheter: Accurate Measurement of Urinary Output in Critically Ill Patients Urinary Catheter Date of Insertion: 08/24/24 Urinary Catheter Time of Insertion: 06:50 Data 08/26/24 03:40 08/26/24 03:40 Micro: Microbiology 08/24/24 19:06 Urine Culture - Final Urine Catheterized A&P Assessment and plan (1) Acute kidney injury: 1. Acute kidney injury: Severe GORDO associated with metabolic acidosis and hyperkalemia,- underlying liver disease from hepatocellular carcinoma - pressor requirement decreased , UOP picked up , Cr improved -Added IV albumin and midodrine 2. Acidosis: Anion gap, secondary to lactic acidosis, on bicarbonate drip --> Switch to NS 3. Hyperkalemia: improved with medical management 4. Liver mass with lung mets, highly suspicious for metastatic hepatocellular cancer. 5. CHF with low ejection fraction Attestations 2 Medical Necessity Statement*: PER [facility] Coding Level of Care Code Acute Code for Chg Fwd Diagnoses Acute kidney injury N17.9
[2024-08-26 13:13] LABS: Glucose Point of Care 228 mg/dL (70-110)
[2024-08-26] MEDS: vasopressin 40 UNIT/100 ML PREMIX IV (13:28)
--- NOTE | 2024-08-26 13:31 | PC.NURSE ---
Per Doctor Gissel, this nurse can titrate the vasopressin down.
[2024-08-26 14:07] LABS: Gamma Glutamyl Transferase 51 U/L (8-61)
[2024-08-26 14:25] LABS: HIV 1 & 2 Antibody Non-Reactive (Non-Reactiv); HIV 1 & 2 Antigen Non-Reactive (Non-Reactiv)
[2024-08-26 14:30] LABS: Hepatitis A Antibody IgM Non-Reactive (Nonreactive); Hepatitis B Core AB, Total Non-Reactive (Nonreactive); Hepatitis B Surface AB < 3.5 (11.5-1000); Hepatitis B Surface Antigen Non-Reactive (Nonreactive); Hepatitis C Virus Antibody Reactive (Nonreactive)
[2024-08-26] MEDS: FUROsemide 10 mg/mL SDV 4mL 40 MG IVP (17:34)
[2024-08-26 17:41] LABS: Glucose Point of Care 179 mg/dL (70-110)
[2024-08-26 20:33] LABS: Glucose Point of Care 133 mg/dL (70-110)
[2024-08-26] MEDS: lanolin oint 7 gm 1 APPLIC TOPICAL (20:37)
[2024-08-26] MEDS: sennosides 8.6 mg Tablet 17.2 MG PO (20:38)
[2024-08-27] VITALS (107 sets, daily range): BP systolic 87–116; BP diastolic 55–85; PULSE 78–126; RESP 9–28; TEMP 36.1–36.6; O2SAT 87–95; BMI 24.6
[2024-08-27] MEDS: ipratropium-albuterol 3 mL Neb INHALATION ×6 (00:05→23:47)
[2024-08-27] MEDS: albumin 25 G/100 ML BAG 60 G IV ×3 (00:18→18:06)
[2024-08-27] MEDS: FUROsemide 10 mg/mL SDV 4mL 40 MG IVP ×3 (00:18→18:06)
[2024-08-27] MEDS: morphine 4 mg/mL SDV 1 mL IVP (00:26)
[2024-08-27 00:37] LABS: Glucose Point of Care 119 mg/dL (70-110)
[2024-08-27] MEDS: ondansetron 2 mg/ML SDV 2 mL 4 MG IVP (01:01)
[2024-08-27 05:09] LABS: Glucose Point of Care 123 mg/dL (70-110)
[2024-08-27 05:13] LABS: INR 1.46 (0.8-1.2)
[2024-08-27 05:14] LABS: Partial Thromboplastin Time 35.9 SECONDS (23.9-36.7)
[2024-08-27 05:25] LABS: Anion Gap 20.6 (5-19); Calcium 8.1 mg/dL (8.5-10.5); Carbon Dioxide 29 mmol/L (22-29); Chloride 94 mmol/L (98-107); Glomerular Filtration Rate 26.3 mL/min (90-130); Glucose 126 mg/dL (65-115); Potassium 3.6 mmol/L (3.5-5.1); Sodium 140 mmol/L (136-145)
[2024-08-27 05:26] LABS: Alanine Aminotransferase 17 U/L (0-41); Albumin Level 3.2 g/dL (3.5-5.2); Alkaline Phosphatase 130 U/L (40-130); Aspartate Amino Transferase 38 U/L (0-40); Globulin 2.2 g/dL (1.3-4.6); Total Bilirubin 4.2 mg/dL (0.15-1.2); Total Protein 5.4 g/dL (6.6-8.7)
[2024-08-27 05:34] LABS: Osmolality Calculated 327 mOsm/kg (285-295)
[2024-08-27 05:49] LABS: Blood Urea Nitrogen 112 mg/dL (8-23)
[2024-08-27] MEDS: meropenem 500 mg SDV IVP ×2 (06:10→18:05)
[2024-08-27] MEDS: pantoprazole 40 mg SDV IVP (06:10)
--- NOTE | 2024-08-27 07:13 | PC.NURSE ---
Patient was educated on the importance of turning in bed from side to side every 2 hours to prevent pressure Injuries. PAtient stated that they understood and that they will do this themselves. This nurse offered to help them sit in a recliner to help with pneumonia prevention and muscle waist. Patient declined the offer.
[2024-08-27 07:15] LABS: Glucose Point of Care 119 mg/dL (70-110)
--- NOTE | 2024-08-27 07:37 | P.PN_ITS ---
Subjective 2 Subjective: The patient was seen and examined. He states he is feeling better decrease nausea no vomiting shortness of breath chest pain headaches itching cramps or diarrhea. Medications: Reviewed: Yes Medication Review Details: Current Medications Acetaminophen (Acetaminophen 325 Mg Tablet) 650 mg PO Q6H PRN PRN Reason: MILD PAIN Albuterol/Ipratropium (Ipratropium-Albuterol 3 Ml Neb) 3 ml INHALATION Q4H.RESPIRATORY ROSARIO Last Admin: 08/27/24 03:36 Dose: 3 ml Docusate Sodium (Docusate Sodium 100 Mg Capsule) 100 mg PO BID ROSARIO Last Admin: 08/26/24 17:35 Dose: 100 mg Furosemide (Furosemide 10 Mg/Ml Sdv 4ml) 40 mg IVP Q8H [facility] Last Admin: 08/27/24 00:18 Dose: 40 mg Norepinephrine Bitartrate (Levophed) 4 mg in 250 mls @ 0 mls/hr IV .Q0M [facility]; Protocol Last Titration: 08/25/24 21:44 Dose: 0 mcg/min, 0 mls/hr Vasopressin (Vasostrict) 40 unit in 100 mls @ 4.5 mls/hr IV CONT ROSARIO Last Infusion: 08/26/24 18:11 Dose: 0 unit/min, 0 mls/hr Albumin Human (Albumin) 25 g in 100 mls @ 60 mls/hr IV Q8H [facility]ARIO Last Infusion: 08/27/24 05:18 Dose: Infused Insulin Human Lispro (Insulin Lispro 100 Unit/1 Ml) 0 unit SUBCUT WM&BEDTIME [facility]; Protocol Last Admin: 08/27/24 07:19 Dose: Not Given Lanolin (Lanolin Oint 7 Gm) 1 applic TOPICAL PRN PRN PRN Reason: DRYNESS Last Admin: 08/26/24 20:37 Dose: 1 applic Meropenem (Meropenem 500 Mg Sdv) 500 mg IVP Q12H [facility] Last Admin: 08/27/24 06:10 Dose: 500 mg Methylprednisolone Sodium Succinate (Methylprednisolone Sod Succ 125 Mg/2 Ml Inj) 60 mg IVP DAILY [facility] Last Admin: 08/26/24 08:15 Dose: 60 mg Midodrine (Midodrine 5 Mg Tablet) 10 mg PO TID ROSARIO Last Admin: 08/26/24 20:38 Dose: 10 mg Morphine Sulfate (Morphine 4 Mg/Ml Sdv 1 Ml) 4 mg IVP Q6H PRN PRN Reason: SEVERE PAIN Last Admin: 08/27/24 00:26 Dose: 4 mg Ondansetron HCl (Ondansetron 2 Mg/Ml Sdv 2 Ml) 4 mg IVP Q6H PRN PRN Reason: NAUSEA AND VOMITING Last Admin: 08/27/24 01:01 Dose: 4 mg Ondansetron HCl (Ondansetron 4 Mg Tablet) 4 mg PO Q6H PRN PRN Reason: NAUSEA Pantoprazole Sodium (Pantoprazole 40 Mg Sdv) 40 mg IVP Q24H [facility] Last Admin: 08/27/24 06:10 Dose: 40 mg Senna (Sennosides 8.6 Mg Tablet) 17.2 mg PO BEDTIME [facility] Last Admin: 08/26/24 20:38 Dose: 17.2 mg Vancomycin HCl (Vancomycin 1,000 Mg Sdv (Pharmacy Mix)) 0 mg XX PRN PRN PRN Reason: Pharmacy to Dose Vitals/I&O/Wt Last Vital Signs Temp 97.9 F 08/27/24 04:45 Pulse 101 H 08/27/24 06:00 Resp 26 H 08/27/24 06:00 BP 96/61 08/27/24 06:00 Pulse Ox 94 08/27/24 05:45 O2 Del Method Nasal Cannula 08/27/24 05:45 O2 Flow Rate 2 08/27/24 05:45 08/26/24 08/27/24 08/27/24 22:59 06:59 14:59 Intake Total 1105.75 / 1127.65 100 / 1227.65 Output Total 450 / 450 300 / 750 Balance 655.75 / 677.65 -200 / 477.65 Weight last 48 hrs Weight 78 kg Weight 77.836 kg Physical Exam 2 Narrative: Vital signs noted. Patient remains icteric. nard, heent- nc/at Lungs are clear. Heart regular positive S1-S2 Abdomen soft positive for bowel sounds. Extremities no edema. Neuro awake alert oriented x 3. Skin icteric. Urinary Catheter Management: Iglesias: Cath Placed During This Visit: yes Reason for Continuing Indwelling Catheter: Accurate Measurement of Urinary Output in Critically Ill Patients Urinary Catheter Date of Insertion: 08/24/24 Urinary Catheter Time of Insertion: 06:50 Data 08/26/24 03:40 08/27/24 04:49 Micro: Microbiology 08/24/24 19:06 Urine Culture - Final Urine Catheterized A&P Assessment and plan (1) Acute kidney injury: 64-year-old gentleman Underlying liver disease with hepatocellular carcinoma with acute kidney injury. Patient has underlying hypertension ,COPD 1 CT scan revealed large liver mass. 2. Acute kidney injury improving at this time.Monitor potassium 3. Echo reviewed EF of 60% with significant improvement from previous echo with an EF of 25% to currently 60. 4. Anemia monitor hemoglobin. Please also note patient has thrombocytopenia both likely due to liver and spleen disease 5. Repeat phosphorus. Abnormal liver function. meds reviewed - steroids as per medicine Plan see above Attestations 2 Medical Necessity Statement*: liver mass, improving pipe Time Spent in Patient Care: 16 - 35 minutes (>than 50% of time sp ent in counselling and/or direct pt care on unit) . Coding Level of Care Code Acute Code for [facility] Diagnoses Acute kidney injury N17.9
[2024-08-27] MEDS: methylPREDNISolone sod succ 125 mg/2 mL INJ 60 MG IVP (09:38)
[2024-08-27] MEDS: midodrine 5 mg TABLET 10 MG PO ×3 (09:39→21:13)
[2024-08-27] MEDS: docusate sodium 100 mg Capsule PO ×2 (09:39→18:06)
[2024-08-27 12:09] LABS: Glucose Point of Care 150 mg/dL (70-110)
[2024-08-27] MEDS: insulin lispro 100 unit/1 mL SUBCUT ×3 (12:10→21:13)
--- NOTE | 2024-08-27 13:52 | P.PN_ITS ---
Subjective 2 Subjective: Patient is HIV negative, total bilirubin 4.2, direct bilirubin 3.0, GGT elevated ? Patient is off pressors at this time. INR 1.46 had a long discussion with him regarding further plan and disposition. [facility] ? Says does not have running water at home lives with a friend. Does not want me to call his daughter today and he wants to wait. However he does state that he wants to involve her. Discussed DPOA paperwork with him. Discussed if he is interested in signing a DPOA going forward since he has a terminal illness and he may get admitted with altered mental status going forward and will need someone to make medical decisions on his behalf. He states he will think about this. However is not ready to sign anything today. He states this is a lot of information and it is a lot to process for him. He is unsure on what he wants to do. He states he would like to get treated for cancer if possible however when asked how he will get to his appointments he states I do not know. He says I do not have transportation to go anywhere. Then asked if there was a friend who could take him to his appointments he said I do not now. Overall he wants to get help however does not know how to. Discussed with him regarding going to a nursing facility to which he states I do not want to do that. But is [facility]. He states he [facility] and anything else that he needs going forward. Also states he may be depressed He states he stopped drinking 5 days ago before admission to the hospital. At the same time quit smoking as well. He does not intend to restart. Vitals/I&O/Wt Last Vital Signs Temp 97.9 F 08/27/24 04:45 Pulse 105 H 08/27/24 12:13 Resp 16 08/27/24 12:13 BP 106/66 08/27/24 12:00 Pulse Ox 92 08/27/24 12:13 O2 Del Method Nasal Cannula 08/27/24 12:13 O2 Flow Rate 2 08/27/24 12:13 08/26/24 08/27/24 08/27/24 22:59 06:59 14:59 Intake Total 1105.75 / 1127.65 100 / 1227.65 220 / 220 Output Total 450 / 450 300 / 750 350 / 350 Balance 655.75 / 677.65 -200 / 477.65 -130 / -130 Weight last 48 hrs Weight 78 kg Weight 77.836 kg Physical Exam 2 Const: GENERAL APPEARANCE: cooperative, comfortable, ill appearing and frail appearing NUTRITIONAL APPEARANCE: cachectic ORIENTATION/CONSCIOUSNESS: Yes awake, Yes oriented to person, Yes oriented to place and Yes oriented to time HENMT: COMMON NORMALS: normocephalic, atraumatic, external ears normal and Normal external nose present HEAD & SCALP: normocephalic and atraumatic N OSE: Normal external nose present EXTERNAL EAR: Yes external ears normal M OUTH: Normal oral and palatal mucosa present THROAT: posterior oropharynx normal Eye: COMMON NORMALS: Equal, round and reactive pupils present CONJUNCTIVA: Yes conjunctival abnormal positive bilateral conjunctival icterus SCLERA: s cleral abnormal Laterality of scleral abnormality: positive bilateral scleral icterus PUPIL: Yes Equal, round and reactive pupils present EOM: No EOM abnormal Neck/C-Spine: COMMON NORMALS: Thyroid normal GENERAL: Yes normal visual inspection and Yes trachea midline THYROID: Thyroid normal CAROTIDS: No bruit CERVICAL SPINE: Yes cervical ROM normal Lymph: OTHER: No cervical or supraclavicular LAD Resp: OTHER: Expiratory wheezes on auscultation of bilateral lung de la torre. Cardio: OTHER: RRR, difficult to appreciate murmurs rubs gallops GI: OTHER: bs+, distended, mild tenderness to the epigastrium and right upper quadrant and right lower quadrant. No guarding, no rigidity, no rebound tenderness. Extremity: GENERAL: No clubbing, No cyanosis and No edema Neuro: SENSORIUM/ORIENTATION: Yes oriented to person, Yes oriented to place and Yes oriented to time CRANIAL NERVES: Yes CN normal except as noted S PEECH: Other neuro speech findings (Garbled speech) SENSORY EXAM: No sensory level loss detected MOTOR EXAM: Normal motor muscle tone present throughout Psych: COMMON NORMALS: mental status grossly normal, Normal thought process present, cooperative, normal affect, speech normal, denies homicidal ideation and denies suicidal ideation SPEECH: Yes normal speech THOUGHT PROCESS: N ormal thought process present Skin: OTHER: Jaundiced skin Urinary Catheter Management: Iglesias: Cath Placed During This Visit: yes Reason for Continuing Indwelling Catheter: Accurate Measurement of Urinary Output in Critically Ill Patients Urinary Catheter Date of Insertion: 08/24/24 Urinary Catheter Time of Insertion: 06:50 Data 08/26/24 03:40 08/27/24 04:49 Micro: Microbiology 08/24/24 19:06 Urine Culture - Final Urine Catheterized A&P Assessment and plan (1) Noncompliance: (2) Alcohol use disorder: (3) Benign essential hypertension with target blood pressure below 140/90: (4) CHF (congestive heart failure): (5) Nonischemic cardiomyopathy: (6) Hepatitis C antibody positive in blood: (7) Liver mass: (8) Cancer, metastatic to lung: (9) Septic shock: (10) COPD (chronic obstructive pulmonary disease): Qualifiers: COPD type: unspecified COPD Qualified Code(s): J44.9 - Chronic obstructive pulmonary disease, unspecified (11) Tobacco dependency: (12) Renal failure: (13) Lactic acidosis: (14) Goals of care, counseling/discussion: (15) Anuria: (16) Liver failure: (17) Hepatorenal syndrome: Plan #Septic shock #Acute renal failure #Alcohol abuse #Hepatorenal syndrome #Anion gap metabolic acidosis #Hyperkalemia #Possible hepatocellular carcinoma/liver mass with lung mets #Chronic systolic congestive heart failure?improved #COPD #Untreated hepatitis C #Decompensated liver cirrhosis with ascites #History of alcohol abuse #Tobacco use #Hypertension ? Patient's last alcohol use was 3-1/2 weeks ago. ? Does have untreated hepatitis C -Possibly does have primary hepatocellular carcinoma with lung mets -At this time requiring 2 vasopressors. Continue Levophed titratable and vasopressin at fixed dose per sepsis. ? Continue vancomycin and meropenem. ? Check blood cultures, sputum culture Gram stain, urine culture -CT chest abdomen pelvis reviewed from admission, appreciate large liver mass ? Consult nephrology. Patient not a candidate at this time for dialysis secondary to high vasopressor requirements ? Did have a goals of care discussion. Patient would like to continue to be a full code at this time. States would also like a feeding tube if needed ? I have a suspicion patient is noncompliant to treatment as he has not seen his doctor in quite some time. ? Discussed with patient that his prognosis is poor given the current condition. If patient was to improve from this episode we will obtain oncology consultation. ? Lactic acidosis most likely secondary to renal failure. ? Query SBP? ? Will order paracentesis and send for fluid analysis ? Continue antibiotics at this time ? Echo ordered which is pending ? Hold home antihypertensives ? DVT prophylaxis heparin ordered, GI prophylaxis pantoprazole ordered at this time -Ordered morphine 4 mg every 6 hours as needed for pain. Full code Prognosis is guarded Discussed with nephrology at length over the phone. Discussed with nursing staff. 08/25/2024 - Urine output has improved. 800 cc overnight. Creatinine plateaued. ? Add IV albumin every 8 hours and midodrine. ? Received a call from radiology. Not enough fluid in paracolic gutters for paracentesis. Not even enough to obtain tiny sample for fluid analysis. ? Continue antibiotics at this time. ? Continue bicarb drip. ? Continue to wean off pressors as able ? Continue to maintain n.p.o. status secondary to vasopressor requirement. ? Will place on oral diet once pressors are lower. I have concerns about bowel ischemia with high vasopressor requirements if fed. Will consider PPN today. Will discuss with dietitian. ? Hopefully if patient improves and is medically optimized we will obtain oncology consultation as an outpatient. Overall patient carries a poor prognosis even if he survives this hospitalization. ? Still not a candidate for dialysis. Continue to monitor the situation. ? Nephrology following 08/26/24 ?Patient had 750 urine output overnight. Creatinine improving to 3.2. ? IV albumin 3 doses given. We have discontinued that ? Continue on midodrine 10 3 times daily ? Patient is off Levophed. Continue vasopressin and wean off as able ? Continue bicarb drip at this time ? Start patient on GI soft diet, low-sodium ? Nephrology following ? Will discuss with oncology regarding prognostication for patient's cancer ? Patient is not a candidate for surgical intervention at this time or even chemo secondary to vasopressor requirements. He is in liver failure. ? Had a discussion with patient regarding treatment of hepatitis C for which he states he was never treated for it and when asked why he states I do not know. Had a discussion regarding further chemoradiation potential surgery for cancer and says he is undecided on treatment. He does not know if he wants treatment or not. He has not seen an oncologist yet however knows that he has cancer. ? Prognosis is guarded. 08/27/2024 Patient is off pressors at this time ? Continue albumin and midodrine. ? Continue Lasix 40 IV 3 times daily for diuresis ? Once blood pressure permits I will start patient on spironolactone ? Hepatitis C antibody positive, PCR quantification pending at this time. He states he has never been treated for it however was aware that he has hepatitis C. ? Recently quit taking alcohol and drank about a pint a day. Quit 5 days ago. Quit smoking 5 days ago as well. ? Will continue folic acid and thiamine. ? Continue meropenem total 7 days. Stop Vanco at 7 days. ? He will need oncology follow-up at discharge ? He will also need GI follow-up at discharge. ? Creatinine is 2.5 today. Most likely stabilized. ? Plan to discharge patient home in next 48 hours with outpatient follow-up. ? I believe this may be patient's new baseline. ? Check PT OT. Will place consult. ? Patient will most likely need rehab at discharge ? Continue to monitor in ICU today. Plan to transfer to floor if remains stable in next 24 hours. Attestations 2 Medical Necessity Statement*: Requires continued hospitalization for IV diuresis for hepatorenal syndrome. Diagnoses Noncompliance Z91.19 Alcohol use disorder F10.90 Benign essential hypertension with target blood pressure below 140/90 I10 CHF (congestive heart failure) I50.9 Nonischemic cardiomyopathy I42.8 Hepatitis C antibody positive in blood R76.8 Liver mass R16.0 Cancer, metastatic to lung C78.00 Septic shock A41.9; R65.21 Chronic obstructive pulmonary disease, unspecified COPD type J44.9 COPD type: unspecified COPD Tobacco dependency F17.200 Renal failure N19 Lactic acidosis E87.20 Goals of care, counseling/discussion Z71.89 Anuria R34 Liver failure K72.90 Hepatorenal syndrome K76.7
[2024-08-27] MEDS: folic acid 1 mg Tablet PO (14:35)
[2024-08-27 17:49] LABS: Glucose Point of Care 148 mg/dL (70-110)
[2024-08-27 20:32] LABS: Glucose Point of Care 152 mg/dL (70-110)
[2024-08-27] MEDS: sennosides 8.6 mg Tablet 17.2 MG PO (21:13)
[2024-08-28] VITALS (105 sets, daily range): BP systolic 86–126; BP diastolic 52–76; PULSE 87–933; RESP 10–29; TEMP 36.4–36.7; O2SAT 85–96; BMI 25.2
[2024-08-28] MEDS: FUROsemide 10 mg/mL SDV 4mL 40 MG IVP (00:44)
[2024-08-28] MEDS: morphine 4 mg/mL SDV 1 mL IVP (00:44)
[2024-08-28] MEDS: albumin 25 G/100 ML BAG 60 G IV ×3 (00:45→17:31)
[2024-08-28] MEDS: ipratropium-albuterol 3 mL Neb INHALATION ×6 (04:23→23:46)
[2024-08-28 04:55] LABS: Basophils % 0.2 %; Eosinophils % 0.2 %; Hematocrit 28.8 % (37-53); Lymphocytes # 1.1 10^3/uL (0.8-4.8); Mean Corpuscular Hemoglobin 32.9 pg (27-33); Mean Corpuscular Volume 99.7 fl (82-101); Mean Platelet Volume 12.6 fL (7.4-10.4); Monocytes # 0.5 10^3/uL (0.2-0.9); Neutrophils # 15.63 10^3/uL (1.8-7.7); Neutrophils % 89.9 %; Nucleated Red Blood Cells # 0.1 /100WBC; Nucleated Red Blood Cells % 0.6 %; Platelet Count 30 10^3/cmm (157-399); Red Blood Count 2.89 10^6/uL (3.85-5.65); Red Cell Distribution Width 17.4 % (12.1-15.1)
[2024-08-28 05:17] LABS: Alanine Aminotransferase 13 U/L (0-41); Albumin Level 3.6 g/dL (3.5-5.2); Alkaline Phosphatase 133 U/L (40-130); Anion Gap 21.8 (5-19); Aspartate Amino Transferase 29 U/L (0-40); Carbon Dioxide 29 mmol/L (22-29); Chloride 94 mmol/L (98-107); Creatinine Clr Calc Pharmacy 32.8467; Globulin 2.3 g/dL (1.3-4.6); Glomerular Filtration Rate 26.3 mL/min (90-130); Glucose 106 mg/dL (65-115); Magnesium 2.1 mg/dL (1.7-2.3); Phosphorus 6.7 mg/dL (2.5-4.5); Potassium 3.8 mmol/L (3.5-5.1); Sodium 141 mmol/L (136-145); Total Bilirubin 4.7 mg/dL (0.15-1.2); Total Protein 5.9 g/dL (6.6-8.7)
[2024-08-28 05:27] LABS: Osmolality Calculated 329 mOsm/kg (285-295)
[2024-08-28 05:28] LABS: Blood Urea Nitrogen 116 mg/dL (8-23)
[2024-08-28] MEDS: meropenem 500 mg SDV IVP ×2 (06:04→17:45)
[2024-08-28] MEDS: pantoprazole 40 mg SDV IVP (06:04)
[2024-08-28 07:40] LABS: Glucose Point of Care 121 mg/dL (70-110)
--- NOTE | 2024-08-28 07:42 | PM.PN ---
Subjective Subjective: seen and exmained. feels better. dec uop overnight. no n/v/f/c/camarena/d Medications: Reviewed: Yes Medication Review Details: Current Medications Acetaminophen (Acetaminophen 325 Mg Tablet) 650 mg PO Q6H PRN PRN Reason: MILD PAIN Albuterol/Ipratropium (Ipratropium-Albuterol 3 Ml Neb) 3 ml INHALATION Q4H.RESPIRATORY ROSARIO Last Admin: 08/28/24 04:23 Dose: 3 ml Docusate Sodium (Docusate Sodium 100 Mg Capsule) 100 mg PO BID ROSARIO Last Admin: 08/27/24 18:06 Dose: 100 mg Folic Acid (Folic Acid 1 Mg Tablet) 1 mg PO DAILY [facility] Last Admin: 08/27/24 14:35 Dose: 1 mg Furosemide (Furosemide 10 Mg/Ml Sdv 4ml) 40 mg IVP Q8H [facility] Last Admin: 08/28/24 00:44 Dose: 40 mg Norepinephrine Bitartrate (Levophed) 4 mg in 250 mls @ 0 mls/hr IV .Q0M [facility]; Protocol Last Titration: 08/25/24 21:44 Dose: 0 mcg/min, 0 mls/hr Vasopressin (Vasostrict) 40 unit in 100 mls @ 4.5 mls/hr IV CONT [facility] Last Admin: 08/27/24 11:37 Dose: Not Given Albumin Human (Albumin) 25 g in 100 mls @ 60 mls/hr IV Q8H [facility] Last Infusion: 08/28/24 04:29 Dose: Infused Insulin Human Lispro (Insulin Lispro 100 Unit/1 Ml) 0 unit SUBCUT WM&BEDTIME [facility]; Protocol Last Admin: 08/27/24 21:13 Dose: 2 unit Lanolin (Lanolin Oint 7 Gm) 1 applic TOPICAL PRN PRN PRN Reason: DRYNESS Last Admin: 08/26/24 20:37 Dose: 1 applic Meropenem (Meropenem 500 Mg Sdv) 500 mg IVP Q12H [facility] Last Admin: 08/28/24 06:04 Dose: 500 mg Methylprednisolone Sodium Succinate (Methylprednisolone Sod Succ 125 Mg/2 Ml Inj) 60 mg IVP DAILY [facility] Last Admin: 08/27/24 09:38 Dose: 60 mg Midodrine (Midodrine 5 Mg Tablet) 10 mg PO TID ROSARIO Last Admin: 08/27/24 21:13 Dose: 10 mg Morphine Sulfate (Morphine 4 Mg/Ml Sdv 1 Ml) 4 mg IVP Q6H PRN PRN Reason: SEVERE PAIN Last Admin: 08/28/24 00:44 Dose: 4 mg Ondansetron HCl (Ondansetron 2 Mg/Ml Sdv 2 Ml) 4 mg IVP Q6H PRN PRN Reason: NAUSEA AND VOMITING Last Admin: 08/27/24 01:01 Dose: 4 mg Ondansetron HCl (Ondansetron 4 Mg Tablet) 4 mg PO Q6H PRN PRN Reason: NAUSEA Pantoprazole Sodium (Pantoprazole 40 Mg Sdv) 40 mg IVP Q24H [facility] Last Admin: 08/28/24 06:04 Dose: 40 mg Senna (Sennosides 8.6 Mg Tablet) 17.2 mg PO BEDTIME [facility] Last Admin: 08/27/24 21:13 Dose: 17.2 mg Thiamine HCl (Thiamine 100 Mg/Ml Sdv) 100 mg IVP DAILY [facility] Last Admin: 08/27/24 14:35 Dose: 100 mg Vitals/I&O/Wt Last Vital Signs Temp 98.0 F 08/28/24 04:15 Pulse 102 H 08/28/24 06:00 Resp 18 08/28/24 05:45 BP 102/64 08/28/24 05:45 Pulse Ox 89 L 08/28/24 05:45 O2 Del Method Nasal Cannula 08/28/24 05:15 O2 Flow Rate 2 08/28/24 05:15 08/27/24 08/28/24 08/28/24 22:59 06:59 14:59 Intake Total 220 / 440 100 / 540 Output Total 175 / 525 250 / 775 Balance 45 / -85 -150 / -235 Weight last 48 hrs Weight 80 kg Weight 78 kg Physical Exam Narrative: Vital signs noted. Patient remains icteric. nard, heent- nc/at Lungs are clear. Heart regular positive S1-S2 Abdomen soft positive for bowel sounds. Extremities no edema. Neuro awake alert oriented x 3. Skin icteric. Urinary Catheter Management: [place]: Cath Placed During This Visit: yes Reason for Continuing Indwelling Catheter: Accurate Measurement of Urinary Output in Critically Ill Patients Urinary Catheter Date of Insertion: 08/24/24 Urinary Catheter Time of Insertion: 06:50 Data 08/28/24 04:25 08/28/24 04:25 A&P Assessment and plan (1) Acute kidney injury: 64-year-old gentleman Underlying liver disease with hepatocellular carcinoma with acute kidney injury. Patient has underlying hypertension ,COPD 1 CT scan revealed large liver mass. 2. Acute kidney injury improved- now cr stable. ensure he is not obstructed d/c furosemide. he may need fluids monitor uop flush [place] monitor chemistries 3. Echo reviewed EF of 60% with significant improvement from previous echo with an EF of 25% to currently 60. 4. Anemia - improving hemoglobin. Please also note patient has thrombocytopenia both likely due to liver and spleen disease 5. leukocytosis has worsened 6. phos slowly improving Abnormal liver function. meds reviewed - steroids as per medicine seen and examined using audio- visual equipment w/ the AIde of a nurse pt consents to telehealth Plan see above Attestations Medical Necessity Statement*: liver mass, icteric, pipe Time Spent in Patient Care: 16 - 35 minutes (>than 50% of time spent in counselling and/or direct pt care on unit). Coding Level of Care Code Acute Code for g Fwd Diagnoses Acute kidney injury N17.9
[2024-08-28] MEDS: folic acid 1 mg Tablet PO (08:49)
[2024-08-28] MEDS: docusate sodium 100 mg Capsule PO ×2 (08:49→17:31)
[2024-08-28] MEDS: methylPREDNISolone sod succ 125 mg/2 mL INJ 60 MG IVP (08:49)
[2024-08-28] MEDS: midodrine 5 mg TABLET 10 MG PO ×3 (08:49→21:32)
[2024-08-28 11:52] LABS: Glucose Point of Care 131 mg/dL (70-110)
[2024-08-28] MEDS: acetaminophen 325 mg Tablet 650 MG PO (12:12)
--- NOTE | 2024-08-28 14:13 | P.PN_ITS ---
Subjective 2 Subjective: Seen this morning. Urine output has reduced over the last 24 hours. Patient has appearing to be dehydrated at this time as well. Blood pressure is stable however on the softer side. Platelets are 30. White count jumped to 17,000 this morning. He is currently on meropenem. Patient undecided on DPOA. Discussed with him again regarding plan going forward. [facility] Vitals/I&O/Wt Last Vital Signs Temp 97.5 F L 08/28/24 08:45 Pulse 101 H 08/28/24 14:00 Resp 17 08/28/24 14:00 BP 95/66 08/28/24 14:00 Pulse Ox 91 08/28/24 14:00 O2 Del Method Nasal Cannula 08/28/24 14:00 O2 Flow Rate 2 08/28/24 14:00 08/27/24 08/28/24 08/28/24 22:59 06:59 14:59 Intake Total 220 / 440 100 / 540 Output Total 175 / 525 250 / 775 250 / 250 Balance 45 / -85 -150 / -235 -250 / -250 Weight last 48 hrs Weight 80 kg Weight 78 kg Physical Exam 2 Const: GENERAL APPEARANCE: cooperative, comfortable, ill appearing and frail appearing NUTRITIONAL APPEARANCE: cachectic ORIENTATION/CONSCIOUSNESS: Yes awake, Yes oriented to person, Yes oriented to place and Yes oriented to time HENMT: COMMON NORMALS: normocephalic, atraumatic, external ears normal and Normal external nose present HEAD & SCALP: normocephalic and atraumatic N OSE: Normal external nose present EXTERNAL EAR: Yes external ears normal M OUTH: Normal oral and palatal mucosa present THROAT: posterior oropharynx normal Eye: COMMON NORMALS: Equal, round and reactive pupils present CONJUNCTIVA: Yes conjunctival abnormal positive bilateral conjunctival icterus SCLERA: s cleral abnormal Laterality of scleral abnormality: positive bilateral scleral icterus PUPIL: Yes Equal, round and reactive pupils present EOM: No EOM abnormal Neck/C-Spine: COMMON NORMALS: Thyroid normal GENERAL: Yes normal visual inspection and Yes trachea midline THYROID: Thyroid normal CAROTIDS: No bruit CERVICAL SPINE: Yes cervical ROM normal Lymph: OTHER: No cervical or supraclavicular LAD Resp: OTHER: Expiratory wheezes on auscultation of bilateral lung de la torre. Cardio: OTHER: RRR, difficult to appreciate murmurs rubs gallops GI: OTHER: bs+, distended, mild tenderness to the epigastrium and right upper quadrant and right lower quadrant. No guarding, no rigidity, no rebound tenderness. Extremity: GENERAL: No clubbing, No cyanosis and No edema Neuro: SENSORIUM/ORIENTATION: Yes oriented to person, Yes oriented to place and Yes oriented to time CRANIAL NERVES: Yes CN normal except as noted S PEECH: Other neuro speech findings (Garbled speech) SENSORY EXAM: No sensory level loss detected MOTOR EXAM: Normal motor muscle tone present throughout Psych: COMMON NORMALS: mental status grossly normal, Normal thought process present, cooperative, normal affect, speech normal, denies homicidal ideation and denies suicidal ideation SPEECH: Yes normal speech THOUGHT PROCESS: N ormal thought process present Skin: OTHER: Jaundiced skin Urinary Catheter Management: Iglesias: Cath Placed During This Visit: yes Reason for Continuing Indwelling Catheter: Accurate Measurement of Urinary Output in Critically Ill Patients Urinary Catheter Date of Insertion: 08/24/24 Urinary Catheter Time of Insertion: 06:50 Data 08/28/24 04:25 08/28/24 04:25 A&P Assessment and plan (1) Noncompliance: (2) Alcohol use disorder: (3) Benign essential hypertension with target blood pressure below 140/90: (4) CHF (congestive heart failure): (5) Nonischemic cardiomyopathy: (6) Hepatitis C antibody positive in blood: (7) Liver mass: (8) Cancer, metastatic to lung: (9) Septic shock: (10) COPD (chronic obstructive pulmonary disease): Qualifiers: COPD type: unspecified COPD Qualified Code(s): J44.9 - Chronic obstructive pulmonary disease, unspecified (11) Tobacco dependency: (12) Renal failure: (13) Lactic acidosis: (14) Goals of care, counseling/discussion: (15) Anuria: (16) Liver failure: (17) Hepatorenal syndrome: Plan #Septic shock #Acute renal failure #Alcohol abuse #Hepatorenal syndrome #Anion gap metabolic acidosis #Hyperkalemia #Possible hepatocellular carcinoma/liver mass with lung mets #Chronic systolic congestive heart failure?improved #COPD #Untreated hepatitis C #Decompensated liver cirrhosis with ascites #History of alcohol abuse #Tobacco use #Hypertension ? Patient's last alcohol use was 3-1/2 weeks ago. ? Does have untreated hepatitis C -Possibly does have primary hepatocellular carcinoma with lung mets -At this time requiring 2 vasopressors. Continue Levophed titratable and vasopressin at fixed dose per sepsis. ? Continue vancomycin and meropenem. ? Check blood cultures, sputum culture Gram stain, urine culture -CT chest abdomen pelvis reviewed from admission, appreciate large liver mass ? Consult nephrology. Patient not a candidate at this time for dialysis secondary to high vasopressor requirements ? Did have a goals of care discussion. Patient would like to continue to be a full code at this time. States would also like a feeding tube if needed ? I have a suspicion patient is noncompliant to treatment as he has not seen his doctor in quite some time. ? Discussed with patient that his prognosis is poor given the current condition. If patient was to improve from this episode we will obtain oncology consultation. ? Lactic acidosis most likely secondary to renal failure. ? Query SBP? ? Will order paracentesis and send for fluid analysis ? Continue antibiotics at this time ? Echo ordered which is pending ? Hold home antihypertensives ? DVT prophylaxis heparin ordered, GI prophylaxis pantoprazole ordered at this time -Ordered morphine 4 mg every 6 hours as needed for pain. Full code Prognosis is guarded Discussed with nephrology at length over the phone. Discussed with nursing staff. 08/25/2024 - Urine output has improved. 800 cc overnight. Creatinine plateaued. ? Add IV albumin every 8 hours and midodrine. ? Received a call from radiology. Not enough fluid in paracolic gutters for paracentesis. Not even enough to obtain tiny sample for fluid analysis. ? Continue antibiotics at this time. ? Continue bicarb drip. ? Continue to wean off pressors as able ? Continue to maintain n.p.o. status secondary to vasopressor requirement. ? Will place on oral diet once pressors are lower. I have concerns about bowel ischemia with high vasopressor requirements if fed. Will consider PPN today. Will discuss with dietitian. ? Hopefully if patient improves and is medically optimized we will obtain oncology consultation as an outpatient. Overall patient carries a poor prognosis even if he survives this hospitalization. ? Still not a candidate for dialysis. Continue to monitor the situation. ? Nephrology following 08/26/24 ?Patient had 750 urine output overnight. Creatinine improving to 3.2. ? IV albumin 3 doses given. We have discontinued that ? Continue on midodrine 10 3 times daily ? Patient is off Levophed. Continue vasopressin and wean off as able ? Continue bicarb drip at this time ? Start patient on GI soft diet, low-sodium ? Nephrology following ? Will discuss with oncology regarding prognostication for patient's cancer ? Patient is not a candidate for surgical intervention at this time or even chemo secondary to vasopressor requirements. He is in liver failure. ? Had a discussion with patient regarding treatment of hepatitis C for which he states he was never treated for it and when asked why he states I do not know. Had a discussion regarding further chemoradiation potential surgery for cancer and says he is undecided on treatment. He does not know if he wants treatment or not. He has not seen an oncologist yet however knows that he has cancer. ? Prognosis is guarded. 08/27/2024 Patient is off pressors at this time ? Continue albumin and midodrine. ? Continue Lasix 40 IV 3 times daily for diuresis ? Once blood pressure permits I will start patient on spironolactone ? Hepatitis C antibody positive, PCR quantification pending at this time. He states he has never been treated for it however was aware that he has hepatitis C. ? Recently quit taking alcohol and drank about a pint a day. Quit 5 days ago. Quit smoking 5 days ago as well. ? Will continue folic acid and thiamine. ? Continue meropenem total 7 days. Stop Vanco at 7 days. ? He will need oncology follow-up at discharge ? He will also need GI follow-up at discharge. ? Creatinine is 2.5 today. Most likely stabilized. ? Plan to discharge patient home in next 48 hours with outpatient follow-up. ? I believe this may be patient's new baseline. ? Check PT OT. Will place consult. ? Patient will most likely need rehab at discharge ? Continue to monitor in ICU today. Plan to transfer to floor if remains stable in next 24 hours. 08/28/2024 ?Patient is off vasopressors at this time ? Continue albumin, midodrine ? Stop Lasix as per nephrology recommendations ? Blood pressure soft. Will hold off on adding spironolactone today. ? Vancomycin is temporary held by pharmacy secondary to high trough. ? Stop meropenem and vancomycin at 7 days ? Patient is oncology follow-up GI follow-up. ? Creatinine 2.5. PT OT ? I have reached out to [facility] for transfer. Patient will need GI consultation going forward. They speak to their hospitalist and get back to me. [facility] be [facility] good [facility] for [facility] at this time especially for discharge planning and appointment coordination going forward. I have reached out to them and awaiting a callback at this time. Patient also requesting transfer to the [facility]. Attestations 2 Medical Necessity Statement*: Requires continued hospitalization for IV diuresis for hepatorenal syndrome. Diagnoses Noncompliance Z91.19 Alcohol use disorder F10.90 Benign essential hypertension with target blood pressure below 140/90 I10 CHF (congestive heart failure) I50.9 Nonischemic cardiomyopathy I42.8 Hepatitis C antibody positive in blood R76.8 Liver mass R16.0 Cancer, metastatic to lung C78.00 Septic shock A41.9; R65.21 Chronic obstructive pulmonary disease, unspecified COPD type J44.9 COPD type: unspecified COPD Tobacco dependency F17.200 Renal failure N19 Lactic acidosis E87.20 Goals of care, counseling/discussion Z71.89 Anuria R34 Liver failure K72.90 Hepatorenal syndrome K76.7
[2024-08-28 15:44] LABS: HEP C RNA Viral Load Quant 4690000 IU/mL (NOT DETECTED); HEP C RNA Viral Load Quant 6.67 Log IU/mL (NOT DETECTED)
[2024-08-28 17:26] LABS: Glucose Point of Care 166 mg/dL (70-110)
[2024-08-28] MEDS: insulin lispro 100 unit/1 mL SUBCUT ×2 (17:31→21:32)
[2024-08-28 21:07] LABS: Glucose Point of Care 167 mg/dL (70-110)
--- NOTE | 2024-08-28 21:27 | P.TS_ITS ---
Transfer Summary Providers Date of Admission: 08/23/24 22:52 Date of Discharge/Transfer: 08/28/24 Attending Provider at Admission: Bessy Hudson MD Attending Provider at Transfer: Lelo Chauhan MD Primary Care Provider: Kristy Carson MD Transfer Plans: Anticipated date of transfer: 08/28/24 . Diagnoses at Discharge Discharge Diagnosis (1) Noncompliance: Status: Acute (2) Alcohol use disorder: Status: Acute (3) Benign essential hypertension with target blood pressure below 140/90: Status: Acute (4) CHF (congestive heart failure): Status: Acute Permanent problem details: EF 25% on last echocardiogram. (5) Nonischemic cardiomyopathy: Status: Acute Permanent problem details: Angiogram 2017 no significant coronary plaque. (6) Hepatitis C antibody positive in blood: Status: Acute (7) Liver mass: Status: Acute (8) Cancer, metastatic to lung: Status: Acute (9) Septic shock: Status: Acute (10) COPD (chronic obstructive pulmonary disease): Status: Acute Qualifiers: COPD type: unspecified COPD Qualified Code(s): J44.9 - Chronic obstructive pulmonary disease, unspecified (11) Tobacco dependency: Status: Acute (12) Renal failure: Status: Acute (13) Lactic acidosis: Status: Acute (14) Goals of care, counseling/discussion: Status: Acute (15) Anuria: Status: Acute (16) Liver failure: Status: Acute (17) Hepatorenal syndrome: Status: Acute Reason for Visit Reason for Visit DOES NOT FEEL WELL Hospital Course Hospital Course Jose Carlos Armendariz is a 64 year old male 2/ COPD, chronic HFrEF, Untreated Hep C, HTN, alcohol and tobacco use d/o, who presents to the ED w/ complaints of 3 weeks of progressive weakness. In the ED, he was hypotensive to 66/55 and tachypneic to as high as 29. His labs were significant for a leukocytosis of 19.5, creatinine of 5.0, (Baseline of 1.0 in 03/2021). His UA showed bacteriuria. A CXR was done that was concerning for multiple new pulmonary nodules concerning for metastatic disease, so a CT chest abdomen/pelvis without contrast was done that showed severe metastatic disease to the lung, and a large mass in the right liver lobe concerning for primary HCC, with mild to moderate ascites. Patient was admitted in the ICU for concern related to septic shock however no active source of infection was identified, attempted paracentesis failed we were not able to obtain peritoneal fluid because of dilated bowel and small pocket in paracolic gutter, he was kept on broad-spectrum antibiotics, cultures remain negative, initially required 3 pressors which we were able to wean off gradually, patient received albumin as well, during hospitalization there was concern for hepatorenal syndrome with decreasing urine output, patient has been continued on midodrine along albumin, Lasix stopped as per nephrology recommendations, secondary to high trough level vancomycin was held, creatinine peaked at 2.5, patient has been accepted at [facility]. Patient has requested to go to the [place] going forward at the same time there is medical necessity of acute GI consult for untreated hepatitis C. [employer] reached out to the [place] for potential discharge to rehab at the [place] but they sugg delbertd to transfer patient to [facility] inpatient services. Physical Exam Narrative: ENERAL APPEARANCE: cooperative, comf ortable, ill appea ring and frail juliocesar earing NUTRITIONA L APPEARANCE: cach ectic ORIENTATION /CONSCIOUSNESS: Ye s awake, Yes orien austin to person, Yes oriented to place and Yes oriented to time HENMT: COMMON NORMALS: no rmocephalic, atrau matic, external ea rs normal and Norm al external nose p resent HEAD & SCA LP: normocephalic and atraumatic NO SE: Normal externa l nose present EX TERNAL EAR: Yes ex ternal ears normal MOUTH: Normal or al and palatal muc gm present THROA T: posterior oroph arynx normal Eye: COMMON NORMALS: Eq ual, round and harman ctive pupils prese nt CONJUNCTIVA: Y es conjunctival ab normal positive bi lateral conjunctiv al icterus SCLERA : scleral abnormal Laterality of scl eral abnormality: positive bilateral scleral icterus PUPIL: Yes Equal, round and reactive pupils present E OM: No EOM abnorma l Neck/C-Spine: COMMON NORMALS: Th yroid normal GENE RAL: Yes normal vi sual inspection an d Yes trachea midl ine THYROID: Thyr oid normal CAROTI DS: No bruit CERV ICAL SPINE: Yes ce rvical ROM normal Lymph: OTHER: No cervic al or supraclavicu lar LAD Resp: OTHER: Expirator y wheezes on auscu ltation of bilater al lung [place]. Cardio: OTHER: RRR, diff icult to appreciat e murmurs rubs gal lops GI: OTHER: bs+, dist ended, mild tender ness to the epigas trium and right up per quadrant and r ight lower quadran t. No guarding, n o rigidity, no feroz ound tenderness. Extremity: GENERAL: No clubbi ng, No cyanosis an d No edema Neuro: SENSORIUM/ORIENTAT ION: Yes oriented to person, Yes tatianna ented to place and Yes oriented to t meme CRANIAL NERVE S: Yes CN normal e xcept as noted SP EECH: Other neuro speech findings (G arbled speech) SE NSORY EXAM: No sen paz level loss de tected MOTOR EXAM : Normal motor mus angelito tone present t hroughout Psych: COMMON NORMALS: me ntal status grossl y normal, Normal t hought process pre sent, cooperative, normal affect, sp eech normal, denie s homicidal ideati on and denies suic idal ideation SPE ECH: Yes normal sp eech THOUGHT PROC ESS: Normal though t process present Skin: OTHER: Jaundiced skin Urinary Catheter M anagement: Iglesias: Cath Place d During This Visi t: yes Reason for Continuing Indwel ling Catheter: Acc urate Measurement of Urinary Output in Critically Ill Patients Urinary Catheter Date of I nsertion: 08/24/24 Urinary Catheter Time of Insertion : 06:50 Urinary Catheter Management: Iglesias: Cath Placed During This Visit: yes Reason for Continuing Indwelling Catheter: Accurate Measurement of Urinary Output in Critically Ill Patients Urinary Catheter Date of Insertion: 08/24/24 Urinary Catheter Time of Insertion: 06:50 TS Data Studies Completed and Pending Pending at discharge Category Date Time Status Complete Blood Count w/Auto AM LABS Lab 08/29/24 04:00 Ordered Complete Blood Count w/Auto AM LABS Lab 08/30/24 04:00 Ordered Complete Blood Count w/Auto AM LABS Lab 08/31/24 04:00 Ordered Comprehensive Metabolic Panel AM LABS Lab 08/29/24 04:00 Ordered Comprehensive Metabolic Panel AM LABS Lab 08/30/24 04:00 Ordered Comprehensive Metabolic Panel AM LABS Lab 08/31/24 04:00 Ordered Magnesium AM LABS Lab 08/29/24 04:00 Ordered Magnesium AM LABS Lab 08/30/24 04:00 Ordered Magnesium AM LABS Lab 08/31/24 04:00 Ordered Phosphorus AM LABS Lab 08/29/24 04:00 Ordered Phosphorus AM LABS Lab 08/30/24 04:00 Ordered Phosphorus AM LABS Lab 08/31/24 04:00 Ordered Completed Studies During Hospitalization Category [place] [id number] Stat Cat Scan 08/23/24 21:03 Completed XR chest 1V portable [id number] Stat Exams 08/23/24 20:43 Completed XR chest 1V portable [id number] Stat Exams 08/23/24 21:52 Completed CV. echo complete* [id number] Routine Ultrasound 08/24/24 07:32 Completed US abdomen lmt fluid [id number] Routine Ultrasound 08/25/24 19:44 Completed Laboratory Last Values WBC 17.40 10^3/uL (3.29-11.43) H 08/28/24 04:25 Corrected WBC Cancelled 08/26/24 04:32 RBC 2.89 10^6/uL (3.85-5.65) L 08/28/24 04:25 Hgb 9.50 g/dL (11.27-16.99) L 08/28/24 04:25 Hct 28.8 % (37-53) L 08/28/24 04:25 MCV 99.7 fl (82-101) 08/28/24 04:25 MCH 32.9 pg (27-33) 08/28/24 04:25 MCHC 33.0 g/dL (30-55) 08/28/24 04:25 RDW 17.4 % (12.1-15.1) H 08/28/24 04:25 Plt Count 30 10^3/cmm (157-399) L 08/28/24 04:25 MPV 12.6 fL (7.4-10.4) H 08/28/24 04:25 Gran % Cancelled 08/26/24 04:32 Neut % (Auto) 89.9 % 08/28/24 04:25 Lymph % (Auto) 6.0 % 08/28/24 04:25 [place] % (Auto) 3.0 % 08/28/24 04:25 Eos % (Auto) 0.2 % 08/28/24 04:25 Baso % (Auto) 0.2 % 08/28/24 04:25 Neut # (Auto) 15.63 10^3/uL (1.8-7.7) H 08/28/24 04:25 Lymph # (Auto) 1.1 10^3/uL (0.8-4.8) 08/28/24 04:25 [place] # (Auto) 0.5 10^3/uL (0.2-0.9) 08/28/24 04:25 Eos # (Auto) 0.0 10^3/uL (0.0-0.8) 08/28/24 04:25 Baso # (Auto) 0.0 10^3/uL (0.0-0.1) 08/28/24 04:25 Absolute Gran (auto) Cancelled 08/26/24 04:32 Nucleated RBC % (auto) 0.6 % 08/28/24 04:25 Nucleated RBCs # 0.1 /100WBC 08/28/24 04:25 PT 18.70 SECONDS (12.1-14.9) H 08/27/24 04:49 INR 1.46 (0.8-1.2) H 08/27/24 04:49 APTT 35.9 SECONDS (23.9-36.7) 08/27/24 04:49 Specimen Type Arterial 08/25/24 04:38 Sample Site Radial, left 08/25/24 04:38 ABG pH 7.40 (7.35-7.45) 08/25/24 04:38 ABG pCO2 28.6 mmHg (35-45) L 08/25/24 04:38 ABG pO2 75.9 mmHg (80.0-100.0) L 08/25/24 04:38 ABG HCO3 17.5 mmol/L (22-26) L 08/25/24 04:38 ABG O2 Saturation 94.1 08/25/24 04:38 ABG Base Excess -6.2 mmol/L (-2.0-2.0) L 08/25/24 04:38 Melquiades Test Pos 08/25/24 04:38 VBG pH 7.27 (7.32-7.42) L 08/23/24 21:20 VBG pCO2 30.4 mmHg (41-51) L 08/23/24 21:20 VBG pO2 35.7 mmHg (25-40) 08/23/24 21:20 VBG HCO3 13.8 mmol/L (24-28) L 08/23/24 21:20 VBG Base Excess -11.9 mmol/L (-3.0-3.0) L 08/23/24 21:20 VBG Hematocrit 37.7 % (42-52) L 08/23/24 21:20 A-a O2 Gradient 4.6 mmHg (5-10) L 08/25/24 04:38 Hematocrit 34.4 % (42-52) L 08/25/24 04:38 Hgb O2 Saturation 92.5 % (95-100) L 08/25/24 04:38 Carboxyhemoglobin 1.2 %THgb (0.4-20.1) 08/25/24 04:38 Methemoglobin 0.5 % (0.4-1.5) 08/25/24 04:38 Total Hemoglobin 11.2 g/dL (14-18) L 08/25/24 04:38 Sodium 132.0 mmol/L (131-143) 08/25/24 04:38 Potassium 4.4 mmol/L (3.5-5.0) 08/25/24 04:38 Glucose 289.0 mg/dL (70-115) H 08/25/24 04:38 Ionized Calcium 0.9 mmol/L (1.1-1.4) L 08/25/24 04:38 O2 Delivery Device Nc 08/25/24 04:38 O2 Liters/Min 2.0 % 08/25/24 04:38 Information Analyst ID [email or web address] 08/25/24 04:38 Sodium 141 mmol/L (136-145) 08/28/24 04:25 Potassium 3.8 mmol/L (3.5-5.1) 08/28/24 04:25 Chloride 94 mmol/L (98-107) L 08/28/24 04:25 Carbon Dioxide 29 mmol/L (22-29) 08/28/24 04:25 Anion Gap 21.8 (5-19) H 08/28/24 04:25 BUN 116 mg/dL (8-23) H* 08/28/24 04:25 Creatinine 2.5 mg/dL (0.7-1.2) H 08/28/24 04:25 GFR Calculation 26.3 mL/min (90-130) L 08/28/24 04:25 Glucose 106 mg/dL (65-115) 08/28/24 04:25 POC Glucose 167 mg/dL (70-110) H 08/28/24 21:05 Calculated Osmolality 329 mOsm/kg (285-295) H 08/28/24 04:25 Lactic Acid 3.6 mmol/L (0.5-2.2) H 08/23/24 21:20 Lactic Acid (Sepsis) 3.9 mmol/L (0.5-2.2) H 08/24/24 00:04 Lactate 3.4 mmol/L (0.5-2.2) H 08/24/24 05:34 Calcium 9.0 mg/dL (8.5-10.5) 08/28/24 04:25 Phosphorus 6.7 mg/dL (2.5-4.5) H 08/28/24 04:25 Magnesium 2.1 mg/dL (1.7-2.3) 08/28/24 04:25 Total Bilirubin 4.7 mg/dL (0.15-1.2) H 08/28/24 04:25 Direct Bilirubin 3.00 mg/dL (0.00-0.30) H 08/27/24 04:49 GGT 51 U/L (8-61) 08/26/24 03:40 AST 29 U/L (0-40) 08/28/24 04:25 ALT 13 U/L (0-41) 08/28/24 04:25 Alkaline Phosphatase 133 U/L (40-130) H 08/28/24 04:25 Total Protein 5.9 g/dL (6.6-8.7) L 08/28/24 04:25 Albumin 3.6 g/dL (3.5-5.2) 08/28/24 04:25 Globulin 2.3 g/dL (1.3-4.6) 08/28/24 04:25 Urine Color [place] (Yellow) A 08/24/24 04:47 Urine Appearance Cloudy (CLEAR) A 08/24/24 04:47 Urine pH 5.0 (5-7) 08/24/24 04:47 Ur Specific [place] 1.020 (1.005-1.030) 08/24/24 04:47 Urine Protein 1+ (Negative) A 08/24/24 04:47 Urine Glucose (UA) Negative (Normal) 08/24/24 04:47 Urine Ketones Negative (Negative) 08/24/24 04:47 Urine Blood Negative (Negative) 08/24/24 04:47 Urine Nitrate Positive (Negative) A 08/24/24 04:47 Urine Bilirubin 3+ (Negative) H 08/24/24 04:47 Urine Urobilinogen 1.0 mg/dL (Negative) 08/24/24 04:47 Ur Leukocyte Esterase 1+ (Negative) A 08/24/24 04:47 Urine RBC 11-20 /hpf (0-2) H 08/24/24 04:47 Urine WBC 0-5 /hpf (0-5) 08/24/24 04:47 Ur Squamous Epith Cells 6-10 /hpf (0-5) 08/24/24 04:47 Amorphous Sediment 3+ /hpf 08/24/24 04:47 Urine Bacteria 1+ /hpf (NONE) H 08/24/24 04:47 Hyaline Casts 17.37 /lpf 08/24/24 04:47 Vancomycin Trough 19.9 ug/mL (10-15) H 08/26/24 05:38 Ethyl Alcohol < 10 mg/dL (0-10) 08/23/24 21:20 Coronavirus (PCR) Negative (Negative) 08/23/24 20:57 Hepatitis A IgM Ab Non-reactive (Nonreactive) 08/26/24 03:40 Hep Bs Antigen Non-reactive (Nonreactive) 08/26/24 03:40 Hep Bs Antibody < 3.5 (11.5-1000) L 08/26/24 03:40 Hep B Core Total Ab Non-reactive (Nonreactive) 08/26/24 03:40 Hepatitis C Antibody Reactive (Nonreactive) H 08/26/24 03:40 HCV RNA (PCR) IUs/ml 6.67 Log IU/mL (NOT DETECTED) H 08/26/24 15:02 HCV RNA (PCR) IU log10 [id number] IU/mL (NOT DETECTED) H 08/26/24 15:02 HIV 1&2 Ab & HIV 1 Ag Non-reactive (Non-Reactiv) 08/26/24 03:40 HIV 1&2 Antibody Non-reactive (Non-Reactiv) 08/26/24 03:40 Influenza A (PCR) Negative (Negative) 12/29/24 20:57 Influenza Type B (PCR) Negative (Negative) 08/23/24 20:57 RSV (PCR) Negative (Negative) 08/23/24 20:57 Radiology Impressions Chest/Abdomen/Pelvis CT 08/23/24 21:03 IMPRESSION: 1. Severe pulmonary metastatic disease. No definite primary lung malignancy identified. 2. Prominent right hilar, middle mediastinal, and anterior mediastinal lymph nodes. These are suspicious for metastatic disease. IMPRESSION: 1. Large 15.7 cm mass or collection of masses in the right liver lobe. The liver appears cirrhotic and this could represent a primary hepatocellular carcinoma. Metastatic disease is also in the differential. 2. Enlarged lymph nodes adjacent to the main portal vein, suspicious for metastatic disease. 3. Diverticulosis of the colon without diverticulitis. 4. Mild-moderate ascites. Chest X-Ray 08/23/24 21:52 IMPRESSION: 1. Central line placement without pneumothorax. 2. Pulmonary nodules, consistent with metastatic disease. Follow-up with a CT chest recommended. Abdomen Ultrasound 08/25/24 19:44 IMPRESSION: Insufficient fluid for paracentesis Recent Clincial Data Last Vital Signs Temp 97.5 F L 08/28/24 08:45 Pulse 101 H 08/28/24 20:00 Resp 20 H 08/28/24 20:00 BP 101/65 08/28/24 18:00 Pulse Ox 93 08/28/24 20:00 O2 Del Method Nasal Cannula 08/28/24 20:00 O2 Flow Rate 2 08/28/24 20:00 Vital Signs Pulse Resp BP Pulse Ox O2 Del Method O2 Flow Rate 08/28/24 20:00 101 H 20 H 93 Nasal Cannula 2 08/28/24 18:00 102 H 101/65 92 Nasal Cannula 2 08/28/24 17:45 105 H 86/60 92 08/28/24 17:30 108 H 86/60 91 08/28/24 17:15 108 H 13 86/60 92 08/28/24 17:00 110 H 12 126/76 08/28/24 16:45 109 H 14 126/76 91 08/28/24 16:30 113 H 19 H 126/76 87 L 08/28/24 16:15 106 H 21 H 126/76 91 Nasal Cannula 2 08/28/24 16:13 104 H 08/28/24 16:02 118 H 18 94 Nasal Cannula 2 08/28/24 16:00 135 H 15 98/52 89 L 08/28/24 15:45 109 H 29 H 98/52 96 08/28/24 15:30 98 23 H 98/52 93 08/28/24 15:15 103 H 18 98/52 93 08/28/24 15:00 100 15 108/65 91 08/28/24 14:45 100 13 108/65 94 08/28/24 14:30 101 H 11 L 108/65 93 08/28/24 14:15 104 H 15 108/65 93 08/28/24 14:00 101 H 08/28/24 14:00 101 H 17 95/66 91 Nasal Cannula 2 08/28/24 13:45 105 H 23 H 95/66 90 08/28/24 13:30 116 H 22 H 95/66 93 08/28/24 13:15 101 H 17 95/66 94 08/28/24 13:00 96 15 109/65 91 08/28/24 12:45 102 H 20 H 109/65 92 08/28/24 12:30 101 H 13 109/65 91 08/28/24 12:15 105 H 20 H 109/65 91 08/28/24 12:00 100 22 H 109/65 91 Nasal Cannula 2 08/28/24 11:46 103 H 08/28/24 11:45 99 24 H 97/61 93 08/28/24 11:38 101 H 15 94 Nasal Cannula 2 08/28/24 11:30 98 12 97/61 92 08/28/24 11:15 98 16 97/61 93 08/28/24 11:00 102 H 13 96/58 93 08/28/24 10:45 110 H 14 96/58 93 08/28/24 10:30 102 H 17 96/58 93 08/28/24 10:15 103 H 14 96/58 94 08/28/24 10:00 101 H 10 L 111/69 90 Nasal Cannula 2 08/28/24 09:45 104 H 14 111/69 94 08/28/24 09:30 108 H 25 H 111/69 92 Intake & Output/Weight 08/26/24 08/27/24 08/28/24 08/29/24 06:59 06:59 06:59 06:59 Intake Total 2972.575 / 2972.575 1227.65 / 1227.65 540 / 540 100 / 100 Output Total 1075 / 1075 750 / 750 775 / 775 375 / 375 Balance 1897.575 / 1897.575 477.65 / 477.65 -235 / -235 -275 / -275 Weight 77.836 kg 78 kg 80 kg Vitals Last Vital Signs Temp 97.5 F L 08/28/24 08:45 Pulse 101 H 08/28/24 20:00 Resp 20 H 08/28/24 20:00 BP 101/65 08/28/24 18:00 Pulse Ox 93 08/28/24 20:00 O2 Del Method Nasal Cannula 08/28/24 20:00 O2 Flow Rate 2 08/28/24 20:00 TS Medications Medications Acetaminophen (Acetaminophen 325 Mg Tablet) 650 mg PO Q6H PRN PRN Reason: MILD PAIN Last Admin: 08/28/24 12:12 Dose: 650 mg Albuterol/Ipratropium (Ipratropium-Albuterol 3 Ml Neb) 3 ml INHALATION Q4H.RESPIRATORY ROSARIO Last Admin: 08/28/24 20:00 Dose: 3 ml Docusate Sodium (Docusate Sodium 100 Mg Capsule) 100 mg PO BID ROSARIO Last Admin: 08/28/24 17:31 Dose: 100 mg Folic Acid (Folic Acid 1 Mg Tablet) 1 mg PO DAILY ROSARIO Last Admin: 08/28/24 08:49 Dose: 1 mg Norepinephrine Bitartrate (Levophed) 4 mg in 250 mls @ 0 mls/hr IV .Q0M ROSARIO; Protocol Last Titration: 08/25/24 21:44 Dose: 0 mcg/min, 0 mls/hr Vasopressin (Vasostrict) 40 unit in 100 mls @ 4.5 mls/hr IV CONT ROSARIO Last Admin: 08/28/24 10:30 Dose: Not Given Albumin Human (Albumin) 25 g in 100 mls @ 60 mls/hr IV Q8H ROSARIO Last Admin: 08/28/24 17:31 Dose: 60 mls/hr Insulin Human Lispro (Insulin Lispro 100 Unit/1 Ml) 0 unit SUBCUT WM&BEDTIME ROSARIO; Protocol Last Admin: 08/28/24 17:31 Dose: 2 unit Lanolin (Lanolin Oint 7 Gm) 1 applic TOPICAL PRN PRN PRN Reason: DRYNESS Last Admin: 08/26/24 20:37 Dose: 1 applic Meropenem (Meropenem 500 Mg Sdv) 500 mg IVP Q12H PENDING SALE TO [facility] Last Admin: 08/28/24 17:45 Dose: 500 mg Methylprednisolone Sodium Succinate (Methylprednisolone Sod Succ 125 Mg/2 Ml Inj) 60 mg IVP DAILY PENDING SALE TO [facility] Last Admin: 08/28/24 08:49 Dose: 60 mg Midodrine (Midodrine 5 Mg Tablet) 10 mg PO TID PENDING SALE TO [facility] Last Admin: 08/28/24 15:24 Dose: 10 mg Morphine Sulfate (Morphine 4 Mg/Ml Sdv 1 Ml) 4 mg IVP Q6H PRN PRN Reason: SEVERE PAIN Ondansetron HCl (Ondansetron 2 Mg/Ml Sdv 2 Ml) 4 mg IVP Q6H PRN PRN Reason: NAUSEA AND VOMITING Last Admin: 08/27/24 01:01 Dose: 4 mg Ondansetron HCl (Ondansetron 4 Mg Tablet) 4 mg PO Q6H PRN PRN Reason: NAUSEA Pantoprazole Sodium (Pantoprazole 40 Mg Sdv) 40 mg IVP Q24H PENDING SALE TO [facility] Last Admin: 08/28/24 06:04 Dose: 40 mg Senna (Sennosides 8.6 Mg Tablet) 17.2 mg PO BEDTIME PENDING SALE TO [facility] Last Admin: 08/27/24 21:13 Dose: 17.2 mg Thiamine HCl (Thiamine 100 Mg/Ml Sdv) 100 mg IVP DAILY PENDING SALE TO [facility] Last Admin: 08/28/24 08:49 Dose: 100 mg Discontinued Medications Acetaminophen (Acetaminophen 650 Mg Supp) 650 mg DE Q6H PRN PRN Reason: FEVER Albuterol/Ipratropium (Ipratropium-Albuterol 3 Ml Neb) 3 ml INHALATION ONCE ONE Stop: 08/23/24 22:04 Last Admin: 08/23/24 22:48 Dose: 3 ml Furosemide (Furosemide 10 Mg/Ml Sdv 4ml) 40 mg IVP Q24H PENDING SALE TO [facility] Furosemide (Furosemide 10 Mg/Ml Sdv 4ml) 40 mg IVP Q8H PENDING SALE TO [facility] Last Admin: 08/28/24 00:44 Dose: 40 mg Heparin Sodium (Porcine) (Heparin 5,000 Unit/Ml Inj 1 Ml) 5,000 unit SUBCUT Q12H PENDING SALE TO [facility] Last Admin: 08/26/24 08:15 Dose: 5,000 unit Sodium Chloride (Sodium Chloride 0.9%) 2,381.37 mls @ 2,381.37 mls/hr 30 ml/kg infuse over 1 hr (2381.37 ml) IV .Q1H ONE Stop: 08/23/24 21:41 Last Infusion: 08/23/24 22:32 Dose: Infused Vancomycin HCl 1,000 mg/ (Sodium Chloride) 250 mls @ 250 mls/hr IV ONCE ONE; Protocol Stop: 08/23/24 22:50 Last Infusion: 08/23/24 23:50 Dose: Infused Aztreonam 2,000 mg/ Sodium (Chloride) 100 mls @ 200 mls/hr IV ONCE ONE; Protocol Stop: 08/23/24 22:21 Last Infusion: 08/23/24 23:22 Dose: Infused Vasopressin (Vasostrict) 40 unit in 100 mls @ 0 mls/hr IV .Q0M ROSARIO; Protocol Last Titration: 08/25/24 19:00 Dose: Infused Vasopressin (Vasostrict) Confirm Administered Dose 40 unit in 100 mls @ as directed .ROUTE .STK-MED ONE Stop: 08/24/24 05:18 Last Admin: 08/24/24 05:50 Dose: Not Given Sodium Chloride (Sodium Chloride 0.9%) 1,000 mls @ 75 mls/hr IV .[id number] ROSARIO Stop: 08/25/24 09:24 Last Infusion: 08/24/24 19:00 Dose: Infused Sodium Chloride (Sodium Chloride 0.9%) 1,000 mls @ 999 mls/hr IV .Q1H1M ONE Stop: 08/24/24 07:48 Last Infusion: 08/24/24 07:53 Dose: Infused Vancomycin HCl (Vancocin) 1,500 mg in 300 mls @ 200 mls/hr IV ONCE ONE Stop: 08/24/24 08:29 Last Infusion: 08/24/24 19:00 Dose: Infused Sodium Bicarbonate 150 meq/ (Dextrose) 1,150 mls @ 75 mls/hr IV .[id number] ROSARIO Last Infusion: 08/26/24 18:12 Dose: 0 mls/hr Albumin Human (Albumin) 12.5 gm in 250 mls @ 300 mls/hr IV ONCE ONE Stop: 08/24/24 21:02 Last Infusion: 08/24/24 21:30 Dose: Infused Albumin Human (Albumin) 25 g in 100 mls @ 60 mls/hr IV Q8H ROSARIO Stop: 08/26/24 02:54 Last Infusion: 08/26/24 03:00 Dose: Infused Insulin Human Lispro (Insulin Lispro 100 Unit/1 Ml) 0 unit SUBCUT WM&BEDTIME ROSARIO; Protocol Methylprednisolone Sodium Succinate (Methylprednisolone Sod Succ 125 Mg/2 Ml Inj) 125 mg IVP ONCE ONE Stop: 08/24/24 07:23 Last Admin: 08/24/24 07:42 Dose: 125 mg Morphine Sulfate (Morphine 4 Mg/Ml Sdv 1 Ml) 2 mg IVP Q4H PRN PRN Reason: SEVERE PAIN Last Admin: 08/24/24 06:18 Dose: 2 mg Morphine Sulfate (Morphine 4 Mg/Ml Sdv 1 Ml) 4 mg IVP Q6H PRN PRN Reason: SEVERE PAIN Last Admin: 08/28/24 00:44 Dose: 4 mg Vancomycin HCl (Vancomycin 1,000 Mg Sdv (Pharmacy Mix)) 0 mg XX PRN PRN PRN Reason: Pharmacy to Dose Allergies Penicillins Allergy (Verified 04/07/21 10:03) Unknown Home Medications albuterol sulfate 90 mcg/actuation aerosol inhaler 1 inh inhalation Q6H PRN shortness of breath or wheezing #8.5 grams 04/11/21 [Rx Confirmed 08/24/24] fluticasone 250 mcg-salmeterol 50 mcg/dose blistr powdr for inhalation (Advair Diskus) 1 inh inhalation BID #60 ea 04/11/21 [Rx Confirmed 08/24/24] furosemide 40 mg tablet (Lasix) 40 mg PO BID #60 tabs 04/11/21 [Rx Confirmed 08/24/24] losartan 50 mg tablet 50 mg PO DAILY #30 tabs 04/11/21 [Rx Confirmed 08/24/24] metoprolol tartrate 25 mg tablet 25 mg PO BID@0900,2100 #60 tabs 04/11/21 [Rx Confirmed 08/24/24] spironolactone 25 mg tablet 25 mg PO DAILY #30 tabs 04/11/21 [Rx Confirmed 08/24/24] tiotropium bromide 18 mcg capsule with inhalation device (Spiriva with HandiHaler) 1 cap inhalation DAILY #30 inhalations 04/11/21 [Rx Confirmed ] sacubitril 24 mg-valsartan 26 mg tablet (Entresto) 0.5 tab PO BID 08/24/24 [History Confirmed 08/24/24] Discharge Plan Discharge Patient Disposition: Xfer Other Condition: Stable Prescriptions: No Action losartan 50 mg Tablet 50 mg PO DAILY Qty: 30 0RF spironolactone 25 mg Tablet 25 mg PO DAILY Qty: 30 0RF metoprolol tartrate 25 mg Tablet 25 mg PO BID@0900,2100 Qty: 60 0RF furosemide [Lasix] 40 mg tablet 40 mg PO BID Qty: 60 0RF fluticasone propion-salmeterol [Advair Diskus] 250-50 mcg/dose blister with device 1 inh inhalation BID Qty: 60 0RF albuterol sulfate 90 mcg/actuation HFA aerosol inhaler 1 inh inhalation Q6H PRN (Reason: shortness of breath or wheezing) Qty: 8.5 0RF tiotropium bromide [Spiriva with HandiHaler] 18 mcg capsule, w/inhalation device 1 cap inhalation DAILY Qty: 30 0RF Rx Instructions: puncture 1 cap using device; one dose = 2 inhalations sacubitril-valsartan [Entresto] 24-26 mg Tablet 0.5 tab PO BID Referrals: [facility] [Other] Transfer Attestations Time Spent in Transfer Care: greater than 30 min Status at Transfer: Cognitive status at transfer: cognitively intact ; Behavioral status at transfer: cooperative ; Quality Metrics Clinical Quality Measures [ No reported AMI, CVA or VTE this stay] Coding Level of Care Code Acute Code for Chg Fwd Diagnoses Noncompliance Z91.19 Alcohol use disorder F10.90 Benign essential hypertension with target blood pressure below 140/90 I10 CHF (congestive heart failure) I50.9 Nonischemic cardiomyopathy I42.8 Hepatitis C antibody positive in blood R76.8 Liver mass R16.0 Cancer, metastatic to lung C78.00 Septic shock A41.9; R65.21 Chronic obstructive pulmonary disease, unspecified COPD type J44.9 COPD type: unspecified COPD Tobacco dependency F17.200 Renal failure N19 Lactic acidosis E87.20 Goals of care, counseling/discussion Z71.89 Anuria R34 Liver failure K72.90 Hepatorenal syndrome K76.7
[2024-08-28] MEDS: sennosides 8.6 mg Tablet 17.2 MG PO (21:32)
--- NOTE | 2024-08-28 21:55 | PC.NURSE ---
Called Vince WILKINS: This nurse called Vince WILKINS and gave report to nurse Nova, patient assigned room G307-01 in the ICU. EMS called, currently awaiting transfer.
[2024-08-29] VITALS (29 sets, daily range): BP systolic 96–116; BP diastolic 60–68; PULSE 94–110; RESP 12–20; TEMP 36.5–36.7; O2SAT 91–96; BMI 24.6
[2024-08-29] MEDS: morphine 4 mg/mL SDV 1 mL IVP (00:07)
[2024-08-29] MEDS: albumin 25 G/100 ML BAG 60 G IV (00:07)
[2024-08-29] MEDS: lanolin oint 7 gm 1 APPLIC TOPICAL (00:10)
[2024-08-29] MEDS: ipratropium-albuterol 3 mL Neb INHALATION (03:58)
[2024-08-29 05:17] LABS: Basophils % 0.2 %; Eosinophils # 0.2 10^3/uL (0.0-0.8); Hematocrit 28.5 % (37-53); Lymphocytes # 1.3 10^3/uL (0.8-4.8); Lymphocytes % 5.8 %; Mean Corpuscular Hemoglobin 32.3 pg (27-33); Mean Corpuscular Volume 97.9 fl (82-101); Mean Platelet Volume 12.5 fL (7.4-10.4); Monocytes # 0.6 10^3/uL (0.2-0.9); Monocytes % 2.5 %; Neutrophils # 20.13 10^3/uL (1.8-7.7); Neutrophils % 89.8 %; Nucleated Red Blood Cells # 0.1 /100WBC; Nucleated Red Blood Cells % 0.5 %; Platelet Count 34 10^3/cmm (157-399); Red Blood Count 2.91 10^6/uL (3.85-5.65); Red Cell Distribution Width 17.3 % (12.1-15.1); White Blood Count 22.44 10^3/uL (3.29-11.43)
[2024-08-29 05:43] LABS: Alanine Aminotransferase 10 U/L (0-41); Albumin Level 3.6 g/dL (3.5-5.2); Alkaline Phosphatase 136 U/L (40-130); Anion Gap 21.6 (5-19); Aspartate Amino Transferase 26 U/L (0-40); Calcium 9.4 mg/dL (8.5-10.5); Carbon Dioxide 28 mmol/L (22-29); Chloride 94 mmol/L (98-107); Creatinine Clr Calc Pharmacy 29.3274; Globulin 2.1 g/dL (1.3-4.6); Glomerular Filtration Rate 23.1 mL/min (90-130); Glucose 109 mg/dL (65-115); Magnesium 2.2 mg/dL (1.7-2.3); Phosphorus 6.8 mg/dL (2.5-4.5); Potassium 3.6 mmol/L (3.5-5.1); Sodium 140 mmol/L (136-145); Total Bilirubin 5.3 mg/dL (0.15-1.2); Total Protein 5.7 g/dL (6.6-8.7)
[2024-08-29] MEDS: meropenem 500 mg SDV IVP (05:55)
[2024-08-29] MEDS: pantoprazole 40 mg SDV IVP (06:00)
[2024-08-29 06:14] LABS: Osmolality Calculated 331 mOsm/kg (285-295)
[2024-08-29 06:15] LABS: Blood Urea Nitrogen 127 mg/dL (8-23)
== END 2024-08-29 06:45 | disposition short-term general hospital (02) | DRG 871 ==
LOC: ER 22:50 → ICU 23:24
PROVIDERS: Hospitalist; Internal Medicine Nephrology; Admitting Provider Internal Medicine; Emergency Provider Emergency Medicine; PCP Family Medicine; Visit Provider Internal Medicine
DX: A41.9 Sepsis, unspecified organism (principal); K76.7 Hepatorenal syndrome; R65.21 Severe sepsis with septic shock; R18.8 Other ascites; I50.22 Chronic systolic (congestive) heart failure; J44.1 Chronic obstructive pulmonary disease with (acute) exacerbation; N17.9 Acute kidney failure, unspecified; E87.20 Acidosis, unspecified; B19.20 Unspecified viral hepatitis C without hepatic coma; I11.0 Hypertensive heart disease with heart failure; I25.5 Ischemic cardiomyopathy; R16.0 Hepatomegaly, not elsewhere classified; R91.8 Other nonspecific abnormal finding of lung field; F17.200 Nicotine dependence, unspecified, uncomplicated; R34 Anuria and oliguria; K72.90 Hepatic failure, unspecified without coma; R82.71 Bacteriuria; E87.5 Hyperkalemia; D69.6 Thrombocytopenia, unspecified; E86.0 Dehydration; Z91.199 Patient's noncompliance with other medical treatment and regimen due to unspecified reason; Z58.6 Inadequate drinking-water supply
CPT/HCPCS: 36415; 36416; 36592; 36600; 51702; 71045; 71250; 74176; 76705; 80048; 80051; 80053; 80076; 80202; 80307; 81001; 82248; 82330; 82803; 82805; 82962; 82977; 83605; 83735; 84100; 85025; 85610; 85730; 86705; 86706; 86709; 86803; 87040; 87086; 87340; 87522; 87637; 87806; 93005; 93306; 94640; 94664; 96365; 96367; 96372; 96374; 96376; 97110; 97162; 97165; 97530; 99232; 99233; 99285; C1751; J1644; J1815; J1940; J2185; J2270; J2405; J2470; J2598; J2919; J3370; J3411; J3490; J7030; J7050; J7070; P9045; P9046; Q3014